=== PATIENT | female | born 1940 | race African-American/Black ===

== ENCOUNTER 2018-02-24 21:06 | Inpatient (IN) | payer MEDICARE, OTHER ==
[~2018-02-24] VITALS: Ht 170.2 cm; Wt 72.6 kg
[~2018-02-24 21:06] MED LIST: ASPIRIN EC81 MG PO; DIOVAN160 MG PO; GLUCOPHAGE500 MG PO; NORCO 5-325 TA1 EACH ORAL
[2018-02-24 21:20] VITALS: BP 211/91
[2018-02-24] MEDS ORDERED: Tylenol #3 tab (300mg/30mg) ORAL ONE (21:45)
--- NOTE | 2018-02-24 23:22 | Diagnostic Imaging Report ---
EXAM: CT Pelvis Without Intravenous Contrast CLINICAL HISTORY: FALL TECHNIQUE: Axial computed tomography images of the pelvis without intravenous contrast. CTDI is 0.25, 11.91 mGy and DLP is 34 mGy-cm. One or more of the following dose reduction techniques were used: automated exposure control, adjustment of the mA and/or kV according to patient size, use of iterative reconstruction technique. COMPARISON: No relevant prior studies available. FINDINGS: Bowel: Unremarkable. No obstruction. No mucosal thickening. Appendix: Appendix is unremarkable. Intraperitoneal space: Unremarkable. No free air. No significant fluid collection. Bladder: Unremarkable. No stones. Reproductive: Uterus is surgically absent. Bones/joints: Acute fracture of the left sacral ala. Acute fracture of the inferior and superior left pubic ramus with extension to the anterior column of acetabulum. No dislocation. Soft tissues: Unremarkable. Vasculature: Vascular calcifications. No lower abdominal aortic aneurysm. Lymph nodes: Unremarkable. IMPRESSION: 1. Acute fracture of the left sacral ala. 2. Acute fracture of the inferior and superior left pubic ramus with extension to the anterior column of acetabulum.
--- NOTE | 2018-02-24 23:25 | Diagnostic Imaging Report ---
EXAM: XR Left Femur, 2 Views CLINICAL HISTORY: PAIN TECHNIQUE: Frontal and lateral views of the left femur. COMPARISON: No relevant prior studies available. FINDINGS: Bones/joints: No acute fracture or traumatic malalignment of the femur. Acute fracture of the inferior and superior left pubic ramus. Soft tissues: Unremarkable. Vasculature: Vascular calcifications. IMPRESSION: 1. No acute fracture or traumatic malalignment of the femur. 2. Acute fracture of the inferior and superior left pubic ramus.
--- NOTE | 2018-02-24 23:26 | Diagnostic Imaging Report ---
EXAM: XR Left Knee, 3 views CLINICAL HISTORY: PAIN TECHNIQUE: Three views of the left knee. COMPARISON: No relevant prior studies available. FINDINGS: Bones/joints: No acute fracture or traumatic malalignment. Soft tissues: Unremarkable. Vasculature: Vascular calcifications. IMPRESSION: No acute findings.
--- NOTE | 2018-02-24 23:26 | Diagnostic Imaging Report ---
EXAM: XR Left Elbow Complete, 3 or More Views CLINICAL HISTORY: PAIN TECHNIQUE: Frontal, lateral and oblique views of the left elbow. COMPARISON: No relevant prior studies available. FINDINGS: Limitations: Limited secondary to positioning. Bones/joints: No definite evidence of acute fracture traumatic malalignment. Osteopenia. Soft tissues: Unremarkable. IMPRESSION: No acute findings.
--- NOTE | 2018-02-24 23:27 | Diagnostic Imaging Report ---
EXAM: XR Left Shoulder Complete, 2 or More Views CLINICAL HISTORY: PAIN TECHNIQUE: Two or more views of the left shoulder. COMPARISON: No relevant prior studies available. FINDINGS: Bones/joints: No acute fracture or traumatic malalignment. Osteopenia. Soft tissues: Unremarkable. IMPRESSION: No acute findings.
[2018-02-24 23:29] LABS: HEMATOCRIT 36.1 % (37.0-47.0); HEMOGLOBIN 11.8 G/DL (12.0-16.0); MEAN CORPUSCULAR VOLUME 89 FL (80-99); PLATELET COUNT 258 K/UL (150-450); RED BLOOD COUNT 4.05 M/UL (4.20-5.40); WHITE BLOOD COUNT 19.5 K/UL (4.8-10.8)
[2018-02-24] MEDS ORDERED: Morphine Sulfate 2mg/ml Inj IVP ONE (23:45)
[2018-02-25 00:11] LABS: ANION GAP 11 mmol/L (5-15); BLOOD UREA NITROGEN 12 mg/dL (7-18); CALCIUM 9.7 MG/DL (8.5-10.1); CARBON DIOXIDE 27 MMOL/L (21-32); CHLORIDE 103 MMOL/L (98-107); CREATININE 1.2 MG/DL (0.55-1.30); POTASSIUM 4.2 MMOL/L (3.5-5.1); SODIUM 141 MMOL/L (136-145)
[2018-02-25 00:18] LABS: ALANINE AMINOTRANSFERASE 23 U/L (12-78); ALBUMIN 3.4 G/DL (3.4-5.0); ALBUMIN/GLOBULIN RATIO 0.8 (1.0-2.7); ALKALINE PHOSPHATASE 82 U/L (46-116); ASPARTATE AMINO TRANSFERASE 17 U/L (15-37); BILIRUBIN,TOTAL 0.3 MG/DL (0.2-1.0)
[2018-02-25] MEDS ORDERED: Morphine Sulfate 4mg/ml Inj (IV/IM USE ONLY) IVP PRN (00:30)
[2018-02-25] MEDS ORDERED: Heparin 5000 units/ml inj SUBQ SCH (00:30)
[2018-02-25] MEDS ORDERED: Milk of Magnesia 30ml Ud ORAL PRN (00:30)
[2018-02-25] MEDS ORDERED: Zolpidem 5mg tab ORAL PRN (00:30)
--- NOTE | 2018-02-25 01:02 | Emergency Room Report ---
History of Present Illness General Chief Complaint: Pain Source: EMS Present Illness HPI 77-year-old female presents ED for evaluation. Patient states that she had a fall at home tonight. She normally uses a walker. States she's having pain on the left side. Denies hitting her head or LOC. States she was here a few days ago for also a fall. Noted to have rib fractures and subsequently discharged. Pain is dull, 7 out of 10, nonradiating. Unable to bear weight at this time. Denies chest pain or shortness of breath. No other aggravating relieving factors. Denies any other associated symptoms Allergies: Coded Allergies: No Known Allergies (Unverified , 05/08/12) Patient History Past Medical History: HTN, CVA/TIA Past Surgical History: none Pertinent Family History: none Social History: Denies: smoking, alcohol use, drug use Now: No Immunizations: UTD Reviewed Nursing Documentation: PMH: Agreed; PSxH: Agreed Nursing Documentation-PMH Hx Cardiac Problems: Yes - CVA Hx Hypertension: Yes Hx Diabetes: Yes Hx Cancer: No Hx Gastrointestinal Problems: Yes Hx Cerebrovascular Accident: Yes Review of Systems All Other Systems: negative except mentioned in HPI Physical Exam Vital Signs Date Time Temp Pulse Resp B/P (MAP) Pulse Ox O2 Delivery O2 Flow Rate FiO2 02/24/18 20:56 98.6 100 15 174/88 93 Room Air 98.6 Sp02 EP Interpretation: reviewed, normal General Appearance: no apparent distress, alert, GCS 15, non-toxic Head: normocephalic Eyes: bilateral eye normal inspection, bilateral eye PERRL ENT: normal ENT inspection Neck: full range of motion, no bony tend, supple/symm/no masses Respiratory: chest non-tender, lungs clear, normal breath sounds, speaking full sentences Cardiovascular #1: regular rate, rhythm, no edema Gastrointestinal: normal bowel sounds, non tender, soft, non-distended, no guarding, no rebound Rectal: deferred Genitourinary: no CVA tenderness Musculoskeletal: other - L hip tenderness, tender - L shoulder, L elbow Neurologic: alert, oriented x3, responsive, motor strength/tone normal, sensory intact, speech normal Psychiatric: normal inspection Skin: normal inspection Lymphatic: normal inspection Medical Decision Making Diagnostic Impression: Primary Impression: Pelvic fracture Qualified Codes: S32.9XXA - Fracture of unspecified parts of lumbosacral spine and pelvis, initial encounter for closed fracture Additional Impression: Fall Qualified Codes: W19.XXXA - Unspecified fall, initial encounter ER Course Hospital Course 77-year-old female presents to ED with L hip pain and L sided pain s/p fall Differential diagnoses include: fracture, dislocation, contusion Clinical course Patient placed on stretcher. After initial history and physical I ordered labs , pain medication and imaging studies Labs reviewed-mild leukocytosis noted, electrolytes okay, hemoglobin/hematocrit okay Imaging shows fracture of the pubic rami extending to acetabulum on the left. CT head shows encephalomalacia and chronic changes Patient unable to bear weight Case discussed with Dr. Carter who agreed to consult on this case. Case discussed with Dr. Rain who agreed to accept the patient to his service for further care and support i. I feel this is a highly complex case requiring extensive working including EKG/Rhythm strip, Xray/CT/US, Blood/urine lab work, repeat exams while in ED, and administration of strong opiates/narcotics for pain control, admission to hospital or close patient follow up. Diagnosis - pelvic Fx, fall Admitted to floor in serious condition Labs Test 02/24/18 23:15 02/24/18 23:45 White Blood Count 19.5 K/UL (4.8-10.8) Red Blood Count 4.05 M/UL (4.20-5.40) Hemoglobin 11.8 G/DL (12.0-16.0) Hematocrit 36.1 % (37.0-47.0) Mean Corpuscular Volume 89 FL (80-99) Mean Corpuscular Hemoglobin 29.2 PG (27.0-31.0) Mean Corpuscular Hemoglobin Concent 32.7 G/DL (32.0-36.0) Red Cell Distribution Width 12.0 % (11.6-14.8) Platelet Count 258 K/UL (150-450) Mean Platelet Volume 10.2 FL (6.5-10.1) Neutrophils (%) (Auto) % (45.0-75.0) Lymphocytes (%) (Auto) % (20.0-45.0) Monocytes (%) (Auto) % (1.0-10.0) Eosinophils (%) (Auto) % (0.0-3.0) Basophils (%) (Auto) % (0.0-2.0) Differential Total Cells Counted 100 Neutrophils % (Manual) 81 % (45-75) Lymphocytes % (Manual) 12 % (20-45) Monocytes % (Manual) 5 % (1-10) Eosinophils % (Manual) 0 % (0-3) Basophils % (Manual) 0 % (0-2) Band Neutrophils 2 % (0-8) Platelet Estimate Adequate Platelet Morphology Normal Red Blood Cell Morphology Normal Sodium Level 141 MMOL/L (136-145) Potassium Level 4.2 MMOL/L (3.5-5.1) Chloride Level 103 MMOL/L (98-107) Carbon Dioxide Level 27 MMOL/L (21-32) Anion Gap 11 mmol/L (5-15) Blood Urea Nitrogen 12 mg/dL (7-18) Creatinine 1.2 MG/DL (0.55-1.30) Estimat Glomerular Filtration Rate mL/min (>60) Glucose Level 282 MG/DL (74-106) Calcium Level 9.7 MG/DL (8.5-10.1) Total Bilirubin 0.3 MG/DL (0.2-1.0) Aspartate Amino Transf (AST/SGOT) 17 U/L (15-37) Alanine Aminotransferase (ALT/SGPT) 23 U/L (12-78) Alkaline Phosphatase 82 U/L (46-116) Total Protein 7.6 G/DL (6.4-8.2) Albumin 3.4 G/DL (3.4-5.0) Globulin 4.2 g/dL Albumin/Globulin Ratio 0.8 (1.0-2.7) Other X-Ray Diagnostic Results Other X-Ray Diagnostic Results #1: X-Ray ordered: L shoulder # of Views/Limited Vs Complete: 3 View Indication: Pain EP Interpretation: Yes Interpretation: no dislocation, no soft tissue swelling, no fractures Impression: No acute disease Electronically Signed by: Electronically signed by Polo Fraser MD Other X-Ray Diagnostic Results #2: X-Ray ordered: L elbow # of Views/Limited Vs Complete: 3 View Indication: Pain EP Interpretation: Yes Interpretation: no dislocation, no soft tissue swelling, no fractures Impression: No acute disease Electronically Signed by: Electronically signed by Polo Fraser MD Other X-Ray Diagnostic Results #3: X-Ray ordered: L femur # of Views/Limited Vs Complete: 3 View Indication: Pain EP Interpretation: Yes Interpretation: no dislocation, no soft tissue swelling, other - pubic ramus fx Impression: Other - fx Electronically Signed by: Electronically signed by Polo Fraser MD Other X-Ray Diagnostic Results #4: X-Ray ordered: L knee # of Views/Limited Vs Complete: 3 View Indication: Pain EP Interpretation: Yes Interpretation: no dislocation, no soft tissue swelling, no fractures Impression: No acute disease Electronically Signed by: Electronically signed by Polo Fraser MD CT/MRI/US Diagnostic Results CT/MRI/US Diagnostic Results #1: Imaging Test Ordered: CT Pelvis Impression 1. Acute fracture of the left sacral ala. 2. Acute fracture of the inferior and superior left pubic ramus with extension to the anterior column of acetabulum CT/MRI/US Diagnostic Results #2: Imaging Test Ordered: CT HEad Impression no acute process Last Vital Signs Date Time Temp Pulse Resp B/P (MAP) Pulse Ox O2 Delivery O2 Flow Rate FiO2 02/24/18 23:53 186/77 02/24/18 23:53 98.6 02/24/18 21:20 99 17 93 Room Air Status: improved Disposition: ADMITTED INPATIENT Condition: Serious Referrals: NOT CHOSEN IPA/,REFERRING (PCP) Polo Fraser MD Feb 25, 2018 01:02
[2018-02-25 01:16] VITALS: BP 191/95
--- NOTE | 2018-02-25 01:43 | Diagnostic Imaging Report ---
PROCEDURE: CT HEAD Without Contrast HISTORY: 77-year-old female with headache after trauma. COMPARISON: CT head 02/19/2018 TECHNIQUE: CT imaging was obtained through the head. Coronal reformations were performed. DOSE: Total Exam volume computed tomography dose index (CTDIvol) = 70.53 mGy and Dose Length Product (DLP) = 1209 mGY-cm. One or more of the following dose reduction techniques were used: automated exposure control, adjustment of the mA and/or kV according to patient size, use of iterative reconstruction technique. FINDINGS: There is no evidence of acute intracranial hemorrhage, mass effect, or midline shift. The ventricles, sulci, and cisternal spaces are within normal limits for age. The tran-white matter differentiation is preserved. Postoperative changes of aneurysm clipping are similar to prior. Encephalomalacia in the right frontal, temporal, and parietal lobes with associated calcifications is similar to prior. The bony structures are intact. Visualized paranasal sinuses and mastoid air cells are clear. Visualized portions of the orbits are within normal limits. IMPRESSION: 1. No CT evidence of acute intracranial abnormality. 2. Other findings as detailed above.
[2018-02-25 01:47] LABS: APPEARANCE,URINE SLIGHTLY CLOUDY; BILIRUBIN, URINE NEGATIVE (NEGATIVE); COLOR,URINE PALE YELLOW; GLUCOSE, URINE (UA) 4+ (NEGATIVE); KETONES,URINE 3+ (NEGATIVE); LEUKOCYTE ESTERASE ,URINE 3+ (NEGATIVE); NITRITE,URINE POSITIVE (NEGATIVE); PH,URINE 7 (4.5-8.0); PROTEIN,URINE 1+ (NEGATIVE); UROBILINOGEN,URINE NORMAL MG/DL (0.0-1.0)
[2018-02-25] MEDS ORDERED: Heparin 5000 units/ml inj SUBQ ONE (03:15)
[2018-02-25 04:00] VITALS: BP 144/79
[2018-02-25] MEDS: NovoLOG Insulin Flexpen SUBQ SCH ×4 (07:14→21:56)
[2018-02-25 08:00] VITALS: BP 152/68
[2018-02-25] MEDS: Aspirin EC 81mg tab ORAL SCH (08:24)
[2018-02-25] MEDS: Morphine Sulfate 2mg/ml Inj IVP PRN ×2 (09:56→22:28)
[2018-02-25 12:18] VITALS: BP 150/80
--- NOTE | 2018-02-25 12:18 | History & Physical ---
History and Physical History & Physicial HP dictated # [id number] Arnulfo Rain MD Feb 25, 2018 12:18
[2018-02-25] MEDS: Cefepime HCl 1 GM in D5W 55 ML IVPB SCH (13:36)
[2018-02-25 16:00] VITALS: BP 139/77
--- NOTE | 2018-02-25 19:00 | History and Physical Report ---
DATE OF ADMISSION: 02/24/2018 CHIEF COMPLAINT: The patient fell at home and had hip pain. HISTORY OF PRESENT ILLNESS: This is a 77-year-old -[place] female, who lives at home with a nephew. The patient was trying to get to a pot to have stool and she fell. She did not feel dizzy, however, after the fall, she was not able to stand up. Paramedics were called. The patient was brought into the emergency room. The patient had a pelvic CT showing an acute fracture of the left sacral ala, also acute fracture of the inferior and superior left pubic ramus with extension to the anterior column of acetabulum. The patient was admitted with diagnosis of pelvic fracture. PAST MEDICAL HISTORY: Includes history of hypertension, diabetes, reported history of CVA. She has some stomach upset occasionally. MEDICATIONS: Reviewed in the EMR. SOCIAL HISTORY: The patient has no history of smoking or alcohol abuse. The patient lives at home as mentioned. REVIEW OF SYSTEMS: Also notable for dysuria, otherwise unremarkable. PHYSICAL EXAMINATION: GENERAL: The patient is an elderly female, in no acute distress. VITAL SIGNS: Blood pressure 152/68, pulse 96, respiratory rate 19, and temperature 97.7. HEENT: [place] conjunctivae. Anicteric sclerae. NECK: Supple. LUNGS: Clear to auscultation. HEART: S1 and S2 without murmurs or rubs. ABDOMEN: Soft and nontender. EXTREMITIES: No cyanosis or edema. LABORATORY FINDINGS: CBC shows WBC of 19,500, hematocrit is 36.1, hemoglobin is 11.8, and platelet is 258,000. Chemistry panel shows serum sodium 141, potassium 4.2, chloride 103, CO2 27, and blood sugar is 282. The UA shows 5-10 rbc's and 30-40 wbc's per high-power field with moderate bacteria. ASSESSMENT: This is a 77-year-old female, who is status post fall with pelvic fracture as described. The patient has also urinary tract infection. She has history of diabetes and hypertension. PLAN: The patient will be on pain medication and IV antibiotics. Physical therapy will be ordered. The patient will be seen by orthopedic surgeon. Blood pressure medications will be adjusted. She will be on sliding scale insulin at this time for diabetes. Arnulfo Rain M.D. DR: ZAID JOB#: [id number] CC:
[2018-02-25 20:00] VITALS: BP 177/87
--- NOTE | 2018-02-25 20:00 | Consultation ---
DATE OF CONSULTATION: 02/25/2018 INFECTIOUS DISEASE CONSULTATION CONSULTING PHYSICIAN: Dallas Rain M.D. PRIMARY ATTENDING PHYSICIAN: Arnulfo Rain M.D. REASON FOR CONSULT: UTI. HISTORY OF PRESENT ILLNESS: This is a 77-year-old female admitted last night after having a fall. The patient was found to have pelvic fracture, had leukocytosis at the time of admission, has pyuria, has difficulty of passing urine that started after the fall. PAST MEDICAL HISTORY: Significant for CVA with weakness in the left side of the body. The patient walks with a walker at home. She has diabetes mellitus and hypertension. She has history of rib fractures on 02/19/2018. Discharged to home from the ER. ALLERGIES: No known drug allergies. MEDICATIONS: Getting amlodipine, heparin, cefepime, aspirin, insulin, Tylenol, morphine, Zofran, and Ambien. SOCIAL HISTORY: . No history of alcohol, drug abuse, or smoking. She has some help at home. REVIEW OF SYSTEMS: No fever. No chills. Pain is controlled. No coughing. She sometimes has difficulty of swallowing. No nausea. No vomiting. Dysuria. Pain in the left hip. Cannot move the left hand secondary to previous CVA. PHYSICAL EXAMINATION: VITAL SIGNS: Temperature 98.9, pulse 102, and blood pressure 150/80. GENERAL APPEARANCE: No acute distress. HEAD AND NECK: [place] conjunctivae. Uses glasses. HEART: S1 and S2. Regular. Tachycardic. LUNGS: Clear. ABDOMEN: Soft and nontender. EXTREMITIES: No edema. LABORATORY DATA: WBC is 19.5, hemoglobin 11.8, hematocrit 36.1, and platelets 268,000. Sodium 141, potassium 4.2, chloride 103, bicarbonate 27, BUN 12, creatinine 1.2, glucose 282. UA showed glucose 4+, ketones 2+, blood 2+, nitrite positive, wbc's 30-40, rbc's 5-10, bacteria moderate. IMAGING: CT scan of the pelvis showed left sacral ala fracture, left pubic ramus fracture. Followup CT showed no fracture in the femur, but showed pubic ramus fracture in the left side. IMPRESSION: Pyuria and dysuria, likely UTI. Urine culture is pending. The patient has frequent falls. At this time, fall has resulted in left pelvic fracture. She has recent history of rib fracture. She has diabetes mellitus, hypertension, has history of CVA and hemiparesis. RECOMMENDATION: We will continue with cefepime. We will follow up urine culture. At the end of my exam, I thank Dr. Rain for involving me in the care of this patient. Dallas Rain M.D. DR: ALVERTO JOB#: [id number] CC: TERELL
[2018-02-25] MEDS: Heparin 5000 units/ml inj SUBQ SCH (21:48)
[2018-02-26] MEDS: Cefepime HCl 1 GM in D5W 55 ML IVPB SCH ×2 (01:09→14:03)
[2018-02-26 06:44] LABS: BASOPHILS % (AUTO) 0.5 % (0.0-2.0); EOSINOPHILS % (AUTO) 1.3 % (0.0-3.0); HEMOGLOBIN 11.2 G/DL (12.0-16.0); MEAN CORPUSCULAR VOLUME 87 FL (80-99); MONOCYTES % (AUTO) 5.4 % (1.0-10.0); NEUTROPHILS % (AUTO) 82.8 % (45.0-75.0); PLATELET COUNT 220 K/UL (150-450); RED BLOOD COUNT 3.78 M/UL (4.20-5.40); RED CELL DISTRIBUTION WIDTH 11.8 % (11.6-14.8); WHITE BLOOD COUNT 16.1 K/UL (4.8-10.8)
[2018-02-26] MEDS: NovoLOG Insulin Flexpen SUBQ SCH ×4 (06:50→20:24)
[2018-02-26 06:52] LABS: ANION GAP 10 mmol/L (5-15); BLOOD UREA NITROGEN 13 mg/dL (7-18); CALCIUM 9.3 MG/DL (8.5-10.1); CARBON DIOXIDE 26 MMOL/L (21-32); CHLORIDE 102 MMOL/L (98-107); CREATININE 1.1 MG/DL (0.55-1.30); POTASSIUM 3.9 MMOL/L (3.5-5.1); SODIUM 138 MMOL/L (136-145)
[2018-02-26 08:00] VITALS: BP 183/91
--- NOTE | 2018-02-26 08:12 | Consultation ---
Consult Note Consult Note 77 yo female with fall monday night. left LE pain and difficulty ambulating Xray/CT note left sacral ala fracture- non displaced and left inferior and superior pubic rami fractures without displacement. Currently pt's pain much better controlled. Rec non-surgical care. Pt can toe touch weight bear only x6 weeks. to be seen by PT. Assessment/Plan stable for d/c from ortho standpoint once stable medically. f/u as outpt for ongoing monitoring and progression of activity after 6 weeks. Susannah Rodriguez Feb 26, 2018 08:12
[2018-02-26] MEDS: Morphine Sulfate 2mg/ml Inj IVP PRN ×2 (09:10→16:55)
[2018-02-26] MEDS: Aspirin EC 81mg tab ORAL SCH (09:13)
[2018-02-26] MEDS: Heparin 5000 units/ml inj SUBQ SCH ×2 (09:19→20:20)
--- NOTE | 2018-02-26 11:00 | Consultation ---
DATE OF CONSULTATION: 02/26/2018 ORTHOPEDIC CONSULTATION CONSULTING PHYSICIAN: Crescencio Christie M.D. REFERRING PHYSICIAN: Consult called by Arnulfo Rain M.D. HISTORY: The patient is a pleasant 77-year-old female, who lives at home with her nephew and had a mechanical fall in her home on Monday night. She states she got up and she was standing on the stool, trying to get a pot from the cabinet when she fell. Paramedics were called and she was brought to [facility] where she was noted to have a pelvic fracture. Orthopedic consult has been called for treatment recommendations. PAST MEDICAL HISTORY: High blood pressure, diabetes, and history of stroke. PAST SURGICAL HISTORY: None. CURRENT MEDICATIONS: Please see chart. ALLERGIES: None. SOCIAL HISTORY: She does not smoke. She lives with her nephew, is independent with activities at baseline. PHYSICAL EXAMINATION: GENERAL: The patient is a very pleasant woman. She is cooperative with examination. She seated on the edge of the bed receiving some therapy modalities. EXTREMITIES: She has some tenderness to the left pelvis and some tenderness around the left hip. She is able to flex her hip without significant pain. She is able to internally and externally rotate her hip minimally without significant pain. There is no evidence of major bruising. There is no erythema or signs of skin breakdown. She is neurovascularly intact. She endorsing plantar flex. DIAGNOSTIC DATA: X-ray and CT, pelvic and femur x-rays are reviewed. No evidence of femur fracture or knee fracture. However, there is nondisplaced inferior and superior pubic rami fracture on the left. CT scan is also reviewed noting a left sacral ala fracture, which is nondisplaced and an inferior and superior pubic rami fracture on the left, that is nondisplaced. The fracture of the pubic rami does extend to the acetabular column, however there is no displacement here. There is no dislocation of the hip. IMPRESSION: 1. Left sacral ala fracture, nondisplaced. 2. Left inferior and superior pubic rami fracture, nondisplaced. DISCUSSION: I discussed with the patient my findings. I do not recommend surgery and she is very happy to hear that. I would recommend toe-touch weightbearing for six full weeks to allow the fracture to stabilize and heal. After six weeks, she can be progressed in her weightbearing and continue rehabilitation at that time. She may require short-term stay in rehabilitation center following her discharge from the hospital and she understands that. We will be happy to see her back as an outpatient for continued monitoring and serial x-rays to follow up that the fractures are healing. After six weeks, we will be able to progress her in her weightbearing status. All questions were answered. This was also discussed with physical therapist at the bedside. We will make note of the weightbearing status and start working with the patient. Crescencio Christie M.D. Vitor Morales DR: RACHEL JOB#: [id number] CC: TERELL
[2018-02-26] MEDS: metFORMIN 500mg tab ORAL SCH ×2 (11:30→18:01)
--- NOTE | 2018-02-26 12:32 | General Progress Note ---
Assessment/Plan Problem List: (1) Pelvic fracture ICD Codes: S32.9XXA - Fracture of unspecified parts of lumbosacral spine and pelvis, initial encounter for closed fracture SNOMED: 61375190 Qualifiers: Qualified Codes: S32.9XXA - Fracture of unspecified parts of lumbosacral spine and pelvis, initial encounter for closed fracture (2) Fall ICD Codes: W19.XXXA - Unspecified fall, initial encounter SNOMED: 8352003, [id number] Qualifiers: Qualified Codes: W19.XXXA - Unspecified fall, initial encounter (3) UTI (urinary tract infection) ICD Codes: N39.0 - Urinary tract infection, site not specified SNOMED: 51110505 (4) DM (diabetes mellitus) ICD Codes: E11.9 - Type 2 diabetes mellitus without complications SNOMED: 49361583 (5) HTN (hypertension) ICD Codes: I10 - Essential (primary) hypertension SNOMED: 80410601 Assessment/Plan abxs endo consult pain meds PT Subjective Allergies: Coded Allergies: No Known Allergies (Unverified , 05/08/12) Subjective feels ok Objective Last 24 Hour Vital Signs Date Time Temp Pulse Resp B/P (MAP) Pulse Ox O2 Delivery O2 Flow Rate FiO2 02/26/18 09:13 116 183/91 02/26/18 09:00 Room Air 02/26/18 08:00 98.6 116 21 183/91 (121) 94 98.6 116 02/26/18 04:00 100.0 109 19 95 100.0 02/25/18 21:00 Room Air 02/25/18 20:00 97.0 122 19 177/87 (117) 100 97.0 02/25/18 16:00 98.4 60 21 139/77 (97) 98 98.4 02/25/18 13:10 102 150/80 Intake and Output 02/25/18 02/26/18 19:00 07:00 Intake Total 830 ml 240 ml Output Total 1450 ml Balance 830 ml -1210 ml Intake Oral 720 ml 240 ml IV Total 110 ml Output Urine Total 1450 ml Laboratory Tests 02/26/18 05:35: White Blood Count 16.1H, Red Blood Count 3.78L, Hemoglobin 11.2L, Hematocrit 33.0L, Mean Corpuscular Volume 87, Mean Corpuscular Hemoglobin 29.5, Mean Corpuscular Hemoglobin Concent 33.8, Red Cell Distribution Width 11.8, Platelet Count 220, Mean Platelet Volume 10.2H, Neutrophils (%) (Auto) 82.8H, Lymphocytes (%) (Auto) 10.0L, Monocytes (%) (Auto) 5.4, Eosinophils (%) (Auto) 1.3, Basophils (%) (Auto) 0.5, Sodium Level 138, Potassium Level 3.9, Chloride Level 102, Carbon Dioxide Level 26, Anion Gap 10, Blood Urea Nitrogen 13, Creatinine 1.1, Estimat Glomerular Filtration Rate , Glucose Level 267H, Hemoglobin A1c 9.4H, Calcium Level 9.3 Height (Feet): 5 Height (Inches): 7.00 Weight (Pounds): 160 Cardiovascular: normal rate Respiratory/Chest: lungs clear Edema: no edema noted Generalized Arnulfo Rain MD Feb 26, 2018 12:32
--- NOTE | 2018-02-26 13:12 | Infectious Diseases Prog Note ---
Assessment/Plan Assessment/Plan A; UTI Left pelvic fracture DM HPN Unsteady gait Recurrent falls P: Contine Cefepime will f/u urine culture Subjective ROS Limited/Unobtainable: No Constitutional: Reports: fever, other - T [id number] Respiratory: Reports: no symptoms Cardiovascular: Reports: no symptoms Gastrointestinal/Abdominal: Reports: no symptoms Genitourinary: Reports: dysuria Musculoskeletal: Reports: pain, other - in left leg Allergies: Coded Allergies: No Known Allergies (Unverified , 05/08/12) Objective Vital Signs Last 24 Hour Vital Signs Date Time Temp Pulse Resp B/P (MAP) Pulse Ox O2 Delivery O2 Flow Rate FiO2 02/26/18 09:13 116 183/91 02/26/18 09:00 Room Air 02/26/18 08:00 98.6 116 21 183/91 (121) 94 98.6 116 02/26/18 04:00 100.0 109 19 95 100.0 02/25/18 21:00 Room Air 02/25/18 20:00 97.0 122 19 177/87 (117) 100 97.0 02/25/18 16:00 98.4 60 21 139/77 (97) 98 98.4 02/25/18 13:10 102 150/80 Height (Feet): 5 Height (Inches): 7.00 Weight (Pounds): 160 General Appearance: no acute distress HEENT: mucous membranes moist Respiratory/Chest: lungs clear Cardiovascular: normal rate Abdomen: soft, non tender Extremities: no edema Neurologic/Psychiatric: alert, responsive, motor weakness, other - left side hemiparesis Microbiology Date/Time Source Procedure Growth Status 02/25/18 01:10 Rectum - Preliminary Resulted Laboratory Tests Test 02/26/18 05:35 White Blood Count 16.1 K/UL (4.8-10.8) H Red Blood Count 3.78 M/UL (4.20-5.40) L Hemoglobin 11.2 G/DL (12.0-16.0) L Hematocrit 33.0 % (37.0-47.0) L Mean Corpuscular Volume 87 FL (80-99) Mean Corpuscular Hemoglobin 29.5 PG (27.0-31.0) Mean Corpuscular Hemoglobin Concent 33.8 G/DL (32.0-36.0) Red Cell Distribution Width 11.8 % (11.6-14.8) Platelet Count 220 K/UL (150-450) Mean Platelet Volume 10.2 FL (6.5-10.1) H Neutrophils (%) (Auto) 82.8 % (45.0-75.0) H Lymphocytes (%) (Auto) 10.0 % (20.0-45.0) L Monocytes (%) (Auto) 5.4 % (1.0-10.0) Eosinophils (%) (Auto) 1.3 % (0.0-3.0) Basophils (%) (Auto) 0.5 % (0.0-2.0) Sodium Level 138 MMOL/L (136-145) Potassium Level 3.9 MMOL/L (3.5-5.1) Chloride Level 102 MMOL/L (98-107) Carbon Dioxide Level 26 MMOL/L (21-32) Anion Gap 10 mmol/L (5-15) Blood Urea Nitrogen 13 mg/dL (7-18) Creatinine 1.1 MG/DL (0.55-1.30) Estimat Glomerular Filtration Rate mL/min (>60) Glucose Level 267 MG/DL (74-106) H Hemoglobin A1c 9.4 % (4.3-6.0) H Calcium Level 9.3 MG/DL (8.5-10.1) Current Medications Medications (Trade) Dose Ordered Sig/Mar Route PRN Reason Start Time Stop Time Status Last Admin Dose Admin Acetaminophen (Tylenol) 650 mg Q4H PRN ORAL Mild Pain (Pain Scale 1-3) 02/25/18 00:30 03/27/18 00:29 Amlodipine Besylate (Norvasc) 5 mg DAILY ORAL 02/26/18 09:00 03/28/18 08:59 02/26/18 09:13 Aspirin (Ecotrin) 81 mg DAILY ORAL 02/25/18 09:00 03/27/18 08:59 02/26/18 09:13 Cefepime HCl 1 gm/ Dextrose 55 ml @ 110 mls/hr Q12H IVPB 02/25/18 13:00 03/04/18 12:59 02/26/18 01:09 Dextrose (Dextrose 50%) 25 ml Q30M PRN IV Hypoglycemia 02/25/18 00:30 03/27/18 00:29 Dextrose (Dextrose 50%) 50 ml Q30M PRN IV Hypoglycemia 02/25/18 00:30 03/27/18 00:29 Heparin Sodium (Porcine) (Heparin 5000 units/ml) 5,000 units EVERY 12 HOURS SUBQ 02/25/18 21:00 03/27/18 20:59 02/26/18 09:19 Insulin Aspart (NovoLOG) BEFORE MEALS AND HS SUBQ 02/25/18 06:30 03/27/18 06:29 02/26/18 11:35 Magnesium Hydroxide (Mom) 30 ml HSPRN PRN ORAL Constipation 02/25/18 00:30 03/27/18 00:29 Metformin HCl (Glucophage) 500 mg BID ORAL 02/26/18 11:30 03/28/18 11:29 02/26/18 11:30 Morphine Sulfate (Morphine Sulfate) 2 mg EVERY 3 HOURS PRN IVP Moderate Pain (Pain Scale 4-6) 02/25/18 00:30 03/04/18 00:29 02/26/18 09:10 Morphine Sulfate (Morphine Sulfate) 4 mg EVERY 3 HOURS PRN IVP Severe Pain (Pain Scale 7-10) 02/25/18 00:30 03/04/18 00:29 Ondansetron HCl (Zofran) 4 mg Q6H PRN IVP Nausea & Vomiting 02/25/18 00:30 03/27/18 00:29 Zolpidem Tartrate (Ambien) 5 mg HSPRN PRN ORAL Insomnia 02/25/18 00:30 03/04/18 00:29 Dallas Rain MD Feb 26, 2018 13:12
[2018-02-26] MEDS ORDERED: Tubing IV Secondary IV ONE (15:32)
[2018-02-26] MEDS ORDERED: NS 275ml ONE (15:32)
[2018-02-26 16:29] VITALS: BP 138/86
[2018-02-26 20:00] VITALS: BP 159/91
[2018-02-27] MEDS: Nateglinide 60mg tab ORAL SCH ×3 (06:36→16:30)
[2018-02-27] MEDS: NovoLOG Insulin Flexpen SUBQ SCH ×3 (06:38→17:47)
[2018-02-27] MEDS: Aspirin EC 81mg tab ORAL SCH (08:28)
[2018-02-27] MEDS: metFORMIN 500mg tab ORAL SCH ×2 (08:28→17:46)
[2018-02-27] MEDS: Heparin 5000 units/ml inj SUBQ SCH (08:29)
[2018-02-27 09:00] VITALS: BP 143/75
[2018-02-27] MEDS ORDERED: Cefepime HCl 1 GM in D5W 55 ML IVPB SCH (09:00)
--- NOTE | 2018-02-27 12:31 | Infectious Diseases Prog Note ---
Assessment/Plan Assessment/Plan A; UTI, culture GNR Left pelvic fracture DM HPN Unsteady gait Recurrent falls P: Continue Cefepime will f/u urine culture Discontinue Harris catheter Subjective ROS Limited/Unobtainable: No Respiratory: Reports: no symptoms Gastrointestinal/Abdominal: Reports: no symptoms Genitourinary: Reports: other - discomfort with Harris Musculoskeletal: Reports: pain, other - with standing Allergies: Coded Allergies: No Known Allergies (Unverified , 05/08/12) Objective Vital Signs Last 24 Hour Vital Signs Date Time Temp Pulse Resp B/P (MAP) Pulse Ox O2 Delivery O2 Flow Rate FiO2 02/27/18 09:00 Room Air 02/27/18 09:00 98.2 110 21 143/75 (97) 96 98.2 02/27/18 08:27 100 144/91 02/26/18 21:00 Room Air 02/26/18 20:00 99.6 104 21 159/91 (113) 96 99.6 02/26/18 16:29 98.2 106 20 138/86 (103) 97 98.2 Height (Feet): 5 Height (Inches): 7.00 Weight (Pounds): 160 HEENT: mucous membranes moist Respiratory/Chest: lungs clear Cardiovascular: normal rate Abdomen: soft, non tender Genitourinary: other - Harris catheter Extremities: no edema Neurologic/Psychiatric: alert, responsive Microbiology Date/Time Source Procedure Growth Status 02/25/18 01:10 Nasal Nares MRSA Culture - Final NO METHICILLIN RESISTANT STAPH AUREUS... Complete 02/25/18 00:45 Urine,Clean Catch Urine Culture - Preliminary Gram Negative Bacillus 1 Resulted 02/25/18 01:10 Rectum - Final NO CARBAPENEM-RESISTANT ENTEROBACTERI... Complete 02/25/18 01:10 Rectum VRE Culture - Final NO VANCOMYCIN RESISTANT ENTEROCOCCUS ... Complete Current Medications Medications (Trade) Dose Ordered Sig/Mar Route PRN Reason Start Time Stop Time Status Last Admin Dose Admin Acetaminophen (Tylenol) 650 mg Q4H PRN ORAL Mild Pain (Pain Scale 1-3) 02/25/18 00:30 03/27/18 00:29 Amlodipine Besylate (Norvasc) 5 mg DAILY ORAL 02/26/18 09:00 03/28/18 08:59 02/27/18 08:27 Aspirin (Ecotrin) 81 mg DAILY ORAL 02/25/18 09:00 03/27/18 08:59 02/27/18 08:28 Cefepime HCl 1 gm/ Dextrose 55 ml @ 110 mls/hr DAILY IVPB 02/27/18 09:00 03/04/18 08:59 02/27/18 08:27 Dextrose (Dextrose 50%) 25 ml Q30M PRN IV Hypoglycemia 02/25/18 00:30 03/27/18 00:29 Dextrose (Dextrose 50%) 50 ml Q30M PRN IV Hypoglycemia 02/25/18 00:30 03/27/18 00:29 Heparin Sodium (Porcine) (Heparin 5000 units/ml) 5,000 units EVERY 12 HOURS SUBQ 02/25/18 21:00 03/27/18 20:59 02/27/18 08:29 Insulin Aspart (NovoLOG) BEFORE MEALS AND HS SUBQ 02/25/18 06:30 03/27/18 06:29 02/27/18 12:15 Magnesium Hydroxide (Mom) 30 ml HSPRN PRN ORAL Constipation 02/25/18 00:30 03/27/18 00:29 Metformin HCl (Glucophage) 500 mg BID ORAL 02/26/18 11:30 03/28/18 11:29 02/27/18 08:28 Morphine Sulfate (Morphine Sulfate) 2 mg EVERY 3 HOURS PRN IVP Moderate Pain (Pain Scale 4-6) 02/25/18 00:30 03/04/18 00:29 02/26/18 16:55 Morphine Sulfate (Morphine Sulfate) 4 mg EVERY 3 HOURS PRN IVP Severe Pain (Pain Scale 7-10) 02/25/18 00:30 03/04/18 00:29 Nateglinide (Starlix) 60 mg TIAC ORAL 02/27/18 06:30 03/29/18 06:29 02/27/18 12:15 Ondansetron HCl (Zofran) 4 mg Q6H PRN IVP Nausea & Vomiting 02/25/18 00:30 03/27/18 00:29 Sitagliptin Phosphate (Januvia) 100 mg ACBREAKFAST ORAL 02/27/18 06:30 03/29/18 06:29 02/27/18 06:36 Zolpidem Tartrate (Ambien) 5 mg HSPRN PRN ORAL Insomnia 02/25/18 00:30 03/04/18 00:29 Dallas Rain MD Feb 27, 2018 12:31
--- NOTE | 2018-02-27 12:45 | Consultation ---
DATE OF CONSULTATION: 02/27/2018 ENDOCRINOLOGY CONSULTATION CONSULTING PHYSICIAN: Luisito Quintero M.D. REFERRING PHYSICIAN: Arnulfo Rain M.D. REASON FOR CONSULTATION: Diabetes management. HISTORY OF PRESENT ILLNESS: The patient is a 77-year-old female with a history of diabetes, who had a fall at home after feeling dizzy. She was not able to stand up. Paramedics were called. The patient was brought to the emergency department. The pelvic CT showed an acute fracture of the sacral ala, an acute fracture of the inferior and superior left pubic ramus with extension to the anterior column of acetabulum. The patient was admitted with evaluation and treatment of pelvic fracture. Diabetes was out of control. Endocrinology was consulted. She has been evaluated by orthopedic surgeon. PAST MEDICAL HISTORY: 1. Hypertension. 2. Diabetes. 3. CVA. 4. GI upset. MEDICATIONS: As an outpatient, reviewed and reconciled. For diabetes, she takes metformin and glimepiride. SOCIAL HISTORY: No history of smoking, alcohol, or drug use. REVIEW OF SYSTEMS: As per HPI. FAMILY HISTORY: Diabetes. PHYSICAL EXAMINATION: GENERAL: She is awake and alert. VITAL SIGNS: Blood pressure is 150/70, pulse of 80, temperature of 98.2, and respiratory rate of 18. HEENT: Pupils are equal and reactive to light. Sclerae anicteric. NECK: No JVD. No thyromegaly. No bruit. LUNGS: Clear. HEART: Regular rate and rhythm. ABDOMEN: Positive bowel sounds. EXTREMITIES: Lower extremity, no clubbing, cyanosis, or edema. LABORATORY DATA: Sodium 138, potassium 3.9, chloride 102, bicarbonate 26, BUN 13, creatinine 1.1, glucose 267, A1c of 9.4. WBC is 16, hemoglobin 11.2, hematocrit 33, and platelets of 220. Urine shows wbc of 30 to 40 with 3+ leukocytes. DIAGNOSES: 1. Hip fracture. 2. Urinary tract infection. 3. Diabetes, out of control. PLAN: 1. Continue metformin 500 mg b.i.d. 2. Add Januvia 100 mg daily. 3. Add Starlix 60 mg before meals t.i.d. 4. Continue sliding scale insulin before meals and at bedtime. 5. Further adjustment will be done according to blood glucose values. 6. Diet should be diabetic. 7. We will follow the patient closely during hospital stay. Thank you Dr. Rain, for the courtesy of this consultation. Luisito Quintero M.D. DR: KARINA JOB#: [id number] CC: TERELL
--- NOTE | 2018-02-27 14:33 | General Progress Note ---
Assessment/Plan Problem List: (1) Pelvic fracture ICD Codes: S32.9XXA - Fracture of unspecified parts of lumbosacral spine and pelvis, initial encounter for closed fracture SNOMED: 74845868 Qualifiers: Qualified Codes: S32.9XXA - Fracture of unspecified parts of lumbosacral spine and pelvis, initial encounter for closed fracture (2) Fall ICD Codes: W19.XXXA - Unspecified fall, initial encounter SNOMED: 6608921, 565253985 Qualifiers: Qualified Codes: W19.XXXA - Unspecified fall, initial encounter (3) UTI (urinary tract infection) ICD Codes: N39.0 - Urinary tract infection, site not specified SNOMED: 87852719 (4) DM (diabetes mellitus) ICD Codes: E11.9 - Type 2 diabetes mellitus without complications SNOMED: 38779264 (5) HTN (hypertension) ICD Codes: I10 - Essential (primary) hypertension SNOMED: 88973227 Assessment/Plan cont as is DC today Subjective Allergies: Coded Allergies: No Known Allergies (Unverified , 05/08/12) Subjective feels ok Objective Last 24 Hour Vital Signs Date Time Temp Pulse Resp B/P (MAP) Pulse Ox O2 Delivery O2 Flow Rate FiO2 02/27/18 09:00 Room Air 02/27/18 09:00 98.2 110 21 143/75 (97) 96 98.2 02/27/18 08:27 100 144/91 02/26/18 21:00 Room Air 02/26/18 20:00 99.6 104 21 159/91 (113) 96 99.6 02/26/18 16:29 98.2 106 20 138/86 (103) 97 98.2 Intake and Output 02/26/18 02/27/18 19:00 07:00 Intake Total 295 ml 240 ml Output Total 750 ml 225 ml Balance -455 ml 15 ml Intake Oral 240 ml 240 ml IV Total 55 ml Output Urine Total 750 ml 225 ml Height (Feet): 5 Height (Inches): 7.00 Weight (Pounds): 160 Cardiovascular: normal rate Respiratory/Chest: lungs clear Arnulfo Rain MD Feb 27, 2018 14:33
[2018-02-27] MEDS ORDERED: MORPHINE 2 MG IVP (14:37)
[2018-02-27] MEDS ORDERED: NORVASC5 MG ORAL (14:37)
[2018-02-27] MEDS ORDERED: MORPHINE SU4 MG/1 ML IVP (14:37)
[2018-02-27] MEDS ORDERED: STARLIX60 MG ORAL (14:37)
[2018-02-27] MEDS ORDERED: HEPARIN SO5000 UNIT2 SUBQ (14:37)
[2018-02-27] MEDS ORDERED: JANUVIA100 MG ORAL (14:37)
[2018-02-27 17:00] VITALS: BP 133/75
--- NOTE | 2018-02-28 13:56 | Discharge Summary ---
Discharge Summary Discharge Summary _ DATE OF ADMISSION: 02/24/2018 DATE OF DISCHARGE:2017 REASON FOR ADMISSION: 77 years old female with past medical history of hypertension, CVA, diabetes mellitus, presented after she sustained a fall at home. Patient at baseline uses a walker. Patient reported pain on the left side and inability to bear weight at this time. Pain reported as dull, 7 out of 10 ,nonradiating . She denied chest pain or shortness of breath She denied loss of consciousness or hitting her head. Patient was in emergency department few days ago , after fall . At that time no fractures noted , and patient was subsequently discharged. Upon evaluation blood pressure was elevated 174/88. Laboratory workup revealed leukocytosis WBC 19.5 BUN 12 ,creatinine 1.2. Hemoglobin 11.8, hematocrit 36.1. Glucose [address] of the head revealed no evidence of acute intracranial pathology. Left shoulder x-ray revealed no acute findings. Left elbow x-ray revealed no acute findings. Left knee x-ray revealed no acute findings. Pelvis CT revealed acute fracture of the left sacrum. Acute fracture of the inferior and superior left pubic ramus with extension to the anterior column of acetabulum. Left femur x-ray revealed no acute fracture or traumatic misalignment of the femur. It demonstrate however, acute fracture of the inferior and superior left pubic ramus. Urinalysis with evidence of UTI, +4 glucose ,+3 ketones. Patient admitted with diagnoses of fall ,pelvic fracture ,diabetes mellitus , urinary tract infection, hypertension. CONSULTANTS: ID specialist Dr. Jain ortho surgery nps Dr. Quintero [facility] COURSE: Patient admitted to medical surgical floor. Pain management was addressed. Orthopedic surgery consult was requested. Orthopedic surgeon discussed with the patient further plan of care. Surgeon did not recommend surgery. Patient was recommended toe-touch weight bearing status for six weeks to allow the fracture to stabilize and heal. After six weeks, the patient can be progressed to weightbearing status and continue rehabilitation at that time. Patient was working with physical occupational therapists with toe-touch weightbearing status. Patient to follow-up with orthopedic surgeon in 6 weeks. Placement was found at the [facility] facility for short-term rehabilitation. Infectious disease doctor closely followed. Urine culture revealed Escherichia coli. Patient was on antibiotic for urinary tract infection. Leukocytosis trending down; patient afebrile. Complete antibiotics at the facility. Cat Dog Or Other Pet Groomer seen and evaluated patient for management of diabetes . Hemoglobin A1c - 9.4 , clearly not at goal. Cat Dog Or Other Pet Groomer optimized anti-glycemic regimen. Januvia and Starlix were added to anti-glycemic regimen, and metformin was continued. Sliding scale of insulin was on board as needed before meals and at bedtime. Patient needs further optimization of anti-glycemic regimen as outpatient. Pain management was addressed, and pain was controlled. Blood pressure was managed with calcium channel joyce . Antiplatelet therapy with aspirin continued. DVT prophylaxis provided . Supportive care provided. Bowel regimen instituted. Patient was discharged to [facility] for [facility] rehabilitation FINAL DIAGNOSES: Recurrent falls Left sacral ala fracture, nondisplaced Left inferior and superior pubic ramus fracture, nondisplaced Diabetes mellitus out of control Escherichia coli UTI Hypertension DISCHARGE MEDICATIONS: See Medication Reconciliation list. DISCHARGE INSTRUCTIONS: Patient was discharged to the [facility] facility. Follow up with medical doctor at the facility. Follow-up with the orthopedic surgeon in 6 weeks as advised. I have been assigned to dictate discharge summary for this account. I was not involved in the patient's management. Cari Paz NP Feb 28, 2018 13:56
== END 2018-02-27 20:23 | DRG 552 ==
LOC: EDBD 21:06 → EMR 22:39 → 4E 23:34 → EDBEDREQ 02-25 00:16
DX: S32.19XA Other fracture of sacrum, initial encounter for closed fracture (principal); N39.0 Urinary tract infection, site not specified; S32.512A Fracture of superior rim of left pubis, initial encounter for closed fracture; S32.592A Other specified fracture of left pubis, initial encounter for closed fracture; I69.354 Hemiplegia and hemiparesis following cerebral infarction affecting left non-dominant side; W19.XXXA Unspecified fall, initial encounter; Y92.009 Unspecified place in unspecified non-institutional (private) residence as the place of occurrence of the external cause; R29.6 Repeated falls; B96.20 Unspecified Escherichia coli [E. coli] as the cause of diseases classified elsewhere; E11.65 Type 2 diabetes mellitus with hyperglycemia; I10 Essential (primary) hypertension; S22.49XD Multiple fractures of ribs, unspecified side, subsequent encounter for fracture with routine healing; R26.81 Unsteadiness on feet
CPT/HCPCS: 36415; 51701; 70450; 72192; 80048; 80053; 81003; 82962; 83036; 85007; 85025; 87081; 87086; 87181; 96361; 96374; 96375; 99285; J1815

== ENCOUNTER 2018-08-27 09:42 | Outpatient (RCR) | payer MEDICARE, OTHER ==
[~2018-08-27] VITALS: Ht 170.2 cm; Wt 68.0 kg
[~2018-08-27 09:42] MED LIST changes: +HEPARIN SO5000 UNIT2 SUBQ; +JANUVIA100 MG ORAL; +MORPHINE 2 MG IVP; +MORPHINE SU4 MG/1 ML IVP; +NORVASC5 MG ORAL; +STARLIX60 MG ORAL
[2018-08-31] MEDS ORDERED: Lidocaine 4% Top Soln 50ml TOPIC ONE (09:45)
== END 2018-09-11 | disposition home or self-care (01) ==
LOC: WCC 09:42
DX: L89.154 Pressure ulcer of sacral region, stage 4 (principal); L89.323 Pressure ulcer of left buttock, stage 3; I67.82 Cerebral ischemia; Z85.9 Personal history of malignant neoplasm, unspecified; E11.9 Type 2 diabetes mellitus without complications; I10 Essential (primary) hypertension; Z86.73 Personal history of transient ischemic attack (TIA), and cerebral infarction without residual deficits; Z88.0 Allergy status to penicillin
CPT/HCPCS: 11042; 11043; 87070; 87181; 87205

== ENCOUNTER 2018-08-27 11:02 | Outpatient (CLI) | payer MEDICARE, OTHER ==
--- NOTE | 2018-08-27 14:47 | Diagnostic Imaging Report ---
Indication: Status post fall with head trauma Technique: 4 views of the skull Comparison: Head CT scans dated 02/24/2018 Findings: Patient is status post right convexity craniotomy. 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 No acute fractures. Impression: Evidence of prior surgery with aneurysm clipping No definite acute process
== END 2018-08-27 13:02 | disposition home or self-care (01) ==
LOC: LAB 11:02
DX: E46 Unspecified protein-calorie malnutrition (principal); E11.9 Type 2 diabetes mellitus without complications; S09.90XA Unspecified injury of head, initial encounter; W19.XXXA Unspecified fall, initial encounter; Y92.9 Unspecified place or not applicable
CPT/HCPCS: 36415; 70260; 83036; 84134

== ENCOUNTER 2018-10-07 22:16 | Inpatient (IN) | payer MEDICARE, OTHER ==
[~2018-10-07] VITALS: Ht 167.6 cm; Wt 59.4 kg
[2018-10-07 22:54] VITALS: BP 144/78
--- NOTE | 2018-10-07 23:06 | NUR ---
ER Nurse Note: Pt came from home with family member c/o ALOC. Per family member, pt was in a [facility] but was taken home one month ago. Per family member, pt was able to talk at [facility] but unable to assess baseline as family member and pt are poor historians. Pt a&ox0, HR 124, RR 24, unable to get O2. Pt is contracted, cool to touch, unable to communciate. Pt has a wound on coccyx- red, yellow, pink color with drainage, foul smell. Pt came with dressing but looks old and saturated. Pt has hx of CVA, DM. Will continue to [facility].
[2018-10-07 23:09] LABS: HEMATOCRIT 33.8 % (37.0-47.0); HEMOGLOBIN 10.3 G/DL (12.0-16.0); MEAN CORPUSCULAR VOLUME 86 FL (80-99); PLATELET COUNT 592 K/UL (150-450); RED BLOOD COUNT 3.93 M/UL (4.20-5.40); RED CELL DISTRIBUTION WIDTH 14.2 % (11.6-14.8)
[2018-10-07 23:12] LABS: WHITE BLOOD COUNT 38.4 K/UL (4.8-10.8)
[2018-10-07 23:32] LABS: ALANINE AMINOTRANSFERASE 20 U/L (12-78); ALBUMIN 2.3 G/DL (3.4-5.0); ALBUMIN/GLOBULIN RATIO 0.4 (1.0-2.7); ALKALINE PHOSPHATASE 144 U/L (46-116); ANION GAP 32 mmol/L (5-15); ASPARTATE AMINO TRANSFERASE 17 U/L (15-37); BILIRUBIN,TOTAL 0.6 MG/DL (0.2-1.0); BLOOD UREA NITROGEN 47 mg/dL (7-18); CALCIUM 11.6 MG/DL (8.5-10.1); CARBON DIOXIDE 11 MMOL/L (21-32); CHLORIDE 108 MMOL/L (98-107); CKMB 2.5 NG/ML (0.0-3.6); CREATINE KINASE 73 U/L (26-308); POTASSIUM 5.5 MMOL/L (3.5-5.1); SODIUM 150 MMOL/L (136-145)
--- NOTE | 2018-10-07 23:41 | Diagnostic Imaging Report ---
EXAM: CT Head Without Intravenous Contrast CLINICAL HISTORY: AMS TECHNIQUE: Axial computed tomography images of the head/brain without intravenous contrast. CTDI is 0.15, 70.38 mGy and DLP is 1361 mGy-cm. One or more of the following dose reduction techniques were used: automated exposure control, adjustment of the mA and/or kV according to patient size, use of iterative reconstruction technique. COMPARISON: 02/24/18 FINDINGS: Brain: Encephalomalacia in the right MCA territory which has a similar appearance compared to the prior exam. Areas of decreased density in the white matter which are nonspecific but are likely related to small vessel ischemic changes. Cerebral atrophy. No hemorrhage. Ventricles: Ex vacuo dilation of the right lateral ventricle. Bones/joints: Status post right frontoparietal temporal craniotomy. No acute fracture. Soft tissues: Unremarkable. Vasculature: A vascular clip is seen in the right frontotemporal region. This causes artifact and limits evaluation. Sinuses: Unremarkable as visualized. No acute sinusitis. Mastoid air cells: Unremarkable as visualized. No mastoid effusion. IMPRESSION: 1. Encephalomalacia in the right MCA territory which has a similar appearance compared to the prior exam. 2. Areas of decreased density in the white matter which are nonspecific but are likely related to small vessel ischemic changes. 3. Cerebral atrophy. 4. No definite CT evidence for acute intracranial abnormality.
--- NOTE | 2018-10-07 23:45 | NUR ---
ER Nurse Note: Orders have been completed per ERMD orders. Blood and urine sent to lab; awaiting results. Harris cath placed; pt dehydrated. IV established; infusing 2L NS. CT and x-ray completed; awaiting results. KRYSTAL Bennett called - glucose 592, aware.
[2018-10-07 23:56] LABS: APPEARANCE,URINE CLOUDY; BILIRUBIN, URINE NEGATIVE (NEGATIVE); COLOR,URINE PALE YELLOW; GLUCOSE, URINE (UA) 4+ (NEGATIVE); KETONES,URINE 1+ (NEGATIVE); LEUKOCYTE ESTERASE ,URINE 3+ (NEGATIVE); NITRITE,URINE NEGATIVE (NEGATIVE); PH,URINE 5 (4.5-8.0); PROTEIN,URINE 2+ (NEGATIVE); UROBILINOGEN,URINE NORMAL MG/DL (0.0-1.0)
[2018-10-08] VITALS (8 sets, daily range): BP systolic 115–143; BP diastolic 59–84
[2018-10-08] MEDS ORDERED: Vancomycin 1 GM in NS 275 ML IVPB ONE (00:15)
[2018-10-08] MEDS ORDERED: Piperacillin/Tazobactam 3.375 GM in NS 110 ML IVPB ONE (00:15)
--- NOTE | 2018-10-08 01:05 | NUR ---
ER Nurse Note: Pt stable, no signs of distress. Wound photos done; wound is [id number]. Wound has tunneling; no dressing. Pt cleaned; all orders completed per ERMD orders. Urine output steady. Awaiting bed; will continue to [facility].
--- NOTE | 2018-10-08 01:29 | Emergency Room Report ---
History of Present Illness General Chief Complaint: Altered Level of Consciousness Source: Family Member, Medical Record Present Illness HPI Is a 78-year-old female with history of CVA, diabetes, hypertension who was brought in by nephew with chief complaint of bedsores. Unable to get any history from patient because she is nonverbal. Patient in triage was unresponsive and very lethargic. She was very cachectic and severely dehydrated. Patient was taken immediately to room. She was also very hypotensive. According to the nephew, he said that she was been getting worse and day. Her condition also worsened in the last couple days. At baseline she is able to talk. She is bedbound and wheelchair-bound. Allergies: Coded Allergies: No Known Allergies (Unverified , 05/08/12) Patient History Past Medical History: see triage record, old chart reviewed, DM, CVA/TIA Past Surgical History: other Pertinent Family History: none Social History: Denies: smoking Last Menstrual Period: NA Now: No Immunizations: other Reviewed Nursing Documentation: PMH: Agreed; PSxH: Agreed Nursing Documentation-PMH Hx Cardiac Problems: Yes Hx Hypertension: Yes Hx Diabetes: Yes Hx Cancer: No Hx Gastrointestinal Problems: No Hx Neurological Problems: Yes Hx Cerebrovascular Accident: Yes Review of Systems Constitutional: Reports: malaise, weakness Eye: Denies: eye pain, blurred vision ENT: Denies: ear pain, nose congestion, throat swelling Respiratory: Denies: cough, shortness of breath Cardiovascular: Denies: chest pain, palpitations Gastrointestinal: Denies: abdominal pain, diarrhea, nausea, vomiting Musculoskeletal: Denies: back pain, joint pain Skin: Denies: rash Neurological: Denies: headache, numbness Endocrine: Denies: increased thirst, increased urine Hematologic/Lymphatic: Denies: easy bruising All Other Systems: negative except mentioned in HPI Physical Exam Vital Signs Date Time Temp Pulse Resp B/P (MAP) Pulse Ox O2 Delivery O2 Flow Rate FiO2 10/07/18 22:19 96.3 60 12 99 Room Air 10/07/18 22:54 144/78 Vitals with hypothermia. Initial blood pressure was hypotensive Sp02 EP Interpretation: reviewed, normal General Appearance: severe distress, cachetic, Stupor Head: normocephalic, atraumatic Eyes: bilateral eye PERRL, bilateral eye EOMI ENT: dry mucus membranes Neck: no meningismus, other - Stiff and to the left Respiratory: chest non-tender, lungs clear, normal breath sounds Cardiovascular #1: no murmur, tachycardia Gastrointestinal: normal bowel sounds, non tender, no mass, no organomegaly, no bruit, non-distended Musculoskeletal: other - Contracted. Stage IV decubital ulcer with some drainage. Neurologic: other - Grimace to pain Skin: warm/dry Procedures Critical Care Time Critical Care Time Critical care is mandated in this patient who presented with severe sepsis from UTI. Patient require my urgent intervention to attenuate the risks of metabolic collapse which may lead to cardiovascular collapse and . Critical care time is 35 minutes excluding any reportable procedure. Critical care time included evaluation, multiple reevaluation, looking at old charts, interpreting laboratory and diagnostic data, discussing case with patient and family and consultants, and charting. 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 She was hypotensive and tachycardic. Her source was a urine. Urine was turbid. Initially no urine output until after couple liters of IV fluid. She may also have infection of her decubital ulcers. She was given Zosyn and vancomycin based on the back to the grew out in her urine and wound cultures on last admission. Glucose very elevated. Initially bicarbonate was very low but she is only has 1+ ketones in the urine. I suspect this is more from severe dehydration and hyperosmolar state rather than DKA. After IV fluid, labs are repeated and anion gap closed. Insulin and also given for hyperglycemia. I discussed the case with Dr. Pham who will admit. Sepsis reevaluation: Vital signs: Please see nursing note, heart rate improved, blood pressure normalized. Mental status: More alert and more responsive to painful stimuli Cardiovascular: Heart rate improved, capillary refill less than 2 seconds Lungs: Clear to auscultation Abdomen: Soft Extremity: No edema Skin: No mottling Lab Results Impression labs with leukocytosis EKG Diagnostic Results Rate: tachycardiac Rhythm: NSR ST Segments: no acute changes Rhythm Strip Diag. Results EP Interpretation: yes Rate: 100 Rhythm: NSR, no PVC's Chest X-Ray Diagnostic Results Chest X-Ray Diagnostic Results : Chest X-Ray Ordered: Yes # of Views/Limited/Complete: 1 View Indication: Shortness of Breath EP Interpretation: Yes Interpretation: no consolidation, no effusion, no pneumothorax, no acute cardiopulmonary disease Impression: No acute disease Electronically Signed by: Ronnie Arora MD CT/MRI/US Diagnostic Results CT/MRI/US Diagnostic Results : Imaging Test Ordered: CT head Impression Read by radiologist. Encephalomalacia. No acute process. Last Vital Signs Date Time Temp Pulse Resp B/P (MAP) Pulse Ox O2 Delivery O2 Flow Rate FiO2 10/08/18 01:07 97.4 100 18 143/84 100 Room Air Status: improved Disposition: ADMITTED INPATIENT Condition: Serious Referrals: NON PHYSICIAN (PCP) Ronnie Arora MD October 08, 2018 01:29
[2018-10-08] MEDS ORDERED: Insulin Human Regular 100units/ml 3ml IV ONE (02:00)
[2018-10-08 02:17] LABS: ANION GAP 12 mmol/L (5-15); BLOOD UREA NITROGEN 44 mg/dL (7-18); CALCIUM 8.8 MG/DL (8.5-10.1); CARBON DIOXIDE 21 MMOL/L (21-32); CHLORIDE 117 MMOL/L (98-107); CREATININE 1.3 MG/DL (0.55-1.30); POTASSIUM 4.9 MMOL/L (3.5-5.1); SODIUM 150 MMOL/L (136-145)
--- NOTE | 2018-10-08 02:41 | Diagnostic Imaging Report ---
EXAM: XR Chest, 1 View CLINICAL HISTORY: AMS TECHNIQUE: Frontal view of the chest. COMPARISON: 05/08/12 FINDINGS: This exam is dated 10/07/18 at 2324 hrs. Lungs: Large lung volumes. Areas of probable scarring in the lungs. Faint linear densities are projected over the lateral and superior aspects of the lungs which are likely related to skin folds. Pleural space: No definite plain film evidence for pneumothorax. Heart: Unremarkable. Mediastinum: There is some prominence of the mediastinum which is likely related to patient rotation. Bones/joints: Degenerative changes of the thoracic spine. Other findings: The patient is rotated to the right. IMPRESSION: Large lung volumes.
[2018-10-08] MEDS ORDERED: HYDROcodone/Acetamin 5/325 tab ORAL PRN ×2 (02:45)
--- NOTE | 2018-10-08 03:00 | NUR ---
NURSE NOTES: Received report over the phone from LAVERNE Buchanan.Patient stable,disoriented,tolerated r/air well,Sat O2 100%,no s/s of pain,no respiratory distress noted,f/cath inserted in ER 16 Fr 10/07/18,IV on R EJ 20 G asymptomatic,intact SL,waiting pt to bring on a floor.
--- NOTE | 2018-10-08 03:10 | NUR ---
NURSE NOTES: Received patient,no s/s of pain,no respiratory distress noted,pt contracted d/t Hx of stroke on 2011,pt lethargic,non-verbal,lungs diminished sounds on auscultation,SR on residential monitor,BS active in all quadrants,wound pictures taken and uploaded,wound care plan initiated,belongings list signed for no belongings.Bed secured,call light within a reach,will continue to monitor.
--- NOTE | 2018-10-08 03:10 | NUR ---
ER Nurse Note: Report given to LAVERNE Fernandez in SDU for continutiy of care. Pt stable, no signs of distress, calm and cooperative. Wound cleaned and dressed. Rechecked blood sugar-343 mmol/l after 10 U of insulin given. All orders completed per ERMD orders. No belongings; belongings taken by family member.
[2018-10-08] MEDS: Piperacillin/Tazobactam 3.375 GM in D5W 55 ML IVPB SCH ×3 (06:07→21:58)
[2018-10-08] MEDS: NovoLOG Insulin Flexpen SUBQ SCH ×4 (06:10→20:18)
[2018-10-08] MEDS: Nateglinide 60mg tab ORAL SCH ×3 (06:22→17:21)
[2018-10-08 06:24] LABS: HEMATOCRIT 27.5 % (37.0-47.0); HEMOGLOBIN 8.3 G/DL (12.0-16.0); MEAN CORPUSCULAR VOLUME 89 FL (80-99); PLATELET COUNT 409 K/UL (150-450); RED BLOOD COUNT 3.08 M/UL (4.20-5.40); RED CELL DISTRIBUTION WIDTH 14.7 % (11.6-14.8)
[2018-10-08 06:31] LABS: ANION GAP 16 mmol/L (5-15); BLOOD UREA NITROGEN 44 mg/dL (7-18); CALCIUM 8.8 MG/DL (8.5-10.1); CARBON DIOXIDE 19 MMOL/L (21-32); CHLORIDE 117 MMOL/L (98-107); CREATININE 1.2 MG/DL (0.55-1.30); POTASSIUM 5.3 MMOL/L (3.5-5.1); SODIUM 152 MMOL/L (136-145)
[2018-10-08 06:36] LABS: WHITE BLOOD COUNT 36.1 K/UL (4.8-10.8)
--- NOTE | 2018-10-08 07:18 | NUR ---
HAND-OFF: Report given to LAVERNE Robertson.Patient stable.
--- NOTE | 2018-10-08 07:18 | NUR ---
NURSE NOTES: Received pt from Rebecca in stable condition with no cardiopulmonary distress noted. Pt is asleep in bed on RA and SR on space buyer. F/C noted draining yellow urine. Skin alterations noted. Pt has a R IJ 20g IV. Bed is in lowest position with alarm on, side rails up x 3, call light within reach. Will continue to monitor pt.
--- NOTE | 2018-10-08 08:12 | NUR ---
NURSE NOTES: Left a message for Dr. Rain regarding pt's potassium and sodium levels. awaiting call back.
[2018-10-08] MEDS: Aspirin EC 81mg tab ORAL SCH (08:26)
[2018-10-08] MEDS: Heparin 5000 units/ml inj SUBQ SCH ×2 (08:29→20:17)
[2018-10-08] MEDS ORDERED: metFORMIN 500mg tab ORAL SCH (09:00)
--- NOTE | 2018-10-08 10:13 | NUR ---
NURSE NOTES: Dr. Arnulfo Rain came in to see pt and aware of lab results WBC, blood glucose, Na, K. No new orders at this time. Will continue to monitor pt.
--- NOTE | 2018-10-08 10:33 | History & Physical ---
History and Physical History & Physicial dictated [id number] Arnulfo Rain MD October 08, 2018 10:33
--- NOTE | 2018-10-08 13:30 | Consultation ---
History of Present Illness General Date patient seen: October 08, 2018 Time patient seen: 13:21 Chief Complaint: Altered Level of Consciousness Referring physician: Dr. Arnulfo Rain Reason for Consultation: Sacral pressure injury Present Illness HPI Asked to evaluate this 78 yof with a stage 4 sacral pressure injury who was admitted to [facility] today with urosepsis. She is known to me from the outpatient wound center but has not been to the center in a month. 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 She is bedridden. Today she appears more cachectic than at her last visit to the center. It is unclear what wound care she has been receiving as she has not returned to the center recently. Allergies: Coded Allergies: No Known Allergies (Unverified , 05/08/12) Medication History Scheduled Amlodipine Besylate (Norvasc), 5 MG ORAL DAILY Aspirin Ec* (Aspirin Ec*), 81 MG PO DAILY, (Reported) Heparin Sod (Porcine) (Heparin Sodium*), 5,000 UNITS SUBQ EVERY 12 HOURS Metformin Hcl* (Glucophage*), 500 MG PO BID, (Reported) Nateglinide* (Starlix*), 60 MG ORAL TIAC Sitagliptin (Januvia), 100 MG ORAL ACBREAKFAST Valsartan (Diovan), 160 MG PO DAILY, (Reported) Scheduled PRN Hydrocodone Bit/Acetaminophen 5-325* ([place] 5-325*), 1 TAB ORAL Q6H PRN for For Pain Morphine Sulfate (Morphine Sulfate), 4 MG IVP EVERY 3 HOURS PRN [Morphine 2MG(IV/IM USE)], 2 MG IVP EVERY 3 HOURS PRN Patient History Limited by: medical condition History Provided By: Medical Record Healthcare decision maker Resuscitation status Full Code Advanced Directive on File No Past Medical/Surgical History Past Medical/Surgical History: (1) HTN (hypertension) (2) DM (diabetes mellitus) (3) Anemia (4) UTI (urinary tract infection) (5) Decubitus ulcer of back, stage 4 Review of Systems Constitutional: Reports: weakness Respiratory: Reports: no symptoms Cardiovascular: Reports: no symptoms Genitourinary: Reports: see HPI, incontinence Skin: Reports: see HPI Physical Exam General Appearance: alert, cachetic Lines, tubes and drains: peripheral Respiratory/Chest: no respiratory distress Skin Exam: other - Stage 4 sacrococcyx ulcer with bone visble and palpable at the base. Eschar present in periphery and slough at the base. Odor present. No erythema warmth or crepitus and no flucutance or pus draining. Undermining present from 8-4 o'clock. Musculoskeletal: atrophy Last 24 Hour Vital Signs Date Time Temp Pulse Resp B/P (MAP) Pulse Ox O2 Delivery O2 Flow Rate FiO2 10/08/18 12:00 97.8 98 18 131/60 (83) 99 10/08/18 12:00 82 10/08/18 12:00 Room Air 10/08/18 08:00 97.4 91 18 121/59 (79) 100 10/08/18 08:00 86 10/08/18 08:00 Room Air 10/08/18 04:19 95 10/08/18 04:00 Room Air 10/08/18 04:00 97.5 110 22 137/70 (92) 98 10/08/18 03:51 Room Air 10/08/18 03:10 97.0 102 16 115/72 100 Room Air 10/08/18 03:00 97.0 102 16 115/72 100 Room Air 10/08/18 02:05 106 18 123/80 100 Room Air 10/08/18 01:07 97.4 100 18 143/84 100 Room Air 10/07/18 23:06 123 24 Room Air 10/07/18 22:54 97.6 123 24 144/78 10/07/18 22:19 96.3 60 12 99 Room Air Intake and Output 10/07/18 10/08/18 19:00 07:00 Intake Total 7158.5 ml Output Total 350 ml Balance 6808.5 ml Intake IV Total 7158.5 ml Output Urine Total 350 ml Laboratory Tests Test 10/07/18 22:35 10/07/18 23:30 10/07/18 23:59 10/08/18 01:45 White Blood Count 38.4 K/UL (4.8-10.8) *H Red Blood Count 3.93 M/UL (4.20-5.40) L Hemoglobin 10.3 G/DL (12.0-16.0) L Hematocrit 33.8 % (37.0-47.0) L Mean Corpuscular Volume 86 FL (80-99) Mean Corpuscular Hemoglobin 26.2 PG (27.0-31.0) L Mean Corpuscular Hemoglobin Concent 30.4 G/DL (32.0-36.0) L Red Cell Distribution Width 14.2 % (11.6-14.8) Platelet Count 592 K/UL (150-450) H Mean Platelet Volume 6.8 FL (6.5-10.1) Neutrophils (%) (Auto) % (45.0-75.0) Lymphocytes (%) (Auto) % (20.0-45.0) Monocytes (%) (Auto) % (1.0-10.0) Eosinophils (%) (Auto) % (0.0-3.0) Basophils (%) (Auto) % (0.0-2.0) Differential Total Cells Counted 100 Neutrophils % (Manual) 80 % (45-75) H Lymphocytes % (Manual) 16 % (20-45) L Monocytes % (Manual) 4 % (1-10) Eosinophils % (Manual) 0 % (0-3) Basophils % (Manual) 0 % (0-2) Band Neutrophils 0 % (0-8) Platelet Estimate Increased H Platelet Morphology Normal Hypochromasia 1+ Anisocytosis 1+ Sodium Level 150 MMOL/L (136-145) H 150 MMOL/L (136-145) H Potassium Level 5.5 MMOL/L (3.5-5.1) H 4.9 MMOL/L (3.5-5.1) Chloride Level 108 MMOL/L (98-107) H 117 MMOL/L (98-107) H Carbon Dioxide Level 11 MMOL/L (21-32) L 21 MMOL/L (21-32) Anion Gap 32 mmol/L (5-15) H 12 mmol/L (5-15) Blood Urea Nitrogen 47 mg/dL (7-18) H 44 mg/dL (7-18) H Creatinine 2.0 MG/DL (0.55-1.30) H 1.3 MG/DL (0.55-1.30) Estimat Glomerular Filtration Rate mL/min (>60) mL/min (>60) Glucose Level 592 MG/DL (74-106) *H 548 MG/DL (74-106) *H Lactic Acid Level 18.60 mmol/L (0.4-2.0) H 9.30 mmol/L (0.66-2.22) H Calcium Level 11.6 MG/DL (8.5-10.1) H 8.8 MG/DL (8.5-10.1) # Total Bilirubin 0.6 MG/DL (0.2-1.0) Aspartate Amino Transf (AST/SGOT) 17 U/L (15-37) Alanine Aminotransferase (ALT/SGPT) 20 U/L (12-78) Alkaline Phosphatase 144 U/L (46-116) H Total Creatine Kinase 73 U/L (26-308) Creatine Kinase MB 2.5 NG/ML (0.0-3.6) Creatine Kinase MB Relative Index 3.4 Troponin I 0.020 ng/mL (0.000-0.056) Total Protein 8.4 G/DL (6.4-8.2) H Albumin 2.3 G/DL (3.4-5.0) L Globulin 6.1 g/dL Albumin/Globulin Ratio 0.4 (1.0-2.7) L Urine Color Pale yellow Urine Appearance Cloudy Urine pH 5 (4.5-8.0) Urine Specific [place] 1.025 (1.005-1.035) Urine Protein 2+ (NEGATIVE) H Urine Glucose (UA) 4+ (NEGATIVE) H Urine Ketones 1+ (NEGATIVE) H Urine Blood 4+ (NEGATIVE) H Urine Nitrite Negative (NEGATIVE) Urine Bilirubin Negative (NEGATIVE) Urine Urobilinogen Normal MG/DL (0.0-1.0) Urine Leukocyte Esterase 3+ (NEGATIVE) H Urine RBC Tntc /HPF (0 - 2) H Urine WBC Tntc /HPF (0 - 2) H Urine Squamous Epithelial Cells Moderate /LPF (NONE/OCC) H Urine Amorphous Sediment Moderate /LPF (NONE) H Urine Bacteria Many /HPF (NONE) H Test 10/08/18 04:50 White Blood Count 36.1 K/UL (4.8-10.8) *H Red Blood Count 3.08 M/UL (4.20-5.40) L Hemoglobin 8.3 G/DL (12.0-16.0) L Hematocrit 27.5 % (37.0-47.0) L Mean Corpuscular Volume 89 FL (80-99) Mean Corpuscular Hemoglobin 26.8 PG (27.0-31.0) L Mean Corpuscular Hemoglobin Concent 30.0 G/DL (32.0-36.0) L Red Cell Distribution Width 14.7 % (11.6-14.8) Platelet Count 409 K/UL (150-450) Mean Platelet Volume 7.6 FL (6.5-10.1) Neutrophils (%) (Auto) % (45.0-75.0) Lymphocytes (%) (Auto) % (20.0-45.0) Monocytes (%) (Auto) % (1.0-10.0) Eosinophils (%) (Auto) % (0.0-3.0) Basophils (%) (Auto) % (0.0-2.0) Differential Total Cells Counted 100 Neutrophils % (Manual) 97 % (45-75) H Lymphocytes % (Manual) 2 % (20-45) L Monocytes % (Manual) 1 % (1-10) Eosinophils % (Manual) 0 % (0-3) Basophils % (Manual) 0 % (0-2) Band Neutrophils 0 % (0-8) Platelet Estimate Adequate Platelet Morphology Normal Hypochromasia 1+ Anisocytosis 1+ Sodium Level 152 MMOL/L (136-145) H Potassium Level 5.3 MMOL/L (3.5-5.1) H Chloride Level 117 MMOL/L (98-107) H Carbon Dioxide Level 19 MMOL/L (21-32) L Anion Gap 16 mmol/L (5-15) H Blood Urea Nitrogen 44 mg/dL (7-18) H Creatinine 1.2 MG/DL (0.55-1.30) Estimat Glomerular Filtration Rate mL/min (>60) Glucose Level 539 MG/DL (74-106) *H Calcium Level 8.8 MG/DL (8.5-10.1) Microbiology Date/Time Source Procedure Growth Status 10/07/18 23:40 Rectum Gram Stain - Final Resulted 10/07/18 23:40 Rectum Decubitis Culture Pending Resulted 10/07/18 23:40 Rectum Received Height (Feet): 5 Height (Inches): 6.00 Weight (Pounds): 92 Medications Current Medications Medications (Trade) Dose Ordered Sig/Mar Route PRN Reason Start Time Stop Time Status Last Admin Dose Admin Acetaminophen/ Hydrocodone Bitart ([place] 5/325) 1 tab Q6H PRN ORAL Moderate Pain (Pain Scale 4-6) 10/08/18 02:45 10/15/18 02:44 Aspirin (Ecotrin) 81 mg DAILY ORAL 10/08/18 09:00 11/07/18 08:59 10/08/18 08:26 Dextrose (Dextrose 50%) 25 ml Q30M PRN IV Hypoglycemia 10/08/18 02:45 11/07/18 02:44 Dextrose (Dextrose 50%) 50 ml Q30M PRN IV Hypoglycemia 10/08/18 02:45 11/07/18 02:44 Heparin Sodium (Porcine) (Heparin 5000 units/ml) 5,000 units EVERY 12 HOURS SUBQ 10/08/18 09:00 11/07/18 08:59 10/08/18 08:29 Insulin Aspart (NovoLOG) BEFORE MEALS AND HS SUBQ 10/08/18 06:30 11/07/18 06:29 10/08/18 12:22 Metformin HCl (Glucophage) 500 mg BID ORAL 10/08/18 09:00 11/07/18 08:59 10/08/18 08:26 Morphine Sulfate (Morphine Sulfate) 4 mg EVERY 3 HOURS PRN IVP Severe Pain (Pain Scale 7-10) 10/08/18 02:45 10/15/18 02:44 Nateglinide (Starlix) 60 mg TIAC ORAL 10/08/18 06:30 11/07/18 06:29 10/08/18 12:16 Piperacillin Sod/ Tazobactam Sod 3.375 gm/Dextrose 55 ml @ 13.75 mls/ hr Q8H IVPB 10/08/18 06:00 10/15/18 05:59 10/08/18 06:07 Sitagliptin Phosphate (Januvia) 100 mg ACBREAKFAST ORAL 10/08/18 06:30 11/07/18 06:29 10/08/18 06:22 Sodium Chloride 1,000 ml @ 100 mls/hr Q10H IV 10/08/18 03:35 11/07/18 03:34 10/08/18 04:16 Vancomycin HCl (Vanco rx to dose) 1 ea DAILY PRN MISC Per rx protocol 10/08/18 02:45 11/07/18 02:44 Assessment/Plan Assessment/Plan: Patient with 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 Ulcer needs to be surgically debrided and will recommend doing this as soon as patient is medically stable. Will discuss with Dr. Rain regarding timing of this. Wound cultures are pending. For now use wet to dry dakins solution to the wound until debridement can be performed. Will need to check prealbumin level and begin supplementing patient's nutrition as well. Thank you. Sarath White MD October 08, 2018 13:30
--- NOTE | 2018-10-08 13:57 | NUR ---
CASE MANAGEMENT: REVIEW 78Y/F PRESENTED TO ED FROM HOME CC: ALOC SI: SEPSIS T 96.3 HR 123 RR 24 BP 144/78 SAT 99% ROOM AIR WBC 38.4 NA 150 GLUCOSE 548 LACTIC ACID 18.60 IS: NS IVF BOLUS X1 VANCO IV X1 ZOSYN IV X1 NOVOLIN R 10 UNITS IV X1 PATIENT ADMITTED TO STEP DOWN UNIT 10/07/2018 DCP: PATIENT IS FROM HOME
--- NOTE | 2018-10-08 14:39 | Cardiology Report ---
APPROVED REPORT EKG Measurement Heart [id number] Sinus tachycardia Right atrial enlargement Nonspecific T wave abnormality Abnormal ECG
[2018-10-08] MEDS: Levemir Flexpen SUBQ SCH (14:56)
--- NOTE | 2018-10-08 16:15 | History and Physical Report ---
DATE OF ADMISSION: 10/08/2018 CHIEF COMPLAINT: The patient was brought in by nephew with chief complaint of bed sores. HISTORY OF PRESENT ILLNESS: This is a 78-year-old female with history of stage IV sacral decubitus, who is actually was getting wound care at [facility]. The patient lives at home with family. She was brought in for the above complaints. She was found to have severe leukocytosis and also was found to have volume depletion and was admitted for further care. She has also history of dementia and not able to provide much history. PAST MEDICAL HISTORY: Includes history of diabetes mellitus, history of sacral decubitus as mentioned. She has been basically bed ridden. She also has developed contractures. She has history of hypertension. MEDICATIONS: Reviewed in the EMR. SOCIAL HISTORY: No history of smoking or alcohol abuse. The patient used to live at [facility] and then eventually was discharged home under the care of family. ALLERGIES: No known drug allergies. REVIEW OF SYSTEMS: Unobtainable. PHYSICAL EXAMINATION: GENERAL: The patient is an elderly female, in no acute distress. VITAL SIGNS: Blood pressure is 121/59, pulse 91, temperature 97.4 degrees, and respiratory rate is 18. HEENT: Pale conjunctivae. Anicteric sclerae. NECK: Supple. LUNGS: Clear to auscultation. HEART: S1 and S2 without murmurs or rubs. ABDOMEN: Soft and nontender. EXTREMITIES: No cyanosis or edema. The patient has contractures of lower extremities. SKIN: The patient has a stage IV large decubitus in the sacral area. LABORATORY FINDINGS: The CBC as of today shows WBC of 36,100, hematocrit is 27.5, hemoglobin is 8.3, and platelets 409,000. Chemistry panel shows serum sodium 152, potassium 5.3, chloride 117, BUN is 44, creatinine 1.2, blood sugar is 539, and calcium is 8.8. UA shows too numerous to count WBCs and RBCs per high-power field with many bacteria. ASSESSMENT: This is a 78-year-old female, who was admitted with nonhealing sacral wound, possibility of infection exists with this kind of high WBCs, but also she has another source of infection, which is urinary tract infection. She has uncontrolled diabetes mellitus, hyponatremia as a result of volume depletion partly related to high blood sugars. PLAN: The patient will be on IV half normal saline. IV antibiotics were started. The patient's blood sugar will be checked and currently, she is on her regular medications in addition to sliding scale insulin. Infectious Diseases consultation as well as Plastic Surgery consultation and Endocrine consultations will be obtained. Labs will be followed and further adjustment will be made in the patient's regimen. The case was discussed with the patient's RN as well. Arnulfo Rain M.D. DR: Antoinette JOB#: [id number] CC:
--- NOTE | 2018-10-08 19:33 | NUR ---
HAND-OFF: Report given to LAVERNE Ahn. Pt in stable condition.
--- NOTE | 2018-10-08 19:35 | NUR ---
NURSE NOTES: Received patient from Ailyn GALLOWAY. Patient is in bed, talking, and shows no sign of distress. Patient is oriented X1 and on room air. Will continue to monitor.
--- NOTE | 2018-10-08 19:45 | Consultation ---
DATE OF CONSULTATION: 10/08/2018 ENDOCRINOLOGY CONSULTATION: CONSULTING PHYSICIAN: Luisito Quintero M.D. REFERRING PHYSICIAN: Arnulfo Rain M.D. REASON FOR CONSULTATION: Diabetes management. HISTORY OF PRESENT ILLNESS: The patient is a pleasant 78-year-old female, known to me from previous admission to [facility] in February 2018 when she came in with hip fracture. The patient has history of CVA, diabetes, hypertension brought to the hospital with chief complaint of bedsores. Glucose was quite elevated in the 300 to 500 range. The patient was noted to have a significantly elevated level of lactic acid and WBC. Endocrinology was consulted in order to assist in management of diabetes. Previous admission, diabetes was managed by combination of metformin, Starlix, and Januvia and apparently this was the same medication regimen that the patient was on as an outpatient. The patient was continued on the same regimen in addition to NovoLog sliding scale. PAST MEDICAL HISTORY: 1. CVA. 2. Diabetes. 3. Hypertension. 4. Decubitus ulcer. 5. Hip fracture. PAST SURGICAL HISTORY: None. FAMILY HISTORY: Diabetes. SOCIAL HISTORY: No smoking. No alcohol. No drug use. REVIEW OF SYSTEMS: As per HPI. LABORATORY DATA: Sodium 152, potassium 5.6, chloride 117, bicarb 19, BUN 44, creatinine 1.2, glucose of 539. Lactic acid 18. CBC shows WBC of 36, hemoglobin 8, hematocrit 27, platelets of 409. PHYSICAL EXAMINATION: GENERAL: The patient is awake, somnolent. VITAL SIGNS: Blood pressure is 131/60, pulse 82, temperature 97.8, respiratory rate 18. HEENT: Pupils are reactive to light. Sclerae anicteric. NECK: No JVD. HEART: Regular. LUNGS: Clear. ABDOMEN: Positive bowel sounds. EXTREMITIES: Trace edema. DIAGNOSES: 1. Sepsis. 2. Decubitus ulcer. 3. Diabetes, out of control. 4. Lactic acidosis. PLAN: 1. Discontinue metformin. 2. Continue Januvia. 3. Increase Starlix 60 to 120 mg before meals, starting with dinner. 4. NovoLog sliding scale before meals and at bedtime. 5. Add Levemir 15 units daily starting now and after that every morning. We will follow the patient closely during hospital stay. Thank you, Dr. Rain, for the courtesy of this consultation. Luisito Quintero M.D. DR: ANABELLA JOB#: [id number] CC: TERELL
[2018-10-08] MEDS: Vancomycin 750mg/NS 275ml IVPB SCH ×2 (20:54)
[2018-10-09] VITALS (13 sets, daily range): BP systolic 104–153; BP diastolic 56–89
--- NOTE | 2018-10-09 03:47 | NUR ---
NURSE NOTES: Patient's BS was 46 and immediately after 42 on second check. 50% Dextrose was given as prescribed. Patient is asymptomatic and talking. No signs of acute distress presented. Will recheck BS in 15min. Will continue to monitor.
--- NOTE | 2018-10-09 04:02 | NUR ---
NURSE NOTES: Patient is asymptomatic, shows no signs of acute distress and talking. Reassessment of blood sugar is 140. Will reassess in 15min. Will continue to monitor.
--- NOTE | 2018-10-09 05:33 | NUR ---
NURSE NOTES: I left a message with Dr Rain notifying of patient's blood sugar of 42.
[2018-10-09] MEDS: Nateglinide 60mg tab ORAL SCH ×3 (05:39→16:29)
[2018-10-09] MEDS: NovoLOG Insulin Flexpen SUBQ SCH ×4 (05:41→21:28)
[2018-10-09] MEDS: Piperacillin/Tazobactam 3.375 GM in D5W 55 ML IVPB SCH (06:00)
--- NOTE | 2018-10-09 06:09 | NUR ---
Called Jose Zhou, the patient's brother, three times and his phone was busy. Called the patient's home and there was no answer.
--- NOTE | 2018-10-09 06:51 | General Progress Note ---
Assessment/Plan Problem List: (1) DM (diabetes mellitus) ICD Codes: E11.9 - Type 2 diabetes mellitus without complications SNOMED: 36407658 (2) Decubitus ulcer of back, stage 4 ICD Codes: L89.104 - Pressure ulcer of unspecified part of back, stage 4 SNOMED: 852121975 (3) Hyperglycemia due to type 2 diabetes mellitus ICD Codes: E11.65 - Type 2 diabetes mellitus with hyperglycemia; R65.21 - Severe sepsis with septic shock SNOMED: 529690321161194, 70117846 Qualifiers: Qualified Codes: E11.65 - Type 2 diabetes mellitus with hyperglycemia; Z79.4 - nursing home (current) use of insulin (4) Anemia ICD Codes: D64.9 - Anemia, unspecified SNOMED: 227329115 Qualifiers: Qualified Codes: D64.9 - Anemia, unspecified (5) ARF (acute renal failure) ICD Codes: N17.9 - Acute kidney failure, unspecified SNOMED: 30454541 Qualifiers: Qualified Codes: N17.9 - Acute kidney failure, unspecified Assessment/Plan: reduce Levemir to 8 units daily continue Starlix 120 mg ac tid continue Januvia 100 mg daily continue NISS ac / hs Subjective ROS Limited/Unobtainable: Yes Allergies: Coded Allergies: No Known Allergies (Unverified , 05/08/12) Subjective events noted glucose values improved and reaching lower values Item Value Date Time Bedside Blood Glucose 101 mg/dl 10/09/18 0626 Bedside Blood Glucose 73 mg/dl 10/08/18 2100 Bedside Blood Glucose 160 mg/dl H 10/08/18 1723 Bedside Blood Glucose 211 mg/dl H 10/08/18 1456 Bedside Blood Glucose 329 mg/dl H 10/08/18 0630 Bedside Blood Glucose 343 mg/dl H 10/08/18 0258 Objective Last 24 Hour Vital Signs Date Time Temp Pulse Resp B/P (MAP) Pulse Ox O2 Delivery O2 Flow Rate FiO2 10/09/18 04:00 97.5 99 20 137/64 (88) 95 10/09/18 04:00 Room Air 10/09/18 03:40 92 10/09/18 00:00 Room Air 10/09/18 00:00 97.9 74 22 142/70 (94) 100 10/08/18 23:20 92 10/08/18 20:00 96.8 100 22 137/63 (87) 99 10/08/18 20:00 Room Air 10/08/18 19:29 101 10/08/18 18:53 Room Air 10/08/18 16:00 97.5 100 16 137/63 (87) 99 10/08/18 16:00 Room Air 10/08/18 16:00 88 10/08/18 12:00 97.8 98 18 131/60 (83) 99 10/08/18 12:00 82 10/08/18 12:00 Room Air 10/08/18 08:00 97.4 91 18 121/59 (79) 100 10/08/18 08:00 86 10/08/18 08:00 Room Air Intake and Output 10/08/18 10/09/18 19:00 07:00 Intake Total 1200.00 ml 1500.96975 ml Output Total 800 ml 300 ml Balance 400.00 ml 1200.41469 ml Intake Oral 90 ml IV Total 1110.00 ml 1500.22502 ml Output Urine Total 800 ml 300 ml # Voids 1 # Bowel Movements 2 Height (Feet): 5 Height (Inches): 6.00 Weight (Pounds): 92 General Appearance: no apparent distress Neck: normal alignment Cardiovascular: normal rate Respiratory/Chest: lungs clear Abdomen: normal bowel sounds Objective Current Medications Medications (Trade) Dose Ordered Sig/Mar Route PRN Reason Start Time Stop Time Status Last Admin Dose Admin Acetaminophen/ Hydrocodone Bitart (Scooba 5/325) 1 tab Q6H PRN ORAL Moderate Pain (Pain Scale 4-6) 10/08/18 02:45 10/15/18 02:44 Aspirin (Ecotrin) 81 mg DAILY ORAL 10/08/18 09:00 11/07/18 08:59 10/08/18 08:26 Dextrose (Dextrose 50%) 25 ml Q30M PRN IV Hypoglycemia 10/08/18 02:45 11/07/18 02:44 Dextrose (Dextrose 50%) 50 ml Q30M PRN IV Hypoglycemia 10/08/18 02:45 11/07/18 02:44 10/09/18 03:42 Heparin Sodium (Porcine) (Heparin 5000 units/ml) 5,000 units EVERY 12 HOURS SUBQ 10/08/18 09:00 11/07/18 08:59 10/08/18 20:17 Insulin Aspart (NovoLOG) BEFORE MEALS AND HS SUBQ 10/08/18 06:30 11/07/18 06:29 10/08/18 17:23 Insulin Detemir (Levemir) 15 units DAILY SUBQ 10/08/18 14:30 11/07/18 14:29 10/08/18 14:56 Morphine Sulfate (Morphine Sulfate) 4 mg EVERY 3 HOURS PRN IVP Severe Pain (Pain Scale 7-10) 10/08/18 02:45 10/15/18 02:44 Nateglinide (Starlix) 120 mg TIAC ORAL 10/08/18 16:30 11/07/18 06:29 10/08/18 17:21 Piperacillin Sod/ Tazobactam Sod 3.375 gm/Dextrose 55 ml @ 13.75 mls/ hr Q8H IVPB 10/08/18 06:00 10/15/18 05:59 10/09/18 06:00 Sitagliptin Phosphate (Januvia) 100 mg ACBREAKFAST ORAL 10/08/18 06:30 11/07/18 06:29 10/08/18 06:22 Sodium Chloride 1,000 ml @ 100 mls/hr Q10H IV 10/08/18 03:35 11/07/18 03:34 10/08/18 23:30 Vancomycin HCl (Vanco rx to dose) 1 ea DAILY PRN MISC Per rx protocol 10/08/18 02:45 11/07/18 02:44 Vancomycin HCl 750 mg/Sodium Chloride 275 ml @ 183.333 mls/hr Q24H IVPB 10/08/18 21:00 10/13/18 20:59 10/08/18 20:54 Luisito Quintero MD October 09, 2018 06:51
--- NOTE | 2018-10-09 07:15 | NUR ---
HAND-OFF: Report given to ROXANNE GALLOWAY. Addendum: 10/09/18 at 3335 by Jimy Goddard RN Cammy GALLOWAY
--- NOTE | 2018-10-09 07:16 | NUR ---
NURSE NOTES: Received patient from LAVERNE Ahn. Patient VS stable at this time. Patient denies pain at this time. Patient alert to name but cannot speak to where she is or why she is here. Patient is bedbound at this time. Patient showing sinus rhythm on the manager monitoring at this time. Patient on room air with oxygen saturation of 92% at this time. Patient is NPO at this time for wound debridement. Will follow up with family for consent and follow up with MD for procedure time. Patient has a right external jugular 20G PIV that is patent, asymptomatic, and running 1/2 NS at 100mL/hr at this time. Patient did not have labs drawn today. Will follow up with MD. Patient had low blood sugar of 46 at 4am. Patient was given D50 50mL. Blood sugar was 101 at 6am. Will check blood sugar at this time and follow up. Patient bed in low position with bed alarm on and call light in reach at this time.
--- NOTE | 2018-10-09 07:42 | NUR ---
NURSE NOTES: Attempted to call Mr Jose Zhou, the patient's family member, to gain consent for wound debridement. Line is busy. Will follow up.
--- NOTE | 2018-10-09 08:11 | NUR ---
NURSE NOTES: Attempted to call Patient's family member, Mr Jose Zhou, again x3 times and got a busy tone.
--- NOTE | 2018-10-09 08:13 | NUR ---
NURSE NOTES: Called and spoke with Dr White. Debridement scheduled for 5pm today. Patient to remain NPO.
[2018-10-09] MEDS: Aspirin EC 81mg tab ORAL SCH (08:51)
[2018-10-09] MEDS: Levemir Flexpen SUBQ SCH (09:00)
[2018-10-09] MEDS: Heparin 5000 units/ml inj SUBQ SCH ×2 (09:04→21:29)
[2018-10-09] MEDS: Morphine Sulfate 4mg/ml Inj (IV USE ONLY) IVP PRN (09:20)
[2018-10-09] MEDS ORDERED: D5NS 1,000 ML IV SCH (10:00)
--- NOTE | 2018-10-09 11:53 | NUR ---
ST NOTE: BEDSIDE SWALLOW EVAL RECEIVED BEDSIDE SWALLOW EVAL ORDER CHART REVIEWED PRIOR THE CHART. REFERRED BY PRIMARY PHYSICIAN, DR. CABRALES. PT IS A 78-YEAR-OLD FEMALE WHO WAS ADMITTED FROM HOME FOR SEVERE SEPSIS AND IS DIAGNOSED WITH UTI. PT ALSO HAS DECUBITUS ULCER OF BACK,STAGE 4. PT HAS HISTORY OF CVA/TIA(?WHEN), DM, HTN. 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 PER RECENT CXR: LARGE LUNG VOLUME CURRENT STATU: PT SEEN AT BEDSIDE IN AM. ALERT, COOPERATIVE, ABLE TO FOLLOW SIMPLE DIRECTIONS WITH CUES; HOWEVER, PT WAS UNABLE TO NAME THE YEAR AND MONTH. PT IS NPO FOR SURGICAL RESECTION(DEBRIDEMENT) THIS AFTERNOON. PER LIZZIE GALLOWAY, OKAY TO GIVE A FEW PO TRIAL WITH MEDICATION. ONLY ABLE TO ADJUST PT AT 60 DEGREE TOLERATED. GIVEN PO TRIALS: THIN(TSP), NECTAR THICK(TSP) AND PUREE(TSP) INITIAL IMPRESSION: PROBABLE MILD OR WORSENED OROPHARYNGEAL DYSPHAGIA MISSING UPPER AND MOLAR TEETH MILDLY INCREASED ORAL TRANSIT TIME(3 SECONDS) UNTIL PHARYNGEAL SWALLOW NOTED, FAIR LARYNGEAL ELEVATION, NO OVERT S/S OF ASPIRATION. DUE TO PT HAS H/O CVA AND OVERALL WEAKNESS, PT HAS RISK FOR ASPIRATION. RECOMMENDATIONS: 1. FOR QUALITY OF LIFE, CONTINUE ORAL DIET. CHANGED DIET TO MECH SOFT(GROUND) WITH THIN LIQUIDS 2. STRICT ASPIRATION PRECAUTIONS WITH 1TO1 FEEDING. 3. MODIFIED BARIUM SWALLOW STUDY IF NEEDED IP OR OP. D/W LIZZIE GALLOWAY AND THE STAFF POSTED ASPIRATION PRECAUTIONS SIGN.
--- NOTE | 2018-10-09 11:59 | NUR ---
NURSE NOTES: Patient's friend Madison called to check on the patient. Explained that I could not give any protected health information. Asked if she had another number for the patient's nephew. She reported that she would check and call back.
--- NOTE | 2018-10-09 12:00 | NUR ---
Social Service Note SW located patient's nephew Maxim Ortiz's phone number [phone]. Jose Zhou patient's brother listed on face sheet is . Face sheet will be updated. Maxim states his brother Peña Ortiz is patient's primary caregiver at home with patient. Maxim works during the day. Maxim states patient development the decub while residing at [facility] 02/2018-06/2018. Patient was being see [facility] [place] [facility] [phone] but recently missed two scheduled appointments. Nam also states home health visits 1 to 2 times a week. Nam will provide home health company's contact information once he visits this evening. Nam would prefer for patient to return home but would like to speak with Dr. Chirinos regarding his recommendations. Nam provides transportation for patient to wound care center's appointments. Will continue to monitor and follow up.
--- NOTE | 2018-10-09 12:21 | NUR ---
NURSE NOTES: Received patient's nephew's number from Madison Almanzar. She reported that the number we have on file for Jose Zhou is not accurate because this family member is . Called Maxim Abelarod (Patient's nephew) and obtained consent for wound debridement, and obtained consent for blood transfusion as part of the pre-surgical checklist.
[2018-10-09] MEDS: Piperacillin/Tazobactam 3.375 GM in D5W 110 ML IVPB SCH ×2 (13:38→23:00)
[2018-10-09] MEDS ORDERED: Bacitracin 50000 Units Vial ONE (15:50)
[2018-10-09] MEDS ORDERED: NeoSporin Gu Irrig 1ml Amp IRRIG ONE ×2 (15:50→18:30)
--- NOTE | 2018-10-09 15:57 | NUR ---
P.T NOTE: P.T EVALUATION COMPLETED . PATIENT IS DEPENDENT/TOTAL ASSIST WIT ADL/FUNCTIONAL MOBILITIES. PATIENT IS NOT A CANDIDATE FOR SKILLED P.T SERVICE PATIENT IS ALREADY AT BASELINE FUNCTION. RECOMMEND SNF PLACEMENT FOR CARE AND COMFORT IF PROPER OR ADEQUATE CARE IS NOT AVAILABLE AT HOME. D/C P.T SERVICE. THANK YOU FOR THIS REFERRAL.
--- NOTE | 2018-10-09 16:30 | NUR ---
NURSE NOTES: Patient taken to surgery at this time. Patient VS stable with no sign of acute distress.
[2018-10-09] MEDS ORDERED: fentaNYL 100 mcg/2 mL IV ONE (17:17)
--- NOTE | 2018-10-09 17:22 | Pre-Procedure Note/Attestation ---
Pre-Procedure Note/Attestation Complete Prior to Procedure Planned Procedure: not applicable Procedure Narrative: Surgical resection sacrococcyx ulcer with ostectomy, bone biopsy sacrum Indications for Procedure Pre-Operative Diagnosis: Stage 4 sacrococcyx pressure injury Attestation I attest that I discussed the nature of the procedure; its benefits; risks and complications; and alternatives (and the risks and benefits of such alternatives ), prior to the procedure, with the patient (or the patient's legal nutrition representative). I attest that, if there was a reasonable possibility of needing a blood transfusion, the patient (or the patient's legal nutrition representative) was given the [facility] standardized written summary, pursuant to the [place] Mary[place]ane Blood Safety Act ([place] Health and Safety Code # 1645, as amended). I attest that I re-evaluated the patient just prior to the surgery and that there has been no change in the patient's H&P, except as documented below: Sarath White MD October 09, 2018 17:22
[2018-10-09] MEDS ORDERED: NS 275ml ONE (17:25)
[2018-10-09] MEDS ORDERED: 1/2 NS 1000ml IV ONE (17:25)
[2018-10-09] MEDS ORDERED: Tubing IV Secondary IV ONE (17:25)
--- NOTE | 2018-10-09 17:30 | Consultation ---
DATE OF CONSULTATION: 10/09/2018 INFECTIOUS DISEASES CONSULTATION CONSULTING PHYSICIAN: Dallas Rain M.D. PRIMARY ATTENDING PHYSICIAN: Arnulfo Rain M.D. 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 HISTORY OF PRESENT ILLNESS: The patient is a 78-year-old female admitted yesterday from home primarily because of worsening pressure ulcer in sacral area. The patient had leukocytosis of 38.4, tachycardia 123, was found to have hyperglycemia with blood sugar of 548, has acute renal failure with creatinine of 2. The patient's pressure ulcer was seen by surgeon and it seems to reach the bone and needs debridement. The patient is not a source of history. PAST MEDICAL HISTORY: Significant for CVA and aphasia, diabetes mellitus and hyperglycemia, hypertension, anemia. ALLERGIES: No known drug allergies. MEDICATIONS: Getting Zosyn, vancomycin, Starlix, Levemir insulin, aspirin, heparin, Januvia, morphine sulfate, [place]. SOCIAL HISTORY: The patient has a history of admission to nursing facility. No history of alcohol abuse or smoking. REVIEW OF SYSTEMS: Unobtainable. PHYSICAL EXAMINATION: VITAL SIGNS: Temperature 96.9, pulse 95, blood pressure 150/80. GENERAL APPEARANCE: Seems to be thin and cachectic. HEAD AND NECK: Pale conjunctivae. HEART: normal rate . LUNGS: Clear. ABDOMEN: Soft and nontender. EXTREMITIES: No edema. She has muscle atrophy. SKIN: Stage IV pressure ulcer with area of necrosis. She has also had another deep back surgery that is unstageable. NEUROLOGIC: Just open eyes. LABORATORY AND DIAGNOSTIC DATA: WBC 36.1, hemoglobin 8.3, hematocrit 27.5, and platelets is 409. Sodium 152, potassium 5.3, chloride 117, bicarb 19, BUN 44, and creatinine 1.2, glucose 539. Hemoglobin A1c 10.6. Blood cultures are growing gram-negative rods. Wound culture is growing mixed gram-negative rods and gram-positive cocci. UA showed WBC of too numerous to count, rbc's of too numerous to count, leukocyte esterase 2+, nitrite is negative, protein 2+. IMPRESSION: 1. Gram-negative sepsis. 2. Pyuria and urinary tract infection. 3. 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 4. Acute renal failure. 5. Hyperkalemia. 6. Hypernatremia. 7. Protein calorie-malnutrition and cachexia. 8. Diabetes mellitus with hyperglycemia. RECOMMENDATION: We will continue with vancomycin and Zosyn. The patient will need wound debridement and bone biopsy culture or deep tissue culture. At the end of my exam, I thank Dr. Arnulfo Rain for involving me in me in the care of this patient. Dallas Rain M.D. DR: Florencia JOB#: [id number] CC: TERELL
[2018-10-09] MEDS ORDERED: ProvayBlue 5mg/ml 10ml amp INJ ONE (18:00)
[2018-10-09] MEDS ORDERED: NS Irrig 1000ml ONE (18:00)
[2018-10-09] MEDS ORDERED: Propofol 200mg/20ml IV ONE (18:00)
[2018-10-09] MEDS ORDERED: Sterile Water Irrig 1000ml IRRIG ONE (18:00)
[2018-10-09] MEDS ORDERED: Bupivacaine w/Epi 0.5% 30ml Vial INJ ONE (18:15)
[2018-10-09] MEDS ORDERED: Lidocaine 1% 10mg/ml/Epi 0.005mg/ml 30ml vial INJ ONE (18:15)
[2018-10-09] MEDS ORDERED: NS Irrig 4000ml IRRIG ONE ×2 (18:30)
[2018-10-09] MEDS ORDERED: Bacitracin 50000 Units Vial IRRIG ONE (18:30)
--- NOTE | 2018-10-09 18:30 | General Progress Note ---
Assessment/Plan Problem List: (1) DM (diabetes mellitus) ICD Codes: E11.9 - Type 2 diabetes mellitus without complications SNOMED: 40780279 (2) Decubitus ulcer of back, stage 4 ICD Codes: L89.104 - Pressure ulcer of unspecified part of back, stage 4 SNOMED: 164897650 (3) Anemia ICD Codes: D64.9 - Anemia, unspecified SNOMED: 625542330 Qualifiers: Qualified Codes: D64.9 - Anemia, unspecified (4) UTI (urinary tract infection) ICD Codes: N39.0 - Urinary tract infection, site not specified SNOMED: 33191181 Qualifiers: Qualified Codes: N30.00 - Acute cystitis without hematuria (5) Sepsis ICD Codes: A41.9 - Sepsis, unspecified organism SNOMED: 01596090 Assessment/Plan: abxs IVF debridement today follow labs Discussed with RN Subjective Allergies: Coded Allergies: No Known Allergies (Unverified , 05/08/12) Subjective pt is in surgery Objective Last 24 Hour Vital Signs Date Time Temp Pulse Resp B/P (MAP) Pulse Ox O2 Delivery O2 Flow Rate FiO2 10/09/18 16:00 97.0 104 20 145/72 (96) 100 10/09/18 16:00 92 10/09/18 16:00 Room Air 10/09/18 12:00 Room Air 10/09/18 12:00 73 10/09/18 12:00 97.0 74 18 137/58 (84) 100 10/09/18 08:00 93 10/09/18 08:00 96.9 95 18 150/80 (103) 100 10/09/18 08:00 Room Air 10/09/18 04:00 97.5 99 20 137/64 (88) 95 10/09/18 04:00 Room Air 10/09/18 03:40 92 10/09/18 00:00 Room Air 10/09/18 00:00 97.9 74 22 142/70 (94) 100 10/08/18 23:20 92 10/08/18 20:00 96.8 100 22 137/63 (87) 99 10/08/18 20:00 Room Air 10/08/18 19:29 101 10/08/18 18:53 Room Air Intake and Output 10/08/18 10/09/18 18:59 06:59 Intake Total 1300.00 ml 1500.14132 ml Output Total 800 ml 300 ml Balance 500.00 ml 1200.42631 ml Intake Oral 90 ml IV Total 1210.00 ml 1500.84436 ml Output Urine Total 800 ml 300 ml # Voids 1 # Bowel Movements 2 Height (Feet): 5 Height (Inches): 6.00 Weight (Pounds): 92 Arnulfo Rain MD October 09, 2018 18:30
--- NOTE | 2018-10-09 18:58 | Anethesia Preoperative Eval ---
Anesthesia Pre-op PMH/ROS General Date of Evaluation: October 09, 2018 Time of Evaluation: 18:08 Anesthesiologist: Tyra ASA Score: ASA 4 Mallampati Score Class I : Soft palate, uvula, fauces, pillars visible Class II: Soft palate, uvula, fauces visible Class III: Soft palate, base of uvula visible Class IV: Only hard plate visible Mallampati Classification: Class III Surgeon: Madyson Diagnosis: Gr. 4 decubitus ulcer Surgical Procedure: Debridement of decubitus ulcer Anesthesia History: none Family History: no anesthesia problems Allergies: Coded Allergies: No Known Allergies (Unverified , 05/08/12) Medications: see eMAR Patient NPO?: Yes NPO Date: October 09, 2018 NPO Time: 0000 Past Medical History Cardiovascular: Reports: HTN; Denies: CAD, SC, valve dz, arrhythmia, other Pulmonary: Denies: asthma, COPD, LEXIE, other Gastrointestinal/Genitourinary: Reports: GERD, CRI; Denies: ESRD, other Neurologic/Psychiatric: Reports: dementia, CVA; Denies: depression/anxiety, TIA, other Endocrine: Reports: DM, hypothyroidism HEENT: Denies: cataract (L), cataract (R), glaucoma, [place] (L), [place] (R), other Hematology/Immune: Reports: anemia Musculoskeletal/Integumentary: Reports: DJD, other - severe contrations; Denies: OA, RA, DDD, edema Other: other - malnourished PMH Narrative: as above PSxH Narrative: see H&P Anesthesia Pre-op Phys. Exam Physician Exam Last Vital Signs Date Time Temp Pulse Resp B/P (MAP) Pulse Ox O2 Delivery O2 Flow Rate FiO2 10/09/18 16:00 97.0 104 20 145/72 (96) 100 10/09/18 16:00 Room Air Constitutional: NAD Neurologic: other - unable to obtaine Cardiovascular: RRR, no M/R/G Respiratory: CTA Gastrointestinal: S/NT/ND Airway Exam Mallampati Score: Class III MO: limited Neck: stiff ROM: limited Teeth: missing, broken Dentures: no upper, no lower Anesthesia Pre-op A/P Labs see chart Studies Pre-op Studies: EKG - SR Risk Assessment & Plan Assessment: ASA 4 Plan: GA with LMA Status Change Before Surgery: No Pre-Antibiotics Drug: Ancef 1gr Given Within 1 Hr of Incision: Yes Time Given: 18:25 Kelvin Mary MD October 09, 2018 18:58
[2018-10-09] MEDS ORDERED: DiphenhydrAMINE 50mg/ml Inj IVP PRN (19:00)
[2018-10-09] MEDS ORDERED: fentaNYL 100 mcg/2 mL IV PRN (19:00)
--- NOTE | 2018-10-09 19:20 | NUR ---
HAND-OFF: Report given to LAVERNE Reilly. Patient still in surgery at this time. Endorsed to follow up.
--- NOTE | 2018-10-09 19:20 | NUR ---
NURSE NOTES: Received report from John Govea RN. Patient is currently in procedure. Awaiting arrival.
--- NOTE | 2018-10-09 19:46 | Brief Operative Note ---
Immediate Post Operative Note Operative Note Pre-op Diagnosis: Stage 4 sacrococcyx pressure injury Procedure: Resection of sacrococcyx ulcer with ostectomy of distal sacrum, deep open bone biopsy of sacrum Post-op Diagnosis: same as pre-op Surgeon: Cindy Anesthesiologist: Tyra Anesthesia: general, local - 30 cc .5% lidocaine with [id number] epi Specimen: yes - bone for pathology, bone for culture, tissue for gross Complications: none Condition: stable Fluids: IVF Estimated Blood Loss: minimal Drains: none Implant(s) used?: No Sarath White MD October 09, 2018 19:46
--- NOTE | 2018-10-09 19:49 | Immediate Post-Op Evaluation ---
Immediate Post-Op Evalulation Immediate Post-Op Evalulation Procedure: Debridement of Gr. 4 decubitus ulcer Date of Evaluation: October 09, 2018 Time of Evaluation: 19:48 IV Fluids: 500 Blood Products: none Estimated Blood Loss: <50 Urinary Output: 100 Blood Pressure Systolic: 104 Blood Pressure Diastolic: 56 Pulse Rate: 72 Respiratory Rate: 20 O2 Sat by Pulse Oximetry: 98 Temperature (Fahrenheit): 97.6 Pain Score (1-10): 1 Nausea: No Vomiting: No Complications NONE Patient Status: reacts, patent, none Hydration Status: adequate Kelvin Mary MD October 09, 2018 19:49
--- NOTE | 2018-10-09 21:00 | NUR ---
NURSE NOTES: Received patient from OR nurse Kirk Carreno RN. Patient is awake in bed, A/O x1. Sinus rhythm on train station agent. No s/s of acute distress noted. On 3L O2 via nasal cannula and saturating well. Harris catheter intact and draining well to gravity. Right EJ noted, intact and patent. Bed alarmed, locked in lowest position with side rails up x3. Call light left within reach. Will continue to monitor.
[2018-10-09] MEDS: Vancomycin 750mg/NS 275ml IVPB SCH ×2 (21:27)
[2018-10-09 22:06] LABS: HEMOGLOBIN 8.5 G/DL (12.0-16.0); MEAN CORPUSCULAR VOLUME 82 FL (80-99); PLATELET COUNT 348 K/UL (150-450); RED BLOOD COUNT 3.16 M/UL (4.20-5.40); RED CELL DISTRIBUTION WIDTH 13.6 % (11.6-14.8); WHITE BLOOD COUNT 19.9 K/UL (4.8-10.8)
[2018-10-10] VITALS: BP 134/63
--- NOTE | 2018-10-10 02:15 | Operative Note - Dictated ---
DATE OF OPERATION: 10/09/2018 SURGEON: Sarath White M.D. ANESTHESIOLOGIST: Kelvin Mary M.D. PREOPERATIVE DIAGNOSIS: Stage IV sacral pressure ulcer. POSTOPERATIVE DIAGNOSIS: Stage IV sacral pressure ulcer. OPERATION: Resection of sacral coccyx pressure ulcer with ostectomy, bone biopsy of the sacrum. ANESTHESIA: General anesthesia. 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 She was admitted to the hospital for urosepsis, but was noted to have this ulcer, which had necrotic tissue at the base and now decision was to resect this and perform cultures and biopsies for osteomyelitis as well as preparing it for future myocutaneous flap. Once the patient was medically cleared, she was scheduled for the surgery. OPERATIVE PROCEDURE: Once informed consent was obtained, the patient was brought down to the operating room and placed on the operating table in supine position. SCDs have been placed on bilateral lower extremities and then general anesthesia was induced and then she was placed on a beanbag in the left lateral decubitus position. Beanbag was inflated and once all pressure points were padded and protected, 30 mL of 0.5% lidocaine with 1:200,000 epinephrine was injected into the ulcer and the surrounding skin. The area was then prepped and draped in the usual sterile fashion. Once the time-out was performed, the area of the ulcer was painted with methylene blue and then using a #10 blade, the incision was made on the preoperative markings. Dissection proceeded down with electrocautery making sure to remain outside the methylene blue-stained tissues to perform a complete excision. Once this was done, the ulcer bursa was taken off the field to be sent for gross pathology. An osteotome was then used to remove the overlying methylene blue-stained bone off the distal sacrum and then once this was completed, a rongeur was used to perform a deep open bone biopsy of the sacrum as well as aerobic and anaerobic cultures of the bone. At this point, 4 liters of Triple Antibiotic solution of Ancef, gentamicin, and bacitracin were pulse irrigated and then hemostasis was carefully obtained. Final ulcer dimensions were 10 x 12 cm x 2 cm in depth. Hemostasis was carefully obtained and then the wound was then packed with wet-to-dry Kerlix and saline and covered by 4 x 4's, ABD, and a foam tape. She was then placed in the supine position, extubated, and then transferred to the regular bed and taken to recovery room in stable condition. There were no complications. EBL was less than 20 mL. The patient tolerated the procedure well. Sarath White M.D. DR: SABIHA JOB#: [id number] CC:
[2018-10-10] MEDS: Morphine Sulfate 4mg/ml Inj (IV USE ONLY) IVP PRN (03:25)
--- NOTE | 2018-10-10 03:30 | NUR ---
NURSE NOTES: Patient bathed, dressed, and repositioned. Wound dressing remains intact. No bowel movement. Patient remains free from s/s of acute distress. Will continue to monitor.
[2018-10-10 04:00] VITALS: BP 138/61
[2018-10-10] MEDS: Piperacillin/Tazobactam 3.375 GM in D5W 110 ML IVPB SCH ×3 (06:03→21:07)
[2018-10-10] MEDS: Nateglinide 60mg tab ORAL SCH ×3 (06:03→16:44)
[2018-10-10] MEDS: NovoLOG Insulin Flexpen SUBQ SCH ×4 (06:04→20:49)
--- NOTE | 2018-10-10 06:48 | General Progress Note ---
Assessment/Plan Problem List: (1) DM (diabetes mellitus) ICD Codes: E11.9 - Type 2 diabetes mellitus without complications SNOMED: 90866577 (2) Decubitus ulcer of back, stage 4 ICD Codes: L89.104 - Pressure ulcer of unspecified part of back, stage 4 SNOMED: 175301961 (3) Hyperglycemia due to type 2 diabetes mellitus ICD Codes: E11.65 - Type 2 diabetes mellitus with hyperglycemia; R65.21 - Severe sepsis with septic shock SNOMED: 511657604983657, 92874958 Qualifiers: Qualified Codes: E11.65 - Type 2 diabetes mellitus with hyperglycemia; Z79.4 - MCC (current) use of insulin (4) Anemia ICD Codes: D64.9 - Anemia, unspecified SNOMED: 841730741 Qualifiers: Qualified Codes: D64.9 - Anemia, unspecified (5) ARF (acute renal failure) ICD Codes: N17.9 - Acute kidney failure, unspecified SNOMED: 78741895 Qualifiers: Qualified Codes: N17.9 - Acute kidney failure, unspecified Assessment/Plan: DC Levemir continue Starlix 120 mg ac tid continue Januvia 100 mg daily continue NISS ac / hs Subjective Allergies: Coded Allergies: No Known Allergies (Unverified , 05/08/12) All Systems: reviewed and negative except above Subjective events noted Item Value Date Time Bedside Blood Glucose 194 mg/dl H 10/10/18 0630 Bedside Blood Glucose 148 mg/dl H 10/09/18 2128 Bedside Blood Glucose 140 mg/dl H 10/09/18 1629 Bedside Blood Glucose 121 mg/dl H 10/09/18 1148 Bedside Blood Glucose 97 mg/dl 10/09/18 0938 Objective Last 24 Hour Vital Signs Date Time Temp Pulse Resp B/P (MAP) Pulse Ox O2 Delivery O2 Flow Rate FiO2 10/10/18 04:00 Nasal Cannula 1.0 10/10/18 04:00 97.8 88 14 138/61 (86) 96 10/10/18 03:55 97.5 10/10/18 03:18 105 10/10/18 00:00 97.5 81 14 134/63 (86) 100 10/10/18 00:00 Nasal Cannula 3.0 10/09/18 23:33 75 10/09/18 21:13 82 10/09/18 21:00 Room Air 10/09/18 21:00 97.0 91 14 135/74 (94) 100 10/09/18 20:46 97.5 77 20 139/71 98 Nasal Cannula 3 81 10/09/18 20:30 82 21 150/69 97 Nasal Cannula 3 82 10/09/18 20:25 79 15 137/70 99 Nasal Cannula 3 79 10/09/18 20:15 80 18 152/74 96 Nasal Cannula 3 80 10/09/18 20:00 87 20 147/78 98 Simple Mask 6 87 10/09/18 19:50 84 19 153/89 98 Simple Mask 6 84 10/09/18 19:49 72 20 98 10/09/18 19:44 97.8 86 22 104/56 98 Simple Mask 6 86 10/09/18 16:00 97.0 104 20 145/72 (96) 100 10/09/18 16:00 92 10/09/18 16:00 Room Air 10/09/18 12:00 Room Air 10/09/18 12:00 73 10/09/18 12:00 97.0 74 18 137/58 (84) 100 10/09/18 08:00 93 10/09/18 08:00 96.9 95 18 150/80 (103) 100 10/09/18 08:00 Room Air Intake and Output 10/09/18 10/10/18 19:00 07:00 Intake Total 1126.25 ml 1247.84053 ml Output Total 800 ml 610 ml Balance 326.25 ml 637.34074 ml Intake Oral 50 ml IV Total 1126.25 ml 1197.40204 ml Output Urine Total 800 ml 600 ml Estimated Blood Loss 10 ml Laboratory Tests 10/09/18 22:00: White Blood Count 19.9H, Red Blood Count 3.16L, Hemoglobin 8.5L, Hematocrit 26.0L, Mean Corpuscular Volume 82, Mean Corpuscular Hemoglobin 26.8L, Mean Corpuscular Hemoglobin Concent 32.6, Red Cell Distribution Width 13.6, Platelet Count 348, Mean Platelet Volume 6.7, Neutrophils (%) (Auto) , Lymphocytes (%) ( Auto) , Monocytes (%) (Auto) , Eosinophils (%) (Auto) , Basophils (%) (Auto) , Differential Total Cells Counted 100, Neutrophils % (Manual) 82H, Lymphocytes % (Manual) 12L, Monocytes % (Manual) 3, Eosinophils % (Manual) 1, Basophils % ( Manual) 0, Band Neutrophils 2, Platelet Estimate Adequate, Platelet Morphology Normal, Hypochromasia 1+, Anisocytosis 1+ Height (Feet): 5 Height (Inches): 6.00 Weight (Pounds): 131 General Appearance: no apparent distress Neck: normal alignment Cardiovascular: normal rate Respiratory/Chest: decreased breath sounds Abdomen: normal bowel sounds Objective Current Medications Medications (Trade) Dose Ordered Sig/Mar Route PRN Reason Start Time Stop Time Status Last Admin Dose Admin Acetaminophen/ Hydrocodone Bitart ([place] 5/325) 1 tab Q6H PRN ORAL Moderate Pain (Pain Scale 4-6) 10/08/18 02:45 10/15/18 02:44 Aspirin (Ecotrin) 81 mg DAILY ORAL 10/08/18 09:00 11/07/18 08:59 10/09/18 08:51 Dextrose 1,000 ml @ 75 mls/hr [id number] IV 10/09/18 23:00 11/08/18 22:59 10/09/18 23:00 Dextrose (Dextrose 50%) 25 ml Q30M PRN IV Hypoglycemia 10/08/18 02:45 11/07/18 02:44 10/09/18 09:02 Dextrose (Dextrose 50%) 50 ml Q30M PRN IV Hypoglycemia 10/08/18 02:45 11/07/18 02:44 10/09/18 03:42 Heparin Sodium (Porcine) (Heparin 5000 units/ml) 5,000 units EVERY 12 HOURS SUBQ 10/08/18 09:00 11/07/18 08:59 10/09/18 21:29 Insulin Aspart (NovoLOG) BEFORE MEALS AND HS SUBQ 10/08/18 06:30 11/07/18 06:29 10/10/18 06:04 Insulin Detemir (Levemir) 15 units DAILY SUBQ 10/08/18 14:30 11/07/18 14:29 10/08/18 14:56 Morphine Sulfate (Morphine Sulfate) 4 mg EVERY 3 HOURS PRN IVP Severe Pain (Pain Scale 7-10) 10/08/18 02:45 10/15/18 02:44 10/10/18 03:25 Nateglinide (Starlix) 120 mg TIAC ORAL 10/08/18 16:30 11/07/18 06:29 10/10/18 06:03 Piperacillin Sod/ Tazobactam Sod 3.375 gm/Dextrose 110 ml @ 27.5 mls/hr Q8H IVPB 10/09/18 14:00 10/16/18 13:59 10/10/18 06:03 Sitagliptin Phosphate (Januvia) 100 mg ACBREAKFAST ORAL 10/08/18 06:30 11/07/18 06:29 10/10/18 06:03 Vancomycin HCl (Vanco rx to dose) 1 ea DAILY PRN MISC Per rx protocol 10/08/18 02:45 11/07/18 02:44 Vancomycin HCl 750 mg/Sodium Chloride 275 ml @ 183.333 mls/hr Q24H IVPB 10/08/18 21:00 10/13/18 20:59 10/09/18 21:27 Luisito Quintero MD October 10, 2018 06:48
--- NOTE | 2018-10-10 07:00 | NUR ---
HAND-OFF: LAYLA copied for Chris Gold RN.
--- NOTE | 2018-10-10 07:40 | NUR ---
NURSE NOTES: receive dpatient report from regina short. patient is on bed awake.not in acute distress. sr-st bed is low and locked for safety. will follow plan of care.
[2018-10-10 08:00] VITALS: BP 117/72
[2018-10-10] MEDS: Aspirin EC 81mg tab ORAL SCH (08:11)
[2018-10-10] MEDS: Heparin 5000 units/ml inj SUBQ SCH ×2 (08:13→20:47)
[2018-10-10 08:55] LABS: HEMATOCRIT 24.3 % (37.0-47.0); HEMOGLOBIN 7.6 G/DL (12.0-16.0); MEAN CORPUSCULAR VOLUME 85 FL (80-99); PLATELET COUNT 333 K/UL (150-450); RED BLOOD COUNT 2.85 M/UL (4.20-5.40); RED CELL DISTRIBUTION WIDTH 14.3 % (11.6-14.8); WHITE BLOOD COUNT 15.8 K/UL (4.8-10.8)
[2018-10-10 09:24] LABS: ANION GAP 9 mmol/L (5-15); BLOOD UREA NITROGEN 26 mg/dL (7-18); CARBON DIOXIDE 24 MMOL/L (21-32); CHLORIDE 118 MMOL/L (98-107); CREATININE 1.1 MG/DL (0.55-1.30); POTASSIUM 2.9 MMOL/L (3.5-5.1); SODIUM 151 MMOL/L (136-145)
--- NOTE | 2018-10-10 09:45 | NUR ---
NURSE NOTES: left a message to dr lauren whyte regarding k level of 2.9 hgb of 7.6 hct of 24.3 na level of 151. awaits callback and new order as of this time.
--- NOTE | 2018-10-10 10:02 | NUR ---
NURSE NOTES: dr jeyson whyte called back and ordered to give kcl 40meqs kcl now and again in 4hrs PO. will take note and carry out.
--- NOTE | 2018-10-10 10:16 | 48 Hour Post Anesthesia Eval ---
Post Anesthesia Evaluation Procedure: Debridement of Gr. 4 decubitus ulcer Date of Evaluation: October 10, 2018 Time of Evaluation: 10:15 Blood Pressure Systolic: 117 0: 72 Pulse Rate: 63 Respiratory Rate: 18 Temperature (Fahrenheit): 97 O2 Sat by Pulse Oximetry: 100 Airway: patent Nausea: No Vomiting: No Pain Intensity: 2 Hydration Status: adequate Cardiopulmonary Status: Stable Mental Status/LOC: patient returned to baseline Follow-up Care/Observations: 0 Post-Anesthesia Complications: 0 Follow-up care needed: N/A Bijan Chavarria MD October 10, 2018 10:16
[2018-10-10 12:00] VITALS: BP 139/68
--- NOTE | 2018-10-10 12:21 | NUR ---
RD ASSESSMENT & RECOMMENDATIONS SEE CARE ACTIVITY FOR COMPLETE ASSESSMENT DAILY ESTIMATED NEEDS: Needs based on Wound 56kg 30-35 kcals/kg 9632-2525 total kcals 1.25-2 g protein/kg 70-112 g total protein 25-30 mL/kg 7807-4379 total fluid mLs NUTRITION DIAGNOSIS: 1) Increased kcal and pro needs r/t wound healing as evidenced by stage 4 sacral pressure ulcer, s/p debridement. 2) Altered nutrition related lab values r/t DM as evidenced by A1C 10.6, BG 548-> 273). CURRENT DIET: CCHO MED liquify puree NTL PO DIET RECOMMENDATIONS: CCHO LOW / texture per MOLD MAKER HELPER + Glucerna TID w/ meals ADDITIONAL RECOMMENDATIONS: 1) Obtain an accurate WT w/ added mattress 2) Wound care: MVI x1 + Vit C 500mg BID + ZN SO4 220mg daily x10 days + ANDERS BID 3) Add Glucerna 1 tetra didi daily w/ meals 4) Monitor po intake, need for snacks
--- NOTE | 2018-10-10 12:31 | Infectious Diseases Prog Note ---
Assessment/Plan Assessment/Plan IMPRESSION: 1. Gram-negative sepsis. 2. Pyuria and urinary tract infection. 3. 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 4. Acute renal failure. 5. Hyperkalemia. 6. Hypernatremia. 7. Protein calorie-malnutrition and cachexia. 8. Diabetes mellitus with hyperglycemia. RECOMMENDATION: We will continue with vancomycin and Zosyn. Will f/u cultures Subjective ROS Limited/Unobtainable: Yes Constitutional: Reports: no symptoms Neurologic: Reports: other - more alert Musculoskeletal: Reports: other - had resection of sacral wound & ostectomy Allergies: Coded Allergies: No Known Allergies (Unverified , 05/08/12) Objective Vital Signs Last 24 Hour Vital Signs Date Time Temp Pulse Resp B/P (MAP) Pulse Ox O2 Delivery O2 Flow Rate FiO2 10/10/18 10:16 63 18 100 10/10/18 08:46 97 Nasal Cannula 2.0 28 10/10/18 08:00 97.0 89 18 117/72 (87) 100 10/10/18 08:00 63 10/10/18 08:00 Nasal Cannula 1.0 10/10/18 04:00 Nasal Cannula 1.0 10/10/18 04:00 97.8 88 14 138/61 (86) 96 10/10/18 03:55 97.5 10/10/18 03:18 105 10/10/18 00:00 97.5 81 14 134/63 (86) 100 10/10/18 00:00 Nasal Cannula 3.0 10/09/18 23:33 75 10/09/18 21:13 82 10/09/18 21:00 Room Air 10/09/18 21:00 97.0 91 14 135/74 (94) 100 10/09/18 20:46 97.5 77 20 139/71 98 Nasal Cannula 3 81 10/09/18 20:30 82 21 150/69 97 Nasal Cannula 3 82 10/09/18 20:25 79 15 137/70 99 Nasal Cannula 3 79 10/09/18 20:15 80 18 152/74 96 Nasal Cannula 3 80 10/09/18 20:00 87 20 147/78 98 Simple Mask 6 87 10/09/18 19:50 84 19 153/89 98 Simple Mask 6 84 5/28/19 19:49 72 20 98 10/09/18 19:44 97.8 86 22 104/56 98 Simple Mask 6 86 10/09/18 16:00 97.0 104 20 145/72 (96) 100 10/09/18 16:00 92 10/09/18 16:00 Room Air Height (Feet): 5 Height (Inches): 6.00 Weight (Pounds): 131 General Appearance: cachetic HEENT: mucous membranes moist Respiratory/Chest: lungs clear Cardiovascular: normal rate Abdomen: soft, non tender Extremities: no edema Skin: ulcers, other - sacral stage 4 Neurologic/Psychiatric: alert, responsive, aphasia Microbiology Date/Time Source Procedure Growth Status 10/07/18 22:50 Blood Blood Culture - Preliminary Gram Negative Bacillus 1 Gram Negative Bacillus 1#2 Resulted 10/07/18 22:35 Blood Blood Culture - Preliminary Gram Negative Bacillus 1 Gram Negative Bacillus 2 Resulted 10/07/18 23:40 Nasal Nares MRSA Culture - Final NO METHICILLIN RESISTANT STAPH AUREUS... Complete 10/07/18 23:30 Urine,Clean Catch Urine Culture - Preliminary Resulted 10/09/18 19:00 Sacral Wound Gram Stain - Final Resulted 10/09/18 19:00 Sacral Wound Aerobic Culture Pending Resulted 10/09/18 19:00 Sacral Wound Anaerobic Culture Pending Resulted 10/07/18 23:40 Rectum Gram Stain - Final Complete 10/07/18 23:40 Decubitis Culture - Final Escherichia Coli Proteus Mirabilis Streptococcus Group B Streptococcus Viridans Diphtheroids Complete 10/07/18 23:40 Rectum VRE Culture - Final Enterococcus Faecalis - Vre Complete Laboratory Tests Test 10/09/18 22:00 10/10/18 08:45 White Blood Count 19.9 K/UL (4.8-10.8) H 15.8 K/UL (4.8-10.8) H Red Blood Count 3.16 M/UL (4.20-5.40) L 2.85 M/UL (4.20-5.40) L Hemoglobin 8.5 G/DL (12.0-16.0) L 7.6 G/DL (12.0-16.0) L Hematocrit 26.0 % (37.0-47.0) L 24.3 % (37.0-47.0) L Mean Corpuscular Volume 82 FL (80-99) 85 FL (80-99) Mean Corpuscular Hemoglobin 26.8 PG (27.0-31.0) L 26.8 PG (27.0-31.0) L Mean Corpuscular Hemoglobin Concent 32.6 G/DL (32.0-36.0) 31.4 G/DL (32.0-36.0) L Red Cell Distribution Width 13.6 % (11.6-14.8) 14.3 % (11.6-14.8) Platelet Count 348 K/UL (150-450) 333 K/UL (150-450) Mean Platelet Volume 6.7 FL (6.5-10.1) 7.5 FL (6.5-10.1) Neutrophils (%) (Auto) % (45.0-75.0) % (45.0-75.0) Lymphocytes (%) (Auto) % (20.0-45.0) % (20.0-45.0) Monocytes (%) (Auto) % (1.0-10.0) % (1.0-10.0) Eosinophils (%) (Auto) % (0.0-3.0) % (0.0-3.0) Basophils (%) (Auto) % (0.0-2.0) % (0.0-2.0) Differential Total Cells Counted 100 100 Neutrophils % (Manual) 82 % (45-75) H 89 % (45-75) H Lymphocytes % (Manual) 12 % (20-45) L 8 % (20-45) L Monocytes % (Manual) 3 % (1-10) 3 % (1-10) Eosinophils % (Manual) 1 % (0-3) 0 % (0-3) Basophils % (Manual) 0 % (0-2) 0 % (0-2) Band Neutrophils 2 % (0-8) 0 % (0-8) Platelet Estimate Adequate Adequate Platelet Morphology Normal Normal Hypochromasia 1+ 3+ Anisocytosis 1+ 1+ Sodium Level 151 MMOL/L (136-145) H Potassium Level 2.9 MMOL/L (3.5-5.1) L Chloride Level 118 MMOL/L (98-107) H Carbon Dioxide Level 24 MMOL/L (21-32) Anion Gap 9 mmol/L (5-15) Blood Urea Nitrogen 26 mg/dL (7-18) H Creatinine 1.1 MG/DL (0.55-1.30) Estimat Glomerular Filtration Rate mL/min (>60) Glucose Level 273 MG/DL (74-106) H Calcium Level 8.0 MG/DL (8.5-10.1) L Current Medications Medications (Trade) Dose Ordered Sig/Mar Route PRN Reason Start Time Stop Time Status Last Admin Dose Admin Acetaminophen/ Hydrocodone Bitart ([place] 5/325) 1 tab Q6H PRN ORAL Moderate Pain (Pain Scale 4-6) 10/08/18 02:45 10/15/18 02:44 Aspirin (Ecotrin) 81 mg DAILY ORAL 10/08/18 09:00 11/07/18 08:59 10/10/18 08:11 Dextrose 1,000 ml @ 75 mls/hr [id number] IV 10/09/18 23:00 11/08/18 22:59 10/09/18 23:00 Dextrose (Dextrose 50%) 25 ml Q30M PRN IV Hypoglycemia 10/08/18 02:45 11/07/18 02:44 10/09/18 09:02 Dextrose (Dextrose 50%) 50 ml Q30M PRN IV Hypoglycemia 10/08/18 02:45 11/07/18 02:44 10/09/18 03:42 Heparin Sodium (Porcine) (Heparin 5000 units/ml) 5,000 units EVERY 12 HOURS SUBQ 10/08/18 09:00 11/07/18 08:59 10/10/18 08:13 Insulin Aspart (NovoLOG) BEFORE MEALS AND HS SUBQ 10/08/18 06:30 11/07/18 06:29 10/10/18 11:34 Morphine Sulfate (Morphine Sulfate) 4 mg EVERY 3 HOURS PRN IVP Severe Pain (Pain Scale 7-10) 10/08/18 02:45 10/15/18 02:44 10/10/18 03:25 Nateglinide (Starlix) 120 mg TIAC ORAL 10/08/18 16:30 11/07/18 06:29 10/10/18 11:34 Piperacillin Sod/ Tazobactam Sod 3.375 gm/Dextrose 110 ml @ 27.5 mls/hr Q8H IVPB 10/09/18 14:00 6/4/19 13:59 10/10/18 06:03 Potassium Chloride (K-Dur) 40 meq ONCE ORAL 10/10/18 14:15 10/10/18 16:00 Sitagliptin Phosphate (Januvia) 100 mg ACBREAKFAST ORAL 10/08/18 06:30 11/07/18 06:29 10/10/18 06:03 Sodium Hypochlorite (Dakin's Quarter Strength) 1 applic DAILY TOPIC 10/10/18 12:00 11/09/18 11:59 Vancomycin HCl (Vanco rx to dose) 1 ea DAILY PRN MISC Per rx protocol 10/08/18 02:45 11/07/18 02:44 Vancomycin HCl 750 mg/Sodium Chloride 275 ml @ 183.333 mls/hr Q24H IVPB 10/08/18 21:00 10/13/18 20:59 10/09/18 21:27 Dallas Rain MD October 10, 2018 12:31
[2018-10-10] MEDS: Dakin's 0.125% Soln (Quarter Strength) 16oz TOPIC SCH (13:13)
--- NOTE | 2018-10-10 14:19 | General Progress Note ---
Assessment/Plan Problem List: (1) DM (diabetes mellitus) ICD Codes: E11.9 - Type 2 diabetes mellitus without complications SNOMED: 73295684 (2) Decubitus ulcer of back, stage 4 ICD Codes: L89.104 - Pressure ulcer of unspecified part of back, stage 4 SNOMED: 427814332 (3) Anemia ICD Codes: D64.9 - Anemia, unspecified SNOMED: 424515812 Qualifiers: Qualified Codes: D64.9 - Anemia, unspecified (4) UTI (urinary tract infection) ICD Codes: N39.0 - Urinary tract infection, site not specified SNOMED: 49899116 Qualifiers: Qualified Codes: N30.00 - Acute cystitis without hematuria (5) Sepsis ICD Codes: A41.9 - Sepsis, unspecified organism SNOMED: 05469463 (6) Hypernatremia ICD Codes: E87.0 - Hyperosmolality and hypernatremia SNOMED: 562940665 (7) Hypokalemia ICD Codes: E87.6 - Hypokalemia SNOMED: 51477082 Assessment/Plan: abxs Change IV fluid to D5W Wound care follow labs Discussed with RN Calorie counts by dietitian Replete potassium Transfer to telemetry Subjective Allergies: Coded Allergies: No Known Allergies (Unverified , 05/08/12) Subjective Patient is in no acute distress Objective Last 24 Hour Vital Signs Date Time Temp Pulse Resp B/P (MAP) Pulse Ox O2 Delivery O2 Flow Rate FiO2 10/10/18 12:00 Nasal Cannula 1.0 10/10/18 10:16 63 18 100 10/10/18 08:46 97 Nasal Cannula 2.0 28 10/10/18 08:00 97.0 89 18 117/72 (87) 100 10/10/18 08:00 63 10/10/18 08:00 Nasal Cannula 1.0 10/10/18 04:00 Nasal Cannula 1.0 10/10/18 04:00 97.8 88 14 138/61 (86) 96 10/10/18 03:55 97.5 10/10/18 03:18 105 10/10/18 00:00 97.5 81 14 134/63 (86) 100 10/10/18 00:00 Nasal Cannula 3.0 10/09/18 23:33 75 10/09/18 21:13 82 10/09/18 21:00 Room Air 10/09/18 21:00 97.0 91 14 135/74 (94) 100 10/09/18 20:46 97.5 77 20 139/71 98 Nasal Cannula 3 81 10/09/18 20:30 82 21 150/69 97 Nasal Cannula 3 82 10/09/18 20:25 79 15 137/70 99 Nasal Cannula 3 79 10/09/18 20:15 80 18 152/74 96 Nasal Cannula 3 80 10/09/18 20:00 87 20 147/78 98 Simple Mask 6 87 10/09/18 19:50 84 19 153/89 98 Simple Mask 6 84 10/09/18 19:49 72 20 98 10/09/18 19:44 97.8 86 22 104/56 98 Simple Mask 6 86 10/09/18 16:00 97.0 104 20 145/72 (96) 100 10/09/18 16:00 92 10/09/18 16:00 Room Air Intake and Output 10/09/18 10/10/18 19:00 07:00 Intake Total 1126.25 ml 1247.58983 ml Output Total 800 ml 610 ml Balance 326.25 ml 637.74092 ml Intake Oral 50 ml IV Total 1126.25 ml 1197.08578 ml Output Urine Total 800 ml 600 ml Estimated Blood Loss 10 ml Laboratory Tests 10/09/18 22:00: White Blood Count 19.9H, Red Blood Count 3.16L, Hemoglobin 8.5L, Hematocrit 26.0L, Mean Corpuscular Volume 82, Mean Corpuscular Hemoglobin 26.8L, Mean Corpuscular Hemoglobin Concent 32.6, Red Cell Distribution Width 13.6, Platelet Count 348, Mean Platelet Volume 6.7, Neutrophils (%) (Auto) , Lymphocytes (%) ( Auto) , Monocytes (%) (Auto) , Eosinophils (%) (Auto) , Basophils (%) (Auto) , Differential Total Cells Counted 100, Neutrophils % (Manual) 82H, Lymphocytes % (Manual) 12L, Monocytes % (Manual) 3, Eosinophils % (Manual) 1, Basophils % ( Manual) 0, Band Neutrophils 2, Platelet Estimate Adequate, Platelet Morphology Normal, Hypochromasia 1+, Anisocytosis 1+ 10/10/18 08:45: White Blood Count 15.8H, Red Blood Count 2.85L, Hemoglobin 7.6L, Hematocrit 24.3L, Mean Corpuscular Volume 85, Mean Corpuscular Hemoglobin 26.8L, Mean Corpuscular Hemoglobin Concent 31.4L, Red Cell Distribution Width 14.3, Platelet Count 333, Mean Platelet Volume 7.5, Neutrophils (%) (Auto) , Lymphocytes (%) (Auto) , Monocytes (%) (Auto) , Eosinophils (%) (Auto) , Basophils (%) (Auto) , Differential Total Cells Counted 100, Neutrophils % ( Manual) 89H, Lymphocytes % (Manual) 8L, Monocytes % (Manual) 3, Eosinophils % ( Manual) 0, Basophils % (Manual) 0, Band Neutrophils 0, Platelet Estimate Adequate, Platelet Morphology Normal, Hypochromasia 3+, Anisocytosis 1+, Sodium Level 151H, Potassium Level 2.9L, Chloride Level 118H, Carbon Dioxide Level 24, Anion Gap 9, Blood Urea Nitrogen 26H, Creatinine 1.1, Estimat Glomerular Filtration Rate , Glucose Level 273H, Calcium Level 8.0L Height (Feet): 5 Height (Inches): 6.00 Weight (Pounds): 131 Cardiovascular: normal rate Respiratory/Chest: lungs clear Edema: no edema noted Generalized Arnulfo Rain MD October 10, 2018 14:19
[2018-10-10 16:00] VITALS: BP 144/69
--- NOTE | 2018-10-10 16:11 | NUR ---
ST NOTE: SWALLOW/SPEECH/LANGUAGE/COGNITIONS STATUS: PT SEEN AT BEDSIDE IN AM. ALERT, BUT SEEMS CONFUSED. SOFT VOICE. PER RNLEANNE, PT WAS HAVING DIFFICULTY WITH SOLID FOOD ALSO WITH PUREED FOOD. BUT OKAY WITH THIN LIQUIDS.PT WITH NC(2L). GIVEN THIN AND NECTAR THICK LIQUIDS VIA TSP MILD TO MODERATE OROPHARYNGEAL TRANSIT TIME(4 SECONDS), UNTIL PT INITIATED PHARYNGEAL SWALLOW, FAIR LARYNGEAL ELEVATION, NO OVERT S/S OF ASPIRATION. FOR QUALITY OF LIFE, CONTINUE ORAL DIET. CHANGED DIET TO LIQUIFIED PUREED, LIKE NECTAR THICK SOUP DIET WITH THIN LIQUIDS STRICT ASPIRATION PRECAUTIONS WITH 1TO[address], RECOMMENDED GLUCERNA TID. DISCUSSED WITH RN AND INFORMED MD, DR. CABRALES. UPDATED ASPIRATION PRECAUTIONS SIGN
--- NOTE | 2018-10-10 19:20 | NUR ---
NURSE NOTES: Pt report received from Lelo GALLOWAY. Pt is alert and oriented times 2, able to follow commands, pupils are round and reactive to light and accommodating to light, bilaterally. Pt is on 1L NC and saturating well at 100%, no signs or symptoms of acute respiratory distress noted. pt has a biophysics teacher on active, working, and displaying SR on the monitor. pt has no signs or symptoms of acute cardiac distress noted. Pt has a sewell cath inserted, patented and draining to gravity, no abnormalities noted to site or tubing. Pt has a L wrist 24 G able to flush, no abnormalities noted. All safety precautions are active, bed is in lowest position, bed alarm active, call light is within easy reach, safety brakes are active. will continue plan of care.
--- NOTE | 2018-10-10 19:27 | NUR ---
HAND-OFF: Report given to emre short.
[2018-10-10 20:00] VITALS: BP 133/61
--- NOTE | 2018-10-10 20:03 | NUR ---
NURSE NOTES: spoke with Deborah from Pharmacy, She stated/ confirmed Vanco should not be given without Lab work. will hold off on med (Vanco) as per Pharm orders. Addendum: 10/10/18 at 2009 by OCHOA CHU RN NURSE NOTES: spoke with Deborah from Pharmacy, She stated/ confirmed Vanco should not be given without Lab work. will hold off on med (Vanco) until Vanco/ trough Lab results, as per Pharm orders.
[2018-10-10] MEDS: Vancomycin 1gm/D5W 275ml IVPB SCH ×2 (22:48)
--- NOTE | 2018-10-10 22:50 | NUR ---
NURSE NOTES: New 22G IV line started on Pt Right hand/ wrist. patent and able to flush, no abnormalities noted.
[2018-10-11] VITALS: BP 137/83
[2018-10-11 04:00] VITALS: BP 135/67
[2018-10-11] MEDS: Morphine Sulfate 4mg/ml Inj (IV USE ONLY) IVP PRN (04:41)
[2018-10-11 05:37] LABS: HEMATOCRIT 23.1 % (37.0-47.0); HEMOGLOBIN 7.2 G/DL (12.0-16.0); MEAN CORPUSCULAR VOLUME 85 FL (80-99); PLATELET COUNT 313 K/UL (150-450); RED BLOOD COUNT 2.71 M/UL (4.20-5.40); RED CELL DISTRIBUTION WIDTH 14.3 % (11.6-14.8); WHITE BLOOD COUNT 15.6 K/UL (4.8-10.8)
[2018-10-11] MEDS: Nateglinide 60mg tab ORAL SCH ×3 (05:55→16:30)
[2018-10-11] MEDS: Piperacillin/Tazobactam 3.375 GM in D5W 110 ML IVPB SCH (05:55)
[2018-10-11] MEDS: NovoLOG Insulin Flexpen SUBQ SCH ×4 (05:59→20:23)
[2018-10-11 06:01] LABS: ANION GAP 11 mmol/L (5-15); BLOOD UREA NITROGEN 18 mg/dL (7-18); CALCIUM 7.8 MG/DL (8.5-10.1); CARBON DIOXIDE 21 MMOL/L (21-32); CHLORIDE 108 MMOL/L (98-107); POTASSIUM 3.1 MMOL/L (3.5-5.1); SODIUM 140 MMOL/L (136-145)
--- NOTE | 2018-10-11 06:50 | General Progress Note ---
Assessment/Plan Problem List: (1) DM (diabetes mellitus) ICD Codes: E11.9 - Type 2 diabetes mellitus without complications SNOMED: 28684377 (2) Decubitus ulcer of back, stage 4 ICD Codes: L89.104 - Pressure ulcer of unspecified part of back, stage 4 SNOMED: 505569331 (3) Hyperglycemia due to type 2 diabetes mellitus ICD Codes: E11.65 - Type 2 diabetes mellitus with hyperglycemia; R65.21 - Severe sepsis with septic shock SNOMED: 072338824376722, 25012434 Qualifiers: Qualified Codes: E11.65 - Type 2 diabetes mellitus with hyperglycemia; Z79.4 - senior living (current) use of insulin (4) Anemia ICD Codes: D64.9 - Anemia, unspecified SNOMED: 710807781 Qualifiers: Qualified Codes: D64.9 - Anemia, unspecified (5) ARF (acute renal failure) ICD Codes: N17.9 - Acute kidney failure, unspecified SNOMED: 62110981 Qualifiers: Qualified Codes: N17.9 - Acute kidney failure, unspecified Assessment/Plan: add Levemir 9 units daily continue Starlix 120 mg ac tid continue Januvia 100 mg daily continue NISS ac / hs Subjective Allergies: Coded Allergies: No Known Allergies (Unverified , 05/08/12) All Systems: reviewed and negative except above Subjective events noted fasting glucose elevated Item Value Date Time Bedside Blood Glucose 273 mg/dl H 10/11/18 0630 Bedside Blood Glucose 139 mg/dl H 10/10/18 2100 Bedside Blood Glucose 141 mg/dl H 10/10/18 1646 Bedside Blood Glucose 205 mg/dl H 10/10/18 1134 Bedside Blood Glucose 194 mg/dl H 10/10/18 0630 Objective Last 24 Hour Vital Signs Date Time Temp Pulse Resp B/P (MAP) Pulse Ox O2 Delivery O2 Flow Rate FiO2 10/11/18 05:11 98.0 10/11/18 04:00 69 10/11/18 04:00 Nasal Cannula 1.0 10/11/18 04:00 98.0 93 19 135/67 (89) 99 10/11/18 00:00 Nasal Cannula 1.0 10/11/18 00:00 90 10/11/18 00:00 98.9 94 19 137/83 (101) 99 10/10/18 20:16 98 Nasal Cannula 2.0 28 10/10/18 20:00 99.0 92 20 133/61 (85) 99 10/10/18 20:00 Nasal Cannula 1.0 10/10/18 20:00 91 10/10/18 16:00 Nasal Cannula 1.0 10/10/18 16:00 99.8 94 21 144/69 (94) 100 10/10/18 16:00 85 10/10/18 12:00 98.1 73 19 139/68 (91) 100 10/10/18 12:00 Nasal Cannula 1.0 10/10/18 11:39 71 10/10/18 10:16 63 18 100 10/10/18 08:46 97 Nasal Cannula 2.0 28 10/10/18 08:00 97.0 89 18 117/72 (87) 100 10/10/18 08:00 63 10/10/18 08:00 Nasal Cannula 1.0 Intake and Output 10/10/18 10/11/18 19:00 07:00 Intake Total 850.0 ml 760.000 ml Output Total 350 ml 1000 ml Balance 500.0 ml -240.000 ml Intake Oral 30 ml IV Total 820.0 ml 760.000 ml Output Urine Total 350 ml 1000 ml # Voids 1 Laboratory Tests 10/10/18 08:45: White Blood Count 15.8H, Red Blood Count 2.85L, Hemoglobin 7.6L, Hematocrit 24.3L, Mean Corpuscular Volume 85, Mean Corpuscular Hemoglobin 26.8L, Mean Corpuscular Hemoglobin Concent 31.4L, Red Cell Distribution Width 14.3, Platelet Count 333, Mean Platelet Volume 7.5, Neutrophils (%) (Auto) , Lymphocytes (%) (Auto) , Monocytes (%) (Auto) , Eosinophils (%) (Auto) , Basophils (%) (Auto) , Differential Total Cells Counted 100, Neutrophils % ( Manual) 89H, Lymphocytes % (Manual) 8L, Monocytes % (Manual) 3, Eosinophils % ( Manual) 0, Basophils % (Manual) 0, Band Neutrophils 0, Platelet Estimate Adequate, Platelet Morphology Normal, Hypochromasia 3+, Anisocytosis 1+, Sodium Level 151H, Potassium Level 2.9L, Chloride Level 118H, Carbon Dioxide Level 24, Anion Gap 9, Blood Urea Nitrogen 26H, Creatinine 1.1, Estimat Glomerular Filtration Rate , Glucose Level 273H, Calcium Level 8.0L 10/10/18 20:10: Vancomycin Level Trough 14.3H 10/11/18 03:30: White Blood Count 15.6H, Red Blood Count 2.71L, Hemoglobin 7.2L, Hematocrit 23.1L, Mean Corpuscular Volume 85, Mean Corpuscular Hemoglobin 26.6L, Mean Corpuscular Hemoglobin Concent 31.2L, Red Cell Distribution Width 14.3, Platelet Count 313, Mean Platelet Volume 8.5, Neutrophils (%) (Auto) , Lymphocytes (%) (Auto) , Monocytes (%) (Auto) , Eosinophils (%) (Auto) , Basophils (%) (Auto) , Neutrophils % (Manual) [Pending], Lymphocytes % (Manual) [Pending], Platelet Estimate [Pending], Platelet Morphology [Pending], Sodium Level 140#, Potassium Level 3.1L, Chloride Level 108H, Carbon Dioxide Level 21, Anion Gap 11, Blood Urea Nitrogen 18, Creatinine 1.0, Estimat Glomerular Filtration Rate , Glucose Level 413#H, Calcium Level 7.8L Height (Feet): 5 Height (Inches): 6.00 Weight (Pounds): 131 General Appearance: no apparent distress Neck: normal alignment Cardiovascular: normal rate Respiratory/Chest: lungs clear Abdomen: normal bowel sounds Pelvis: normal external exam Objective Current Medications Medications (Trade) Dose Ordered Sig/Mar Route PRN Reason Start Time Stop Time Status Last Admin Dose Admin Acetaminophen/ Hydrocodone Bitart ([place] 5/325) 1 tab Q6H PRN ORAL Moderate Pain (Pain Scale 4-6) 10/08/18 02:45 10/15/18 02:44 Aspirin (Ecotrin) 81 mg DAILY ORAL 10/08/18 09:00 11/07/18 08:59 10/10/18 08:11 Dextrose 1,000 ml @ 75 mls/hr [id number] IV 10/09/18 23:00 11/08/18 22:59 10/11/18 01:46 Dextrose (Dextrose 50%) 25 ml Q30M PRN IV Hypoglycemia 10/08/18 02:45 11/07/18 02:44 10/09/18 09:02 Dextrose (Dextrose 50%) 50 ml Q30M PRN IV Hypoglycemia 10/08/18 02:45 11/07/18 02:44 10/09/18 03:42 Heparin Sodium (Porcine) (Heparin 5000 units/ml) 5,000 units EVERY 12 HOURS SUBQ 10/08/18 09:00 11/07/18 08:59 10/10/18 08:13 Insulin Aspart (NovoLOG) BEFORE MEALS AND HS SUBQ 10/08/18 06:30 11/07/18 06:29 10/11/18 05:59 Morphine Sulfate (Morphine Sulfate) 4 mg EVERY 3 HOURS PRN IVP Severe Pain (Pain Scale 7-10) 10/08/18 02:45 10/15/18 02:44 10/11/18 04:41 Nateglinide (Starlix) 120 mg TIAC ORAL 10/08/18 16:30 11/07/18 06:29 10/11/18 05:55 Piperacillin Sod/ Tazobactam Sod 3.375 gm/Dextrose 110 ml @ 27.5 mls/hr Q8H IVPB 10/09/18 14:00 10/16/18 13:59 10/11/18 05:55 Sitagliptin Phosphate (Januvia) 100 mg ACBREAKFAST ORAL 10/08/18 06:30 11/07/18 06:29 10/11/18 05:55 Sodium Hypochlorite (Dakin's Quarter Strength) 1 applic DAILY TOPIC 10/10/18 12:00 11/09/18 11:59 10/10/18 13:13 Vancomycin HCl (Vanco rx to dose) 1 ea DAILY PRN MISC Per rx protocol 10/08/18 02:45 11/07/18 02:44 Vancomycin HCl 1 gm/Dextrose 275 ml @ 183.708 mls/hr Q24H IVPB 10/10/18 22:00 10/15/18 21:59 10/10/18 22:48 Luisito Quintero MD October 11, 2018 06:50
--- NOTE | 2018-10-11 07:15 | NUR ---
HAND-OFF: Report given to Gagan GALLOWAY.
--- NOTE | 2018-10-11 07:49 | NUR ---
NURSE NOTES: Received patient from LAVERNE Dominguez. patient is awake and verbally responsive to commands. denies pain at this time. patient is on 1 liter oxygen via nasal cannula. no s/sx of distress noted. Harris catheter is patent, intact and draining. IV sites are patent and intact. bed in lowest position and locked, siderails up X2, call light within reach. will continue to monitor.
[2018-10-11 08:00] VITALS: BP 140/64
--- NOTE | 2018-10-11 08:00 | NUR ---
NURSE NOTES: called and left message for Dr. Rain regarding patient's hemoglobin level. awaiting call back.
[2018-10-11] MEDS: Dakin's 0.125% Soln (Quarter Strength) 16oz TOPIC SCH (08:23)
[2018-10-11] MEDS: Aspirin EC 81mg tab ORAL SCH (08:24)
[2018-10-11] MEDS: Heparin 5000 units/ml inj SUBQ SCH ×2 (08:27→20:23)
[2018-10-11] MEDS ORDERED: Levemir Flexpen SUBQ SCH (09:00)
--- NOTE | 2018-10-11 11:29 | Infectious Diseases Prog Note ---
Assessment/Plan Assessment/Plan IMPRESSION: 1. Poly microbial sepsis ( E. coli, Proteus & Strep species 2. Pyuria and urinary tract infection. 3. 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 4. Acute renal failure improving 5. Hyperkalemia. 6. Hypernatremia. 7. Protein calorie-malnutrition and cachexia. 8. Diabetes mellitus with hyperglycemia. RECOMMENDATION: We will continue with vancomycin Change Zosyn to Rocephin Will f/u cultures Subjective ROS Limited/Unobtainable: Yes Allergies: Coded Allergies: No Known Allergies (Unverified , 05/08/12) Objective Vital Signs Last 24 Hour Vital Signs Date Time Temp Pulse Resp B/P (MAP) Pulse Ox O2 Delivery O2 Flow Rate FiO2 10/11/18 08:00 Nasal Cannula 1.0 10/11/18 08:00 98.7 86 20 140/64 (89) 100 10/11/18 08:00 83 10/11/18 07:01 97 Nasal Cannula 2.0 28 10/11/18 05:11 98.0 10/11/18 04:00 69 10/11/18 04:00 Nasal Cannula 1.0 10/11/18 04:00 98.0 93 19 135/67 (89) 99 10/11/18 00:00 Nasal Cannula 1.0 10/11/18 00:00 90 10/11/18 00:00 98.9 94 19 137/83 (101) 99 10/10/18 20:16 98 Nasal Cannula 2.0 28 10/10/18 20:00 99.0 92 20 133/61 (85) 99 10/10/18 20:00 Nasal Cannula 1.0 10/10/18 20:00 91 10/10/18 16:00 Nasal Cannula 1.0 10/10/18 16:00 99.8 94 21 144/69 (94) 100 10/10/18 16:00 85 10/10/18 12:00 98.1 73 19 139/68 (91) 100 10/10/18 12:00 Nasal Cannula 1.0 10/10/18 11:39 71 Height (Feet): 5 Height (Inches): 6.00 Weight (Pounds): 131 General Appearance: no acute distress, cachetic HEENT: mucous membranes moist Respiratory/Chest: lungs clear Cardiovascular: normal rate Abdomen: soft, non tender Extremities: no edema Neurologic/Psychiatric: aphasia Musculoskeletal: atrophy Microbiology Date/Time Source Procedure Growth Status 10/09/18 19:00 Sacral Wound Gram Stain - Final Resulted 10/09/18 19:00 Sacral Wound Aerobic Culture Pending Resulted 10/09/18 19:00 Sacral Wound Anaerobic Culture - Preliminary NO GROWTH Resulted 10/08/18 23:40 Rectum - Final NO CARBAPENEM-RESISTANT ENTEROBACTERI... Complete Laboratory Tests Test 10/10/18 20:10 10/11/18 03:30 Vancomycin Level Trough 14.3 ug/mL (5.0-12.0) H White Blood Count 15.6 K/UL (4.8-10.8) H Red Blood Count 2.71 M/UL (4.20-5.40) L Hemoglobin 7.2 G/DL (12.0-16.0) L Hematocrit 23.1 % (37.0-47.0) L Mean Corpuscular Volume 85 FL (80-99) Mean Corpuscular Hemoglobin 26.6 PG (27.0-31.0) L Mean Corpuscular Hemoglobin Concent 31.2 G/DL (32.0-36.0) L Red Cell Distribution Width 14.3 % (11.6-14.8) Platelet Count 313 K/UL (150-450) Mean Platelet Volume 8.5 FL (6.5-10.1) Neutrophils (%) (Auto) % (45.0-75.0) Lymphocytes (%) (Auto) % (20.0-45.0) Monocytes (%) (Auto) % (1.0-10.0) Eosinophils (%) (Auto) % (0.0-3.0) Basophils (%) (Auto) % (0.0-2.0) Differential Total Cells Counted 100 Neutrophils % (Manual) 85 % (45-75) H Lymphocytes % (Manual) 11 % (20-45) L Monocytes % (Manual) 2 % (1-10) Eosinophils % (Manual) 1 % (0-3) Basophils % (Manual) 0 % (0-2) Band Neutrophils 1 % (0-8) Platelet Estimate Adequate Platelet Morphology Normal Hypochromasia 2+ Sodium Level 140 MMOL/L (136-145) # Potassium Level 3.1 MMOL/L (3.5-5.1) L Chloride Level 108 MMOL/L (98-107) H Carbon Dioxide Level 21 MMOL/L (21-32) Anion Gap 11 mmol/L (5-15) Blood Urea Nitrogen 18 mg/dL (7-18) Creatinine 1.0 MG/DL (0.55-1.30) Estimat Glomerular Filtration Rate mL/min (>60) Glucose Level 413 MG/DL (74-106) #H Calcium Level 7.8 MG/DL (8.5-10.1) L Current Medications Medications (Trade) Dose Ordered Sig/Mar Route PRN Reason Start Time Stop Time Status Last Admin Dose Admin Acetaminophen/ Hydrocodone Bitart ([place] 5/325) 1 tab Q6H PRN ORAL Moderate Pain (Pain Scale 4-6) 10/08/18 02:45 10/15/18 02:44 Aspirin (Ecotrin) 81 mg DAILY ORAL 10/08/18 09:00 11/07/18 08:59 10/11/18 08:24 Dextrose 1,000 ml @ 75 mls/hr [id number] IV 10/09/18 23:00 11/08/18 22:59 10/11/18 01:46 Dextrose (Dextrose 50%) 25 ml Q30M PRN IV Hypoglycemia 10/11/18 07:00 11/10/18 06:59 Dextrose (Dextrose 50%) 50 ml Q30M PRN IV Hypoglycemia 10/11/18 07:00 11/10/18 06:59 Heparin Sodium (Porcine) (Heparin 5000 units/ml) 5,000 units EVERY 12 HOURS SUBQ 10/08/18 09:00 11/07/18 08:59 10/10/18 08:13 Insulin Aspart (NovoLOG) BEFORE MEALS AND HS SUBQ 10/08/18 06:30 11/07/18 06:29 10/11/18 05:59 Insulin Detemir (Levemir) 9 units DAILY SUBQ 10/11/18 09:00 11/10/18 08:59 10/11/18 08:27 Morphine Sulfate (Morphine Sulfate) 4 mg EVERY 3 HOURS PRN IVP Severe Pain (Pain Scale 7-10) 10/08/18 02:45 10/15/18 02:44 10/11/18 04:41 Nateglinide (Starlix) 120 mg TIAC ORAL 10/08/18 16:30 11/07/18 06:29 10/11/18 05:55 Piperacillin Sod/ Tazobactam Sod 3.375 gm/Dextrose 110 ml @ 27.5 mls/hr Q8H IVPB 10/09/18 14:00 10/16/18 13:59 10/11/18 05:55 Sitagliptin Phosphate (Januvia) 100 mg ACBREAKFAST ORAL 10/08/18 06:30 11/07/18 06:29 10/11/18 05:55 Sodium Hypochlorite (Dakin's Quarter Strength) 1 applic DAILY TOPIC 10/10/18 12:00 11/09/18 11:59 10/11/18 08:23 Vancomycin HCl (Vanco rx to dose) 1 ea DAILY PRN MISC Per rx protocol 10/08/18 02:45 11/07/18 02:44 Vancomycin HCl 1 gm/Dextrose 275 ml @ 183.708 mls/hr Q24H IVPB 10/10/18 22:00 10/15/18 21:59 10/10/18 22:48 Dallas Rain MD October 11, 2018 11:29
[2018-10-11 11:44] VITALS: BP 156/68
--- NOTE | 2018-10-11 11:48 | NUR ---
NURSE NOTES: Dr. Rain came to see patient. Informed regarding low potassium and Hgb level with new order of 1 unit of PRBC and 50 meq of KCl IV. Order carried out.
--- NOTE | 2018-10-11 11:50 | General Progress Note ---
Assessment/Plan Problem List: (1) DM (diabetes mellitus) ICD Codes: E11.9 - Type 2 diabetes mellitus without complications SNOMED: 15644980 (2) Decubitus ulcer of back, stage 4 ICD Codes: L89.104 - Pressure ulcer of unspecified part of back, stage 4 SNOMED: 459898006 (3) Anemia ICD Codes: D64.9 - Anemia, unspecified SNOMED: 509956157 Qualifiers: Qualified Codes: D64.9 - Anemia, unspecified (4) UTI (urinary tract infection) ICD Codes: N39.0 - Urinary tract infection, site not specified SNOMED: 99312545 Qualifiers: Qualified Codes: N30.00 - Acute cystitis without hematuria (5) Sepsis ICD Codes: A41.9 - Sepsis, unspecified organism SNOMED: 56879512 (6) Hypernatremia ICD Codes: E87.0 - Hyperosmolality and hypernatremia SNOMED: 133058096 (7) Hypokalemia ICD Codes: E87.6 - Hypokalemia SNOMED: 70377682 Assessment/Plan: abxs DC IV fluid Wound care follow labs Discussed with RN Calorie counts by dietitian Replete potassium Subjective Allergies: Coded Allergies: No Known Allergies (Unverified , 05/08/12) Subjective Patient does not eat much Objective Last 24 Hour Vital Signs Date Time Temp Pulse Resp B/P (MAP) Pulse Ox O2 Delivery O2 Flow Rate FiO2 10/11/18 11:44 97.5 82 19 156/68 (97) 100 10/11/18 08:00 Nasal Cannula 1.0 10/11/18 08:00 98.7 86 20 140/64 (89) 100 10/11/18 08:00 83 10/11/18 07:01 97 Nasal Cannula 2.0 28 10/11/18 05:11 98.0 10/11/18 04:00 69 10/11/18 04:00 Nasal Cannula 1.0 10/11/18 04:00 98.0 93 19 135/67 (89) 99 10/11/18 00:00 Nasal Cannula 1.0 10/11/18 00:00 90 10/11/18 00:00 98.9 94 19 137/83 (101) 99 10/10/18 20:16 98 Nasal Cannula 2.0 28 10/10/18 20:00 99.0 92 20 133/61 (85) 99 10/10/18 20:00 Nasal Cannula 1.0 10/10/18 20:00 91 10/10/18 16:00 Nasal Cannula 1.0 10/10/18 16:00 99.8 94 21 144/69 (94) 100 10/10/18 16:00 85 10/10/18 12:00 98.1 73 19 139/68 (91) 100 10/10/18 12:00 Nasal Cannula 1.0 Intake and Output 10/10/18 10/11/18 19:00 07:00 Intake Total 850.0 ml 760.000 ml Output Total 350 ml 1000 ml Balance 500.0 ml -240.000 ml Intake Oral 30 ml IV Total 820.0 ml 760.000 ml Output Urine Total 350 ml 1000 ml # Voids 1 Laboratory Tests 10/10/18 20:10: Vancomycin Level Trough 14.3H 10/11/18 03:30: White Blood Count 15.6H, Red Blood Count 2.71L, Hemoglobin 7.2L, Hematocrit 23.1L, Mean Corpuscular Volume 85, Mean Corpuscular Hemoglobin 26.6L, Mean Corpuscular Hemoglobin Concent 31.2L, Red Cell Distribution Width 14.3, Platelet Count 313, Mean Platelet Volume 8.5, Neutrophils (%) (Auto) , Lymphocytes (%) (Auto) , Monocytes (%) (Auto) , Eosinophils (%) (Auto) , Basophils (%) (Auto) , Differential Total Cells Counted 100, Neutrophils % ( Manual) 85H, Lymphocytes % (Manual) 11L, Monocytes % (Manual) 2, Eosinophils % ( Manual) 1, Basophils % (Manual) 0, Band Neutrophils 1, Platelet Estimate Adequate, Platelet Morphology Normal, Hypochromasia 2+, Sodium Level 140#, Potassium Level 3.1L, Chloride Level 108H, Carbon Dioxide Level 21, Anion Gap 11 , Blood Urea Nitrogen 18, Creatinine 1.0, Estimat Glomerular Filtration Rate , Glucose Level 413#H, Calcium Level 7.8L Height (Feet): 5 Height (Inches): 6.00 Weight (Pounds): 131 Cardiovascular: normal rate Respiratory/Chest: lungs clear Edema: no edema noted Generalized Arnulfo Rain MD October 11, 2018 11:50
[2018-10-11] MEDS ORDERED: [UNRECOGNIZED DRUG - OTHER] IV SCH ×2 (12:00→17:00)
[2018-10-11] MEDS: cefTRIAXone 2 GM in D5W 55 ML IVPB SCH (12:16)
[2018-10-11 16:00] VITALS: BP_SYST 143; BP_SYST 162; BP_DIAS 75; BP_DIAS 83
--- NOTE | 2018-10-11 17:41 | NUR ---
NURSE NOTES:WOUND CARE NOTES:Pt presented on admission with multiple pressure injuries. S/P Surgical debridement sacral pressure injury. Wound is clean ,Bone visble at base ,Undermining noted (L)10cm x (W08.8cm x (D)3.5cm ,[id number] by 5cm @4o'clock,undermining 8-9 by 2 cm @9o'clock. No odor noted .Small amt serosanguineous exudate. Erythema without induration or elevation in skin temp periwound. Unstageable pressure injury L ischium. Base of wound that is 75% necrotic,25% slough. Non-blanchable erythema without induration or elevation in skin temp periwound. (L)4.3cm x (W)7cm. DTPI noted to R trochanter. Base of wound maroon with red tinged borders (L)4.5cm x (W)5.5cm. Both heels are boggy with non-blanchable erythema. Tx.Plan: Continue post surgical wound care orders. .Apply Cavilon Skin Barrier to R trochanter. Cover with Optifoam drsg . Change every 3 days and prn. Apply Cavilon Skin Barrier to both heels. Cover each heel with Optifoam drsg. Change every 7 days and prn. Reposition at least every 2hours or as tolerated. Off-Load heels with pillow. APM/KASEY mattress.
--- NOTE | 2018-10-11 18:59 | NUR ---
HAND-OFF: Report given to LAVERNE Watts. Stable condition.
--- NOTE | 2018-10-11 19:00 | NUR ---
NURSE NOTES: Received report from LAVERNE Means. Patient see in bed in semi sidhu position. patient is alert, verbally responsive, able to make needs known, forgetful at times. IV site noted to left wrist 24g and right wrist 22g is intact. Patient denies any pain at this time. bed is in lowest position. Shlomo; light is within easy reach while in bed. will continue to monitor.
[2018-10-11 20:00] VITALS: BP 149/76
[2018-10-11] MEDS: Vancomycin 1gm/D5W 275ml IVPB SCH ×2 (21:45)
[2018-10-12] VITALS: BP 125/71
[2018-10-12 04:00] VITALS: BP 115/83
[2018-10-12] MEDS: Nateglinide 60mg tab ORAL SCH ×3 (05:37→16:32)
[2018-10-12] MEDS: NovoLOG Insulin Flexpen SUBQ SCH ×4 (05:38→20:23)
[2018-10-12 05:49] LABS: HEMATOCRIT 28.8 % (37.0-47.0); HEMOGLOBIN 9.2 G/DL (12.0-16.0); MEAN CORPUSCULAR VOLUME 87 FL (80-99); PLATELET COUNT 274 K/UL (150-450); RED BLOOD COUNT 3.33 M/UL (4.20-5.40); RED CELL DISTRIBUTION WIDTH 13.9 % (11.6-14.8); WHITE BLOOD COUNT 15.5 K/UL (4.8-10.8)
[2018-10-12 06:12] LABS: ANION GAP 9 mmol/L (5-15); BLOOD UREA NITROGEN 14 mg/dL (7-18); CALCIUM 8.1 MG/DL (8.5-10.1); CARBON DIOXIDE 21 MMOL/L (21-32); CHLORIDE 114 MMOL/L (98-107); CREATININE 0.9 MG/DL (0.55-1.30); PHOSPHORUS 2.2 MG/DL (2.5-4.9); POTASSIUM 3.8 MMOL/L (3.5-5.1); SODIUM 144 MMOL/L (136-145)
--- NOTE | 2018-10-12 07:01 | General Progress Note ---
Assessment/Plan Problem List: (1) DM (diabetes mellitus) ICD Codes: E11.9 - Type 2 diabetes mellitus without complications SNOMED: 64942693 (2) Decubitus ulcer of back, stage 4 ICD Codes: L89.104 - Pressure ulcer of unspecified part of back, stage 4 SNOMED: 472570645 (3) Hyperglycemia due to type 2 diabetes mellitus ICD Codes: E11.65 - Type 2 diabetes mellitus with hyperglycemia; R65.21 - Severe sepsis with septic shock SNOMED: 799789330874839, 35786639 Qualifiers: Qualified Codes: E11.65 - Type 2 diabetes mellitus with hyperglycemia; Z79.4 - [facility] (current) use of insulin (4) Anemia ICD Codes: D64.9 - Anemia, unspecified SNOMED: 562552822 Qualifiers: Qualified Codes: D64.9 - Anemia, unspecified (5) ARF (acute renal failure) ICD Codes: N17.9 - Acute kidney failure, unspecified SNOMED: 09940361 Qualifiers: Qualified Codes: N17.9 - Acute kidney failure, unspecified Assessment/Plan: reduce Levemir to 6 units daily reduce Starlix to 60 mg ac tid continue Januvia 100 mg daily continue NISS ac / hs Subjective ROS Limited/Unobtainable: Yes Allergies: Coded Allergies: No Known Allergies (Unverified , 05/08/12) Subjective events noted fasting glucose improved no longer on IVF Item Value Date Time Bedside Blood Glucose 108 mg/dl 10/12/18 0623 Bedside Blood Glucose 80 mg/dl 10/11/18 2100 Bedside Blood Glucose 85 mg/dl 10/11/18 1630 Bedside Blood Glucose 152 mg/dl H 10/11/18 1141 Bedside Blood Glucose 273 mg/dl H 10/11/18 0827 Bedside Blood Glucose 273 mg/dl H 10/11/18 0630 Objective Last 24 Hour Vital Signs Date Time Temp Pulse Resp B/P (MAP) Pulse Ox O2 Delivery O2 Flow Rate FiO2 10/12/18 04:00 97.7 90 20 115/83 (94) 98 10/12/18 04:00 Nasal Cannula 1.0 10/12/18 03:49 93 10/12/18 00:00 97.7 85 20 125/71 (89) 99 10/12/18 00:00 Nasal Cannula 1.0 5/30/19 23:30 88 10/11/18 21:18 98 Nasal Cannula 1.0 24 10/11/18 20:00 Nasal Cannula 1.0 10/11/18 20:00 98.0 95 20 149/76 (100) 100 10/11/18 19:23 110 10/11/18 16:00 101 10/11/18 16:00 Nasal Cannula 1.0 10/11/18 16:00 98.4 98 19 143/75 (97) 100 10/11/18 12:00 Nasal Cannula 1.0 10/11/18 12:00 80 10/11/18 11:44 97.5 82 19 156/68 (97) 100 10/11/18 08:00 Nasal Cannula 1.0 10/11/18 08:00 98.7 86 20 140/64 (89) 100 10/11/18 08:00 83 10/11/18 07:01 97 Nasal Cannula 2.0 28 Intake and Output 10/11/18 10/12/18 18:59 06:59 Intake Total 860.0 ml 1025.000 ml Output Total 1000 ml 1100 ml Balance -140.0 ml -75.000 ml Intake Oral 120 ml 50 ml IV Total 740.0 ml 975.000 ml Output Urine Total 1000 ml 1100 ml # Bowel Movements 5 2 Laboratory Tests 10/12/18 03:30: White Blood Count 15.5H, Red Blood Count 3.33L, Hemoglobin 9.2L, Hematocrit 28.8L, Mean Corpuscular Volume 87, Mean Corpuscular Hemoglobin 27.7, Mean Corpuscular Hemoglobin Concent 32.1, Red Cell Distribution Width 13.9, Platelet Count 274, Mean Platelet Volume 8.5, Neutrophils (%) (Auto) , Lymphocytes (%) ( Auto) , Monocytes (%) (Auto) , Eosinophils (%) (Auto) , Basophils (%) (Auto) , Neutrophils % (Manual) [Pending], Lymphocytes % (Manual) [Pending], Platelet Estimate [Pending], Platelet Morphology [Pending], Sodium Level 144, Potassium Level 3.8, Chloride Level 114H, Carbon Dioxide Level 21, Anion Gap 9, Blood Urea Nitrogen 14, Creatinine 0.9, Estimat Glomerular Filtration Rate , Glucose Level 91#, Calcium Level 8.1L, Phosphorus Level 2.2L Height (Feet): 5 Height (Inches): 6.00 Weight (Pounds): 131 General Appearance: no apparent distress Neck: normal alignment Cardiovascular: normal rate Respiratory/Chest: decreased breath sounds Abdomen: normal bowel sounds Pelvis: normal external exam Objective Current Medications Medications (Trade) Dose Ordered Sig/Mar Route PRN Reason Start Time Stop Time Status Last Admin Dose Admin Acetaminophen/ Hydrocodone Bitart ([place] 5/325) 1 tab Q6H PRN ORAL Moderate Pain (Pain Scale 4-6) 10/08/18 02:45 10/15/18 02:44 Aspirin (Ecotrin) 81 mg DAILY ORAL 10/08/18 09:00 11/07/18 08:59 10/11/18 08:24 Ceftriaxone Sodium 2 gm/ Dextrose 55 ml @ 110 mls/hr Q24H IVPB 10/11/18 13:00 10/18/18 12:59 10/11/18 12:16 Dextrose (Dextrose 50%) 25 ml Q30M PRN IV Hypoglycemia 10/11/18 07:00 11/10/18 06:59 Dextrose (Dextrose 50%) 50 ml Q30M PRN IV Hypoglycemia 10/11/18 07:00 11/10/18 06:59 Heparin Sodium (Porcine) (Heparin 5000 units/ml) 5,000 units EVERY 12 HOURS SUBQ 10/08/18 09:00 11/07/18 08:59 10/11/18 20:23 Insulin Aspart (NovoLOG) BEFORE MEALS AND HS SUBQ 10/08/18 06:30 11/07/18 06:29 10/11/18 11:41 Insulin Detemir (Levemir) 9 units DAILY SUBQ 10/11/18 09:00 11/10/18 08:59 10/11/18 08:27 Morphine Sulfate (Morphine Sulfate) 4 mg EVERY 3 HOURS PRN IVP Severe Pain (Pain Scale 7-10) 10/08/18 02:45 10/15/18 02:44 10/11/18 04:41 Nateglinide (Starlix) 120 mg TIAC ORAL 10/08/18 16:30 11/07/18 06:29 10/12/18 05:37 Sitagliptin Phosphate (Januvia) 100 mg ACBREAKFAST ORAL 10/08/18 06:30 11/07/18 06:29 10/12/18 05:37 Sodium Hypochlorite (Dakin's Quarter Strength) 1 applic DAILY TOPIC 10/10/18 12:00 11/09/18 11:59 10/11/18 08:23 Vancomycin HCl (Vanco rx to dose) 1 ea DAILY PRN MISC Per rx protocol 10/08/18 02:45 11/07/18 02:44 Vancomycin HCl 1 gm/Dextrose 275 ml @ 183.708 mls/hr Q24H IVPB 10/10/18 22:00 10/15/18 21:59 10/11/18 21:45 Luisito Quintero MD October 12, 2018 07:01
--- NOTE | 2018-10-12 07:21 | NUR ---
NURSE NOTES: Report given to LAVERNE Guzman
--- NOTE | 2018-10-12 07:35 | NUR ---
NURSE NOTES: Received bedside report from Chary GALLOWAY. Pt. in bed, asleep but arousable. No sign of distress. No grimacing noted. IV at left wrist and right wrist in placed SL. Pt. on calorie count, 1:1 feeder. HOB elevated. Bed in low position, locked. Call light within reach. Will cont. to monitor.
[2018-10-12 08:00] VITALS: BP 136/85
--- NOTE | 2018-10-12 08:58 | NUR ---
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 SEPSIS VS: BP 136/85, P 93, T 97.7, RR 20, SpO2 99 on NC 1.0 WBC 15.5, RBC 3.33, H&H 9.2/28.8K 3.1 IS:STARLIX 120mg POTASSIUM CHLORIDE 100ml VANCOMYCIN 275ml IVPB NS 500ml IV CEFTRIAXONE 55ml IVPB ZOSYN 110ml IVPB D5W x1L IV SDU STATUS
[2018-10-12] MEDS: Aspirin EC 81mg tab ORAL SCH (09:50)
[2018-10-12] MEDS: Levemir Flexpen SUBQ SCH (09:53)
[2018-10-12] MEDS: Heparin 5000 units/ml inj SUBQ SCH ×2 (09:54→20:16)
[2018-10-12] MEDS: Dakin's 0.125% Soln (Quarter Strength) 16oz TOPIC SCH (09:54)
[2018-10-12 11:59] VITALS: BP 151/86
--- NOTE | 2018-10-12 12:04 | General Progress Note ---
Assessment/Plan Problem List: (1) DM (diabetes mellitus) ICD Codes: E11.9 - Type 2 diabetes mellitus without complications SNOMED: 50925225 (2) Decubitus ulcer of back, stage 4 ICD Codes: L89.104 - Pressure ulcer of unspecified part of back, stage 4 SNOMED: 863416040 (3) Anemia ICD Codes: D64.9 - Anemia, unspecified SNOMED: 294108158 Qualifiers: Qualified Codes: D64.9 - Anemia, unspecified (4) UTI (urinary tract infection) ICD Codes: N39.0 - Urinary tract infection, site not specified SNOMED: 63350724 Qualifiers: Qualified Codes: N30.00 - Acute cystitis without hematuria (5) Sepsis ICD Codes: A41.9 - Sepsis, unspecified organism SNOMED: 12655900 (6) Hypernatremia ICD Codes: E87.0 - Hyperosmolality and hypernatremia SNOMED: 520230011 (7) Hypokalemia ICD Codes: E87.6 - Hypokalemia SNOMED: 60406724 Assessment/Plan: abxs Wound care follow labs Discussed with RN Calorie counts by dietitian Subjective Allergies: Coded Allergies: No Known Allergies (Unverified , 05/08/12) Subjective No complaints Objective Last 24 Hour Vital Signs Date Time Temp Pulse Resp B/P (MAP) Pulse Ox O2 Delivery O2 Flow Rate FiO2 10/12/18 11:59 98.1 107 18 151/86 (107) 100 10/12/18 08:00 97.7 91 20 136/85 (102) 99 10/12/18 08:00 Nasal Cannula 1.0 10/12/18 07:57 87 10/12/18 07:42 Room Air 21 10/12/18 04:00 97.7 90 20 115/83 (94) 98 10/12/18 04:00 Nasal Cannula 1.0 10/12/18 03:49 93 10/12/18 00:00 97.7 85 20 125/71 (89) 99 10/12/18 00:00 Nasal Cannula 1.0 10/11/18 23:30 88 10/11/18 21:18 98 Nasal Cannula 1.0 24 10/11/18 20:00 Nasal Cannula 1.0 10/11/18 20:00 98.0 95 20 149/76 (100) 100 10/11/18 19:23 110 10/11/18 16:00 101 10/11/18 16:00 Nasal Cannula 1.0 10/11/18 16:00 98.4 98 19 143/75 (97) 100 Intake and Output 10/11/18 10/12/18 19:00 07:00 Intake Total 860.0 ml 1025.000 ml Output Total 1000 ml 1100 ml Balance -140.0 ml -75.000 ml Intake Oral 120 ml 50 ml IV Total 740.0 ml 975.000 ml Output Urine Total 1000 ml 1100 ml # Bowel Movements 5 2 Laboratory Tests 10/12/18 03:30: White Blood Count 15.5H, Red Blood Count 3.33L, Hemoglobin 9.2L, Hematocrit 28.8L, Mean Corpuscular Volume 87, Mean Corpuscular Hemoglobin 27.7, Mean Corpuscular Hemoglobin Concent 32.1, Red Cell Distribution Width 13.9, Platelet Count 274, Mean Platelet Volume 8.5, Neutrophils (%) (Auto) , Lymphocytes (%) ( Auto) , Monocytes (%) (Auto) , Eosinophils (%) (Auto) , Basophils (%) (Auto) , Differential Total Cells Counted 100, Neutrophils % (Manual) 79H, Lymphocytes % (Manual) 17L, Monocytes % (Manual) 2, Eosinophils % (Manual) 1, Basophils % ( Manual) 0, Band Neutrophils 1, Platelet Estimate Adequate, Platelet Morphology Normal, Hypochromasia 2+, Anisocytosis 1+, Spherocytes 1+, Sodium Level 144, Potassium Level 3.8, Chloride Level 114H, Carbon Dioxide Level 21, Anion Gap 9, Blood Urea Nitrogen 14, Creatinine 0.9, Estimat Glomerular Filtration Rate , Glucose Level 91#, Calcium Level 8.1L, Phosphorus Level 2.2L Height (Feet): 5 Height (Inches): 6.00 Weight (Pounds): 131 Cardiovascular: normal rate Respiratory/Chest: lungs clear Edema: no edema noted Generalized Arnulfo Rain MD October 12, 2018 12:03
--- NOTE | 2018-10-12 12:23 | Infectious Diseases Prog Note ---
Assessment/Plan Assessment/Plan IMPRESSION: 1. Poly microbial sepsis ( E. coli, Proteus & Strep Group B) 2. Pyuria and urinary tract infection. 3. 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 4. Acute renal failure improving 5. Hyperkalemia. 6. Hypernatremia. 7. Protein calorie-malnutrition and cachexia. 8. Diabetes mellitus with hyperglycemia. RECOMMENDATION: Discontinue vancomycin Continue Rocephin Wound care Subjective ROS Limited/Unobtainable: Yes Constitutional: Reports: no symptoms Neurologic: Reports: other - more commuicative Allergies: Coded Allergies: No Known Allergies (Unverified , 05/08/12) Objective Vital Signs Last 24 Hour Vital Signs Date Time Temp Pulse Resp B/P (MAP) Pulse Ox O2 Delivery O2 Flow Rate FiO2 10/12/18 12:00 Nasal Cannula 1.0 10/12/18 11:59 98.1 107 18 151/86 (107) 100 10/12/18 08:00 97.7 91 20 136/85 (102) 99 10/12/18 08:00 Nasal Cannula 1.0 10/12/18 07:57 87 10/12/18 07:42 Room Air 21 10/12/18 04:00 97.7 90 20 115/83 (94) 98 10/12/18 04:00 Nasal Cannula 1.0 10/12/18 03:49 93 10/12/18 00:00 97.7 85 20 125/71 (89) 99 10/12/18 00:00 Nasal Cannula 1.0 10/11/18 23:30 88 10/11/18 21:18 98 Nasal Cannula 1.0 24 10/11/18 20:00 Nasal Cannula 1.0 10/11/18 20:00 98.0 95 20 149/76 (100) 100 10/11/18 19:23 110 10/11/18 16:00 101 10/11/18 16:00 Nasal Cannula 1.0 10/11/18 16:00 98.4 98 19 143/75 (97) 100 Height (Feet): 5 Height (Inches): 6.00 Weight (Pounds): 131 General Appearance: no acute distress HEENT: mucous membranes moist Respiratory/Chest: lungs clear Cardiovascular: normal rate Abdomen: soft, non tender Skin: ulcers Neurologic/Psychiatric: alert, responsive Microbiology Date/Time Source Procedure Growth Status 10/09/18 19:00 Sacral Wound Gram Stain - Final Resulted 10/09/18 19:00 Aerobic Culture - Preliminary Gram Negative Trevor Gram Positive Cocci Resulted 10/09/18 19:00 Sacral Wound Anaerobic Culture - Preliminary NO GROWTH AFTER 48 HOURS Resulted Laboratory Tests Test 10/12/18 03:30 White Blood Count 15.5 K/UL (4.8-10.8) H Red Blood Count 3.33 M/UL (4.20-5.40) L Hemoglobin 9.2 G/DL (12.0-16.0) L Hematocrit 28.8 % (37.0-47.0) L Mean Corpuscular Volume 87 FL (80-99) Mean Corpuscular Hemoglobin 27.7 PG (27.0-31.0) Mean Corpuscular Hemoglobin Concent 32.1 G/DL (32.0-36.0) Red Cell Distribution Width 13.9 % (11.6-14.8) Platelet Count 274 K/UL (150-450) Mean Platelet Volume 8.5 FL (6.5-10.1) Neutrophils (%) (Auto) % (45.0-75.0) Lymphocytes (%) (Auto) % (20.0-45.0) Monocytes (%) (Auto) % (1.0-10.0) Eosinophils (%) (Auto) % (0.0-3.0) Basophils (%) (Auto) % (0.0-2.0) Differential Total Cells Counted 100 Neutrophils % (Manual) 79 % (45-75) H Lymphocytes % (Manual) 17 % (20-45) L Monocytes % (Manual) 2 % (1-10) Eosinophils % (Manual) 1 % (0-3) Basophils % (Manual) 0 % (0-2) Band Neutrophils 1 % (0-8) Platelet Estimate Adequate Platelet Morphology Normal Hypochromasia 2+ Anisocytosis 1+ Spherocytes 1+ Sodium Level 144 MMOL/L (136-145) Potassium Level 3.8 MMOL/L (3.5-5.1) Chloride Level 114 MMOL/L (98-107) H Carbon Dioxide Level 21 MMOL/L (21-32) Anion Gap 9 mmol/L (5-15) Blood Urea Nitrogen 14 mg/dL (7-18) Creatinine 0.9 MG/DL (0.55-1.30) Estimat Glomerular Filtration Rate mL/min (>60) Glucose Level 91 MG/DL (74-106) # Calcium Level 8.1 MG/DL (8.5-10.1) L Phosphorus Level 2.2 MG/DL (2.5-4.9) L Current Medications Medications (Trade) Dose Ordered Sig/Mar Route PRN Reason Start Time Stop Time Status Last Admin Dose Admin Acetaminophen/ Hydrocodone Bitart ([place] 5/325) 1 tab Q6H PRN ORAL Moderate Pain (Pain Scale 4-6) 10/08/18 02:45 10/15/18 02:44 Aspirin (Ecotrin) 81 mg DAILY ORAL 10/08/18 09:00 11/07/18 08:59 10/12/18 09:50 Ceftriaxone Sodium 2 gm/ Dextrose 55 ml @ 110 mls/hr Q24H IVPB 10/11/18 13:00 10/18/18 12:59 10/11/18 12:16 Dextrose (Dextrose 50%) 25 ml Q30M PRN IV Hypoglycemia 10/11/18 07:00 11/10/18 06:59 Dextrose (Dextrose 50%) 50 ml Q30M PRN IV Hypoglycemia 10/11/18 07:00 11/10/18 06:59 Heparin Sodium (Porcine) (Heparin 5000 units/ml) 5,000 units EVERY 12 HOURS SUBQ 10/08/18 09:00 11/07/18 08:59 10/12/18 09:54 Insulin Aspart (NovoLOG) BEFORE MEALS AND HS SUBQ 10/08/18 06:30 11/07/18 06:29 10/12/18 11:37 Insulin Detemir (Levemir) 6 units DAILY SUBQ 10/12/18 09:00 11/10/18 08:59 10/12/18 09:53 Morphine Sulfate (Morphine Sulfate) 4 mg EVERY 3 HOURS PRN IVP Severe Pain (Pain Scale 7-10) 10/08/18 02:45 10/15/18 02:44 10/11/18 04:41 Nateglinide (Starlix) 60 mg TIAC ORAL 10/12/18 11:30 11/07/18 06:29 10/12/18 11:34 Sitagliptin Phosphate (Januvia) 100 mg ACBREAKFAST ORAL 10/08/18 06:30 11/07/18 06:29 10/12/18 05:37 Sodium Hypochlorite (Dakin's Quarter Strength) 1 applic DAILY TOPIC 10/10/18 12:00 11/09/18 11:59 10/12/18 09:54 Vancomycin HCl (Vanco rx to dose) 1 ea DAILY PRN MISC Per rx protocol 10/08/18 02:45 11/07/18 02:44 Vancomycin HCl 1 gm/Dextrose 275 ml @ 183.708 mls/hr Q24H IVPB 10/10/18 22:00 10/15/18 21:59 10/11/18 21:45 Dallas Rain MD October 12, 2018 12:23
[2018-10-12] MEDS: cefTRIAXone 2 GM in D5W 55 ML IVPB SCH (13:12)
[2018-10-12 16:00] VITALS: BP 138/71
--- NOTE | 2018-10-12 19:01 | NUR ---
HAND-OFF: Report given to Blake GALLOWAY. Pt. remain stable.
--- NOTE | 2018-10-12 19:20 | NUR ---
NURSE NOTES: Received report from Megan GALLOWAY, Pt. in bed awake, A/O x's1-2- no signs or symptoms of acute cardiac or respiratory distress noted, bed in lowest position and call light within easy reach, bed alarm on, side rails up x's3- safety brakes engaged, pt. appears to be sting well on room air at 97%- no distress noted, pt. has Harris intact and draining to gravity, comfort measures provided, all need attended to- pt. is clean and dry, Left wrist 24G and Rt. wrist 22G both IVs intact and patent, cardiac monitoring on, safety measures continued, will continue with plan of care.
[2018-10-12 20:00] VITALS: BP 137/68
[2018-10-13] VITALS: BP 134/72
[2018-10-13 04:00] VITALS: BP 128/69
--- NOTE | 2018-10-13 04:51 | NUR ---
HAND-OFF: Report given to Bruce GALLOWAY, pt. remains stable and no signs of distress noted.
[2018-10-13] MEDS: Nateglinide 60mg tab ORAL SCH ×3 (05:56→17:22)
[2018-10-13] MEDS: NovoLOG Insulin Flexpen SUBQ SCH ×4 (06:01→20:01)
--- NOTE | 2018-10-13 07:30 | NUR ---
HAND-OFF: Report given to Ty Ventura RN.
--- NOTE | 2018-10-13 07:31 | NUR ---
NURSE NOTES: Received patient in bed. Awake, verbal, confused. Unable to make needs known. No respiratory distress. Contact isolation observed. Will continue plan of care.
[2018-10-13 08:00] VITALS: BP 145/72
[2018-10-13] MEDS: Aspirin EC 81mg tab ORAL SCH (08:38)
[2018-10-13] MEDS: Dakin's 0.125% Soln (Quarter Strength) 16oz TOPIC SCH (08:38)
[2018-10-13] MEDS: Levemir Flexpen SUBQ SCH (08:42)
[2018-10-13] MEDS: Heparin 5000 units/ml inj SUBQ SCH ×2 (08:43→20:02)
[2018-10-13] MEDS ORDERED: D5W 275ml ONE (10:00)
[2018-10-13] MEDS ORDERED: NS 275ml ONE ×2 (10:00→17:00)
[2018-10-13] MEDS ORDERED: NS 500ML ONE (10:00)
[2018-10-13] MEDS ORDERED: Tubing Blood Filter IV ONE (10:00)
[2018-10-13] MEDS ORDERED: Tubing IV Secondary IV ONE (10:00)
[2018-10-13] MEDS ORDERED: D5NS 1000ml IV ONE (10:00)
[2018-10-13 12:00] VITALS: BP 136/67
[2018-10-13] MEDS: cefTRIAXone 2 GM in D5W 55 ML IVPB SCH (13:58)
[2018-10-13 16:00] VITALS: BP 127/57
--- NOTE | 2018-10-13 19:23 | NUR ---
HAND-OFF: Report given to Blake Crawford RN.
--- NOTE | 2018-10-13 19:24 | NUR ---
NURSE NOTES: Received report from Audrey RN, Pt. in bed awake, A/O x's1-2-able to make needs known, no signs or symptoms of acute cardiac or respiratory distress noted, bed in lowest position and call light within easy reach, bed alarm on, side rails up x's3- safety brakes engaged, pt. appears to be sting well on room air at 98%- no distress noted, pt. has Harris intact and draining to gravity, comfort measures provided, all need attended to- pt. is clean and dry, Left wrist 24G and Rt. wrist 22G both IVs intact and patent, cardiac monitoring on, safety measures continued, will continue with plan of care.
[2018-10-13 20:00] VITALS: BP 143/71
--- NOTE | 2018-10-13 20:42 | General Progress Note ---
Assessment/Plan Problem List: (1) DM (diabetes mellitus) ICD Codes: E11.9 - Type 2 diabetes mellitus without complications SNOMED: 98029817 (2) Decubitus ulcer of back, stage 4 ICD Codes: L89.104 - Pressure ulcer of unspecified part of back, stage 4 SNOMED: 245100852 (3) Anemia ICD Codes: D64.9 - Anemia, unspecified SNOMED: 847273180 Qualifiers: Qualified Codes: D64.9 - Anemia, unspecified (4) UTI (urinary tract infection) ICD Codes: N39.0 - Urinary tract infection, site not specified SNOMED: 74432219 Qualifiers: Qualified Codes: N30.00 - Acute cystitis without hematuria (5) Sepsis ICD Codes: A41.9 - Sepsis, unspecified organism SNOMED: 17843640 (6) Hypernatremia ICD Codes: E87.0 - Hyperosmolality and hypernatremia SNOMED: 552502811 (7) Hypokalemia ICD Codes: E87.6 - Hypokalemia SNOMED: 08724062 Assessment/Plan: abxs Wound care follow labs Discussed with RN Calorie counts by dietitian Subjective Allergies: Coded Allergies: No Known Allergies (Unverified , 05/08/12) Subjective No complaints Objective Last 24 Hour Vital Signs Date Time Temp Pulse Resp B/P (MAP) Pulse Ox O2 Delivery O2 Flow Rate FiO2 10/13/18 20:00 Room Air 10/13/18 20:00 98.4 107 20 143/71 (95) 98 10/13/18 16:00 97.5 114 20 127/57 (80) 98 10/13/18 15:33 107 10/13/18 12:00 98.1 116 18 136/67 (90) 99 10/13/18 11:25 118 10/13/18 08:00 Room Air 10/13/18 08:00 97.3 98 18 145/72 (96) 99 10/13/18 07:59 95 10/13/18 04:00 104 10/13/18 04:00 97.9 96 18 128/69 (88) 98 10/13/18 04:00 Nasal Cannula 1.0 10/13/18 00:00 99 10/13/18 00:00 Nasal Cannula 1.0 6/1/19 00:00 98.4 93 18 134/72 (92) 99 Intake and Output 10/12/18 10/13/18 19:00 07:00 Intake Total 650 ml 60 ml Output Total 1000 ml 1100 ml Balance -350 ml -1040 ml Intake Oral 650 ml 60 ml Output Urine Total 1000 ml 1100 ml # Bowel Movements 5 6 Height (Feet): 5 Height (Inches): 6.00 Weight (Pounds): 131 Cardiovascular: normal rate Respiratory/Chest: lungs clear Edema: no edema noted Generalized Arnulfo Rain MD Oct 13, 2018 20:42
[2018-10-14] VITALS: BP 129/55
[2018-10-14 04:00] VITALS: BP 140/77
[2018-10-14 06:10] LABS: BASOPHILS % (AUTO) 0.3 % (0.0-2.0); HEMATOCRIT 28.1 % (37.0-47.0); HEMOGLOBIN 9.2 G/DL (12.0-16.0); LYMPHOCYTES % (AUTO) 15.6 % (20.0-45.0); MEAN CORPUSCULAR VOLUME 85 FL (80-99); MONOCYTES % (AUTO) 5.6 % (1.0-10.0); NEUTROPHILS % (AUTO) 77.5 % (45.0-75.0); PLATELET COUNT 271 K/UL (150-450); RED BLOOD COUNT 3.29 M/UL (4.20-5.40); RED CELL DISTRIBUTION WIDTH 14.1 % (11.6-14.8)
[2018-10-14] MEDS: Nateglinide 60mg tab ORAL SCH ×3 (06:11→16:59)
[2018-10-14] MEDS: NovoLOG Insulin Flexpen SUBQ SCH ×4 (06:13→20:57)
[2018-10-14 06:35] LABS: ANION GAP 8 mmol/L (5-15); BLOOD UREA NITROGEN 12 mg/dL (7-18); CALCIUM 8.5 MG/DL (8.5-10.1); CARBON DIOXIDE 26 MMOL/L (21-32); CHLORIDE 116 MMOL/L (98-107); CREATININE 1.1 MG/DL (0.55-1.30); SODIUM 150 MMOL/L (136-145)
--- NOTE | 2018-10-14 07:16 | NUR ---
HAND-OFF: Report given to Ethel RN, pt. remains stable and no signs of distress noted- nurse aware to f/u on abnormal labs potassium trending down.
--- NOTE | 2018-10-14 07:18 | NUR ---
NURSE NOTES: Received report from LAVERNE Lozano. Observed patient in bed awake and is being fed by NA. On room air, no acute respiratory distress noted at this time. Left wrist 24g intact and patent; right wrist 22g intact and patent. No c/o pain at this time. Bed locked, alarmed, and in lowest position; side rails up x3, and call light left within reach. Will continue to monitor.
[2018-10-14 08:00] VITALS: BP 142/64
--- NOTE | 2018-10-14 08:09 | NUR ---
NURSE NOTES: Called and left a message for Dr. Rain regarding potassium of 3.0 this morning; awaiting for call back.
--- NOTE | 2018-10-14 08:47 | Infectious Diseases Prog Note ---
Assessment/Plan Assessment/Plan IMPRESSION: 1. Poly microbial sepsis ( E. coli, Proteus & Strep Group B) 2. Pyuria and urinary tract infection. 3. 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 4. Acute renal failure improving 5. Hyperkalemia. 6. Hypernatremia. 7. Protein calorie-malnutrition and cachexia. 8. Diabetes mellitus with hyperglycemia. RECOMMENDATION: Continue Rocephin Wound care Subjective Neurologic: Reports: other - more alert Musculoskeletal: Reports: no symptoms Allergies: Coded Allergies: No Known Allergies (Unverified , 05/08/12) Objective Vital Signs Last 24 Hour Vital Signs Date Time Temp Pulse Resp B/P (MAP) Pulse Ox O2 Delivery O2 Flow Rate FiO2 10/14/18 04:00 Room Air 10/14/18 04:00 100 10/14/18 04:00 97.0 88 20 140/77 (98) 100 10/14/18 00:00 81 10/14/18 00:00 98.7 80 20 129/55 (79) 100 10/14/18 00:00 Room Air 10/13/18 20:00 Room Air 10/13/18 20:00 112 10/13/18 20:00 98.4 107 20 143/71 (95) 98 10/13/18 16:00 97.5 114 20 127/57 (80) 98 10/13/18 15:33 107 10/13/18 12:00 98.1 116 18 136/67 (90) 99 10/13/18 11:25 118 Height (Feet): 5 Height (Inches): 6.00 Weight (Pounds): 131 General Appearance: no acute distress, cachetic Respiratory/Chest: lungs clear Cardiovascular: normal rate Abdomen: soft, non tender Extremities: no edema Skin: ulcers Neurologic/Psychiatric: alert, responsive Laboratory Tests Test 10/14/18 03:45 White Blood Count 14.0 K/UL (4.8-10.8) H Red Blood Count 3.29 M/UL (4.20-5.40) L Hemoglobin 9.2 G/DL (12.0-16.0) L Hematocrit 28.1 % (37.0-47.0) L Mean Corpuscular Volume 85 FL (80-99) Mean Corpuscular Hemoglobin 28.0 PG (27.0-31.0) Mean Corpuscular Hemoglobin Concent 32.7 G/DL (32.0-36.0) Red Cell Distribution Width 14.1 % (11.6-14.8) Platelet Count 271 K/UL (150-450) Mean Platelet Volume 7.7 FL (6.5-10.1) Neutrophils (%) (Auto) 77.5 % (45.0-75.0) H Lymphocytes (%) (Auto) 15.6 % (20.0-45.0) L Monocytes (%) (Auto) 5.6 % (1.0-10.0) Eosinophils (%) (Auto) 1.0 % (0.0-3.0) Basophils (%) (Auto) 0.3 % (0.0-2.0) Sodium Level 150 MMOL/L (136-145) H Potassium Level 3.0 MMOL/L (3.5-5.1) L Chloride Level 116 MMOL/L (98-107) H Carbon Dioxide Level 26 MMOL/L (21-32) Anion Gap 8 mmol/L (5-15) Blood Urea Nitrogen 12 mg/dL (7-18) Creatinine 1.1 MG/DL (0.55-1.30) Estimat Glomerular Filtration Rate mL/min (>60) Glucose Level 168 MG/DL (74-106) H Calcium Level 8.5 MG/DL (8.5-10.1) Current Medications Medications (Trade) Dose Ordered Sig/Mar Route PRN Reason Start Time Stop Time Status Last Admin Dose Admin Acetaminophen/ Hydrocodone Bitart ([place] 5/325) 1 tab Q6H PRN ORAL Moderate Pain (Pain Scale 4-6) 10/08/18 02:45 10/15/18 02:44 Aspirin (Ecotrin) 81 mg DAILY ORAL 10/08/18 09:00 11/07/18 08:59 10/13/18 08:38 Ceftriaxone Sodium 2 gm/ Dextrose 55 ml @ 110 mls/hr Q24H IVPB 10/11/18 13:00 10/18/18 12:59 10/13/18 13:58 Dextrose (Dextrose 50%) 25 ml Q30M PRN IV Hypoglycemia 10/11/18 07:00 11/10/18 06:59 Dextrose (Dextrose 50%) 50 ml Q30M PRN IV Hypoglycemia 10/11/18 07:00 11/10/18 06:59 Heparin Sodium (Porcine) (Heparin 5000 units/ml) 5,000 units EVERY 12 HOURS SUBQ 10/08/18 09:00 11/07/18 08:59 10/13/18 20:02 Insulin Aspart (NovoLOG) BEFORE MEALS AND HS SUBQ 10/08/18 06:30 11/07/18 06:29 10/14/18 06:13 Insulin Detemir (Levemir) 6 units DAILY SUBQ 10/12/18 09:00 11/10/18 08:59 10/13/18 08:42 Morphine Sulfate (Morphine Sulfate) 4 mg EVERY 3 HOURS PRN IVP Severe Pain (Pain Scale 7-10) 10/08/18 02:45 10/15/18 02:44 10/11/18 04:41 Nateglinide (Starlix) 60 mg TIAC ORAL 10/12/18 11:30 11/07/18 06:29 10/14/18 06:11 Sitagliptin Phosphate (Januvia) 100 mg ACBREAKFAST ORAL 10/08/18 06:30 11/07/18 06:29 10/14/18 06:11 Sodium Hypochlorite (Dakin's Quarter Strength) 1 applic DAILY TOPIC 10/10/18 12:00 11/09/18 11:59 10/13/18 08:38 Dallas Rain MD Oct 14, 2018 08:47
[2018-10-14] MEDS: Aspirin EC 81mg tab ORAL SCH (09:04)
[2018-10-14] MEDS: Levemir Flexpen SUBQ SCH (09:05)
[2018-10-14] MEDS: Heparin 5000 units/ml inj SUBQ SCH ×2 (09:07→20:56)
[2018-10-14] MEDS: Dakin's 0.125% Soln (Quarter Strength) 16oz TOPIC SCH (09:18)
[2018-10-14] MEDS: D5W w/KCl 20mEq 1,000 ML IV SCH ×2 (10:30→23:26)
[2018-10-14 12:00] VITALS: BP 146/59
[2018-10-14] MEDS: cefTRIAXone 2 GM in D5W 55 ML IVPB SCH (13:00)
--- NOTE | 2018-10-14 14:30 | NUR ---
RD ASSESSMENT & RECOMMENDATIONS SEE CARE ACTIVITY FOR COMPLETE ASSESSMENT DAILY ESTIMATED NEEDS: Needs based on Wound 56kg 30-35 kcals/kg 3846-4939 total kcals 1.25-2 g protein/kg 70-112 g total protein 25-30 mL/kg 6110-0290 total fluid mLs NUTRITION DIAGNOSIS: 1) Increased kcal and pro needs r/t wound healing as evidenced by stage 4 sacral pressure ulcer, s/p debridement. 2) Altered nutrition related lab values r/t DM as evidenced by A1C 10.6, BG 548-> 273). CURRENT DIET: CCHO MED liquify puree NTL PO DIET RECOMMENDATIONS: CCHO LOW / texture per [employer] + Glucerna TID w/ meals ADDITIONAL RECOMMENDATIONS: 1) Obtain an accurate WT w/ added mattress 2) Wound care: MVI x1 + Vit C 500mg BID + ZN SO4 220mg daily x10 days + ANDERS BID 3) Add Glucerna 1 tetra didi daily w/ meals 4) Monitor po intake, need for snacks 5) See kcal count results --- 72 hr Kcal count, 01/21 menus available + 1 extra menu: 1st 3 meals (dinner, breakfast, lunch) noted to be 25% or 0% intake. Noted much improved po intake, since texture change to Liquify puree w/ NTL. --- Dinner #2: Glucerna 188 kcal, 15 kcal Breakfast #2: cream of wheat ~10 kcal, egg 80 kcal, toast ~10 kcal, Glucerna 200 kcal. Lunch #2: soup 100kcal, chicken 130 kcal, pudding 50 kcal, Glucerna 225 kcal Dinner #3:100% of meal, est 350 kcal + 100% intake of Glucerna 250 kcal. Breakfast #3: Apple juice 60 kcal, apple sauce 50 kcal, cream of wheat 110 kcal, eggs 160 kcal. EXTRA meal, dinner: 100% intake of meal, est 350 kcal. --- PO intake has significantly improved. Averaging 1st 3-4 meals w/ poor intake will lower average. Will use last 7 meals for intake eval: 2338 kcal for 7 meals, 334 kcal/meal, 1002 kcal per day for 3 meals. Pt w/ high kcal needs, meeting 60% est needs. However rec to continue to monitor as last 3-4 meals have intakes >75% of meal per RN good intake of lunch today as well. Noted that pt is on liquify puree w/ potential dilution of kcal/ nutrition. Continue to add Glucerna per meal (250 kcal each-> added 750 kcal/day). D/w RN. Rec additional snacks consistent w/ texture in b/w meals to maintain kcal intake.
--- NOTE | 2018-10-14 15:17 | General Progress Note ---
Assessment/Plan Problem List: (1) DM (diabetes mellitus) ICD Codes: E11.9 - Type 2 diabetes mellitus without complications SNOMED: 75137105 (2) Decubitus ulcer of back, stage 4 ICD Codes: L89.104 - Pressure ulcer of unspecified part of back, stage 4 SNOMED: 681379091 (3) Anemia ICD Codes: D64.9 - Anemia, unspecified SNOMED: 944549928 Qualifiers: Qualified Codes: D64.9 - Anemia, unspecified (4) UTI (urinary tract infection) ICD Codes: N39.0 - Urinary tract infection, site not specified SNOMED: 96816212 Qualifiers: Qualified Codes: N30.00 - Acute cystitis without hematuria (5) Sepsis ICD Codes: A41.9 - Sepsis, unspecified organism SNOMED: 96191386 (6) Hypernatremia ICD Codes: E87.0 - Hyperosmolality and hypernatremia SNOMED: 284843888 (7) Hypokalemia ICD Codes: E87.6 - Hypokalemia SNOMED: 89090937 Assessment/Plan: abxs Wound care follow labs Discussed with patient and family Calorie counts by dietitian Subjective Allergies: Coded Allergies: No Known Allergies (Unverified , 05/08/12) Subjective No complaints Objective Last 24 Hour Vital Signs Date Time Temp Pulse Resp B/P (MAP) Pulse Ox O2 Delivery O2 Flow Rate FiO2 10/14/18 12:00 106 10/14/18 12:00 97.7 106 20 146/59 (88) 99 10/14/18 09:00 Room Air 10/14/18 08:00 89 10/14/18 08:00 98.1 87 18 142/64 (90) 100 10/14/18 04:00 Room Air 10/14/18 04:00 100 10/14/18 04:00 97.0 88 20 140/77 (98) 100 10/14/18 00:00 81 10/14/18 00:00 98.7 80 20 129/55 (79) 100 10/14/18 00:00 Room Air 10/13/18 20:00 Room Air 10/13/18 20:00 112 10/13/18 20:00 98.4 107 20 143/71 (95) 98 10/13/18 16:00 97.5 114 20 127/57 (80) 98 10/13/18 15:33 107 Intake and Output 10/13/18 10/14/18 19:00 07:00 Intake Total 295 ml Output Total 450 ml 1000 ml Balance -155 ml -1000 ml Intake Oral 240 ml IV Total 55 ml Output Urine Total 450 ml 1000 ml # Bowel Movements 1 Laboratory Tests 10/14/18 03:45: White Blood Count 14.0H, Red Blood Count 3.29L, Hemoglobin 9.2L, Hematocrit 28.1L, Mean Corpuscular Volume 85, Mean Corpuscular Hemoglobin 28.0, Mean Corpuscular Hemoglobin Concent 32.7, Red Cell Distribution Width 14.1, Platelet Count 271, Mean Platelet Volume 7.7, Neutrophils (%) (Auto) 77.5H, Lymphocytes ( %) (Auto) 15.6L, Monocytes (%) (Auto) 5.6, Eosinophils (%) (Auto) 1.0, Basophils (%) (Auto) 0.3, Sodium Level 150H, Potassium Level 3.0L, Chloride Level 116H, Carbon Dioxide Level 26, Anion Gap 8, Blood Urea Nitrogen 12, Creatinine 1.1, Estimat Glomerular Filtration Rate , Glucose Level 168H, Calcium Level 8.5 Height (Feet): 5 Height (Inches): 6.00 Weight (Pounds): 131 Cardiovascular: normal rate Respiratory/Chest: lungs clear Edema: no edema noted Generalized Arnulfo Rain MD Oct 14, 2018 15:17
[2018-10-14 16:00] VITALS: BP 148/71
--- NOTE | 2018-10-14 19:10 | NUR ---
HAND-OFF: Report given to Alberto Gonzalez RN and Gisele Barroso RN. Patient in stable condition.
--- NOTE | 2018-10-14 19:15 | NUR ---
NURSE NOTES: Received patient from LAVERNE Boudreaux. patient is awake and verbally responsive to commands. denies pain at this time. patient is on room air. no s/sx of respiratory distress at this time. IV sites are patent and intact. sewell catheter is patent, draining and intact. bed in lowest position and locked, siderails up X2, call light within reach. will continue to monitor.
[2018-10-14 20:00] VITALS: BP 155/87
[2018-10-15] VITALS: BP_SYST 150; BP_SYST 186; BP_DIAS 80; BP_DIAS 87
[2018-10-15 04:00] VITALS: BP 163/81
[2018-10-15 04:47] LABS: BASOPHILS % (AUTO) 0.3 % (0.0-2.0); EOSINOPHILS % (AUTO) 0.6 % (0.0-3.0); HEMATOCRIT 32.2 % (37.0-47.0); HEMOGLOBIN 10.5 G/DL (12.0-16.0); LYMPHOCYTES % (AUTO) 10.5 % (20.0-45.0); MEAN CORPUSCULAR VOLUME 85 FL (80-99); MONOCYTES % (AUTO) 5.2 % (1.0-10.0); NEUTROPHILS % (AUTO) 83.5 % (45.0-75.0); PLATELET COUNT 311 K/UL (150-450); RED BLOOD COUNT 3.78 M/UL (4.20-5.40); RED CELL DISTRIBUTION WIDTH 14.2 % (11.6-14.8); WHITE BLOOD COUNT 15.4 K/UL (4.8-10.8)
[2018-10-15 05:23] LABS: ANION GAP 11 mmol/L (5-15); BLOOD UREA NITROGEN 8 mg/dL (7-18); CALCIUM 8.7 MG/DL (8.5-10.1); CARBON DIOXIDE 24 MMOL/L (21-32); CHLORIDE 110 MMOL/L (98-107); CREATININE 1.1 MG/DL (0.55-1.30); POTASSIUM 3.8 MMOL/L (3.5-5.1); SODIUM 144 MMOL/L (136-145)
--- NOTE | 2018-10-15 06:11 | General Progress Note ---
Assessment/Plan Problem List: (1) DM (diabetes mellitus) ICD Codes: E11.9 - Type 2 diabetes mellitus without complications SNOMED: 53768852 (2) Decubitus ulcer of back, stage 4 ICD Codes: L89.104 - Pressure ulcer of unspecified part of back, stage 4 SNOMED: 215121838 (3) Hyperglycemia due to type 2 diabetes mellitus ICD Codes: E11.65 - Type 2 diabetes mellitus with hyperglycemia; R65.21 - Severe sepsis with septic shock SNOMED: 992936516037362, 83361999 Qualifiers: Qualified Codes: E11.65 - Type 2 diabetes mellitus with hyperglycemia; Z79.4 - watermelon inspector (current) use of insulin (4) Anemia ICD Codes: D64.9 - Anemia, unspecified SNOMED: 350671801 Qualifiers: Qualified Codes: D64.9 - Anemia, unspecified (5) ARF (acute renal failure) ICD Codes: N17.9 - Acute kidney failure, unspecified SNOMED: 22957580 Qualifiers: Qualified Codes: N17.9 - Acute kidney failure, unspecified Assessment/Plan: increase Levemir to 8 units daily increase Starlix to 120 mg ac tid continue Januvia 100 mg daily continue NISS ac / hs Subjective Allergies: Coded Allergies: No Known Allergies (Unverified , 05/08/12) All Systems: reviewed and negative except above Subjective events noted both fasting and mealtime glucose values are elevated Item Value Date Time Bedside Blood Glucose 170 mg/dl H 10/14/18 2100 Bedside Blood Glucose 264 mg/dl H 10/14/18 1700 Bedside Blood Glucose 256 mg/dl H 10/14/18 1145 Bedside Blood Glucose 130 mg/dl H 10/14/18 0905 Bedside Blood Glucose 192 mg/dl H 10/14/18 0613 Objective Last 24 Hour Vital Signs Date Time Temp Pulse Resp B/P (MAP) Pulse Ox O2 Delivery O2 Flow Rate FiO2 10/15/18 04:00 98.4 104 20 163/81 (108) 100 10/15/18 04:00 Room Air 10/15/18 04:00 108 10/15/18 00:00 Room Air 10/15/18 00:00 97.3 109 20 150/80 (103) 100 10/15/18 00:00 126 10/14/18 21:00 Room Air 10/14/18 20:00 108 10/14/18 20:00 99.5 107 20 155/87 (109) 100 10/14/18 16:00 98.2 107 20 148/71 (96) 100 10/14/18 16:00 105 10/14/18 12:00 106 10/14/18 12:00 97.7 106 20 146/59 (88) 99 10/14/18 09:00 Room Air 10/14/18 08:00 89 10/14/18 08:00 98.1 87 18 142/64 (90) 100 Intake and Output 10/14/18 10/15/18 19:00 07:00 Intake Total 1092.2 ml 717 ml Output Total 750 ml 400 ml Balance 342.2 ml 317 ml Intake Oral 400 ml IV Total 692.2 ml 717 ml Output Urine Total 750 ml 400 ml # Bowel Movements 1 1 Laboratory Tests 10/15/18 02:50: White Blood Count 15.4H, Red Blood Count 3.78L, Hemoglobin 10.5L, Hematocrit 32.2L, Mean Corpuscular Volume 85, Mean Corpuscular Hemoglobin 27.7, Mean Corpuscular Hemoglobin Concent 32.4, Red Cell Distribution Width 14.2, Platelet Count 311, Mean Platelet Volume 7.5, Neutrophils (%) (Auto) 83.5H, Lymphocytes ( %) (Auto) 10.5L, Monocytes (%) (Auto) 5.2, Eosinophils (%) (Auto) 0.6, Basophils (%) (Auto) 0.3, Sodium Level 144, Potassium Level 3.8, Chloride Level 110H, Carbon Dioxide Level 24, Anion Gap 11, Blood Urea Nitrogen 8, Creatinine 1.1, Estimat Glomerular Filtration Rate , Glucose Level 340#H, Calcium Level 8.7 Height (Feet): 5 Height (Inches): 6.00 Weight (Pounds): 131 General Appearance: lethargic Neck: normal alignment Cardiovascular: normal rate Respiratory/Chest: decreased breath sounds Abdomen: normal bowel sounds Pelvis: normal external exam Edema: 1+ Arm (L), 1+ Arm (R), 1+ Leg (L), 1+ Leg (R), 1+ Pedal (L), 1+ Pedal ( R), 1+ Generalized Objective Current Medications Medications (Trade) Dose Ordered Sig/Mar Route PRN Reason Start Time Stop Time Status Last Admin Dose Admin Aspirin (Ecotrin) 81 mg DAILY ORAL 10/08/18 09:00 11/07/18 08:59 10/14/18 09:04 Ceftriaxone Sodium 2 gm/ Dextrose 55 ml @ 110 mls/hr Q24H IVPB 10/11/18 13:00 10/18/18 12:59 10/14/18 13:00 Dextrose (Dextrose 50%) 25 ml Q30M PRN IV Hypoglycemia 10/11/18 07:00 11/10/18 06:59 Dextrose (Dextrose 50%) 50 ml Q30M PRN IV Hypoglycemia 10/11/18 07:00 11/10/18 06:59 Dextrose/ Electrolytes 1,000 ml @ 75 mls/hr [id number] IV 10/14/18 10:00 11/13/18 09:59 10/14/18 23:26 Heparin Sodium (Porcine) (Heparin 5000 units/ml) 5,000 units EVERY 12 HOURS SUBQ 10/08/18 09:00 11/07/18 08:59 10/14/18 20:56 Insulin Aspart (NovoLOG) BEFORE MEALS AND HS SUBQ 10/08/18 06:30 11/07/18 06:29 10/14/18 20:57 Insulin Detemir (Levemir) 6 units DAILY SUBQ 10/12/18 09:00 11/10/18 08:59 10/14/18 09:05 Nateglinide (Starlix) 60 mg TIAC ORAL 10/12/18 11:30 11/07/18 06:29 10/14/18 16:59 Sitagliptin Phosphate (Januvia) 100 mg ACBREAKFAST ORAL 10/08/18 06:30 11/07/18 06:29 10/14/18 06:11 Sodium Hypochlorite (Dakin's Quarter Strength) 1 applic DAILY TOPIC 10/10/18 12:00 11/09/18 11:59 10/14/18 09:18 Luisito Quintero MD Oct 15, 2018 06:11
[2018-10-15] MEDS: NovoLOG Insulin Flexpen SUBQ SCH ×4 (06:22→21:01)
[2018-10-15] MEDS: Nateglinide 60mg tab ORAL SCH ×3 (06:23→16:52)
--- NOTE | 2018-10-15 07:33 | NUR ---
HAND-OFF: Report given to LAVERNE Rosario. patient is in stable condition.
--- NOTE | 2018-10-15 07:40 | NUR ---
NURSE NOTES: Received report from Robert Caal RN and Jessi Haas RN. Patient awake in bed, alert and oriented x 2, able to make needs known. On room air, respirations even and unlabored. Harris catheter patent and draining well. Right hand 22g saline lock intact and asymptomatic. Right forearm 20g IV site infusing D5W with 20 meq KCl @ 75 cc/hr, no s/s of infiltration noted. Bed locked in lowest position with side rails up x 3. All needs attended to. Call light within reach. Will continue to monitor.
[2018-10-15 08:00] VITALS: BP 159/80
[2018-10-15] MEDS: Levemir Flexpen SUBQ SCH (08:37)
[2018-10-15] MEDS: Dakin's 0.125% Soln (Quarter Strength) 16oz TOPIC SCH (08:38)
[2018-10-15] MEDS: Heparin 5000 units/ml inj SUBQ SCH ×2 (08:38→21:02)
[2018-10-15] MEDS: Aspirin EC 81mg tab ORAL SCH (08:39)
--- NOTE | 2018-10-15 09:07 | NUR ---
HEMODIALYSIS CHARGE NURSEELEMENT BURNER SI:ARF . CVA VS: BP 150/80, P 120, T 99.1, RR 20, SpO2 100 WBC 15.4, RBC 3.78, H&H 10.5/32.2 IS:LEVEMIR SUBQ STARLIX 120mg D5/NS x1L IV CEFTRIAXONE 55ml IVPB ASPIRIN 81mg HEPARIN SUBQ JANUVIA 100mg NOVOLOG SUBQ SDU STATUS
--- NOTE | 2018-10-15 11:47 | Infectious Diseases Prog Note ---
Assessment/Plan Assessment/Plan IMPRESSION: 1. Poly microbial sepsis ( E. coli, Proteus & Strep Group B) 2. Pyuria and urinary tract infection. 3. 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 4. Acute renal failure improving 5. Hyperkalemia. 6. Hypernatremia. 7. Protein calorie-malnutrition and cachexia. 8. Diabetes mellitus with hyperglycemia. RECOMMENDATION: Continue Rocephin Wound care Subjective ROS Limited/Unobtainable: Yes Neurologic: Reports: confusion Allergies: Coded Allergies: No Known Allergies (Unverified , 05/08/12) Objective Vital Signs Last 24 Hour Vital Signs Date Time Temp Pulse Resp B/P (MAP) Pulse Ox O2 Delivery O2 Flow Rate FiO2 10/15/18 09:00 Room Air 10/15/18 08:00 110 10/15/18 08:00 99.1 120 19 159/80 (106) 100 10/15/18 04:00 98.4 104 20 163/81 (108) 100 10/15/18 04:00 Room Air 10/15/18 04:00 108 10/15/18 00:00 Room Air 10/15/18 00:00 97.3 109 20 150/80 (103) 100 10/15/18 00:00 126 10/14/18 21:00 Room Air 10/14/18 20:00 108 10/14/18 20:00 99.5 107 20 155/87 (109) 100 10/14/18 16:00 98.2 107 20 148/71 (96) 100 10/14/18 16:00 105 10/14/18 12:00 106 10/14/18 12:00 97.7 106 20 146/59 (88) 99 Height (Feet): 5 Height (Inches): 6.00 Weight (Pounds): 131 General Appearance: no acute distress HEENT: mucous membranes moist Respiratory/Chest: lungs clear Cardiovascular: normal rate Abdomen: soft, non tender Extremities: no edema Neurologic/Psychiatric: alert, disoriented Musculoskeletal: atrophy Laboratory Tests Test 10/15/18 02:50 White Blood Count 15.4 K/UL (4.8-10.8) H Red Blood Count 3.78 M/UL (4.20-5.40) L Hemoglobin 10.5 G/DL (12.0-16.0) L Hematocrit 32.2 % (37.0-47.0) L Mean Corpuscular Volume 85 FL (80-99) Mean Corpuscular Hemoglobin 27.7 PG (27.0-31.0) Mean Corpuscular Hemoglobin Concent 32.4 G/DL (32.0-36.0) Red Cell Distribution Width 14.2 % (11.6-14.8) Platelet Count 311 K/UL (150-450) Mean Platelet Volume 7.5 FL (6.5-10.1) Neutrophils (%) (Auto) 83.5 % (45.0-75.0) H Lymphocytes (%) (Auto) 10.5 % (20.0-45.0) L Monocytes (%) (Auto) 5.2 % (1.0-10.0) Eosinophils (%) (Auto) 0.6 % (0.0-3.0) Basophils (%) (Auto) 0.3 % (0.0-2.0) Sodium Level 144 MMOL/L (136-145) Potassium Level 3.8 MMOL/L (3.5-5.1) Chloride Level 110 MMOL/L (98-107) H Carbon Dioxide Level 24 MMOL/L (21-32) Anion Gap 11 mmol/L (5-15) Blood Urea Nitrogen 8 mg/dL (7-18) Creatinine 1.1 MG/DL (0.55-1.30) Estimat Glomerular Filtration Rate mL/min (>60) Glucose Level 340 MG/DL (74-106) #H Calcium Level 8.7 MG/DL (8.5-10.1) Current Medications Medications (Trade) Dose Ordered Sig/Mar Route PRN Reason Start Time Stop Time Status Last Admin Dose Admin Aspirin (Ecotrin) 81 mg DAILY ORAL 10/08/18 09:00 11/07/18 08:59 10/15/18 08:39 Ceftriaxone Sodium 2 gm/ Dextrose 55 ml @ 110 mls/hr Q24H IVPB 10/11/18 13:00 10/18/18 12:59 10/14/18 13:00 Dextrose (Dextrose 50%) 25 ml Q30M PRN IV Hypoglycemia 10/11/18 07:00 11/10/18 06:59 Dextrose (Dextrose 50%) 50 ml Q30M PRN IV Hypoglycemia 10/11/18 07:00 11/10/18 06:59 Dextrose/ Electrolytes 1,000 ml @ 75 mls/hr [id number] IV 10/14/18 10:00 11/13/18 09:59 10/14/18 23:26 Heparin Sodium (Porcine) (Heparin 5000 units/ml) 5,000 units EVERY 12 HOURS SUBQ 10/08/18 09:00 11/07/18 08:59 10/15/18 08:38 Insulin Aspart (NovoLOG) BEFORE MEALS AND HS SUBQ 10/08/18 06:30 11/07/18 06:29 10/15/18 06:22 Insulin Detemir (Levemir) 8 units DAILY SUBQ 10/15/18 09:00 11/10/18 08:59 10/15/18 08:37 Nateglinide (Starlix) 120 mg TIAC ORAL 10/15/18 06:30 11/07/18 06:29 10/15/18 06:23 Sitagliptin Phosphate (Januvia) 100 mg ACBREAKFAST ORAL 10/08/18 06:30 11/07/18 06:29 10/15/18 06:23 Sodium Hypochlorite (Dakin's Quarter Strength) 1 applic DAILY TOPIC 10/10/18 12:00 11/09/18 11:59 10/15/18 08:38 Dallas Rain MD Oct 15, 2018 11:47
[2018-10-15 12:00] VITALS: BP 159/83
--- NOTE | 2018-10-15 12:14 | General Progress Note ---
Assessment/Plan Problem List: (1) DM (diabetes mellitus) ICD Codes: E11.9 - Type 2 diabetes mellitus without complications SNOMED: 13324518 (2) Decubitus ulcer of back, stage 4 ICD Codes: L89.104 - Pressure ulcer of unspecified part of back, stage 4 SNOMED: 141777649 (3) Anemia ICD Codes: D64.9 - Anemia, unspecified SNOMED: 799075790 Qualifiers: Qualified Codes: D64.9 - Anemia, unspecified (4) UTI (urinary tract infection) ICD Codes: N39.0 - Urinary tract infection, site not specified SNOMED: 08613195 Qualifiers: Qualified Codes: N30.00 - Acute cystitis without hematuria (5) Sepsis ICD Codes: A41.9 - Sepsis, unspecified organism SNOMED: 63038256 (6) Hypernatremia ICD Codes: E87.0 - Hyperosmolality and hypernatremia SNOMED: 735415011 (7) Hypokalemia ICD Codes: E87.6 - Hypokalemia SNOMED: 38087195 Assessment/Plan: abxs Wound care follow labs Discussed with ID GI consult for possible G-tube Subjective Allergies: Coded Allergies: No Known Allergies (Unverified , 05/08/12) Subjective No complaints Objective Last 24 Hour Vital Signs Date Time Temp Pulse Resp B/P (MAP) Pulse Ox O2 Delivery O2 Flow Rate FiO2 10/15/18 09:00 Room Air 10/15/18 08:00 110 10/15/18 08:00 99.1 120 19 159/80 (106) 100 10/15/18 04:00 98.4 104 20 163/81 (108) 100 10/15/18 04:00 Room Air 10/15/18 04:00 108 10/15/18 00:00 Room Air 10/15/18 00:00 97.3 109 20 150/80 (103) 100 10/15/18 00:00 126 10/14/18 21:00 Room Air 10/14/18 20:00 108 10/14/18 20:00 99.5 107 20 155/87 (109) 100 10/14/18 16:00 98.2 107 20 148/71 (96) 100 10/14/18 16:00 105 Intake and Output 10/14/18 10/15/18 18:59 06:59 Intake Total 1017.2 ml 1027 ml Output Total 750 ml 600 ml Balance 267.2 ml 427 ml Intake Oral 400 ml 160 ml IV Total 617.2 ml 867 ml Output Urine Total 750 ml 600 ml # Bowel Movements 1 2 Laboratory Tests 10/15/18 02:50: White Blood Count 15.4H, Red Blood Count 3.78L, Hemoglobin 10.5L, Hematocrit 32.2L, Mean Corpuscular Volume 85, Mean Corpuscular Hemoglobin 27.7, Mean Corpuscular Hemoglobin Concent 32.4, Red Cell Distribution Width 14.2, Platelet Count 311, Mean Platelet Volume 7.5, Neutrophils (%) (Auto) 83.5H, Lymphocytes ( %) (Auto) 10.5L, Monocytes (%) (Auto) 5.2, Eosinophils (%) (Auto) 0.6, Basophils (%) (Auto) 0.3, Sodium Level 144, Potassium Level 3.8, Chloride Level 110H, Carbon Dioxide Level 24, Anion Gap 11, Blood Urea Nitrogen 8, Creatinine 1.1, Estimat Glomerular Filtration Rate , Glucose Level 340#H, Calcium Level 8.7 Height (Feet): 5 Height (Inches): 6.00 Weight (Pounds): 131 Cardiovascular: normal rate Respiratory/Chest: lungs clear Arnulfo Rain MD Oct 15, 2018 12:14
[2018-10-15] MEDS: cefTRIAXone 2 GM in D5W 55 ML IVPB SCH (13:10)
[2018-10-15] MEDS: D5W w/KCl 20mEq 1,000 ML IV SCH (13:10)
[2018-10-15 16:00] VITALS: BP 151/78
--- NOTE | 2018-10-15 19:35 | NUR ---
Received report from LAVERNE Rosario. Patient awake in bed, alert and oriented x 2, able to communicate simple needs. On room air, respirations even and unlabored. Harris catheter patent and draining well. Right hand 22g saline lock intact and asymptomatic, D5W with 20 meq KCl @ 75 cc/hr, no s/s of infiltration noted. Bed locked in lowest position with side rails up x 3. All needs attended to. Call light within reach. Will continue to monitor.
--- NOTE | 2018-10-15 19:55 | NUR ---
HAND-OFF: Report given to LAVERNE Pop.
[2018-10-15 20:00] VITALS: BP 139/75
--- NOTE | 2018-10-15 22:35 | General Progress Note ---
Assessment/Plan Assessment/Plan: Assessment - Malnutrition - low albumin - decubitus ulcers - CVA/functional decline - NIDDM Recommendations - push po - supplements - calorie count - ? remeron trial - PEG if all else fails Thank you Kaila Gutierres MD Subjective Allergies: Coded Allergies: No Known Allergies (Unverified , 05/08/12) Objective Last 24 Hour Vital Signs Date Time Temp Pulse Resp B/P (MAP) Pulse Ox O2 Delivery O2 Flow Rate FiO2 10/15/18 20:00 98.9 107 16 139/75 (96) 100 10/15/18 16:00 98.9 106 19 151/78 (102) 97 10/15/18 16:00 89 10/15/18 12:00 98.4 106 20 159/83 (108) 97 10/15/18 12:00 98 10/15/18 09:00 Room Air 10/15/18 08:19 Room Air 21 10/15/18 08:00 110 10/15/18 08:00 99.1 120 19 159/80 (106) 100 10/15/18 04:00 98.4 104 20 163/81 (108) 100 10/15/18 04:00 Room Air 10/15/18 04:00 108 10/15/18 00:00 Room Air 10/15/18 00:00 97.3 109 20 150/80 (103) 100 10/15/18 00:00 126 Intake and Output 10/14/18 10/15/18 19:00 07:00 Intake Total 1092.2 ml 1027 ml Output Total 750 ml 600 ml Balance 342.2 ml 427 ml Intake Oral 400 ml 160 ml IV Total 692.2 ml 867 ml Output Urine Total 750 ml 600 ml # Bowel Movements 1 2 Laboratory Tests 10/15/18 02:50: White Blood Count 15.4H, Red Blood Count 3.78L, Hemoglobin 10.5L, Hematocrit 32.2L, Mean Corpuscular Volume 85, Mean Corpuscular Hemoglobin 27.7, Mean Corpuscular Hemoglobin Concent 32.4, Red Cell Distribution Width 14.2, Platelet Count 311, Mean Platelet Volume 7.5, Neutrophils (%) (Auto) 83.5H, Lymphocytes ( %) (Auto) 10.5L, Monocytes (%) (Auto) 5.2, Eosinophils (%) (Auto) 0.6, Basophils (%) (Auto) 0.3, Sodium Level 144, Potassium Level 3.8, Chloride Level 110H, Carbon Dioxide Level 24, Anion Gap 11, Blood Urea Nitrogen 8, Creatinine 1.1, Estimat Glomerular Filtration Rate , Glucose Level 340#H, Calcium Level 8.7 Height (Feet): 5 Height (Inches): 6.00 Weight (Pounds): 131 Kaila Gutierres MD Oct 15, 2018 22:35
[2018-10-16] VITALS: BP 156/79
--- NOTE | 2018-10-16 00:20 | NUR ---
NURSE NOTES: Received patient from Kiesha GALLOWAY. Patient is asleep and receiving oxygen via nasal cannula at 2L/min, saturating at 98%. Harris catheter is patent and draining. IV site is Right Forearm 22g receiving D5 with 20mEq KCL at 75cc/hr. Bed is locked, placed in lowest position, side rails up x3, call light within reach. Will continue to monitor.
--- NOTE | 2018-10-16 00:30 | Consultation ---
DATE OF CONSULTATION: 10/15/2018 NOTE: "POOR AUDIO QUALITY" GASTROENTEROLOGY CONSULTATION CONSULTING PHYSICIAN: Kaila Gutierres M.D. REFERRING PHYSICIAN: Arnulfo Rain M.D. CHIEF COMPLAINT: I was asked to see this patient by Dr. Arnulfo Rain for evaluation of nutrition and possible gastrostomy tube placement. HISTORY OF PRESENT ILLNESS: The patient is a 78-year-old woman with multiple medical problems, who was brought in to the hospital due to functional decline and decubitus ulcer formation. The patient was brought in by family and has been cared for here in the hospital. She was found to have some volume depletion, anemia, renal failure, and wounds. The patient herself was unable to provide any history, but most of the information is available from the chart. The patient's oral intake was discussed with the nursing staff and it appears that recently her oral intake has improved. The nurse yesterday thinks she may have had some of her meals yesterday. PAST MEDICAL HISTORY: History of diabetes mellitus, sacral decubitus ulceration, bedbound state with contractures, hypertension, diabetes, aphasia. ALLERGIES: None. FAMILY HISTORY: Noncontributory. SOCIAL HISTORY: The patient has had no history of smoking or drinking and currently is a long-term long-term resident. REVIEW OF SYSTEMS: Otherwise negative. PHYSICAL EXAMINATION: GENERAL: Debilitated thin woman, seen in her room. HEENT: Normocephalic and atraumatic. Dentition is poor. NECK: Supple. CHEST: Clear to auscultation. CARDIOVASCULAR: Revealed regular rate. ABDOMEN: Soft. Good bowel sounds. There is no organomegaly. EXTREMITIES: Revealed no edema. LABORATORY DATA: Noted. ASSESSMENT: This patient presents with functional decline with decubitus ulcer formation. She has poor nutritional status and skin breakdown, but for the time being, appears to have improved oral intake. The patient's recent albumin level was low at 2.3. This is a marker for poor nutritional status. I will monitor the patient's oral intake currently and we will start her on appetite stimulants if necessary. Should the patient not improve steadily, then a gastrostomy tube can be considered for long-term nutritional support. RECOMMENDATIONS: Per above discussion and per orders written in the chart. Thank you for asking me to participate in the care of this patient. Kaila Gutierres M.D. DR: Lynsey JOB#: [id number] CC: TERELL
--- NOTE | 2018-10-16 01:20 | NUR ---
HAND-OFF: Report given to LAVERNE Briscoe. pt stable at hand-off.
[2018-10-16] MEDS: D5W w/KCl 20mEq 1,000 ML IV SCH ×2 (02:04→14:43)
[2018-10-16 04:00] VITALS: BP 154/90
[2018-10-16] MEDS: NovoLOG Insulin Flexpen SUBQ SCH ×4 (06:08→20:10)
[2018-10-16] MEDS: Nateglinide 60mg tab ORAL SCH ×3 (06:10→16:28)
--- NOTE | 2018-10-16 06:32 | General Progress Note ---
Assessment/Plan Problem List: (1) DM (diabetes mellitus) ICD Codes: E11.9 - Type 2 diabetes mellitus without complications SNOMED: 41694489 (2) Decubitus ulcer of back, stage 4 ICD Codes: L89.104 - Pressure ulcer of unspecified part of back, stage 4 SNOMED: 416687878 (3) Hyperglycemia due to type 2 diabetes mellitus ICD Codes: E11.65 - Type 2 diabetes mellitus with hyperglycemia; R65.21 - Severe sepsis with septic shock SNOMED: 481364137494523, 92721091 Qualifiers: Qualified Codes: E11.65 - Type 2 diabetes mellitus with hyperglycemia; Z79.4 - superintendent container terminal (current) use of insulin (4) Anemia ICD Codes: D64.9 - Anemia, unspecified SNOMED: 726623538 Qualifiers: Qualified Codes: D64.9 - Anemia, unspecified (5) ARF (acute renal failure) ICD Codes: N17.9 - Acute kidney failure, unspecified SNOMED: 15980072 Qualifiers: Qualified Codes: N17.9 - Acute kidney failure, unspecified Assessment/Plan: continue Levemir 8 units daily continue Starlix to 120 mg ac tid - hold if not eating continue Januvia 100 mg daily continue NISS ac / hs Subjective Allergies: Coded Allergies: No Known Allergies (Unverified , 05/08/12) All Systems: reviewed and negative except above Subjective events noted glucose values improved Item Value Date Time Bedside Blood Glucose 199 mg/dl H 10/16/18 0630 Bedside Blood Glucose 120 mg/dl 10/15/18 2101 Bedside Blood Glucose 137 mg/dl H 10/15/18 1653 Bedside Blood Glucose 326 mg/dl H 10/15/18 1309 Bedside Blood Glucose 318 mg/dl H 10/15/18 0837 Bedside Blood Glucose 386 mg/dl H 10/15/18 0627 Objective Last 24 Hour Vital Signs Date Time Temp Pulse Resp B/P (MAP) Pulse Ox O2 Delivery O2 Flow Rate FiO2 10/16/18 04:00 98.3 100 16 154/90 (111) 100 10/16/18 03:56 102 10/16/18 00:00 Room Air 10/16/18 00:00 98.6 97 16 156/79 (104) 100 10/15/18 23:23 92 10/15/18 21:00 Room Air 10/15/18 20:00 96 10/15/18 20:00 98.9 107 16 139/75 (96) 100 10/15/18 16:00 98.9 106 19 151/78 (102) 97 10/15/18 16:00 89 10/15/18 12:00 98.4 106 20 159/83 (108) 97 10/15/18 12:00 98 10/15/18 09:00 Room Air 10/15/18 08:19 Room Air 21 10/15/18 08:00 110 10/15/18 08:00 99.1 120 19 159/80 (106) 100 Intake and Output 10/15/18 10/16/18 19:00 07:00 Intake Total 1285.5 ml 865 ml Output Total 725 ml 1000 ml Balance 560.5 ml -135 ml Intake Oral 360 ml 120 ml IV Total 925.5 ml 745 ml Output Urine Total 725 ml 1000 ml # Bowel Movements 2 1 Height (Feet): 5 Height (Inches): 6.00 Weight (Pounds): 131 General Appearance: lethargic Neck: normal alignment Cardiovascular: normal rate Respiratory/Chest: decreased breath sounds Abdomen: normal bowel sounds Pelvis: normal external exam Objective Current Medications Medications (Trade) Dose Ordered Sig/Mar Route PRN Reason Start Time Stop Time Status Last Admin Dose Admin Aspirin (Ecotrin) 81 mg DAILY ORAL 10/08/18 09:00 11/07/18 08:59 10/15/18 08:39 Ceftriaxone Sodium 2 gm/ Dextrose 55 ml @ 110 mls/hr Q24H IVPB 10/11/18 13:00 10/18/18 12:59 10/15/18 13:10 Dextrose (Dextrose 50%) 25 ml Q30M PRN IV Hypoglycemia 10/11/18 07:00 11/10/18 06:59 Dextrose (Dextrose 50%) 50 ml Q30M PRN IV Hypoglycemia 10/11/18 07:00 11/10/18 06:59 Dextrose/ Electrolytes 1,000 ml @ 75 mls/hr [id number] IV 10/14/18 10:00 11/13/18 09:59 10/16/18 02:04 Heparin Sodium (Porcine) (Heparin 5000 units/ml) 5,000 units EVERY 12 HOURS SUBQ 10/08/18 09:00 11/07/18 08:59 10/15/18 21:02 Insulin Aspart (NovoLOG) BEFORE MEALS AND HS SUBQ 10/08/18 06:30 11/07/18 06:29 10/16/18 06:08 Insulin Detemir (Levemir) 8 units DAILY SUBQ 10/15/18 09:00 11/10/18 08:59 10/15/18 08:37 Nateglinide (Starlix) 120 mg TIAC ORAL 10/15/18 06:30 11/07/18 06:29 10/16/18 06:10 Sitagliptin Phosphate (Januvia) 100 mg ACBREAKFAST ORAL 10/08/18 06:30 11/07/18 06:29 10/16/18 06:09 Sodium Hypochlorite (Dakin's Quarter Strength) 1 applic DAILY TOPIC 10/10/18 12:00 11/09/18 11:59 10/15/18 08:38 Luisito Quintero MD Oct 16, 2018 06:32
--- NOTE | 2018-10-16 07:23 | NUR ---
NURSE NOTES: Report received from LAVERNE Gardiner. Observed patient in bed sleeping. Arousable by touching. No s/s of pain at this time. No distress noted in room air. IVF running at prescribed rate. F/C intact and draining well. Bed in lowest position. Call light within reach. Will continue to monitor.
--- NOTE | 2018-10-16 07:31 | NUR ---
HAND-OFF: Report given to Halley GALLOWAY. Patient showing no signs of distress.
[2018-10-16 08:00] VITALS: BP 136/63
[2018-10-16] MEDS: Dakin's 0.125% Soln (Quarter Strength) 16oz TOPIC SCH (08:06)
[2018-10-16] MEDS: Aspirin EC 81mg tab ORAL SCH (08:07)
--- NOTE | 2018-10-16 08:07 | NUR ---
NURSE NOTES:WOUND CARE FOLLOW-UP NOTES:Pt S/P Surgical debridement of Sacral pressure injury. Base of wound Beefy red with bone exposure at base,undermining noted. No odor noted. Small area os yellow slough noted along edges. Small amt serous exudate noted. (L)10cm x (W)8cm x (D)3.5cm .Undermining 12-4by 4cm @4o'clock, Undermining 8-9 by 2cm @9o'clock. Unstageable pressure injury L ischium .Base of wound has 80% cohen slough with surrounding red granulation .Edges are flat and pink. Periwound darker in colour without erythema or induration.(L)6.5cm x (W)4cm. DTPI resolving R trochanter/R hip . Darker skin colour without induration or fluctuance.(L)5.5cm x (W)4cm. R and L heels are both blanchable without evidence of skin breakdwon. Tx: Plan:Continue surgical wound care orders. Reposition every 2hours or as tolerated. Off-load heels with pillow. APM/KASEY mattress.
[2018-10-16] MEDS: Heparin 5000 units/ml inj SUBQ SCH ×2 (08:09→20:11)
[2018-10-16] MEDS: Levemir Flexpen SUBQ SCH (08:11)
[2018-10-16 12:00] VITALS: BP 144/73
--- NOTE | 2018-10-16 12:06 | Infectious Diseases Prog Note ---
Assessment/Plan Assessment/Plan IMPRESSION: 1. Poly microbial sepsis ( E. coli, Proteus & Strep Group B) 2. Pyuria and urinary tract infection. 3. 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 4. Acute renal failure improving 5. Hyperkalemia. 6. Hypernatremia. 7. Protein calorie-malnutrition and cachexia. 8. Diabetes mellitus with hyperglycemia. RECOMMENDATION: Continue Rocephin Wound care Subjective ROS Limited/Unobtainable: Yes Gastrointestinal/Abdominal: Reports: no symptoms Musculoskeletal: Reports: pain, other - back pain Allergies: Coded Allergies: No Known Allergies (Unverified , 05/08/12) Objective Vital Signs Last 24 Hour Vital Signs Date Time Temp Pulse Resp B/P (MAP) Pulse Ox O2 Delivery O2 Flow Rate FiO2 10/16/18 09:00 Room Air 10/16/18 08:00 97.2 98 17 136/63 (87) 100 10/16/18 08:00 93 10/16/18 04:00 98.3 100 16 154/90 (111) 100 10/16/18 03:56 102 10/16/18 00:00 Room Air 10/16/18 00:00 98.6 97 16 156/79 (104) 100 10/15/18 23:23 92 10/15/18 21:00 Room Air 10/15/18 20:00 96 10/15/18 20:00 98.9 107 16 139/75 (96) 100 10/15/18 16:00 98.9 106 19 151/78 (102) 97 10/15/18 16:00 89 Height (Feet): 5 Height (Inches): 6.00 Weight (Pounds): 131 General Appearance: no acute distress HEENT: mucous membranes moist Respiratory/Chest: lungs clear Cardiovascular: normal rate Abdomen: soft, non tender Extremities: no edema Neurologic/Psychiatric: alert, responsive Musculoskeletal: atrophy Current Medications Medications (Trade) Dose Ordered Sig/Mar Route PRN Reason Start Time Stop Time Status Last Admin Dose Admin Aspirin (Ecotrin) 81 mg DAILY ORAL 10/08/18 09:00 11/07/18 08:59 10/16/18 08:07 Ceftriaxone Sodium 2 gm/ Dextrose 55 ml @ 110 mls/hr Q24H IVPB 10/11/18 13:00 10/18/18 12:59 10/15/18 13:10 Dextrose (Dextrose 50%) 25 ml Q30M PRN IV Hypoglycemia 10/11/18 07:00 11/10/18 06:59 Dextrose (Dextrose 50%) 50 ml Q30M PRN IV Hypoglycemia 10/11/18 07:00 11/10/18 06:59 Dextrose/ Electrolytes 1,000 ml @ 75 mls/hr [id number] IV 10/14/18 10:00 11/13/18 09:59 10/16/18 02:04 Heparin Sodium (Porcine) (Heparin 5000 units/ml) 5,000 units EVERY 12 HOURS SUBQ 10/08/18 09:00 11/07/18 08:59 10/16/18 08:09 Insulin Aspart (NovoLOG) BEFORE MEALS AND HS SUBQ 10/08/18 06:30 11/07/18 06:29 10/16/18 11:26 Insulin Detemir (Levemir) 8 units DAILY SUBQ 10/15/18 09:00 11/10/18 08:59 10/16/18 08:11 Nateglinide (Starlix) 120 mg TIAC ORAL 10/15/18 06:30 11/07/18 06:29 10/16/18 11:25 Sitagliptin Phosphate (Januvia) 100 mg ACBREAKFAST ORAL 10/08/18 06:30 11/07/18 06:29 10/16/18 06:09 Sodium Hypochlorite (Dakin's Quarter Strength) 1 applic DAILY TOPIC 10/10/18 12:00 11/09/18 11:59 10/16/18 08:06 Dallas Rain MD Oct 16, 2018 12:06
[2018-10-16] MEDS: cefTRIAXone 2 GM in D5W 55 ML IVPB SCH (12:44)
[2018-10-16 16:00] VITALS: BP 145/74
--- NOTE | 2018-10-16 16:03 | NUR ---
ST NOTE: ST WEEKLY AND CURRENT STATUS: ST WEEKLY: PT MET PO INTAKE GOALS. NURSING STAFF MET ASPIRATION PRECAUTIONS GOALS. PT IS ON CALORIE COUNT. CONTINUE SKILLED ST SERVICE. CURRENT STATUS: PT SEEN AT BEDSIDE IN PM. ALERT, COOPERATIVE, VERBAL, MAINTAIN GOOD LOUDNESS. PER TANI GALLOWAY, PT TOLERATED CURRENT DIET WELL, GOOD INTAKE. GIVEN PO TRIALS: THIN(TSP), NECTAR THICK(TSP) AND PUREE(TSP) GRINDING TEETH WAS NOTED WHEN EATING PUREED FOOD. MILDLY INCREASED ORAL TRANSIT TIME(3 TO 4 SECONDS) TILL PT INITIATED PHARYNGEAL SWALLOW, FAIR LARYNGEAL ELEVATION, NO OVERT S/S OF ASPIRATION. PO TRIALS, CONSIDER ADVANCE DIET TO MOIST PUREE WITH NECTAR THICK LIQUIDS. D/W TANI GALLOWAY AND THE STAFF.
--- NOTE | 2018-10-16 17:25 | General Progress Note ---
Assessment/Plan Problem List: (1) DM (diabetes mellitus) ICD Codes: E11.9 - Type 2 diabetes mellitus without complications SNOMED: 32479635 (2) Decubitus ulcer of back, stage 4 ICD Codes: L89.104 - Pressure ulcer of unspecified part of back, stage 4 SNOMED: 667594194 (3) Anemia ICD Codes: D64.9 - Anemia, unspecified SNOMED: 001623582 Qualifiers: Qualified Codes: D64.9 - Anemia, unspecified (4) UTI (urinary tract infection) ICD Codes: N39.0 - Urinary tract infection, site not specified SNOMED: 66961455 Qualifiers: Qualified Codes: N30.00 - Acute cystitis without hematuria (5) Sepsis ICD Codes: A41.9 - Sepsis, unspecified organism SNOMED: 00300158 (6) Hypernatremia ICD Codes: E87.0 - Hyperosmolality and hypernatremia SNOMED: 072981218 (7) Hypokalemia ICD Codes: E87.6 - Hypokalemia SNOMED: 78931798 Assessment/Plan: abxs Wound care follow labs Discussed with ID Subjective Allergies: Coded Allergies: No Known Allergies (Unverified , 05/08/12) Subjective eats better Objective Last 24 Hour Vital Signs Date Time Temp Pulse Resp B/P (MAP) Pulse Ox O2 Delivery O2 Flow Rate FiO2 10/16/18 12:00 94 10/16/18 12:00 97.7 102 20 144/73 (96) 100 10/16/18 09:00 Room Air 10/16/18 08:00 97.2 98 17 136/63 (87) 100 10/16/18 08:00 93 10/16/18 04:00 98.3 100 16 154/90 (111) 100 10/16/18 03:56 102 10/16/18 00:00 Room Air 10/16/18 00:00 98.6 97 16 156/79 (104) 100 10/15/18 23:23 92 10/15/18 21:00 Room Air 10/15/18 20:00 96 10/15/18 20:00 98.9 107 16 139/75 (96) 100 Intake and Output 10/15/18 10/16/18 18:59 06:59 Intake Total 1285.5 ml 1015 ml Output Total 725 ml 1000 ml Balance 560.5 ml 15 ml Intake Oral 360 ml 120 ml IV Total 925.5 ml 895 ml Output Urine Total 725 ml 1000 ml # Bowel Movements 2 1 Height (Feet): 5 Height (Inches): 6.00 Weight (Pounds): 131 Cardiovascular: normal rate Respiratory/Chest: lungs clear Edema: no edema noted Generalized Arnulfo Rain MD Oct 16, 2018 17:25
--- NOTE | 2018-10-16 19:13 | NUR ---
HAND-OFF: Report given to LAVERNE Lincoln. Stable condition.
--- NOTE | 2018-10-16 19:15 | NUR ---
NURSE NOTES: Received patient from LAVERNE Rowley. Patient is stable, will continue plan of care.
[2018-10-16 20:00] VITALS: BP 141/72
--- NOTE | 2018-10-16 22:12 | General Progress Note ---
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 eating better Objective Last 24 Hour Vital Signs Date Time Temp Pulse Resp B/P (MAP) Pulse Ox O2 Delivery O2 Flow Rate FiO2 10/16/18 21:00 Room Air 10/16/18 20:00 99.2 106 20 141/72 (95) 100 10/16/18 19:03 108 10/16/18 16:00 101 10/16/18 16:00 99.8 96 22 145/74 (97) 100 10/16/18 12:00 94 10/16/18 12:00 97.7 102 20 144/73 (96) 100 10/16/18 09:00 Room Air 10/16/18 08:00 97.2 98 17 136/63 (87) 100 10/16/18 08:00 93 10/16/18 04:00 98.3 100 16 154/90 (111) 100 10/16/18 03:56 102 10/16/18 00:00 Room Air 10/16/18 00:00 98.6 97 16 156/79 (104) 100 10/15/18 23:23 92 Intake and Output 10/15/18 10/16/18 19:00 07:00 Intake Total 1285.5 ml 1015 ml Output Total 725 ml 1000 ml Balance 560.5 ml 15 ml Intake Oral 360 ml 120 ml IV Total 925.5 ml 895 ml Output Urine Total 725 ml 1000 ml # Bowel Movements 2 1 Height (Feet): 5 Height (Inches): 6.00 Weight (Pounds): 131 Objective WDWN NCAT, poor dentition supple CTA RR abd soft ND NT no edema (+) contractures Kaila Gutierres MD Oct 16, 2018 22:12
[2018-10-17] VITALS: BP 138/71
[2018-10-17 04:00] VITALS: BP 137/29
[2018-10-17] MEDS: D5W w/KCl 20mEq 1,000 ML IV SCH ×3 (04:30→17:25)
--- NOTE | 2018-10-17 05:15 | NUR ---
NURSE NOTES: Transferred patient to 202-2, report given to LAVERNE Dumas. No belongings, wound pictures are taken, wound care and dressing changes completed with receiving nurse. Orders are transferred. Patient is stable.
--- NOTE | 2018-10-17 05:32 | NUR ---
NURSE NOTES: Received report from LAVERNE Lincoln. Patient in bed awake showing no signs of acute distress. Respiration even and non labored on room air. No sob noted. IV line patent and intact. Harris patent, intact and draining. Wound dressing changed and photos taken. Oriented to room and unit. Call light within reach. Bed in lowest position, wheels locked, and alarm on. All needs attended and met. Will continue plan of care.
--- NOTE | 2018-10-17 06:14 | General Progress Note ---
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 (4) Anemia ICD Codes: D64.9 - Anemia, unspecified SNOMED: 817326090 Qualifiers: Qualified Codes: D64.9 - Anemia, unspecified (5) ARF (acute renal failure) ICD Codes: N17.9 - Acute kidney failure, unspecified SNOMED: 88250312 Qualifiers: Qualified Codes: N17.9 - Acute kidney failure, unspecified Assessment/Plan: continue Levemir 8 units daily continue Starlix to 120 mg ac tid - hold if not eating continue Januvia 100 mg daily continue NISS ac / hs Subjective Allergies: Coded Allergies: No Known Allergies (Unverified , 05/08/12) All Systems: reviewed and negative except above Subjective events noted Item Value Date Time Bedside Blood Glucose 122 mg/dl H 10/16/18 2100 Bedside Blood Glucose 173 mg/dl H 10/16/18 1629 Bedside Blood Glucose 253 mg/dl H 10/16/18 1126 Bedside Blood Glucose 199 mg/dl H 10/16/18 0811 Bedside Blood Glucose 199 mg/dl H 10/16/18 0630 Objective Last 24 Hour Vital Signs Date Time Temp Pulse Resp B/P (MAP) Pulse Ox O2 Delivery O2 Flow Rate FiO2 10/17/18 04:00 98.1 101 20 137/29 (65) 100 10/17/18 03:49 78 10/17/18 00:00 98.8 96 20 138/71 (93) 100 10/16/18 23:41 111 10/16/18 21:00 Room Air 10/16/18 20:00 99.2 106 20 141/72 (95) 100 10/16/18 19:03 108 10/16/18 16:00 101 10/16/18 16:00 99.8 96 22 145/74 (97) 100 10/16/18 12:00 94 10/16/18 12:00 97.7 102 20 144/73 (96) 100 10/16/18 09:00 Room Air 10/16/18 08:00 97.2 98 17 136/63 (87) 100 10/16/18 08:00 93 Intake and Output 10/16/18 10/17/18 19:00 07:00 Intake Total 1260 ml 600 ml Output Total 900 ml 1500 ml Balance 360 ml -900 ml Intake Oral 380 ml IV Total 880 ml 600 ml Output Urine Total 900 ml 1500 ml # Bowel Movements 2 3 Height (Feet): 5 Height (Inches): 6.00 Weight (Pounds): 131 General Appearance: no apparent distress Neck: normal alignment Cardiovascular: normal rate Respiratory/Chest: lungs clear Abdomen: normal bowel sounds Pelvis: normal external exam Objective Current Medications Medications (Trade) Dose Ordered Sig/Mar Route PRN Reason Start Time Stop Time Status Last Admin Dose Admin Aspirin (Ecotrin) 81 mg DAILY ORAL 10/17/18 09:00 11/07/18 08:59 Ceftriaxone Sodium 2 gm/ Dextrose 55 ml @ 110 mls/hr Q24H IVPB 10/17/18 13:00 10/18/18 12:59 Dextrose (Dextrose 50%) 25 ml Q30M PRN IV Hypoglycemia 10/17/18 05:30 11/10/18 06:59 Dextrose (Dextrose 50%) 50 ml Q30M PRN IV Hypoglycemia 10/17/18 05:30 11/10/18 06:59 Dextrose/ Electrolytes 1,000 ml @ 75 mls/hr [id number] IV 10/17/18 05:30 11/13/18 09:59 Heparin Sodium (Porcine) (Heparin 5000 units/ml) 5,000 units EVERY 12 HOURS SUBQ 10/17/18 09:00 11/07/18 08:59 Insulin Aspart (NovoLOG) BEFORE MEALS AND HS SUBQ 10/17/18 06:30 11/07/18 06:29 Insulin Detemir (Levemir) 8 units DAILY SUBQ 10/17/18 09:00 11/10/18 08:59 Nateglinide (Starlix) 120 mg TIAC ORAL 10/17/18 06:30 11/07/18 06:29 Sitagliptin Phosphate (Januvia) 100 mg ACBREAKFAST ORAL 10/17/18 06:30 11/07/18 06:29 Sodium Hypochlorite (Dakin's Quarter Strength) 1 applic DAILY TOPIC 10/17/18 09:00 11/09/18 11:59 Luisito Quintero MD Oct 17, 2018 06:14
[2018-10-17] MEDS: NovoLOG Insulin Flexpen SUBQ SCH ×4 (06:30→20:48)
[2018-10-17] MEDS: Nateglinide 60mg tab ORAL SCH ×3 (06:56→17:24)
--- NOTE | 2018-10-17 07:44 | NUR ---
HAND-OFF: Report given to LAVERNE Melton.
--- NOTE | 2018-10-17 07:58 | NUR ---
NURSE NOTES: Pt received from LAVERNE Dumas alert and oriented x2 with no acute s/s of distress noted. Pt sitting up in bed eating breakfast. IV site asymptomatic and patent on R fa 20g running to D5 with 20 KCL @ 75. Bed in lowest position, bed alarm on. Call light and belongings within reach.
[2018-10-17 08:00] VITALS: BP 138/74
[2018-10-17] MEDS: Aspirin EC 81mg tab ORAL SCH (08:36)
[2018-10-17] MEDS: Levemir Flexpen SUBQ SCH (08:37)
[2018-10-17] MEDS: Heparin 5000 units/ml inj SUBQ SCH ×2 (08:38→20:46)
[2018-10-17] MEDS: Dakin's 0.125% Soln (Quarter Strength) 16oz TOPIC SCH (08:38)
--- NOTE | 2018-10-17 11:36 | Infectious Diseases Prog Note ---
Assessment/Plan Assessment/Plan IMPRESSION: 1. Poly microbial sepsis ( E. coli, Proteus & Strep Group B) 2. Pyuria and urinary tract infection. 3. 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 4. Acute renal failure improving 5. Hyperkalemia. 6. Hypernatremia. 7. Protein calorie-malnutrition and cachexia. 8. Diabetes mellitus with hyperglycemia. RECOMMENDATION: Continue Rocephin F/U CBC Wound care Subjective ROS Limited/Unobtainable: Yes Gastrointestinal/Abdominal: Reports: no symptoms Neurologic: Reports: other - more alert Musculoskeletal: Reports: pain, other - in legs Allergies: Coded Allergies: No Known Allergies (Unverified , 05/08/12) Objective Vital Signs Last 24 Hour Vital Signs Date Time Temp Pulse Resp B/P (MAP) Pulse Ox O2 Delivery O2 Flow Rate FiO2 10/17/18 09:00 Room Air 10/17/18 08:00 98.0 103 19 138/74 (95) 100 10/17/18 08:00 108 10/17/18 04:00 98.1 101 20 137/29 (65) 100 10/17/18 03:49 78 10/17/18 00:00 98.8 96 20 138/71 (93) 100 10/16/18 23:41 111 10/16/18 21:00 Room Air 10/16/18 20:00 99.2 106 20 141/72 (95) 100 10/16/18 19:03 108 10/16/18 16:00 101 10/16/18 16:00 99.8 96 22 145/74 (97) 100 10/16/18 12:00 94 10/16/18 12:00 97.7 102 20 144/73 (96) 100 Height (Feet): 5 Height (Inches): 6.00 Weight (Pounds): 131 General Appearance: cachetic HEENT: mucous membranes moist Respiratory/Chest: lungs clear Cardiovascular: normal rate Abdomen: soft, non tender Extremities: no edema Skin: ulcers Neurologic/Psychiatric: alert, responsive Current Medications Medications (Trade) Dose Ordered Sig/Mar Route PRN Reason Start Time Stop Time Status Last Admin Dose Admin Aspirin (Ecotrin) 81 mg DAILY ORAL 10/17/18 09:00 11/07/18 08:59 10/17/18 08:36 Ceftriaxone Sodium 2 gm/ Dextrose 55 ml @ 110 mls/hr Q24H IVPB 10/17/18 13:00 10/18/18 12:59 Dextrose (Dextrose 50%) 25 ml Q30M PRN IV Hypoglycemia 10/17/18 05:30 11/10/18 06:59 Dextrose (Dextrose 50%) 50 ml Q30M PRN IV Hypoglycemia 10/17/18 05:30 11/10/18 06:59 Dextrose/ Electrolytes 1,000 ml @ 75 mls/hr [id number] IV 10/17/18 05:30 11/13/18 09:59 Heparin Sodium (Porcine) (Heparin 5000 units/ml) 5,000 units EVERY 12 HOURS SUBQ 10/17/18 09:00 11/07/18 08:59 10/17/18 08:38 Insulin Aspart (NovoLOG) BEFORE MEALS AND HS SUBQ 10/17/18 06:30 11/07/18 06:29 Insulin Detemir (Levemir) 8 units DAILY SUBQ 10/17/18 09:00 11/10/18 08:59 10/17/18 08:37 Nateglinide (Starlix) 120 mg TIAC ORAL 10/17/18 06:30 11/07/18 06:29 10/17/18 06:56 Sitagliptin Phosphate (Januvia) 50 mg ACBREAKFAST ORAL 10/18/18 06:30 11/17/18 06:29 Sodium Hypochlorite (Dakin's Quarter Strength) 1 applic DAILY TOPIC 10/17/18 09:00 11/09/18 11:59 10/17/18 08:38 Dallas Rain MD Oct 17, 2018 11:36
--- NOTE | 2018-10-17 11:46 | NUR ---
RD ASSESSMENT & RECOMMENDATIONS SEE CARE ACTIVITY FOR COMPLETE ASSESSMENT DAILY ESTIMATED NEEDS: Needs based on Wound 56kg 30-35 kcals/kg 2798-5818 total kcals 1.25-2 g protein/kg 70-112 g total protein 25-30 mL/kg 1313-1868 total fluid mLs NUTRITION DIAGNOSIS: 1) Increased kcal and pro needs r/t wound healing as evidenced by stage 4 sacral pressure ulcer, s/p debridement. 2) Altered nutrition related lab values r/t DM as evidenced by A1C 10.6, BG 548-> 273). PO DIET RECOMMENDATIONS: -->> CCHO med / texture per SURGICAL ASSIST + Glucerna TID w/ meals --- ADDITIONAL RECOMMENDATIONS: 1) Obtain an accurate WT w/ added mattress 2) Wound care: MVI x1 + Vit C 500mg BID + ZN SO4 220mg daily x10 days + ANDERS BID 3) Add Glucerna 1 tetra didi daily w/ meals 4) Snacks in b/w meals 5) See kcal count results
[2018-10-17 12:00] VITALS: BP 144/61
[2018-10-17] MEDS ORDERED: cefTRIAXone 2 GM in D5W 55 ML IVPB SCH (13:00)
--- NOTE | 2018-10-17 14:59 | General Progress Note ---
Assessment/Plan Problem List: (1) DM (diabetes mellitus) ICD Codes: E11.9 - Type 2 diabetes mellitus without complications SNOMED: 53773049 (2) Decubitus ulcer of back, stage 4 ICD Codes: L89.104 - Pressure ulcer of unspecified part of back, stage 4 SNOMED: 014907243 (3) Anemia ICD Codes: D64.9 - Anemia, unspecified SNOMED: 745575515 Qualifiers: Qualified Codes: D64.9 - Anemia, unspecified (4) UTI (urinary tract infection) ICD Codes: N39.0 - Urinary tract infection, site not specified SNOMED: 06021241 Qualifiers: Qualified Codes: N30.00 - Acute cystitis without hematuria (5) Sepsis ICD Codes: A41.9 - Sepsis, unspecified organism SNOMED: 15248496 (6) Hypernatremia ICD Codes: E87.0 - Hyperosmolality and hypernatremia SNOMED: 648465854 (7) Hypokalemia ICD Codes: E87.6 - Hypokalemia SNOMED: 78017910 Assessment/Plan: abxs Wound care follow labs Discussed with RN Subjective Allergies: Coded Allergies: No Known Allergies (Unverified , 05/08/12) Subjective eats better Objective Last 24 Hour Vital Signs Date Time Temp Pulse Resp B/P (MAP) Pulse Ox O2 Delivery O2 Flow Rate FiO2 10/17/18 12:00 98.7 87 18 144/61 (88) 99 10/17/18 12:00 85 10/17/18 09:00 Room Air 10/17/18 08:00 98.0 103 19 138/74 (95) 100 10/17/18 08:00 108 10/17/18 04:00 98.1 101 20 137/29 (65) 100 10/17/18 03:49 78 10/17/18 00:00 98.8 96 20 138/71 (93) 100 10/16/18 23:41 111 10/16/18 21:00 Room Air 10/16/18 20:00 99.2 106 20 141/72 (95) 100 10/16/18 19:03 108 10/16/18 16:00 101 10/16/18 16:00 99.8 96 22 145/74 (97) 100 Intake and Output 10/16/18 10/17/18 19:00 07:00 Intake Total 1260 ml 600 ml Output Total 900 ml 1500 ml Balance 360 ml -900 ml Intake Oral 380 ml IV Total 880 ml 600 ml Output Urine Total 900 ml 1500 ml # Bowel Movements 2 3 Height (Feet): 5 Height (Inches): 6.00 Weight (Pounds): 131 Cardiovascular: normal rate Respiratory/Chest: lungs clear Edema: no edema noted Generalized Arnulfo Rain MD Oct 17, 2018 14:59
--- NOTE | 2018-10-17 15:32 | NUR ---
ST NOTE: SWALLOW STATUS PT SEEN AT BEDSIDE DURING LUNCH, ALERT, COOPERATIVE, AT UPRIGHT POSITION. JODI GALLOWAY, PRESENTED. SEEN FOR POSSIBLE DIET UPGRADE. GIVEN PUREE(TSP) AND NECTAR THICK(TSP) PT IS EASILY DISTRACTED. PT TENDED TO HOLD THE BOLUS, AND REQUIRED VERBAL CUES TO SWALLOW. MILDLY INCREASED ORAL TRANSIT TIME(4 SECONDS) UNTIL PT INITIATED PHARYNGEAL SWALLOW, FAIR LARYNGEAL ELEVATION, SOME COUGHING WAS NOTED WITH PUREED/PUDDING THICK FOOD. HOWEVER, PT TOLERATED WELL WITH APPLE SAUCE. PER JODI GALLOWAY, PT ATE 75% OF HER LUNCH. ADDED APPLE SAUCE AND YOGURT ON THE TRAY. D/W JODI GALLOWAY
[2018-10-17 16:00] VITALS: BP 145/65
[2018-10-17] MEDS ORDERED: HYDROcodone/Acetamin 5/325 tab ORAL PRN (19:45)
--- NOTE | 2018-10-17 19:58 | NUR ---
HAND-OFF: Report given to LAVERNE Dumas. No acute s/s of distress noted.
[2018-10-17 20:00] VITALS: BP 150/74
--- NOTE | 2018-10-17 20:03 | NUR ---
NURSE NOTES: Received report from LAVERNE Melton. Patient in bed awake showing no signs of acute distress. Respiration even and non labored on room air. No SOB noted. IV line patent and intact. Harris patent, intact and draining. Bed in lowest position, wheels locked and alarm on. Call light within reach. All needs attended and met. Will continue plan of care.
--- NOTE | 2018-10-17 21:24 | General Progress Note ---
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 eating OK Objective Last 24 Hour Vital Signs Date Time Temp Pulse Resp B/P (MAP) Pulse Ox O2 Delivery O2 Flow Rate FiO2 10/17/18 16:00 98.3 98 18 145/65 (91) 99 10/17/18 16:00 86 10/17/18 12:00 98.7 87 18 144/61 (88) 99 10/17/18 12:00 85 10/17/18 09:00 Room Air 10/17/18 08:00 98.0 103 19 138/74 (95) 100 10/17/18 08:00 108 10/17/18 04:00 98.1 101 20 137/29 (65) 100 10/17/18 03:49 78 10/17/18 00:00 98.8 96 20 138/71 (93) 100 10/16/18 23:41 111 Intake and Output 10/16/18 10/17/18 18:59 06:59 Intake Total 1335 ml 600 ml Output Total 900 ml 1500 ml Balance 435 ml -900 ml Intake Oral 380 ml IV Total 955 ml 600 ml Output Urine Total 900 ml 1500 ml # Bowel Movements 2 3 Height (Feet): 5 Height (Inches): 6.00 Weight (Pounds): 131 Objective WDWN NCAT, poor dentition supple CTA RR abd soft ND NT no edema (+) contractures Kaila Gutierres MD Oct 17, 2018 21:24
[2018-10-18] VITALS: BP 101/51
[2018-10-18] MEDS: D5W w/KCl 20mEq 1,000 ML IV SCH ×2 (01:17→22:52)
[2018-10-18] MEDS: HYDROcodone/Acetamin 10/325 tab ORAL PRN ×2 (02:00→16:27)
[2018-10-18 04:00] VITALS: BP 113/53
[2018-10-18] MEDS: Nateglinide 60mg tab ORAL SCH ×3 (06:06→16:27)
[2018-10-18] MEDS: sitaGLIPtin 50mg tab ORAL SCH (06:06)
[2018-10-18] MEDS: NovoLOG Insulin Flexpen SUBQ SCH ×4 (06:10→20:59)
[2018-10-18 06:33] LABS: BASOPHILS % (AUTO) 0.5 % (0.0-2.0); EOSINOPHILS % (AUTO) 0.6 % (0.0-3.0); HEMATOCRIT 27.6 % (37.0-47.0); HEMOGLOBIN 8.9 G/DL (12.0-16.0); LYMPHOCYTES % (AUTO) 12.9 % (20.0-45.0); MEAN CORPUSCULAR VOLUME 86 FL (80-99); MONOCYTES % (AUTO) 3.4 % (1.0-10.0); NEUTROPHILS % (AUTO) 82.7 % (45.0-75.0); PLATELET COUNT 306 K/UL (150-450); RED CELL DISTRIBUTION WIDTH 14.3 % (11.6-14.8); WHITE BLOOD COUNT 17.2 K/UL (4.8-10.8)
--- NOTE | 2018-10-18 07:26 | NUR ---
HAND-OFF: Report given to LAVERNE Torre.
--- NOTE | 2018-10-18 07:29 | NUR ---
NURSE NOTES: Received report from LAVERNE Dumas. No signs of distress noted. A+Ox1, denies pain/SOB. IV site is patent and intact. Respirations are even and unlabored on room air. Harris in place, patent, and draining to gravity at foot of bed. Bed is at lowest position, brakes engaged, siderails x2, bed alarm on, and call light within reach. Pt is in stable condition at this time; will continue to monitor.
[2018-10-18 08:06] VITALS: BP 142/76
[2018-10-18] MEDS: Aspirin EC 81mg tab ORAL SCH (08:28)
[2018-10-18] MEDS: Dakin's 0.125% Soln (Quarter Strength) 16oz TOPIC SCH (08:29)
[2018-10-18] MEDS: Heparin 5000 units/ml inj SUBQ SCH ×2 (08:30→20:59)
[2018-10-18] MEDS: Levemir Flexpen SUBQ SCH (08:35)
--- NOTE | 2018-10-18 11:41 | General Progress Note ---
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 eating OK Objective Last 24 Hour Vital Signs Date Time Temp Pulse Resp B/P (MAP) Pulse Ox O2 Delivery O2 Flow Rate FiO2 10/18/18 08:06 98.2 88 20 142/76 (98) 100 10/18/18 08:00 87 10/18/18 04:00 98.0 85 18 113/53 (73) 99 10/18/18 04:00 83 10/18/18 00:00 93 10/18/18 00:00 98.8 100 18 101/51 (68) 97 10/17/18 21:17 98.8 10/17/18 21:00 Room Air 10/17/18 20:00 106 10/17/18 20:00 99.8 108 18 150/74 (99) 99 10/17/18 16:00 98.3 98 18 145/65 (91) 99 10/17/18 16:00 86 10/17/18 12:00 98.7 87 18 144/61 (88) 99 10/17/18 12:00 85 Intake and Output 10/17/18 10/18/18 19:00 07:00 Intake Total 650 ml 353.75 ml Output Total 650 ml 200 ml Balance 0 ml 153.75 ml Intake Oral 540 ml IV Total 110 ml 353.75 ml Output Urine Total 650 ml 200 ml # Bowel Movements 3 Laboratory Tests 10/18/18 04:45: White Blood Count 17.2H, Red Blood Count 3.20L, Hemoglobin 8.9L, Hematocrit 27.6L, Mean Corpuscular Volume 86, Mean Corpuscular Hemoglobin 27.7, Mean Corpuscular Hemoglobin Concent 32.2, Red Cell Distribution Width 14.3, Platelet Count 306, Mean Platelet Volume 7.6, Neutrophils (%) (Auto) 82.7H, Lymphocytes ( %) (Auto) 12.9L, Monocytes (%) (Auto) 3.4, Eosinophils (%) (Auto) 0.6, Basophils (%) (Auto) 0.5 Height (Feet): 5 Height (Inches): 6.00 Weight (Pounds): 131 Objective WDWN NCAT, poor dentition supple CTA RR abd soft ND NT no edema (+) contractures Kaila Gutierres MD Oct 18, 2018 11:41
--- NOTE | 2018-10-18 11:48 | NUR ---
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 98.2 HR 88 RR 20 B/P 142/76 WBC 17.2 GLU 340 IS: ROCEPHIN IV IVF D5KCL @ 75ML/HR HEPARIN SUBC JANUVIA PO TELE STATUS
[2018-10-18 12:00] VITALS: BP 159/85
[2018-10-18] MEDS ORDERED: Tubing IV Secondary IV ONE (13:33)
[2018-10-18] MEDS ORDERED: NS 275ml ONE (13:33)
--- NOTE | 2018-10-18 13:45 | General Progress Note ---
Assessment/Plan Problem List: (1) DM (diabetes mellitus) ICD Codes: E11.9 - Type 2 diabetes mellitus without complications SNOMED: 30994316 (2) Decubitus ulcer of back, stage 4 ICD Codes: L89.104 - Pressure ulcer of unspecified part of back, stage 4 SNOMED: 133734945 (3) Anemia ICD Codes: D64.9 - Anemia, unspecified SNOMED: 427184083 Qualifiers: Qualified Codes: D64.9 - Anemia, unspecified (4) UTI (urinary tract infection) ICD Codes: N39.0 - Urinary tract infection, site not specified SNOMED: 19206838 Qualifiers: Qualified Codes: N30.00 - Acute cystitis without hematuria (5) Sepsis ICD Codes: A41.9 - Sepsis, unspecified organism SNOMED: 96489208 (6) Hypernatremia ICD Codes: E87.0 - Hyperosmolality and hypernatremia SNOMED: 601271363 (7) Hypokalemia ICD Codes: E87.6 - Hypokalemia SNOMED: 24529470 Assessment/Plan: abxs Wound care follow labs watch BS Subjective Allergies: Coded Allergies: No Known Allergies (Unverified , 05/08/12) Subjective eats better Objective Last 24 Hour Vital Signs Date Time Temp Pulse Resp B/P (MAP) Pulse Ox O2 Delivery O2 Flow Rate FiO2 10/18/18 09:00 Room Air 10/18/18 08:06 98.2 88 20 142/76 (98) 100 10/18/18 08:00 87 10/18/18 04:00 98.0 85 18 113/53 (73) 99 10/18/18 04:00 83 10/18/18 00:00 93 10/18/18 00:00 98.8 100 18 101/51 (68) 97 10/17/18 21:17 98.8 10/17/18 21:00 Room Air 10/17/18 20:00 106 10/17/18 20:00 99.8 108 18 150/74 (99) 99 10/17/18 16:00 98.3 98 18 145/65 (91) 99 10/17/18 16:00 86 Intake and Output 10/17/18 10/18/18 19:00 07:00 Intake Total 650 ml 353.75 ml Output Total 650 ml 200 ml Balance 0 ml 153.75 ml Intake Oral 540 ml IV Total 110 ml 353.75 ml Output Urine Total 650 ml 200 ml # Bowel Movements 3 Laboratory Tests 10/18/18 04:45: White Blood Count 17.2H, Red Blood Count 3.20L, Hemoglobin 8.9L, Hematocrit 27.6L, Mean Corpuscular Volume 86, Mean Corpuscular Hemoglobin 27.7, Mean Corpuscular Hemoglobin Concent 32.2, Red Cell Distribution Width 14.3, Platelet Count 306, Mean Platelet Volume 7.6, Neutrophils (%) (Auto) 82.7H, Lymphocytes ( %) (Auto) 12.9L, Monocytes (%) (Auto) 3.4, Eosinophils (%) (Auto) 0.6, Basophils (%) (Auto) 0.5 Height (Feet): 5 Height (Inches): 6.00 Weight (Pounds): 131 Cardiovascular: normal rate Respiratory/Chest: lungs clear Edema: no edema noted Generalized Arnulfo Rain MD Oct 18, 2018 13:45
--- NOTE | 2018-10-18 14:36 | Infectious Diseases Prog Note ---
Assessment/Plan Assessment/Plan IMPRESSION: 1. Poly microbial sepsis ( E. coli, Proteus & Strep Group B) 2. Pyuria and urinary tract infection. 3. 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 4. Acute renal failure improving 5. Hyperkalemia. 6. Hypernatremia. 7. Protein calorie-malnutrition and cachexia. 8. Diabetes mellitus with hyperglycemia. RECOMMENDATION: Continue Rocephin in hospital F/U CBC Wound care Subjective ROS Limited/Unobtainable: Yes Constitutional: Reports: no symptoms Respiratory: Reports: no symptoms Gastrointestinal/Abdominal: Reports: no symptoms Allergies: Coded Allergies: No Known Allergies (Unverified , 05/08/12) Objective Vital Signs Last 24 Hour Vital Signs Date Time Temp Pulse Resp B/P (MAP) Pulse Ox O2 Delivery O2 Flow Rate FiO2 10/18/18 09:00 Room Air 10/18/18 08:06 98.2 88 20 142/76 (98) 100 10/18/18 08:00 87 10/18/18 04:00 98.0 85 18 113/53 (73) 99 10/18/18 04:00 83 10/18/18 00:00 93 10/18/18 00:00 98.8 100 18 101/51 (68) 97 10/17/18 21:17 98.8 10/17/18 21:00 Room Air 10/17/18 20:00 106 10/17/18 20:00 99.8 108 18 150/74 (99) 99 10/17/18 16:00 98.3 98 18 145/65 (91) 99 10/17/18 16:00 86 Height (Feet): 5 Height (Inches): 6.00 Weight (Pounds): 131 HEENT: mucous membranes moist Respiratory/Chest: lungs clear Cardiovascular: normal rate Abdomen: soft, non tender Extremities: no edema Skin: ulcers Neurologic/Psychiatric: alert, responsive Laboratory Tests Test 10/18/18 04:45 White Blood Count 17.2 K/UL (4.8-10.8) H Red Blood Count 3.20 M/UL (4.20-5.40) L Hemoglobin 8.9 G/DL (12.0-16.0) L Hematocrit 27.6 % (37.0-47.0) L Mean Corpuscular Volume 86 FL (80-99) Mean Corpuscular Hemoglobin 27.7 PG (27.0-31.0) Mean Corpuscular Hemoglobin Concent 32.2 G/DL (32.0-36.0) Red Cell Distribution Width 14.3 % (11.6-14.8) Platelet Count 306 K/UL (150-450) Mean Platelet Volume 7.6 FL (6.5-10.1) Neutrophils (%) (Auto) 82.7 % (45.0-75.0) H Lymphocytes (%) (Auto) 12.9 % (20.0-45.0) L Monocytes (%) (Auto) 3.4 % (1.0-10.0) Eosinophils (%) (Auto) 0.6 % (0.0-3.0) Basophils (%) (Auto) 0.5 % (0.0-2.0) Current Medications Medications (Trade) Dose Ordered Sig/Mar Route PRN Reason Start Time Stop Time Status Last Admin Dose Admin Acetaminophen (Tylenol) 650 mg Q4H PRN ORAL Mild Pain/Temp > 100.5 10/17/18 19:45 11/16/18 19:44 Acetaminophen/ Hydrocodone Bitart ([place] 10/325) 1 tab Q4H PRN ORAL Severe Pain (Pain Scale 7-10) 10/17/18 19:45 10/24/18 19:44 10/18/18 02:00 Acetaminophen/ Hydrocodone Bitart ([place] 5/325) 1 tab Q4H PRN ORAL Moderate Pain (Pain Scale 4-6) 10/17/18 19:45 10/24/18 19:44 10/17/18 20:47 Aspirin (Ecotrin) 81 mg DAILY ORAL 10/17/18 09:00 11/07/18 08:59 10/18/18 08:28 Dextrose (Dextrose 50%) 25 ml Q30M PRN IV Hypoglycemia 10/17/18 05:30 11/10/18 06:59 Dextrose (Dextrose 50%) 50 ml Q30M PRN IV Hypoglycemia 10/17/18 05:30 11/10/18 06:59 Dextrose/ Electrolytes 1,000 ml @ 75 mls/hr [id number] IV 10/17/18 05:30 11/13/18 09:59 10/18/18 01:17 Heparin Sodium (Porcine) (Heparin 5000 units/ml) 5,000 units EVERY 12 HOURS SUBQ 10/17/18 09:00 11/07/18 08:59 10/18/18 08:30 Insulin Aspart (NovoLOG) BEFORE MEALS AND HS SUBQ 10/17/18 06:30 11/07/18 06:29 10/18/18 11:58 Insulin Detemir (Levemir) 8 units DAILY SUBQ 10/17/18 09:00 11/10/18 08:59 10/18/18 08:35 Nateglinide (Starlix) 120 mg TIAC ORAL 10/17/18 06:30 11/07/18 06:29 10/18/18 11:59 Sitagliptin Phosphate (Januvia) 50 mg ACBREAKFAST ORAL 10/18/18 06:30 11/17/18 06:29 10/18/18 06:06 Sodium Hypochlorite (Dakin's Quarter Strength) 1 applic DAILY TOPIC 10/17/18 09:00 11/09/18 11:59 10/18/18 08:29 Dallas Rain MD Oct 18, 2018 14:36
[2018-10-18 16:00] VITALS: BP 123/59
[2018-10-18] MEDS ORDERED: cefTRIAXone 2 GM in D5W 55 ML IVPB SCH (16:00)
--- NOTE | 2018-10-18 18:40 | General Progress Note ---
Assessment/Plan Problem List: (1) DM (diabetes mellitus) ICD Codes: E11.9 - Type 2 diabetes mellitus without complications SNOMED: 38134519 (2) Decubitus ulcer of back, stage 4 ICD Codes: L89.104 - Pressure ulcer of unspecified part of back, stage 4 SNOMED: 047922541 (3) Hyperglycemia due to type 2 diabetes mellitus ICD Codes: E11.65 - Type 2 diabetes mellitus with hyperglycemia; R65.21 - Severe sepsis with septic shock SNOMED: 586660675016298, 27277956 Qualifiers: Qualified Codes: E11.65 - Type 2 diabetes mellitus with hyperglycemia; Z79.4 - snf (current) use of insulin (4) Anemia ICD Codes: D64.9 - Anemia, unspecified SNOMED: 539410274 Qualifiers: Qualified Codes: D64.9 - Anemia, unspecified (5) ARF (acute renal failure) ICD Codes: N17.9 - Acute kidney failure, unspecified SNOMED: 93160705 Qualifiers: Qualified Codes: N17.9 - Acute kidney failure, unspecified Assessment/Plan: continue Levemir 8 units daily reduce Starlix to 60 mg ac tid - hold if not eating continue Januvia 100 mg daily continue NISS ac / hs Subjective Allergies: Coded Allergies: No Known Allergies (Unverified , 05/08/12) All Systems: reviewed and negative except above Subjective events noted glucose values improved Item Value Date Time Bedside Blood Glucose 185 mg/dl H 10/18/18 1158 Bedside Blood Glucose 116 mg/dl 10/18/18 0835 Bedside Blood Glucose 121 mg/dl H 10/18/18 0632 Bedside Blood Glucose 195 mg/dl H 10/17/18 2100 Objective Last 24 Hour Vital Signs Date Time Temp Pulse Resp B/P (MAP) Pulse Ox O2 Delivery O2 Flow Rate FiO2 10/18/18 16:00 99.6 88 20 123/59 (80) 100 10/18/18 16:00 110 10/18/18 12:00 106 10/18/18 12:00 98.5 102 20 159/85 (109) 100 10/18/18 09:00 Room Air 10/18/18 08:06 98.2 88 20 142/76 (98) 100 10/18/18 08:00 87 10/18/18 04:00 98.0 85 18 113/53 (73) 99 6/6/19 04:00 83 10/18/18 00:00 93 10/18/18 00:00 98.8 100 18 101/51 (68) 97 10/17/18 21:17 98.8 10/17/18 21:00 Room Air 10/17/18 20:00 106 10/17/18 20:00 99.8 108 18 150/74 (99) 99 Intake and Output 10/17/18 10/18/18 19:00 07:00 Intake Total 650 ml 353.75 ml Output Total 650 ml 200 ml Balance 0 ml 153.75 ml Intake Oral 540 ml IV Total 110 ml 353.75 ml Output Urine Total 650 ml 200 ml # Bowel Movements 3 Laboratory Tests 10/18/18 04:45: White Blood Count 17.2H, Red Blood Count 3.20L, Hemoglobin 8.9L, Hematocrit 27.6L, Mean Corpuscular Volume 86, Mean Corpuscular Hemoglobin 27.7, Mean Corpuscular Hemoglobin Concent 32.2, Red Cell Distribution Width 14.3, Platelet Count 306, Mean Platelet Volume 7.6, Neutrophils (%) (Auto) 82.7H, Lymphocytes ( %) (Auto) 12.9L, Monocytes (%) (Auto) 3.4, Eosinophils (%) (Auto) 0.6, Basophils (%) (Auto) 0.5 Height (Feet): 5 Height (Inches): 6.00 Weight (Pounds): 131 General Appearance: cachetic Neck: normal alignment Cardiovascular: normal rate Respiratory/Chest: decreased breath sounds Abdomen: normal bowel sounds Objective Current Medications Medications (Trade) Dose Ordered Sig/Mar Route PRN Reason Start Time Stop Time Status Last Admin Dose Admin Acetaminophen (Tylenol) 650 mg Q4H PRN ORAL Mild Pain/Temp > 100.5 10/17/18 19:45 11/16/18 19:44 Acetaminophen/ Hydrocodone Bitart ([place] 10/325) 1 tab Q4H PRN ORAL Severe Pain (Pain Scale 7-10) 10/17/18 19:45 10/24/18 19:44 10/18/18 16:27 Acetaminophen/ Hydrocodone Bitart ([place] 5/325) 1 tab Q4H PRN ORAL Moderate Pain (Pain Scale 4-6) 10/17/18 19:45 10/24/18 19:44 10/17/18 20:47 Aspirin (Ecotrin) 81 mg DAILY ORAL 10/17/18 09:00 11/07/18 08:59 10/18/18 08:28 Ceftriaxone Sodium 2 gm/ Dextrose 55 ml @ 110 mls/hr Q24H IVPB 10/18/18 16:00 10/25/18 15:59 10/18/18 16:29 Dextrose (Dextrose 50%) 25 ml Q30M PRN IV Hypoglycemia 10/17/18 05:30 11/10/18 06:59 Dextrose (Dextrose 50%) 50 ml Q30M PRN IV Hypoglycemia 10/17/18 05:30 11/10/18 06:59 Dextrose/ Electrolytes 1,000 ml @ 75 mls/hr [id number] IV 10/17/18 05:30 11/13/18 09:59 10/18/18 01:17 Heparin Sodium (Porcine) (Heparin 5000 units/ml) 5,000 units EVERY 12 HOURS SUBQ 10/17/18 09:00 11/07/18 08:59 10/18/18 08:30 Insulin Aspart (NovoLOG) BEFORE MEALS AND HS SUBQ 10/17/18 06:30 11/07/18 06:29 10/18/18 11:58 Insulin Detemir (Levemir) 8 units DAILY SUBQ 10/17/18 09:00 11/10/18 08:59 10/18/18 08:35 Nateglinide (Starlix) 120 mg TIAC ORAL 10/17/18 06:30 11/07/18 06:29 10/18/18 16:27 Sitagliptin Phosphate (Januvia) 50 mg ACBREAKFAST ORAL 10/18/18 06:30 11/17/18 06:29 10/18/18 06:06 Sodium Hypochlorite (Dakin's Quarter Strength) 1 applic DAILY TOPIC 10/17/18 09:00 11/09/18 11:59 10/18/18 08:29 Luisito Quintero MD Oct 18, 2018 18:40
--- NOTE | 2018-10-18 19:24 | NUR ---
HAND-OFF: Report given to LAVERNE Jones. Pt is in stable condition; plan of care endorsed.
--- NOTE | 2018-10-18 19:43 | NUR ---
NURSE NOTES: Report received from LAVERNE Torre. Pt is in stable condition. Bed in the lowest position, bed brakes engaged, side rails up x3 and call light within reach. Will continue to monitor.
[2018-10-18 20:00] VITALS: BP 152/70
[2018-10-19] VITALS (7 sets, daily range): BP systolic 128–178; BP diastolic 59–99
[2018-10-19] MEDS: HYDROcodone/Acetamin 10/325 tab ORAL PRN ×3 (00:10→20:02)
--- NOTE | 2018-10-19 03:27 | NUR ---
HAND-OFF: Report given to LAVERNE Ahn.
--- NOTE | 2018-10-19 03:36 | NUR ---
NURSE NOTES: Received patient from Karen GALLOWAY. Patient is resting and in bed with no signs of distress. Will continue to monitor.
--- NOTE | 2018-10-19 06:28 | General Progress Note ---
Assessment/Plan Problem List: (1) DM (diabetes mellitus) ICD Codes: E11.9 - Type 2 diabetes mellitus without complications SNOMED: 09175312 (2) Decubitus ulcer of back, stage 4 ICD Codes: L89.104 - Pressure ulcer of unspecified part of back, stage 4 SNOMED: 905879165 (3) Hyperglycemia due to type 2 diabetes mellitus ICD Codes: E11.65 - Type 2 diabetes mellitus with hyperglycemia; R65.21 - Severe sepsis with septic shock SNOMED: 429996445797709, 12441076 Qualifiers: Qualified Codes: E11.65 - Type 2 diabetes mellitus with hyperglycemia; Z79.4 - skilled nursing (current) use of insulin (4) Anemia ICD Codes: D64.9 - Anemia, unspecified SNOMED: 499536572 Qualifiers: Qualified Codes: D64.9 - Anemia, unspecified (5) ARF (acute renal failure) ICD Codes: N17.9 - Acute kidney failure, unspecified SNOMED: 16386133 Qualifiers: Qualified Codes: N17.9 - Acute kidney failure, unspecified Assessment/Plan: increase Levemir to 12 units daily continue Starlix 60 mg ac tid - hold if not eating continue Januvia 100 mg daily continue NISS ac / hs Subjective ROS Limited/Unobtainable: Yes Allergies: Coded Allergies: No Known Allergies (Unverified , 05/08/12) Subjective events noted glucose elevated last night Item Value Date Time Bedside Blood Glucose 110 mg/dl 10/18/18 1630 Bedside Blood Glucose 185 mg/dl H 10/18/18 1158 Bedside Blood Glucose 116 mg/dl 10/18/18 0835 Bedside Blood Glucose 121 mg/dl H 10/18/18 0632 Objective Last 24 Hour Vital Signs Date Time Temp Pulse Resp B/P (MAP) Pulse Ox O2 Delivery O2 Flow Rate FiO2 10/19/18 04:05 84 10/19/18 00:40 98.0 10/19/18 00:00 95 10/19/18 00:00 97.6 97 16 128/63 (84) 99 10/18/18 21:00 Room Air 10/18/18 20:00 108 10/18/18 20:00 98.0 97 18 152/70 (97) 99 10/18/18 16:00 99.6 88 20 123/59 (80) 100 10/18/18 16:00 110 10/18/18 12:00 106 10/18/18 12:00 98.5 102 20 159/85 (109) 100 10/18/18 09:00 Room Air 10/18/18 08:06 98.2 88 20 142/76 (98) 100 10/18/18 08:00 87 Intake and Output 10/18/18 10/19/18 19:00 07:00 Intake Total 360 ml Output Total 600 ml Balance -240 ml Intake Oral 360 ml Output Urine Total 600 ml # Voids 3 # Bowel Movements 1 Height (Feet): 5 Height (Inches): 6.00 Weight (Pounds): 131 General Appearance: cachetic Neck: normal alignment Cardiovascular: regular rhythm Respiratory/Chest: decreased breath sounds Abdomen: normal bowel sounds Objective Current Medications Medications (Trade) Dose Ordered Sig/Mar Route PRN Reason Start Time Stop Time Status Last Admin Dose Admin Acetaminophen (Tylenol) 650 mg Q4H PRN ORAL Mild Pain/Temp > 100.5 10/17/18 19:45 11/16/18 19:44 Acetaminophen/ Hydrocodone Bitart ([place] 10/325) 1 tab Q4H PRN ORAL Severe Pain (Pain Scale 7-10) 10/17/18 19:45 10/24/18 19:44 10/19/18 00:10 Acetaminophen/ Hydrocodone Bitart ([place] 5/325) 1 tab Q4H PRN ORAL Moderate Pain (Pain Scale 4-6) 10/17/18 19:45 10/24/18 19:44 10/17/18 20:47 Aspirin (Ecotrin) 81 mg DAILY ORAL 10/17/18 09:00 11/07/18 08:59 10/18/18 08:28 Ceftriaxone Sodium 2 gm/ Dextrose 55 ml @ 110 mls/hr Q24H IVPB 10/18/18 16:00 10/25/18 15:59 10/18/18 16:29 Dextrose (Dextrose 50%) 25 ml Q30M PRN IV Hypoglycemia 10/17/18 05:30 11/10/18 06:59 Dextrose (Dextrose 50%) 50 ml Q30M PRN IV Hypoglycemia 10/17/18 05:30 11/10/18 06:59 Dextrose/ Electrolytes 1,000 ml @ 75 mls/hr [id number] IV 10/17/18 05:30 11/13/18 09:59 10/18/18 22:52 Heparin Sodium (Porcine) (Heparin 5000 units/ml) 5,000 units EVERY 12 HOURS SUBQ 10/17/18 09:00 11/07/18 08:59 10/18/18 20:59 Insulin Aspart (NovoLOG) BEFORE MEALS AND HS SUBQ 10/17/18 06:30 11/07/18 06:29 10/18/18 20:59 Insulin Detemir (Levemir) 8 units DAILY SUBQ 10/17/18 09:00 11/10/18 08:59 10/18/18 08:35 Nateglinide (Starlix) 60 mg TIAC ORAL 10/19/18 06:30 11/07/18 06:29 Sitagliptin Phosphate (Januvia) 50 mg ACBREAKFAST ORAL 10/18/18 06:30 11/17/18 06:29 10/18/18 06:06 Sodium Hypochlorite (Dakin's Quarter Strength) 1 applic DAILY TOPIC 10/17/18 09:00 11/09/18 11:59 10/18/18 08:29 Luisito Quintero MD Oct 19, 2018 06:28
[2018-10-19] MEDS: Nateglinide 60mg tab ORAL SCH ×3 (06:53→16:38)
[2018-10-19] MEDS: sitaGLIPtin 50mg tab ORAL SCH (06:53)
[2018-10-19] MEDS: NovoLOG Insulin Flexpen SUBQ SCH ×4 (06:55→21:00)
--- NOTE | 2018-10-19 07:41 | NUR ---
HAND-OFF: Report given to Yelitza Avery.
[2018-10-19] MEDS: Aspirin EC 81mg tab ORAL SCH (08:29)
[2018-10-19] MEDS: Dakin's 0.125% Soln (Quarter Strength) 16oz TOPIC SCH (08:30)
[2018-10-19] MEDS: Heparin 5000 units/ml inj SUBQ SCH ×2 (08:31→21:00)
[2018-10-19] MEDS ORDERED: Levemir Flexpen SUBQ SCH (09:00)
[2018-10-19] MEDS: D5W w/KCl 20mEq 1,000 ML IV SCH ×2 (10:50→12:09)
[2018-10-19] MEDS ORDERED: cefTRIAXone 2 GM in NS 55 ML IVPB SCH (12:00)
--- NOTE | 2018-10-19 13:17 | Infectious Diseases Prog Note ---
Assessment/Plan Assessment/Plan IMPRESSION: 1. Poly microbial sepsis ( E. coli, Proteus & Strep Group B) 2. Pyuria and urinary tract infection. 3. 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 4. Acute renal failure improving 5. Hyperkalemia. 6. Hypernatremia. 7. Protein calorie-malnutrition and cachexia. 8. Diabetes mellitus with hyperglycemia. RECOMMENDATION: Continue Rocephin in hospital F/U CBC Wound care Subjective ROS Limited/Unobtainable: Yes Constitutional: Reports: no symptoms Musculoskeletal: Reports: pain, other - in legs Allergies: Coded Allergies: No Known Allergies (Unverified , 05/08/12) Objective Vital Signs Last 24 Hour Vital Signs Date Time Temp Pulse Resp B/P (MAP) Pulse Ox O2 Delivery O2 Flow Rate FiO2 10/19/18 09:00 Room Air 10/19/18 08:00 98.0 98 20 147/76 (99) 100 10/19/18 07:28 85 10/19/18 04:05 84 10/19/18 04:00 97.5 100 19 143/73 (96) 95 10/19/18 00:40 98.0 10/19/18 00:00 95 10/19/18 00:00 97.6 97 16 128/63 (84) 99 10/18/18 21:00 Room Air 10/18/18 20:00 108 10/18/18 20:00 98.0 97 18 152/70 (97) 99 10/18/18 16:00 99.6 88 20 123/59 (80) 100 10/18/18 16:00 110 Height (Feet): 5 Height (Inches): 6.00 Weight (Pounds): 131 General Appearance: no acute distress HEENT: mucous membranes moist Respiratory/Chest: lungs clear Cardiovascular: normal rate Abdomen: soft, non tender Extremities: no edema Neurologic/Psychiatric: alert, responsive Current Medications Medications (Trade) Dose Ordered Sig/Mar Route PRN Reason Start Time Stop Time Status Last Admin Dose Admin Acetaminophen (Tylenol) 650 mg Q4H PRN ORAL Mild Pain/Temp > 100.5 10/17/18 19:45 11/16/18 19:44 Acetaminophen/ Hydrocodone Bitart ([place] 10/325) 1 tab Q4H PRN ORAL Severe Pain (Pain Scale 7-10) 10/17/18 19:45 10/24/18 19:44 10/19/18 08:51 Acetaminophen/ Hydrocodone Bitart ([place] 5/325) 1 tab Q4H PRN ORAL Moderate Pain (Pain Scale 4-6) 10/17/18 19:45 10/24/18 19:44 10/17/18 20:47 Aspirin (Ecotrin) 81 mg DAILY ORAL 10/17/18 09:00 11/07/18 08:59 10/19/18 08:29 Ceftriaxone Sodium 2 gm/ Sodium Chloride 55 ml @ 110 mls/hr DAILY IVPB 10/19/18 12:00 10/25/18 08:59 10/19/18 12:05 Dextrose (Dextrose 50%) 25 ml Q30M PRN IV Hypoglycemia 10/17/18 05:30 11/10/18 06:59 Dextrose (Dextrose 50%) 50 ml Q30M PRN IV Hypoglycemia 10/17/18 05:30 11/10/18 06:59 Dextrose/ Electrolytes 1,000 ml @ 75 mls/hr [id number] IV 10/17/18 05:30 11/13/18 09:59 10/19/18 12:09 Heparin Sodium (Porcine) (Heparin 5000 units/ml) 5,000 units EVERY 12 HOURS SUBQ 10/17/18 09:00 11/07/18 08:59 10/19/18 08:31 Insulin Aspart (NovoLOG) BEFORE MEALS AND HS SUBQ 10/17/18 06:30 11/07/18 06:29 10/19/18 12:07 Insulin Detemir (Levemir) 12 units DAILY SUBQ 10/19/18 09:00 11/10/18 08:59 10/19/18 08:32 Nateglinide (Starlix) 60 mg TIAC ORAL 10/19/18 06:30 11/07/18 06:29 10/19/18 12:04 Sitagliptin Phosphate (Januvia) 50 mg ACBREAKFAST ORAL 10/18/18 06:30 11/17/18 06:29 10/19/18 06:53 Sodium Hypochlorite (Dakin's Quarter Strength) 1 applic DAILY TOPIC 10/17/18 09:00 11/09/18 11:59 10/19/18 08:30 Dallas Rain MD Oct 19, 2018 13:17
[2018-10-19] MEDS ORDERED: LEVEMIR FL100 UNIT/1 SUBQ (14:59)
[2018-10-19] MEDS ORDERED: JANUVIA50 MG ORAL (14:59)
--- NOTE | 2018-10-19 15:04 | General Progress Note ---
Assessment/Plan Problem List: (1) DM (diabetes mellitus) ICD Codes: E11.9 - Type 2 diabetes mellitus without complications SNOMED: 35432024 (2) Decubitus ulcer of back, stage 4 ICD Codes: L89.104 - Pressure ulcer of unspecified part of back, stage 4 SNOMED: 266674080 (3) Anemia ICD Codes: D64.9 - Anemia, unspecified SNOMED: 156425236 Qualifiers: Qualified Codes: D64.9 - Anemia, unspecified (4) UTI (urinary tract infection) ICD Codes: N39.0 - Urinary tract infection, site not specified SNOMED: 57425319 Qualifiers: Qualified Codes: N30.00 - Acute cystitis without hematuria (5) Sepsis ICD Codes: A41.9 - Sepsis, unspecified organism SNOMED: 59988155 (6) Hypernatremia ICD Codes: E87.0 - Hyperosmolality and hypernatremia SNOMED: 965671718 (7) Hypokalemia ICD Codes: E87.6 - Hypokalemia SNOMED: 01772116 Assessment/Plan: DC abxs Wound care DC aly to [facility] Subjective Allergies: Coded Allergies: No Known Allergies (Unverified , 05/08/12) Subjective all noted Objective Last 24 Hour Vital Signs Date Time Temp Pulse Resp B/P (MAP) Pulse Ox O2 Delivery O2 Flow Rate FiO2 10/19/18 12:00 98.2 81 20 147/76 (99) 99 10/19/18 11:29 108 10/19/18 09:00 Room Air 10/19/18 08:00 98.0 98 20 147/76 (99) 100 10/19/18 07:28 85 10/19/18 04:05 84 10/19/18 04:00 97.5 100 19 143/73 (96) 95 10/19/18 00:40 98.0 10/19/18 00:00 95 10/19/18 00:00 97.6 97 16 128/63 (84) 99 10/18/18 21:00 Room Air 10/18/18 20:00 108 10/18/18 20:00 98.0 97 18 152/70 (97) 99 10/18/18 16:00 99.6 88 20 123/59 (80) 100 10/18/18 16:00 110 Intake and Output 10/18/18 10/19/18 19:00 07:00 Intake Total 360 ml Output Total 600 ml 600 ml Balance -240 ml -600 ml Intake Oral 360 ml Output Urine Total 600 ml 600 ml # Voids 3 # Bowel Movements 1 Height (Feet): 5 Height (Inches): 6.00 Weight (Pounds): 131 Arnulfo Rain MD Oct 19, 2018 15:04
--- NOTE | 2018-10-19 16:11 | NUR ---
DISCHARGE PLANNED [facility]B SKILLED T [phone] FOR NURSE TO NURSE REPORT [facility] WILL PRODUCE DEPARTMENT SUPERVISOR AT [phone]
--- NOTE | 2018-10-19 18:00 | NUR ---
NURSE NOTES: Harris d/ben and pt voided post d/c.
--- NOTE | 2018-10-19 18:41 | NUR ---
NURSE NOTES: Report given to Semi at [facility].
--- NOTE | 2018-10-19 19:25 | General Progress Note ---
Assessment/Plan Assessment/Plan: Assessment - Malnutrition - low albumin - decubitus ulcers - CVA/functional decline - NIDDM Recommendations - push po - supplements - calorie count - d/c planning Subjective Allergies: Coded Allergies: No Known Allergies (Unverified , 05/08/12) Subjective above noted d/w medical staff director patient awake eating OK Objective Last 24 Hour Vital Signs Date Time Temp Pulse Resp B/P (MAP) Pulse Ox O2 Delivery O2 Flow Rate FiO2 10/19/18 16:00 99 10/19/18 16:00 99.0 116 20 162/72 (102) 100 10/19/18 12:00 98.2 81 20 147/76 (99) 99 10/19/18 11:29 108 10/19/18 09:00 Room Air 10/19/18 08:00 98.0 98 20 147/76 (99) 100 10/19/18 07:28 85 10/19/18 04:05 84 10/19/18 04:00 97.5 100 19 143/73 (96) 95 10/19/18 00:40 98.0 10/19/18 00:00 95 10/19/18 00:00 97.6 97 16 128/63 (84) 99 10/18/18 21:00 Room Air 10/18/18 20:00 108 10/18/18 20:00 98.0 97 18 152/70 (97) 99 Intake and Output 10/18/18 10/19/18 19:00 07:00 Intake Total 360 ml Output Total 600 ml 600 ml Balance -240 ml -600 ml Intake Oral 360 ml Output Urine Total 600 ml 600 ml # Voids 3 # Bowel Movements 1 Height (Feet): 5 Height (Inches): 6.00 Weight (Pounds): 131 Objective WDWN NCAT, poor dentition supple CTA RR abd soft ND NT no edema (+) contractures Kaila Gutierres MD Oct 19, 2018 19:25
--- NOTE | 2018-10-19 19:40 | NUR ---
HAND-OFF: Report given to LAVERNE Fernandez. Pt is in stable condition; plan of care endorsed.
--- NOTE | 2018-10-19 19:41 | NUR ---
NURSE NOTES: Received bedside report from LAVERNE Torre.Patient stable,confused,SR on youth nutritional monitor,tolerated r/air well,f/cath d/c,patient voided,BS active in all quadrants,IV asymptomatic,intact on R f/arm 22 G running w/D 5 W @ 75ml/hr,bed secured,call light within a reach,will continue to monitor and waiting for ambulance to transfer pt to [facility].
--- NOTE | 2018-10-19 20:00 | NUR ---
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
--- NOTE | 2018-10-19 20:00 | NUR ---
RD ASSESSMENT & RECOMMENDATIONS SEE CARE ACTIVITY FOR COMPLETE ASSESSMENT DAILY ESTIMATED NEEDS: Needs based on Wound 56kg 30-35 kcals/kg 2552-0355 total kcals 1.25-2 g protein/kg 70-112 g total protein 25-30 mL/kg 2639-6508 total fluid mLs NUTRITION DIAGNOSIS: 1) Increased kcal and pro needs r/t wound healing as evidenced by stage 4 sacral pressure ulcer, s/p debridement. 2) Altered nutrition related lab values r/t DM as evidenced by A1C 10.6, BG 548-> POC glu 110-194). Shlomo count x 72hrs completed. Only 6 meal tickets/9 meal tickets available for review. 10/16 BREAKFAST:~150kcal 10% juice 100% cream of wheat 5% egg 100% white bread Glucerna-> not recorded LUNCH: ~300kcal 100% chicken soup 100% baked sole 0% broccoli Glucerna- not recorded DINNER: 400kcal 100% vegetarian soup 100% short ribs 100% white bread 20% Glucerna 10/17 BREAKFAST: 150kcal 100% cream of wheat 50% eggs 100% toast 50% juice Glucerna-not recorded LUNCH: 300kcal 75% matzo soup 100% chicken 100% carrots 50% Glucerna DINNER: ~400kcal 50% Glucerna 100% apple juice 100% fish 100% noodles 10/18 data are missing but per EMR, pt consumed 25% of breakfast and 50% of lunch and dinner. RESULTS: Accurate kcal intake is difficult to be obtained as % intake of Glucerna is missing on some data and 3 data are missing. However, although meal intake seems to be variable, pt appears to have significantly improved PO intake since admission, most meal intake ranging from 75-100%. Pt also receives Glucerna 1 tetra didi TID w/ meals to supplement nutritional needs -> 220kcal/9g prot per pack, total of 440kcal/27g prot per day. Noted that pt is on liquify puree w/ potential dilution of kcal/ nutrition. Recommend to (1) continue to add Glucerna per meal, (2) add additional snacks consistent w/ texture in b/w meals to maintain kcal intake (3) encourage pt to drink Glucerna first before offering other liquids such as juice to optimize kcal/prot intake in each meal. CURRENT DIET:CCHO MED liquify puree NTL PO DIET RECOMMENDATIONS: CCHO med / texture per RACKMAN + Glucerna TID w/ meals ADDITIONAL RECOMMENDATIONS: 1) Obtain an accurate WT w/ added mattress 2) Wound care: MVI x1 + Vit C 500mg BID + ZN SO4 220mg daily x10 days + ANDERS BID 3) Continue Glucerna 1 tetra didi daily w/ meals 4) Snacks in b/w meals 5) Encourage intake of Glucerna before offering other liquids, such as juice 6) See kcal count results
--- NOTE | 2018-10-19 20:08 | NUR ---
NURSE NOTES: Called Dr.Alfred Rain regarding pt's V/S.B/P 178/98 HR 118,charge nurse aware,waiting for MD respond.
--- NOTE | 2018-10-19 21:05 | NUR ---
NURSE NOTES: Received a phone order from for Clonidine 0.1mg
--- NOTE | 2018-10-19 21:34 | NUR ---
NURSE NOTES: Adm Clonidine 0.1mg PO,pt B/P 141/65,HR 98.Life line pick pt up to transfer to [facility].Patient stable to go.Charge nurse aware
--- NOTE | 2018-10-22 09:54 | Discharge Summary ---
Discharge Summary Discharge Summary _ DATE OF ADMISSION: 10/08/2018 DATE OF DISCHARGE: 10/19/2018 DISCHARGED BY: Dr. Rain REASON FOR ADMISSION: 78 years old female, with past medical history of diabetes mellitus, CVA, hypertension, sacral decubitus ulcer stage IV, hypertension, bedridden with contractures, who resides home with the family, presented accompanied by her nephew with complaint of bedsores. Patient gets wound care at wound care clinic at [place]. Upon evaluation patient was dehydrated, very cachectic, unresponsive and lethargic . According to nephew , patient was getting worse every day. Her condition worsened in the last few days . At baseline she was able to talk. Upon evaluation patient was hypotensive and tachycardic . Initially no urine output, but after couple of liters of fluid , patient started to produce urine. Urine looked turbid. Laboratory work-up revealed significant leukocytosis WBC 38.4, hemoglobin 10.3, hematocrit 33.8, platelets 592. Sodium 150, potassium 5.5, anion gap 32, BUN 47, creatinine 2.0, glucose 592. Lactic acid 18.6. Troponin - negative. EKG revealed sinus tachycardia , no acute ischemic changes. Urinalysis revealed +2 protein, +1 ketones, +3 leukocyte esterase , pyuria and bacteria. Chest x-ray demonstrated no acute cardiopulmonary pathology. CT of the head revealed encephalomalacia in the right MCA territory with similar appearance as before, but with no acute intracranial pathology. Patient pancultured , fluid challenge provided as mentioned above, and patient started on broad-spectrum antibiotics. After IV fluids, labs were repeated and anion gap closed. Insulin provided for hyperglycemia. Patient subsequently reevaluated in the emergency department and was admitted to telemetry floor for further management. CONSULTANTS: ID specialist Dr. Jain GI specialist Dr. Gutierres plastic surgeon Dr. White hide buffer Dr. Quintero [facility] COURSE: Patient admitted to telemetry floor and started on generous IV hydration and broad spectrum antibiotics. Blood culture revealed E. coli, Proteus mirabilis, and strep group B. Urine culture revealed Amanda and mixed gram-positive organisms. Antibiotic regimen was optimized as per infectious disease specialist recommendation. Plastic surgeon seen and evaluated patient. Patient subsequently undergone resection of sacral coccyx pressure ulcer with ostectomy and bone biopsy of the sacrum. Wound care provided as per plastic surgeon recommendation. Biopsy of the sacral bone tissue excision revealed acute osteomyelitis. Ophthalmic Surgical Assistant closely followed. Blood sugar was managed with Starlix , long acting Levemir , Januvia and sliding scale of insulin as needed. Starlix was held , if patient was not eating. Hemoglobin A1c -10.6 , clearly not at goal. Patient will need further optimization of anti-glycemic regimen as outpatient. GI specialist followed. Hemoglobin and hematocrit were closely monitored with goal to keep hemoglobin above 7. Patient received 1 unit of packed red blood cells transfusion while in the hospital. Prior to discharge hemoglobin 8.9 ,hematocrit 27.6. Oral fluids were pushed. Protein supplements implemented in d plan of care as per registered dietitian recommendation. Bedside swallow evaluation revealed oropharyngeal dysphagia. Diet texture was changed as per speech therapist recommendation. Strict aspiration/ reflux precaution were maintained with one-to-one feeding. Video swallow evaluation was recommended , which can be done as outpatient. Renal parameters and electrolytes were closely monitored. Acute renal failure resolved , likely was secondary to dehydration. Prior to discharge BUN 8 , creatinine 1.1. Electrolytes corrected and stable prior to discharge. Sodium 144, potassium 3.8. Supportive care provided. Bowel regimen instituted. Wound care provided as per surgeon recommendation. Placement was found and secured at the [facility]. Patient was stable for [facility] to the [facility] facility for [facility] of care. FINAL DIAGNOSES: Polymicrobial sepsis)(E. coli, Proteus, Strep group B) Urinary tract infection Sacral decubitus ulcer stage IV, present on admission Acute osteomyelitis of the sacrum Status post resection of sacral coccyx pressure ulcer with ostectomy, bone biopsy of the sacrum Acute renal failure, likely due to dehydration - resolved Hyperkalemia-resolved Hypernatremia-resolved Protein calorie malnutrition Diabetes mellitus with hyperglycemia and [id number]-[id number]- 10.6 Anemia DISCHARGE MEDICATIONS: See Medication Reconciliation list. DISCHARGE INSTRUCTIONS: [facility] facility. Follow up with medical doctor at the facility. I have been assigned to dictate discharge summary for this account. I was not involved in the patient's management. Cari Paz NP Oct 22, 2018 09:54
== END 2018-10-19 21:45 | DRG 853 ==
LOC: EMR 23:09 → 2W 10-08 00:52 → EDBEDREQ 10-08 01:26 → 2W 10-09 10:55 → 2E 10-17 05:15
PROC: 0QB10ZZ Excision of Sacrum, Open Approach (ICD-10-PCS; principal; 2018-10-09 17:00)
DX: A41.51 Sepsis due to Escherichia coli [E. coli] (principal); L89.154 Pressure ulcer of sacral region, stage 4; R65.21 Severe sepsis with septic shock; N39.0 Urinary tract infection, site not specified; N17.9 Acute kidney failure, unspecified; E87.0 Hyperosmolality and hypernatremia; E46 Unspecified protein-calorie malnutrition; Z68.1 Body mass index [BMI] 19.9 or less, adult; M86.18 Other acute osteomyelitis, other site; R64 Cachexia; A40.1 Sepsis due to streptococcus, group B; R65.20 Severe sepsis without septic shock; I10 Essential (primary) hypertension; E11.65 Type 2 diabetes mellitus with hyperglycemia; E86.0 Dehydration; Z68.21 Body mass index [BMI] 21.0-21.9, adult; Z74.01 Bed confinement status; R13.12 Dysphagia, oropharyngeal phase; D64.9 Anemia, unspecified; E87.5 Hyperkalemia
CPT/HCPCS: 36415; 70450; 71045; 80048; 80053; 80202; 81003; 82550; 82553; 82962; 83036; 83605; 84100; 84134; 84484; 85007; 85025; 86850; 86900; 86901; 86920; 87040; 87070; 87075; 87081; 87086; 87181; 87205; 93005; 94003; 94150; 96360; 99291; J1815; J8499; S5561

== ENCOUNTER 2019-02-22 00:14 | Inpatient (IN) | payer MEDICARE, OTHER ==
[2019-02-22] VITALS (8 sets, daily range): BP systolic 116–153; BP diastolic 60–79
[~2019-02-22] VITALS: Ht 170.2 cm; Wt 56.2 kg
[~2019-02-22 00:14] MED LIST changes: +JANUVIA50 MG ORAL; +LEVEMIR FL100 UNIT/1 SUBQ
[2019-02-22] MEDS ORDERED: TRAMADOL HCL50 MG ORAL (00:50)
--- NOTE | 2019-02-22 01:01 | NUR ---
ED Nurse Note: Brought in by son. For wound check on exam large pressure sore to buttocks. IV access established. Changed to gown vitals monitored. [place] taken home by son. Patient has pain in the left leg and back pain score 8
--- NOTE | 2019-02-22 01:15 | Emergency Room Report ---
History of Present Illness General Chief Complaint: Wound Recheck/Suture Removal Source: Patient Present Illness HPI Patient presents with complaints by nephew of continued decubitus ulcer patient family reports that she was seen by her usual home health nurse today Was notified that she did not feel the area was improving appropriately patient' s primary physician was contacted and requested to present to the emergency room Patient herself is not verbal with us cannot provide appropriate history Family reports the patient had complained of some discomfort in that area Otherwise no reports of any recent trauma Denies any fevers Allergies: Coded Allergies: No Known Allergies (Unverified , 05/08/12) Patient History Limited by: medical condition Past Medical History: see triage record Now: No Reviewed Nursing Documentation: PMH: Agreed; PSxH: Agreed Nursing Documentation-PMH Past Medical History: No History, Except For Hx Cardiac Problems: Yes Hx Hypertension: Yes Hx Diabetes: Yes Hx Cancer: No Hx Gastrointestinal Problems: Yes Hx Neurological Problems: Yes Hx Cerebrovascular Accident: Yes Review of Systems All Other Systems: limited - Other than the ones mentioned in the history of present illness all others are reviewed however they do stay limited due to the patient's mental status Physical Exam Vital Signs Date Time Temp Pulse Resp B/P (MAP) Pulse Ox O2 Delivery O2 Flow Rate FiO2 02/22/19 00:17 97.2 116 16 170/78 (108) 96 Room Air Sp02 EP Interpretation: reviewed, normal General Appearance: no apparent distress Head: normocephalic Eyes: bilateral eye PERRL, bilateral eye EOMI ENT: normal pharynx Neck: supple Respiratory: lungs clear, no respiratory distress, no retraction Cardiovascular #1: regular rate, rhythm Gastrointestinal: non tender, soft Musculoskeletal: other - She has significant kyphosis, does not move her lower extremities Neurologic: responsive - To physical stimuli Skin: other - Large right-sided buttock decubitus ulcer, no obvious fluctuance Lymphatic: no adenopathy Medical Decision Making Diagnostic Impression: Primary Impression: Non-healing wound ER Course Given the history and presentation, patient is reevaluated multiple differentials are in consideration Given that the patient has been seen by Her wound care physician and reported to present to the emergency room patient will be admitted for further inpatient wound care and management Labs Test 02/22/19 01:45 02/22/19 03:26 White Blood Count 13.8 K/UL (4.8-10.8) Red Blood Count 3.75 M/UL (4.20-5.40) Hemoglobin 10.5 G/DL (12.0-16.0) Hematocrit 32.5 % (37.0-47.0) Mean Corpuscular Volume 87 FL (80-99) Mean Corpuscular Hemoglobin 28.0 PG (27.0-31.0) Mean Corpuscular Hemoglobin Concent 32.3 G/DL (32.0-36.0) Red Cell Distribution Width 12.0 % (11.6-14.8) Platelet Count 291 K/UL (150-450) Mean Platelet Volume 8.4 FL (6.5-10.1) Neutrophils (%) (Auto) 74.3 % (45.0-75.0) Lymphocytes (%) (Auto) 17.7 % (20.0-45.0) Monocytes (%) (Auto) 6.0 % (1.0-10.0) Eosinophils (%) (Auto) 1.6 % (0.0-3.0) Basophils (%) (Auto) 0.4 % (0.0-2.0) Sodium Level 136 MMOL/L (136-145) Potassium Level 4.1 MMOL/L (3.5-5.1) Chloride Level 104 MMOL/L (98-107) Carbon Dioxide Level 26 MMOL/L (21-32) Anion Gap 6 mmol/L (5-15) Blood Urea Nitrogen 19 mg/dL (7-18) Creatinine 0.7 MG/DL (0.55-1.30) Estimat Glomerular Filtration Rate mL/min (>60) Glucose Level 176 MG/DL (74-106) Hemoglobin A1c 8.5 % (4.3-6.0) Calcium Level 9.1 MG/DL (8.5-10.1) Triglycerides Level 82 MG/DL (30-150) Cholesterol Level 158 MG/DL (< 200) LDL Cholesterol 105 mg/dL (<100) HDL Cholesterol 38 MG/DL (40-60) Cholesterol/HDL Ratio 4.2 (3.3-4.4) Urine Color Yellow Urine Appearance Cloudy Urine pH 5 (4.5-8.0) Urine Specific [place] 1.020 (1.005-1.035) Urine Protein 2+ (NEGATIVE) Urine Glucose (UA) 2+ (NEGATIVE) Urine Ketones Negative (NEGATIVE) Urine Blood 3+ (NEGATIVE) Urine Nitrite Negative (NEGATIVE) Urine Bilirubin Negative (NEGATIVE) Urine Urobilinogen Normal MG/DL (0.0-1.0) Urine Leukocyte Esterase 3+ (NEGATIVE) Rhythm Strip Diag. Results EP Interpretation: yes Rate: 77 Rhythm: NSR, no PVC's, no ectopy Last Vital Signs Date Time Temp Pulse Resp B/P (MAP) Pulse Ox O2 Delivery O2 Flow Rate FiO2 02/22/19 00:17 97.2 116 16 170/78 (108) 96 Room Air Status: improved Disposition: ADMITTED INPATIENT Condition: Serious KlausVipul armenta Feb 22, 2019 01:15
[2019-02-22] MEDS ORDERED: Zolpidem 5mg tab ORAL PRN (01:30)
[2019-02-22 02:28] LABS: BASOPHILS % (AUTO) 0.4 % (0.0-2.0); EOSINOPHILS % (AUTO) 1.6 % (0.0-3.0); HEMATOCRIT 32.5 % (37.0-47.0); HEMOGLOBIN 10.5 G/DL (12.0-16.0); LYMPHOCYTES % (AUTO) 17.7 % (20.0-45.0); MEAN CORPUSCULAR VOLUME 87 FL (80-99); NEUTROPHILS % (AUTO) 74.3 % (45.0-75.0); PLATELET COUNT 291 K/UL (150-450); RED BLOOD COUNT 3.75 M/UL (4.20-5.40); WHITE BLOOD COUNT 13.8 K/UL (4.8-10.8)
[2019-02-22 02:42] LABS: ANION GAP 6 mmol/L (5-15); BLOOD UREA NITROGEN 19 mg/dL (7-18); CALCIUM 9.1 MG/DL (8.5-10.1); CARBON DIOXIDE 26 MMOL/L (21-32); CHLORIDE 104 MMOL/L (98-107); CHOLESTEROL 158 MG/DL (< 200); CREATININE 0.7 MG/DL (0.55-1.30); HDL CHOLESTEROL 38 MG/DL (40-60); POTASSIUM 4.1 MMOL/L (3.5-5.1); SODIUM 136 MMOL/L (136-145); TRIGLYCERIDES 82 MG/DL (30-150)
--- NOTE | 2019-02-22 03:30 | NUR ---
ED Nurse Note: Photographs of wounds uploaded. Patient catheter placed a per MD order. Catheter patent and draining. Urine sample sent to lab.
[2019-02-22 03:39] LABS: APPEARANCE,URINE CLOUDY; BILIRUBIN, URINE NEGATIVE (NEGATIVE); COLOR,URINE YELLOW; GLUCOSE, URINE (UA) 2+ (NEGATIVE); KETONES,URINE NEGATIVE (NEGATIVE); LEUKOCYTE ESTERASE ,URINE 3+ (NEGATIVE); NITRITE,URINE NEGATIVE (NEGATIVE); PH,URINE 5 (4.5-8.0); PROTEIN,URINE 2+ (NEGATIVE); UROBILINOGEN,URINE NORMAL MG/DL (0.0-1.0)
--- NOTE | 2019-02-22 04:05 | NUR ---
ER DISCHARGE NOTE: Patient is cleared to be transferred to [facility] per ERMD, pt is aox4, on room air, with stable vital signs, pt was able to verbalize understanding, belongings taken home by son, property form completed to state no property with patient. Patient transferred to [facility] via [facility]. Handoff to RN pre transfer.
--- NOTE | 2019-02-22 04:30 | NUR ---
NURSE NOTES: Patient admitted from ER via gurney. Pt is aox2. Harris catheter was dislodged with intact balloon, no bleeding noted. No IV access at this time. New Harris catheter inserted 16Fr. Tolerated well. Noted with big sacrum and deep left ischial wounds. Pictures taken. Will initiate wound care. Call light provided for patient. Bed locked in low position. Admission orders entered by MD, will continue with care.
[2019-02-22] MEDS: sitaGLIPtin 50mg tab ORAL SCH (06:14)
[2019-02-22] MEDS: NovoLOG Insulin Flexpen SUBQ SCH ×4 (06:22→22:12)
--- NOTE | 2019-02-22 07:53 | NUR ---
HAND-OFF: Report given to Concha SANTOS.
--- NOTE | 2019-02-22 08:00 | NUR ---
NURSE NOTES: Patient is a/a/ox2. asleep. calm, unlabored breathing. Harris catheter intact, and patent. No IV access at this time. wound care treatment initiated by noc nurse, sacrum and deep left ischial wounds. dressings dry and intact. Photo taken by previous nurse. Call light provided for patient. Bed locked in low position. will continue with care.
[2019-02-22] MEDS: Aspirin EC 81mg tab ORAL SCH (09:01)
[2019-02-22] MEDS: Heparin 5000 units/ml inj SUBQ SCH ×2 (09:04→22:11)
[2019-02-22] MEDS: Levemir Flexpen SUBQ SCH (09:05)
--- NOTE | 2019-02-22 09:35 | NUR ---
PT EVALUATION NOTE Patient seen for initial evaluation, see complete evaluation for details. Patient presents with generalized weakness which affects patient's ability to perform mobility tasks. Patient requires max assist for bed mobility and requires assist to maintain sitting balance at EOB. Patient unable to attempt transfers due to weakness and impaired balance. Patient will benefit from 3 day trial of skilled inpatient PT intervention to address strength, balance and safety for improved functional mobility. Recommend discharge home with family assistance vs SNF for further rehab once medically cleared by MD. DME needs to be determined. Addendum: 02/22/19 at 1258 by MAGGIE LAM PT Amended: Links added.
[2019-02-22] MEDS ORDERED: Piperacillin/Tazobactam 2.25 GM in D5W 55 ML IVPB SCH (10:30)
--- NOTE | 2019-02-22 12:07 | Consultation ---
History of Present Illness General Date patient seen: Feb 22, 2019 Time patient seen: 12:00 Chief Complaint: Wound Recheck/Suture Removal Present Illness HPI Patient known to me from outpatient wound center. She has not been a patient at the center for some time but was being treated for stage 4 sacral ulcer. Apparently she was admitted to [facility] for the non healing ulcer and found to have elevated wbc. She is bedridden and also has a left ischial ulcer. It is unclear what treatments are being done at home. She does have a HHN. Allergies: Coded Allergies: No Known Allergies (Unverified , 05/08/12) Medication History Scheduled Amlodipine Besylate (Norvasc), 5 MG ORAL DAILY Aspirin Ec* (Aspirin Ec*), 81 MG PO DAILY, (Reported) Heparin Sod (Porcine) (Heparin Sodium*), 5,000 UNITS SUBQ EVERY 12 HOURS Insulin Detemir (Levemir Flexpen), 12 UNITS SUBQ DAILY Sitagliptin (Januvia), 50 MG ORAL ACBREAKFAST Valsartan (Diovan), 160 MG PO DAILY, (Reported) Scheduled PRN Hydrocodone Bit/Acetaminophen 5-325* ([place] 5-325*), 1 TAB ORAL Q6H PRN for For Pain Tramadol Hcl* (Ultram*), 50 MG ORAL Q6H PRN for For Pain, (Reported) Patient History Limited by: medical condition History Provided By: Medical Record Healthcare decision maker Daija Ortiz Resuscitation status Full Code Advanced Directive on File Past Medical/Surgical History Past Medical/Surgical History: (1) DM (diabetes mellitus) (2) Non-healing wound Review of Systems Cardiovascular: Reports: no symptoms Gastrointestinal: Reports: no symptoms Musculoskeletal: Reports: muscle stiffness Skin: Reports: see HPI Physical Exam General Appearance: no apparent distress, cachetic Lines, tubes and drains: PICC Abdomen: non tender, soft Skin Exam: other - Stage 4 sacral pressure injury down to bone. Fibrotic debris at the base. Periskin with some ecchymosistypical of pressure changes. No erythema or warmth. Approximately 65% granular base. Musculoskeletal: atrophy, other - flexion contractures at hips and knees Last 24 Hour Vital Signs Date Time Temp Pulse Resp B/P (MAP) Pulse Ox O2 Delivery O2 Flow Rate FiO2 02/22/19 11:46 Room Air 02/22/19 09:01 90 148/79 02/22/19 08:00 98.9 90 18 148/79 (102) 98 02/22/19 05:00 97.7 88 16 120/63 (82) 98 02/22/19 05:00 Room Air 02/22/19 04:05 98.4 78 16 140/56 98 Room Air 02/22/19 03:05 97.4 88 16 143/60 98 Room Air 02/22/19 01:30 97.6 89 16 144/74 100 Room Air 02/22/19 00:30 97.2 90 16 153/73 100 Room Air 02/22/19 00:17 97.2 116 16 170/78 (108) 96 Room Air Laboratory Tests Test 02/22/19 01:45 02/22/19 03:26 White Blood Count 13.8 K/UL (4.8-10.8) H Red Blood Count 3.75 M/UL (4.20-5.40) L Hemoglobin 10.5 G/DL (12.0-16.0) L Hematocrit 32.5 % (37.0-47.0) L Mean Corpuscular Volume 87 FL (80-99) Mean Corpuscular Hemoglobin 28.0 PG (27.0-31.0) Mean Corpuscular Hemoglobin Concent 32.3 G/DL (32.0-36.0) Red Cell Distribution Width 12.0 % (11.6-14.8) Platelet Count 291 K/UL (150-450) Mean Platelet Volume 8.4 FL (6.5-10.1) Neutrophils (%) (Auto) 74.3 % (45.0-75.0) Lymphocytes (%) (Auto) 17.7 % (20.0-45.0) L Monocytes (%) (Auto) 6.0 % (1.0-10.0) Eosinophils (%) (Auto) 1.6 % (0.0-3.0) Basophils (%) (Auto) 0.4 % (0.0-2.0) Sodium Level 136 MMOL/L (136-145) Potassium Level 4.1 MMOL/L (3.5-5.1) Chloride Level 104 MMOL/L (98-107) Carbon Dioxide Level 26 MMOL/L (21-32) Anion Gap 6 mmol/L (5-15) Blood Urea Nitrogen 19 mg/dL (7-18) H Creatinine 0.7 MG/DL (0.55-1.30) Estimat Glomerular Filtration Rate mL/min (>60) Glucose Level 176 MG/DL (74-106) H Hemoglobin A1c 8.5 % (4.3-6.0) H Calcium Level 9.1 MG/DL (8.5-10.1) Triglycerides Level 82 MG/DL (30-150) Cholesterol Level 158 MG/DL (< 200) LDL Cholesterol 105 mg/dL (<100) H HDL Cholesterol 38 MG/DL (40-60) L Cholesterol/HDL Ratio 4.2 (3.3-4.4) Urine Color Yellow Urine Appearance Cloudy Urine pH 5 (4.5-8.0) Urine Specific [place] 1.020 (1.005-1.035) Urine Protein 2+ (NEGATIVE) H Urine Glucose (UA) 2+ (NEGATIVE) H Urine Ketones Negative (NEGATIVE) Urine Blood 3+ (NEGATIVE) H Urine Nitrite Negative (NEGATIVE) Urine Bilirubin Negative (NEGATIVE) Urine Urobilinogen Normal MG/DL (0.0-1.0) Urine Leukocyte Esterase 3+ (NEGATIVE) H Urine RBC 5-10 /HPF (0 - 2) H Urine WBC Tntc /HPF (0 - 2) H Urine Squamous Epithelial Cells Many /LPF (NONE/OCC) H Urine Bacteria Moderate /HPF (NONE) H Height (Feet): 5 Height (Inches): 7.00 Weight (Pounds): 95 Medications Current Medications Medications (Trade) Dose Ordered Sig/Mar Route PRN Reason Start Time Stop Time Status Last Admin Dose Admin Acetaminophen/ Hydrocodone Bitart ([place] 5/325) 1 tab Q6H PRN ORAL For Pain 02/22/19 01:30 03/01/19 01:29 Amlodipine Besylate (Norvasc) 5 mg DAILY ORAL 02/22/19 09:00 03/24/19 08:59 02/22/19 09:01 Aspirin (Ecotrin) 81 mg DAILY ORAL 02/22/19 09:00 03/24/19 08:59 02/22/19 09:01 Atorvastatin Calcium (Lipitor) 10 mg BEDTIME ORAL 02/22/19 21:00 03/24/19 20:59 Dextrose (Dextrose 50%) 25 ml Q30M PRN IV Hypoglycemia 02/22/19 01:30 03/24/19 01:29 Dextrose (Dextrose 50%) 50 ml Q30M PRN IV Hypoglycemia 02/22/19 01:30 03/24/19 01:29 Heparin Sodium (Porcine) (Heparin 5000 units/ml) 5,000 units EVERY 12 HOURS SUBQ 02/22/19 09:00 03/24/19 08:59 02/22/19 09:04 Insulin Aspart (NovoLOG) BEFORE MEALS AND HS SUBQ 02/22/19 06:30 03/24/19 06:29 02/22/19 06:22 Insulin Detemir (Levemir) 12 units DAILY SUBQ 02/22/19 09:00 03/24/19 08:59 02/22/19 09:05 Piperacillin Sod/ Tazobactam Sod 3.375 gm/Sodium Chloride 110 ml @ 27.5 mls/hr EVERY 8 HOURS IVPB 02/22/19 14:00 03/01/19 13:59 Sitagliptin Phosphate (Januvia) 50 mg ACBREAKFAST ORAL 02/22/19 06:30 03/24/19 06:29 02/22/19 06:14 Zolpidem Tartrate (Ambien) 5 mg HSPRN PRN ORAL Insomnia 02/22/19 01:30 03/01/19 01:29 Assessment/Plan Assessment/Plan: Chronic non healing stage 4 sacral pressure ulcer. Need to check prealbumnin level as she appears cachectic. Need to keep pressure off of it. Need low airloss mattress. Also recommend mri without contrast to evaluate for sacral osteo. If pressure, infection, and nutrition are controlled can consider surgery for closure of the wound. Sarath White MD Feb 22, 2019 12:07
--- NOTE | 2019-02-22 12:10 | NUR ---
RD ASSESSMENT & RECOMMENDATIONS SEE CARE ACTIVITY FOR COMPLETE ASSESSMENT DAILY ESTIMATED NEEDS: Needs based on Wound, Underweight/ 43kg 30-40 kcals/kg 4653-4854 total kcals 1.5-2 g protein/kg 65-86 g total protein 25-30 mL/kg 3071-0290 total fluid mLs NUTRITION DIAGNOSIS: 1) Increased kcal and pro needs R/T wound healing, underweight status as evidenced by admitted w/ advanced sacral and lt buttock wounds, pending eval, w/ generalized moderate wasting, low BMI per guidelines. CURRENT DIET:CCHO MED, SOFT EASY CHEW PO DIET RECOMMENDATIONS: CCHO med / texture per [employer] + Glucerna TID w/ meals ADDITIONAL RECOMMENDATIONS: 1) Re-calibrated bedscale wt, weekly wt monitoring 2) Wound care: MVI w/ min 1 tab QD Vit C 500mg BID ZnSO4 220mg QD x 10 days Eduardo 1pkt QD added for now, increase to BID w/ good acceptance 3) Glucerna 1 tetra didi TID w/ meals added (220kcal/10g prot per didi) 4) Consider [employer] eval for appropriate texture : pt on pureed moist texture last adm in October 2018
[2019-02-22] MEDS: Zoysn 3.37gm in NS 100ML IVPB SCH ×2 (13:25→22:14)
--- NOTE | 2019-02-22 14:52 | NUR ---
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
--- NOTE | 2019-02-22 15:54 | NUR ---
Social Work This Sw received a consult to assist with a home safety evaluation. This SW spoke with nephew Maxim Ortiz ([phone]) who explains patient was living with her three nephews and had a private pay caregiver, along with home care for wound care two times per week (with [facility]: [phone]). Nephew explains patient was mostly bedridden prior to this admission and has a hospital bed and additional mattress for her wounds. Patient has been appointed a new POA for healthcare decisions: Colt Fontaine: [phone] and should be contacted for all decision making. NephZane poncey explains he is the second POA listed for patient. Maxim is requesting patient to be transferred to a new SNF upon discharge. Patient has been at [facility] in the past and family does not want patient to return there (believes where her sacral wound had gotten worse).
[2019-02-22] MEDS ORDERED: Vancomycin 750mg/NS 275ml IVPB ONE ×2 (16:00)
--- NOTE | 2019-02-22 16:44 | NUR ---
NURSE NOTES:WOUND CARE NOTES:Pt presented on admission with multiple full thickness pressure injuries. Full thickness sacral pressure injury. Carmen granulation at base of wound. Edges flat and adherent. NO odor or exudate noted. Periwound without erythema or induration.(L)7.4cm x (W)8.5cm x (D)0.8cm. Tunneled wound noted to L ischium (L)1cm x (W)1cm, Tunneled @ 3.5cm.Small amt serosanguineous exudate noted. No odor noted. Tx.Plan: Wound care orders as per . Apply Cavilon Skin Barrier both heels. Cover each heel with Optifoam drsg. Change every 7 days and prn. APM/KASEY Mattress overlay. Reposition at least every 2hours or as tolerated. off-load heels with pillow.
--- NOTE | 2019-02-22 18:45 | History and Physical Report ---
DATE OF ADMISSION: 02/22/2019 CHIEF COMPLAINT: The patient has a large decubitus ulcer and it was not getting better. She was brought in to the emergency room by family. HISTORY OF PRESENT ILLNESS: This is a 78-year-old female with history of dementia, who is basically bedridden. She has had sacral decubitus for a while. She was until recently at [facility], but the family took her home. I saw her last time a couple of weeks ago in my office. Her decubitus ulcer was basically not getting much better. Home health was asked to follow the patient. The patient's blood sugar was also high at home, so the patient was finally brought to the emergency room. She was found to have also urinary tract infection and was admitted. PAST MEDICAL HISTORY: Includes history of diabetes mellitus, hypertension, and history of CVA. MEDICATIONS: Reviewed in the EMR. SOCIAL HISTORY: No history of smoking or alcohol abuse. The patient lives at home with caregiver. ALLERGIES: No known drug allergies. REVIEW OF SYSTEMS: Unobtainable. PHYSICAL EXAMINATION: GENERAL: The patient is an elderly female, in no acute distress. VITAL SIGNS: Blood pressure is 148/79, pulse 90, temperature 98.1, and respirations 18. HEENT: Somewhat pale conjunctivae. Anicteric sclerae. NECK: Supple. LUNGS: Clear to auscultation. HEART: S1, S2 without murmurs or rubs. ABDOMEN: Soft and nontender. EXTREMITIES: No cyanosis or edema. The patient has contractures. 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 LABORATORY FINDINGS: CBC shows WBC of 13,800, hematocrit is 32.5 hemoglobin is 10.5, and platelet is 291,000. Chemistry panel shows serum sodium 136, potassium 4.1, chloride 104, CO2 26, BUN is 19, creatinine 0.7, blood sugar is 176. Hemoglobin A1c is 8.5. LDL is 105. ASSESSMENT: This is a 78-year-old female who is admitted with UTI and decubitus ulcer which is not healing well. She has uncontrolled diabetes mellitus. PLAN: The patient will be on sliding scale of insulin. Endocrine consultation will be obtained. She was started on IV antibiotics. ID consultation will be obtained. The patient will be seen by Plastic Surgery for her wounds. We will follow and further recommendations will be made in the patient's regimen. Also, I will start the patient on Lipitor 10 mg daily. Arnulfo Rain M.D. DR: Lubna JOB#: [id number] CC:
--- NOTE | 2019-02-22 19:12 | NUR ---
HAND-OFF: Report given to irene.
--- NOTE | 2019-02-22 20:00 | NUR ---
NURSE NOTES: Patient received in bed, awake. FC draining via gravity. IV occluded. Vanco still full. New IV access obtained on left forearm. Vanco resumed. Will continue care.
--- NOTE | 2019-02-22 20:15 | Consultation ---
DATE OF CONSULTATION: 02/22/2019 INFECTIOUS DISEASE CONSULTATION CONSULTING PHYSICIAN: Dallas Rain M.D. PRIMARY ATTENDING PHYSICIAN: Arnulfo Rain M.D. REASON FOR CONSULT: Infected pressure ulcer. HISTORY OF PRESENT ILLNESS: This is a 78-year-old female admitted today from home because of the worsening of her pressure ulcer. The patient has pressure ulcer stage IV for a while. She was admitted before in [facility] in September of 2018. On 10/09/2018, she had wound debridement and osteotomy of the distal sacrum. Pathology report was consistent with acute osteomyelitis symptoms. The patient was at home under care of wound care nurse, but there is no improvement in the patient's ulcer. The patient had a leukocytosis of 13.6 at the time of admission and also had pyuria. PAST MEDICAL HISTORY: Diabetes, hypertension, anemia, history of CVA, and cachexia. MEDICATIONS: Getting atorvastatin, Zosyn, amlodipine, aspirin, heparin, Levemir insulin, Januvia, hydrocodone with Tylenol, and Ambien. ALLERGIES: No known drug allergy. SOCIAL HISTORY: Lives at home. No history of alcohol, drug abuse, or smoking. . REVIEW OF SYSTEMS: The patient denies fever or chills. No coughing. Has low back pain. PHYSICAL EXAMINATION: VITAL SIGNS: Temperature 98.7, pulse 72, and blood pressure 144/75. GENERAL APPEARANCE: Seems to be thin and cachectic. HEAD AND NECK: [place] conjunctiva. HEART: Normal rate. LUNGS: Clear. ABDOMEN: Soft and nontender. EXTREMITY: Has no edema. Has muscle atrophy. SKIN: Has a stage IV sacral ulcer. LABORATORY AND DIAGNOSTIC DATA: WBC 13.8, hemoglobin 10.5, hematocrit 32.5, and platelets is 291,000. Sodium 136, potassium 4.1, chloride 104, bicarb 26, BUN 19, and creatinine 0.7. Hemoglobin A1c 8.5. UA showed wbc too numerous to count, rbc 5 to 10, and leukocyte esterase 3+. IMPRESSION: Nonhealing pressure ulcer, may have wound infection and underlying osteomyelitis. Has pyuria, likely urinary tract infection. Has hypertension, diabetes mellitus with hyperglycemia, anemia, cachexia, and protein-calorie malnutrition. RECOMMENDATIONS: Continue Zosyn. We will add IV vancomycin. We will follow up the culture. We will follow up the MRI ordered by the surgeon. At the end of my exam, I thank Dr. Arnulfo Rain for involving me in the care of this patient. Dallas Rain M.D. DR: FIDEL JOB#: [id number] CC:
--- NOTE | 2019-02-22 23:26 | NUR ---
NURSE NOTES: Patient placed on KASEY APM mattress. Had BM, patient cleaned. Dressing changed on sacral and ischium. Cultures taken. pt tolerated procedure well.
[2019-02-23] VITALS: BP 92/38
[2019-02-23 04:00] VITALS: BP 138/66
[2019-02-23] MEDS: HYDROcodone/Acetamin 5/325 tab ORAL PRN ×2 (04:24→11:04)
--- NOTE | 2019-02-23 04:37 | NUR ---
NURSE NOTES: pt had another BM. cleaned. Wound dressings re-done.
[2019-02-23] MEDS: sitaGLIPtin 50mg tab ORAL SCH (05:36)
[2019-02-23] MEDS: Zoysn 3.37gm in NS 100ML IVPB SCH ×3 (05:37→21:42)
[2019-02-23] MEDS: NovoLOG Insulin Flexpen SUBQ SCH ×4 (05:38→21:41)
--- NOTE | 2019-02-23 07:23 | NUR ---
HAND-OFF: Report given to Lam GALLOWAY.
--- NOTE | 2019-02-23 07:40 | NUR ---
NURSE NOTES: Received patient on bed, awake. IV site intact and patent. Harris catheter in place and draining and patent. Bed in low and locked position, call light in reach. No signs of respiratory distress or pain. Room board updated, will continue to monitor.
[2019-02-23 07:46] LABS: BASOPHILS % (AUTO) 0.7 % (0.0-2.0); EOSINOPHILS % (AUTO) 1.8 % (0.0-3.0); HEMATOCRIT 30.5 % (37.0-47.0); HEMOGLOBIN 9.8 G/DL (12.0-16.0); LYMPHOCYTES % (AUTO) 17.7 % (20.0-45.0); MEAN CORPUSCULAR VOLUME 88 FL (80-99); MONOCYTES % (AUTO) 6.9 % (1.0-10.0); NEUTROPHILS % (AUTO) 72.9 % (45.0-75.0); PLATELET COUNT 307 K/UL (150-450); RED BLOOD COUNT 3.45 M/UL (4.20-5.40); RED CELL DISTRIBUTION WIDTH 12.3 % (11.6-14.8); WHITE BLOOD COUNT 11.8 K/UL (4.8-10.8)
[2019-02-23 08:00] VITALS: BP 133/63
[2019-02-23 08:50] LABS: CHLORIDE 104 MMOL/L (98-107); POTASSIUM 4.2 MMOL/L (3.5-5.1)
[2019-02-23 09:18] LABS: BLOOD UREA NITROGEN 19 mg/dL (7-18); CALCIUM 9.3 MG/DL (8.5-10.1)
[2019-02-23] MEDS: Aspirin EC 81mg tab ORAL SCH (09:39)
[2019-02-23] MEDS: Heparin 5000 units/ml inj SUBQ SCH ×2 (09:42→21:40)
[2019-02-23] MEDS: Levemir Flexpen SUBQ SCH (09:43)
[2019-02-23 09:59] LABS: ANION GAP 9 mmol/L (5-15); CARBON DIOXIDE 26 MMOL/L (21-32); SODIUM 139 MMOL/L (136-145)
[2019-02-23 12:00] VITALS: BP 139/70
--- NOTE | 2019-02-23 12:35 | NUR ---
NURSE NOTES: Spoke to MD White who placed wound care order for left buttock. He stated he will see patient on Monday and change order if necessary.
--- NOTE | 2019-02-23 13:45 | NUR ---
NURSE NOTES: Dressings on sacral area and left buttock changed, wound care photos taken.
[2019-02-23 16:00] VITALS: BP 130/69
[2019-02-23] MEDS ORDERED: Vancomycin 500mg/D5W 110ml IVPB SCH ×2 (16:00)
[2019-02-23] MEDS ORDERED: Tubing IV Secondary IV ONE (16:20)
[2019-02-23] MEDS ORDERED: NS 275ml ONE (16:20)
[2019-02-23] MEDS: Nateglinide 60mg tab ORAL SCH (17:00)
--- NOTE | 2019-02-23 17:10 | General Progress Note ---
Assessment/Plan Problem List: (1) UTI (urinary tract infection) ICD Codes: N39.0 - Urinary tract infection, site not specified SNOMED: 70649414 (2) HTN (hypertension) ICD Codes: I10 - Essential (primary) hypertension SNOMED: 74599712 (3) DM (diabetes mellitus) ICD Codes: E11.9 - Type 2 diabetes mellitus without complications SNOMED: 93881589 (4) Non-healing wound SNOMED: 750594982 Assessment/Plan: abxs adjust DM meds pain management follow labs Discussed with senior linux unix administrator carer Subjective Allergies: Coded Allergies: No Known Allergies (Unverified , 05/08/12) Subjective feels ok Objective Last 24 Hour Vital Signs Date Time Temp Pulse Resp B/P (MAP) Pulse Ox O2 Delivery O2 Flow Rate FiO2 02/23/19 16:00 98.8 90 18 130/69 (89) 96 02/23/19 12:00 97.7 91 16 139/70 (93) 97 02/23/19 09:40 100 133/63 02/23/19 09:00 Room Air 02/23/19 08:00 98.9 100 16 133/63 (86) 98 02/23/19 04:00 98.1 94 18 138/66 (90) 97 02/23/19 00:00 99.1 83 20 92/38 (56) 98 02/22/19 21:00 Room Air 02/22/19 20:00 99.4 105 18 116/60 (78) 96 Intake and Output 02/22/19 02/23/19 18:59 06:59 Intake Total 330.00 ml 137.5 ml Output Total 1450 ml Balance 330.00 ml -1312.5 ml Intake IV Total 330.00 ml 137.5 ml Output Urine Total 1450 ml # Voids 1 Laboratory Tests 02/23/19 05:50: White Blood Count 11.8H, Red Blood Count 3.45L, Hemoglobin 9.8L, Hematocrit 30.5L, Mean Corpuscular Volume 88, Mean Corpuscular Hemoglobin 28.4, Mean Corpuscular Hemoglobin Concent 32.1, Red Cell Distribution Width 12.3, Platelet Count 307, Mean Platelet Volume 8.8, Neutrophils (%) (Auto) 72.9, Lymphocytes (% ) (Auto) 17.7L, Monocytes (%) (Auto) 6.9, Eosinophils (%) (Auto) 1.8, Basophils (%) (Auto) 0.7, Sodium Level 139, Potassium Level 4.2, Chloride Level 104, Carbon Dioxide Level 26, Anion Gap 9, Blood Urea Nitrogen 19H, Creatinine 1.0, Estimat Glomerular Filtration Rate , Glucose Level 179H, Calcium Level 9.3 Height (Feet): 5 Height (Inches): 7.00 Weight (Pounds): 95 Cardiovascular: normal rate Respiratory/Chest: lungs clear Edema: no edema noted Generalized Arnulfo Rain MD Feb 23, 2019 17:10
[2019-02-23] MEDS: Vancomycin 500mg/D5W 110ml IVPB SCH ×2 (18:03)
--- NOTE | 2019-02-23 19:40 | NUR ---
HAND-OFF: Report given to LAVERNE Brewer.
--- NOTE | 2019-02-23 19:45 | NUR ---
NURSE NOTES: Received report from LAVERNE Fritz. Patient asleep. Breathing unlabored on a room air. No s/s of pain noted at this time. IV noted on LFA intact. Patient on a p200 mattress. Bed placed at the lowest with alarm, brake, and siderails up for safety. Call light placed within reach. Will continue to monitor and provide care as ordered. Addendum: 02/23/19 at 1951 by Valencia Brewer RN Harris intact draining urine
[2019-02-23 20:00] VITALS: BP 100/53
--- NOTE | 2019-02-23 20:15 | Consultation ---
DATE OF CONSULTATION: 02/23/2019 ENDOCRINOLOGY CONSULTATION CONSULTING PHYSICIAN: Luisito Quintero M.D. REFERRING PHYSICIAN: Arnulfo Rain M.D. REASON FOR CONSULTATION: Diabetes Management. HISTORY OF PRESENT ILLNESS: The patient is a 78-year-old female who is known to me from previous admissions to [facility]. The patient has history of CVA, diabetes, hypertension, brought to the hospital with nonhealing wounds. Glucose is elevated. Endocrinology was consulted in order to assist in the management of diabetes. On previous admission, diabetes was managed by medication regimen consisting of Starlix, Januvia, and NovoLog sliding scale. PAST MEDICAL HISTORY: 1. CVA. 2. Diabetes. 3. Hypertension. 4. Decubitus ulcer. 5. Hip fracture. PAST SURGICAL HISTORY: None. FAMILY HISTORY: Diabetes. SOCIAL HISTORY: No smoking. No alcohol. No drug use. REVIEW OF SYSTEMS: As per HPI. MEDICATIONS: Reviewed and reconciled. LABORATORY DATA: WBC 11.8, hemoglobin 9.8, hematocrit 30.5, platelets are 307. Sodium 139, potassium 4.2, chloride 104, bicarb 26, BUN 19, creatinine 1.0, glucose of 179. A1c of 8.5. Point of care glucoses 260, 179, 179, 266, 217. PHYSICAL EXAMINATION: GENERAL: The patient is cachectic. VITAL SIGNS: Blood pressure is 130/70, pulse of 91, temperature 97.7, respiratory rate 18. HEENT: Pupils are reactive to light. Sclerae anicteric. NECK: No JVD. No thyromegaly LUNGS: Clear. HEART: Regular rate and rhythm. ABDOMEN: Positive bowel sounds. EXTREMITIES: No clubbing. There is trace edema. DIAGNOSES: 1. Nonhealing wounds. 2. Diabetes, out of control. PLAN: 1. Continue Levemir 12 units daily . 2. Continue NovoLog sliding scale before meals and at bedtime. 3. Continue Januvia. 4. Add Starlix 60 mg before meals t.i.d. 5. Further adjustment according to blood glucose values. Thank you, Dr. Rain, for the courtesy of this consultation. Luisito Quintero M.D. DR: Joao JOB#: [id number] CC: TERELL
[2019-02-24] VITALS: BP 112/55
--- NOTE | 2019-02-24 01:00 | NUR ---
NURSE NOTES: Patient had a BM. Cleaned the patient. Dressing change done on the sacral and left buttock. Patient tolerated well.
--- NOTE | 2019-02-24 03:45 | NUR ---
HAND-OFF: Report given to LAVERNE Fritz. Addendum: 02/24/19 at 0742 by Valencia Brewer RN Wrong Time
[2019-02-24 04:00] VITALS: BP 104/57
--- NOTE | 2019-02-24 04:43 | NUR ---
NURSE NOTES: Received call from Paul from Microbiology. Patient positive for ESBL Urine. Reached Dr. Mckenna Rain and left a message. Will follow up. Charge nurse made aware.
[2019-02-24] MEDS: Zoysn 3.37gm in NS 100ML IVPB SCH (05:15)
[2019-02-24] MEDS: sitaGLIPtin 50mg tab ORAL SCH (06:13)
[2019-02-24] MEDS: Nateglinide 60mg tab ORAL SCH ×3 (06:13→16:52)
[2019-02-24] MEDS: NovoLOG Insulin Flexpen SUBQ SCH ×4 (06:15→21:35)
--- NOTE | 2019-02-24 07:42 | NUR ---
HAND-OFF: Report given to LAVERNE Fritz.
--- NOTE | 2019-02-24 07:45 | NUR ---
NURSE NOTES: Received patient on bed, awake. IV intact and patent and covered. Dressing intact. Bed in low and locked position, call light in reach. No signs of respiratory distress or pain. Room board updated, will continue to monitor.
[2019-02-24 08:00] VITALS: BP 118/60
--- NOTE | 2019-02-24 08:01 | General Progress Note ---
Assessment/Plan Problem List: (1) DM (diabetes mellitus) ICD Codes: E11.9 - Type 2 diabetes mellitus without complications SNOMED: 39823237 (2) HTN (hypertension) ICD Codes: I10 - Essential (primary) hypertension SNOMED: 90977432 (3) Non-healing wound SNOMED: 753464526 Assessment/Plan: continue Levemir 12 units daily continue Starlix 60 mg ac tid continue Januvia 50 mg daily continue NISS ac / hs Subjective Allergies: Coded Allergies: No Known Allergies (Unverified , 05/08/12) All Systems: reviewed and negative except above Subjective events noted Item Value Date Time Bedside Blood Glucose 124 mg/dl H 02/24/19 0615 Bedside Blood Glucose 240 mg/dl H 02/23/19 2141 Bedside Blood Glucose 159 mg/dl H 02/23/19 1701 Bedside Blood Glucose 260 mg/dl H 02/23/19 1219 Bedside Blood Glucose 179 mg/dl H 02/23/19 0943 Bedside Blood Glucose 179 mg/dl H 02/23/19 0630 Objective Last 24 Hour Vital Signs Date Time Temp Pulse Resp B/P (MAP) Pulse Ox O2 Delivery O2 Flow Rate FiO2 02/24/19 04:00 97.9 95 20 104/57 (73) 100 02/24/19 00:30 91 98 02/24/19 00:00 98.1 104 20 112/55 (74) 98 02/23/19 21:00 Room Air 02/23/19 20:00 99.1 93 18 100/53 (69) 96 02/23/19 16:00 98.8 90 18 130/69 (89) 96 02/23/19 12:00 97.7 91 16 139/70 (93) 97 02/23/19 09:40 100 133/63 02/23/19 09:00 Room Air Intake and Output 02/23/19 02/24/19 19:00 07:00 Intake Total 192.5 ml 967.5 ml Output Total 835 ml Balance 192.5 ml 132.5 ml Intake Oral 120 ml IV Total 192.5 ml 247.5 ml Other 600 ml Output Urine Total 835 ml # Bowel Movements 1 Height (Feet): 5 Height (Inches): 7.00 Weight (Pounds): 95 General Appearance: no apparent distress Neck: normal alignment Cardiovascular: normal rate Respiratory/Chest: lungs clear Abdomen: normal bowel sounds Objective Current Medications Medications (Trade) Dose Ordered Sig/Mar Route PRN Reason Start Time Stop Time Status Last Admin Dose Admin Acetaminophen/ Hydrocodone Bitart ([place] 5/325) 1 tab Q6H PRN ORAL For Pain 02/22/19 01:30 03/01/19 01:29 02/23/19 11:04 Amlodipine Besylate (Norvasc) 5 mg DAILY ORAL 02/22/19 09:00 03/24/19 08:59 02/23/19 09:40 Aspirin (Ecotrin) 81 mg DAILY ORAL 02/22/19 09:00 03/24/19 08:59 02/23/19 09:39 Atorvastatin Calcium (Lipitor) 10 mg BEDTIME ORAL 02/22/19 21:00 03/24/19 20:59 02/23/19 21:39 Dextrose (Dextrose 50%) 25 ml Q30M PRN IV Hypoglycemia 02/22/19 01:30 03/24/19 01:29 Dextrose (Dextrose 50%) 50 ml Q30M PRN IV Hypoglycemia 02/22/19 01:30 03/24/19 01:29 Heparin Sodium (Porcine) (Heparin 5000 units/ml) 5,000 units EVERY 12 HOURS SUBQ 02/22/19 09:00 03/24/19 08:59 02/23/19 21:40 Insulin Aspart (NovoLOG) BEFORE MEALS AND HS SUBQ 02/22/19 06:30 03/24/19 06:29 02/24/19 06:15 Insulin Detemir (Levemir) 12 units DAILY SUBQ 02/22/19 09:00 03/24/19 08:59 02/23/19 09:43 Nateglinide (Starlix) 60 mg TIAC ORAL 02/23/19 16:30 03/25/19 16:29 02/24/19 06:13 Piperacillin Sod/ Tazobactam Sod 3.375 gm/Sodium Chloride 110 ml @ 27.5 mls/hr EVERY 8 HOURS IVPB 02/22/19 14:00 03/01/19 13:59 02/24/19 05:15 Sitagliptin Phosphate (Januvia) 50 mg ACBREAKFAST ORAL 02/22/19 06:30 03/24/19 06:29 02/24/19 06:13 Vancomycin HCl (Vanco rx to dose) 1 ea DAILY PRN MISC Per rx protocol 02/22/19 14:45 03/24/19 14:44 Vancomycin HCl 500 mg/Dextrose 110 ml @ 110 mls/hr Q24H IVPB 02/23/19 17:00 02/28/19 16:59 02/23/19 18:03 Zolpidem Tartrate (Ambien) 5 mg HSPRN PRN ORAL Insomnia 02/22/19 01:30 03/01/19 01:29 Luisito Quintero MD Feb 24, 2019 08:01
[2019-02-24] MEDS: HYDROcodone/Acetamin 5/325 tab ORAL PRN ×2 (08:38→17:14)
[2019-02-24] MEDS: Aspirin EC 81mg tab ORAL SCH (08:38)
[2019-02-24] MEDS: Levemir Flexpen SUBQ SCH (08:39)
[2019-02-24] MEDS: Heparin 5000 units/ml inj SUBQ SCH ×2 (09:00→21:34)
--- NOTE | 2019-02-24 11:57 | Infectious Diseases Prog Note ---
Assessment/Plan Assessment/Plan IMPRESSION: Nonhealing pressure ulcer, wound infection and ?osteomyelitis. E. coli urinary tract infection. Hypertension, diabetes mellitus with hyperglycemia, anemia, cachexia, and protein-calorie malnutrition. RECOMMENDATIONS: Change Zosyn to Meropenem. Continue IV vancomycin. We will follow up the cultures & bone scan. Subjective ROS Limited/Unobtainable: Yes Constitutional: Denies: fever Allergies: Coded Allergies: No Known Allergies (Unverified , 05/08/12) Objective Vital Signs Last 24 Hour Vital Signs Date Time Temp Pulse Resp B/P (MAP) Pulse Ox O2 Delivery O2 Flow Rate FiO2 02/24/19 09:00 Room Air 02/24/19 08:38 96 118/60 02/24/19 08:00 98.4 96 18 118/60 (79) 96 02/24/19 04:00 97.9 95 20 104/57 (73) 100 02/24/19 00:30 91 98 02/24/19 00:00 98.1 104 20 112/55 (74) 98 02/23/19 21:00 Room Air 02/23/19 20:00 99.1 93 18 100/53 (69) 96 02/23/19 16:00 98.8 90 18 130/69 (89) 96 02/23/19 12:00 97.7 91 16 139/70 (93) 97 Height (Feet): 5 Height (Inches): 7.00 Weight (Pounds): 95 General Appearance: no acute distress, cachetic HEENT: mucous membranes moist Respiratory/Chest: lungs clear Cardiovascular: normal rate Abdomen: soft, non tender Genitourinary: other - Harris catheter Extremities: no edema Skin: ulcers, other - sacral stage 4 Neurologic/Psychiatric: other - sleeping Microbiology Date/Time Source Procedure Growth Status 02/22/19 05:30 Nasal Nares MRSA Culture - Final Staphylococcus Aureus - Mrsa Complete 02/22/19 03:26 Indwelling Cath Urine Culture - Final Escherichia Coli - Esbl Complete 02/22/19 23:15 Sacral Wound Gram Stain - Final Resulted 02/22/19 23:15 Sacral Wound Wound Culture Pending Resulted Current Medications Medications (Trade) Dose Ordered Sig/Mar Route PRN Reason Start Time Stop Time Status Last Admin Dose Admin Acetaminophen/ Hydrocodone Bitart ([place] 5/325) 1 tab Q6H PRN ORAL For Pain 02/22/19 01:30 03/01/19 01:29 02/24/19 08:38 Amlodipine Besylate (Norvasc) 5 mg DAILY ORAL 02/22/19 09:00 03/24/19 08:59 02/24/19 08:38 Aspirin (Ecotrin) 81 mg DAILY ORAL 02/22/19 09:00 03/24/19 08:59 02/24/19 08:38 Atorvastatin Calcium (Lipitor) 10 mg BEDTIME ORAL 02/22/19 21:00 03/24/19 20:59 02/23/19 21:39 Dextrose (Dextrose 50%) 25 ml Q30M PRN IV Hypoglycemia 02/22/19 01:30 03/24/19 01:29 Dextrose (Dextrose 50%) 50 ml Q30M PRN IV Hypoglycemia 02/22/19 01:30 03/24/19 01:29 Heparin Sodium (Porcine) (Heparin 5000 units/ml) 5,000 units EVERY 12 HOURS SUBQ 02/22/19 09:00 03/24/19 08:59 02/24/19 09:00 Insulin Aspart (NovoLOG) BEFORE MEALS AND HS SUBQ 02/22/19 06:30 03/24/19 06:29 02/24/19 06:15 Insulin Detemir (Levemir) 12 units DAILY SUBQ 02/22/19 09:00 03/24/19 08:59 02/24/19 08:39 Meropenem 500 mg/ Sodium Chloride 55 ml @ 110 mls/hr EVERY 8 HOURS IVPB 02/24/19 14:00 03/01/19 13:59 Nateglinide (Starlix) 60 mg TIAC ORAL 02/23/19 16:30 03/25/19 16:29 02/24/19 06:13 Sitagliptin Phosphate (Januvia) 50 mg ACBREAKFAST ORAL 02/22/19 06:30 03/24/19 06:29 02/24/19 06:13 Vancomycin HCl (Vanco rx to dose) 1 ea DAILY PRN MISC Per rx protocol 02/22/19 14:45 03/24/19 14:44 Vancomycin HCl 500 mg/Dextrose 110 ml @ 110 mls/hr Q24H IVPB 02/23/19 17:00 02/28/19 16:59 02/23/19 18:03 Zolpidem Tartrate (Ambien) 5 mg HSPRN PRN ORAL Insomnia 02/22/19 01:30 03/01/19 01:29 Dallas Rain MD Feb 24, 2019 11:57
[2019-02-24 12:00] VITALS: BP 121/56
--- NOTE | 2019-02-24 12:30 | NUR ---
NURSE NOTES: Patient had bowel movement and sacral and buttock dressings changed.
--- NOTE | 2019-02-24 12:42 | NUR ---
CASE MANAGEMENT: INITIAL REVIEW 78 YO F PRESENTED TO ED FROM HOME CC: WOUND CHECK PMHx: HTN. DM. CVA. SI:PRESSURE ULCER OF RIGHT BUTTOCK. T 97.2 HR 116 RR 16 B/P 170/78 SATS 96% ON RA WBC 13.8 BUN 19 GLU 176 HA1C 8.5 IS: NS BOLUS X1 PATIENT ADMITTED TO MED/SURG 02/22/2019 @ 0316 DCP: PATIENT TO BE DISCHARGED TO HOME ONCE MEDICALLY CLEARED. PLAN OF CARE: WOUND CARE CONSULT ID CONSULT Addendum: 02/25/19 at 1024 by Lily Gaona CM INTERQUAL
[2019-02-24] MEDS: Meropenem 500 MG in NS 55 ML IVPB SCH ×2 (14:18→21:33)
[2019-02-24 16:00] VITALS: BP 120/59
[2019-02-24] MEDS: Vancomycin 500mg/D5W 110ml IVPB SCH ×2 (16:55)
--- NOTE | 2019-02-24 18:13 | General Progress Note ---
Assessment/Plan Problem List: (1) UTI (urinary tract infection) ICD Codes: N39.0 - Urinary tract infection, site not specified SNOMED: 52410891 (2) HTN (hypertension) ICD Codes: I10 - Essential (primary) hypertension SNOMED: 39271834 (3) DM (diabetes mellitus) ICD Codes: E11.9 - Type 2 diabetes mellitus without complications SNOMED: 02448131 (4) Non-healing wound SNOMED: 532074359 Assessment/Plan: abxs adjust DM meds pain management follow labs Discussed with career information specialist change diet to puree Subjective Allergies: Coded Allergies: No Known Allergies (Unverified , 05/08/12) Subjective LUMBER CHECKER noticed drooling with eating regular FOOD Objective Last 24 Hour Vital Signs Date Time Temp Pulse Resp B/P (MAP) Pulse Ox O2 Delivery O2 Flow Rate FiO2 02/24/19 16:00 98.5 82 17 120/59 (79) 98 02/24/19 12:00 97.7 89 16 121/56 (77) 96 02/24/19 09:00 Room Air 02/24/19 08:38 96 118/60 02/24/19 08:00 98.4 96 18 118/60 (79) 96 02/24/19 04:00 97.9 95 20 104/57 (73) 100 02/24/19 00:30 91 98 02/24/19 00:00 98.1 104 20 112/55 (74) 98 02/23/19 21:00 Room Air 02/23/19 20:00 99.1 93 18 100/53 (69) 96 Intake and Output 02/23/19 02/24/19 18:59 06:59 Intake Total 192.5 ml 967.5 ml Output Total 835 ml Balance 192.5 ml 132.5 ml Intake Oral 120 ml IV Total 192.5 ml 247.5 ml Other 600 ml Output Urine Total 835 ml # Bowel Movements 1 Height (Feet): 5 Height (Inches): 7.00 Weight (Pounds): 95 Cardiovascular: normal rate Respiratory/Chest: lungs clear Arnulfo Rain MD Feb 24, 2019 18:13
--- NOTE | 2019-02-24 19:20 | NUR ---
HAND-OFF: Report given to LAVERNE Brewer.
--- NOTE | 2019-02-24 19:30 | NUR ---
NURSE NOTES: Received report from LAVERNE Fritz. Patient awake on the bed. Breathing unlabored without signs of distress on a room air. Denies discomfort or pain at this time. IV site noted on the right forearm intact and patent. Harris intact and secure draining urine. Patient on a p200 mattress. Bed placed at the lowest with alarm, brake, and siderails up for safety. Call light placed within reach. Will continue to monitor and provide care as ordered.
[2019-02-24 20:00] VITALS: BP 151/64
[2019-02-25] VITALS (7 sets, daily range): BP systolic 105–137; BP diastolic 54–82
--- NOTE | 2019-02-25 02:55 | NUR ---
NURSE NOTES: Patient having soft pasty stool x 4. Charge nurse made aware. Will continue to monitor. Will endorse to the AM nurse.
[2019-02-25] MEDS: Meropenem 500 MG in NS 55 ML IVPB SCH ×3 (05:18→21:14)
[2019-02-25] MEDS: Nateglinide 60mg tab ORAL SCH ×3 (06:08→17:04)
[2019-02-25] MEDS: sitaGLIPtin 50mg tab ORAL SCH (06:08)
[2019-02-25] MEDS: NovoLOG Insulin Flexpen SUBQ SCH ×4 (06:12→21:27)
--- NOTE | 2019-02-25 06:49 | General Progress Note ---
Assessment/Plan Problem List: (1) DM (diabetes mellitus) ICD Codes: E11.9 - Type 2 diabetes mellitus without complications SNOMED: 43471475 (2) HTN (hypertension) ICD Codes: I10 - Essential (primary) hypertension SNOMED: 33041120 (3) Non-healing wound SNOMED: 729491135 Assessment/Plan: continue Levemir 12 units daily continue Starlix 60 mg ac tid continue Januvia 50 mg daily continue NISS ac / hs Subjective Allergies: Coded Allergies: No Known Allergies (Unverified , 05/08/12) All Systems: reviewed and negative except above Subjective events noted glucose values are stable Item Value Date Time Bedside Blood Glucose 123 mg/dl H 02/25/19 0612 Bedside Blood Glucose 148 mg/dl H 02/24/19 2135 Bedside Blood Glucose 118 mg/dl 02/24/19 1654 Bedside Blood Glucose 171 mg/dl H 02/24/19 1229 Bedside Blood Glucose 124 mg/dl H 02/24/19 0839 Bedside Blood Glucose 124 mg/dl H 02/24/19 0615 Objective Last 24 Hour Vital Signs Date Time Temp Pulse Resp B/P (MAP) Pulse Ox O2 Delivery O2 Flow Rate FiO2 02/25/19 04:00 97.8 87 20 105/54 (71) 96 02/25/19 00:00 98.4 96 20 130/64 (86) 100 02/24/19 21:00 Room Air 02/24/19 20:00 97.2 94 20 151/64 (93) 100 02/24/19 16:00 98.5 82 17 120/59 (79) 98 02/24/19 12:00 97.7 89 16 121/56 (77) 96 02/24/19 09:00 Room Air 02/24/19 08:38 96 118/60 02/24/19 08:00 98.4 96 18 118/60 (79) 96 Intake and Output 02/24/19 02/25/19 19:00 07:00 Intake Total 1247.5 ml 55 ml Output Total 600 ml 400 ml Balance 647.5 ml -345 ml IV Total 247.5 ml 55 ml Other 1000 ml Output Urine Total 600 ml 400 ml # Bowel Movements 5 Height (Feet): 5 Height (Inches): 7.00 Weight (Pounds): 95 General Appearance: no apparent distress Neck: normal alignment Cardiovascular: normal rate Respiratory/Chest: lungs clear Abdomen: normal bowel sounds Objective Current Medications Medications (Trade) Dose Ordered Sig/Mar Route PRN Reason Start Time Stop Time Status Last Admin Dose Admin Acetaminophen/ Hydrocodone Bitart ([place] 5/325) 1 tab Q6H PRN ORAL For Pain 02/22/19 01:30 03/01/19 01:29 02/24/19 17:14 Amlodipine Besylate (Norvasc) 5 mg DAILY ORAL 02/22/19 09:00 03/24/19 08:59 02/24/19 08:38 Aspirin (Ecotrin) 81 mg DAILY ORAL 02/22/19 09:00 03/24/19 08:59 02/24/19 08:38 Atorvastatin Calcium (Lipitor) 10 mg BEDTIME ORAL 02/22/19 21:00 03/24/19 20:59 02/24/19 21:33 Dextrose (Dextrose 50%) 25 ml Q30M PRN IV Hypoglycemia 02/22/19 01:30 03/24/19 01:29 Dextrose (Dextrose 50%) 50 ml Q30M PRN IV Hypoglycemia 02/22/19 01:30 03/24/19 01:29 Heparin Sodium (Porcine) (Heparin 5000 units/ml) 5,000 units EVERY 12 HOURS SUBQ 02/22/19 09:00 03/24/19 08:59 02/24/19 21:34 Insulin Aspart (NovoLOG) BEFORE MEALS AND HS SUBQ 02/22/19 06:30 03/24/19 06:29 02/25/19 06:12 Insulin Detemir (Levemir) 12 units DAILY SUBQ 02/22/19 09:00 03/24/19 08:59 02/24/19 08:39 Meropenem 500 mg/ Sodium Chloride 55 ml @ 110 mls/hr EVERY 8 HOURS IVPB 02/24/19 14:00 03/01/19 13:59 02/25/19 05:18 Nateglinide (Starlix) 60 mg TIAC ORAL 02/23/19 16:30 03/25/19 16:29 02/25/19 06:08 Sitagliptin Phosphate (Januvia) 50 mg ACBREAKFAST ORAL 02/22/19 06:30 03/24/19 06:29 02/25/19 06:08 Vancomycin HCl (Vanco rx to dose) 1 ea DAILY PRN MISC Per rx protocol 02/22/19 14:45 03/24/19 14:44 Vancomycin HCl 500 mg/Dextrose 110 ml @ 110 mls/hr Q24H IVPB 02/23/19 17:00 02/28/19 16:59 02/24/19 16:55 Zolpidem Tartrate (Ambien) 5 mg HSPRN PRN ORAL Insomnia 02/22/19 01:30 03/01/19 01:29 Luisito Quintero MD Feb 25, 2019 06:48
--- NOTE | 2019-02-25 07:47 | NUR ---
HAND-OFF: Report given to LAVERNE Awan.
--- NOTE | 2019-02-25 07:47 | NUR ---
NURSE NOTES:intact Patient is awake and alert to name.Respirations are unlabored.IV to the right arm intact.Sacral dressings clean and intact.Breakfast at beside,will assist patient.Bed alarm is on,call light within reach.
--- NOTE | 2019-02-25 09:02 | CDS Physician Query ---
Clarification is required for compliance, coding accuracy, and to reflect severity of illness for this patient Dear Dr. Rain, Date: 02.25.19 CDS Name Glen Sy Documentation supports: cachexia,and protein-calorie malnutrition, BMI 14.9 Please select the most appropriate option: [] Protein/Calorie Malnutrition [] Mild [] Moderate [] Severe Present on Admission: [ ] Yes [ ] No [ ] Clinically Undetermined Physician signature Date Please also document in your Progress Notes and/or Discharge Summary and indicate if the condition was present on admission. JIMID
[2019-02-25] MEDS: Aspirin EC 81mg tab ORAL SCH (09:52)
[2019-02-25] MEDS: Heparin 5000 units/ml inj SUBQ SCH ×2 (09:53→21:15)
[2019-02-25] MEDS: Levemir Flexpen SUBQ SCH (09:58)
--- NOTE | 2019-02-25 10:25 | General Progress Note ---
Assessment/Plan Problem List: (1) UTI (urinary tract infection) ICD Codes: N39.0 - Urinary tract infection, site not specified SNOMED: 00028541 (2) HTN (hypertension) ICD Codes: I10 - Essential (primary) hypertension SNOMED: 49169527 (3) DM (diabetes mellitus) ICD Codes: E11.9 - Type 2 diabetes mellitus without complications SNOMED: 97461213 (4) Non-healing wound SNOMED: 239882283 Assessment/Plan: abxs adjust DM meds pain management follow labs Discussed with outdoor emergency care technician Subjective Allergies: Coded Allergies: No Known Allergies (Unverified , 05/08/12) Subjective feels ok Objective Last 24 Hour Vital Signs Date Time Temp Pulse Resp B/P (MAP) Pulse Ox O2 Delivery O2 Flow Rate FiO2 02/25/19 09:52 88 128/65 02/25/19 09:48 88 128/65 (86) 02/25/19 04:00 97.8 87 20 105/54 (71) 96 02/25/19 00:00 98.4 96 20 130/64 (86) 100 02/24/19 21:00 Room Air 02/24/19 20:00 97.2 94 20 151/64 (93) 100 02/24/19 16:00 98.5 82 17 120/59 (79) 98 02/24/19 12:00 97.7 89 16 121/56 (77) 96 Intake and Output 02/24/19 02/25/19 19:00 07:00 Intake Total 1247.5 ml 55 ml Output Total 600 ml 400 ml Balance 647.5 ml -345 ml IV Total 247.5 ml 55 ml Other 1000 ml Output Urine Total 600 ml 400 ml # Bowel Movements 5 Height (Feet): 5 Height (Inches): 7.00 Weight (Pounds): 95 Cardiovascular: normal rate Respiratory/Chest: lungs clear Edema: no edema noted Generalized Arnulfo Rain MD Feb 25, 2019 10:25
--- NOTE | 2019-02-25 10:59 | Infectious Diseases Prog Note ---
Assessment/Plan Assessment/Plan IMPRESSION: Nonhealing pressure ulcer, wound infection and ?osteomyelitis. E. coli urinary tract infection. Hypertension, diabetes mellitus with hyperglycemia, anemia, cachexia, and protein-calorie malnutrition. MRSA carrier RECOMMENDATIONS: Continue IV vancomycin & Meropenem. We will follow up the cultures & bone scan. Subjective ROS Limited/Unobtainable: Yes Allergies: Coded Allergies: No Known Allergies (Unverified , 05/08/12) Objective Vital Signs Last 24 Hour Vital Signs Date Time Temp Pulse Resp B/P (MAP) Pulse Ox O2 Delivery O2 Flow Rate FiO2 02/25/19 09:52 88 128/65 02/25/19 09:48 88 128/65 (86) 02/25/19 08:00 97.4 95 18 137/73 (94) 96 02/25/19 04:00 97.8 87 20 105/54 (71) 96 02/25/19 00:00 98.4 96 20 130/64 (86) 100 02/24/19 21:00 Room Air 02/24/19 20:00 97.2 94 20 151/64 (93) 100 02/24/19 16:00 98.5 82 17 120/59 (79) 98 02/24/19 12:00 97.7 89 16 121/56 (77) 96 Height (Feet): 5 Height (Inches): 7.00 Weight (Pounds): 95 General Appearance: no acute distress HEENT: mucous membranes moist Respiratory/Chest: lungs clear Cardiovascular: normal rate Abdomen: soft, non tender Extremities: no edema Skin: ulcers, other - sacral stage 4 Neurologic/Psychiatric: other - sleeping Microbiology Date/Time Source Procedure Growth Status 02/22/19 23:15 Sacral Wound Gram Stain - Final Resulted 02/22/19 23:15 Wound Culture - Preliminary Staphylococcus Aureus Gram Negative Trevor Resulted Current Medications Medications (Trade) Dose Ordered Sig/Mar Route PRN Reason Start Time Stop Time Status Last Admin Dose Admin Acetaminophen/ Hydrocodone Bitart ([place] 5/325) 1 tab Q6H PRN ORAL For Pain 02/22/19 01:30 03/01/19 01:29 02/24/19 17:14 Amlodipine Besylate (Norvasc) 5 mg DAILY ORAL 02/22/19 09:00 03/24/19 08:59 02/25/19 09:52 Aspirin (Ecotrin) 81 mg DAILY ORAL 02/22/19 09:00 03/24/19 08:59 02/25/19 09:52 Atorvastatin Calcium (Lipitor) 10 mg BEDTIME ORAL 02/22/19 21:00 03/24/19 20:59 02/24/19 21:33 Dextrose (Dextrose 50%) 25 ml Q30M PRN IV Hypoglycemia 02/22/19 01:30 03/24/19 01:29 Dextrose (Dextrose 50%) 50 ml Q30M PRN IV Hypoglycemia 02/22/19 01:30 03/24/19 01:29 Heparin Sodium (Porcine) (Heparin 5000 units/ml) 5,000 units EVERY 12 HOURS SUBQ 02/22/19 09:00 03/24/19 08:59 02/25/19 09:53 Insulin Aspart (NovoLOG) BEFORE MEALS AND HS SUBQ 02/22/19 06:30 03/24/19 06:29 02/25/19 06:12 Insulin Detemir (Levemir) 12 units DAILY SUBQ 02/22/19 09:00 03/24/19 08:59 02/25/19 09:58 Meropenem 500 mg/ Sodium Chloride 55 ml @ 110 mls/hr EVERY 8 HOURS IVPB 02/24/19 14:00 03/01/19 13:59 02/25/19 05:18 Nateglinide (Starlix) 60 mg TIAC ORAL 02/23/19 16:30 03/25/19 16:29 02/25/19 06:08 Sitagliptin Phosphate (Januvia) 50 mg ACBREAKFAST ORAL 02/22/19 06:30 03/24/19 06:29 02/25/19 06:08 Vancomycin HCl (Vanco rx to dose) 1 ea DAILY PRN MISC Per rx protocol 02/22/19 14:45 03/24/19 14:44 Vancomycin HCl 500 mg/Dextrose 110 ml @ 110 mls/hr Q24H IVPB 02/23/19 17:00 02/28/19 16:59 02/24/19 16:55 Zolpidem Tartrate (Ambien) 5 mg HSPRN PRN ORAL Insomnia 02/22/19 01:30 03/01/19 01:29 Dallas Rain MD Feb 25, 2019 10:59
--- NOTE | 2019-02-25 12:24 | NUR ---
NM 3 Phase Bone Scan complete.
--- NOTE | 2019-02-25 13:54 | General Progress Note ---
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 Start alginate to the left ischial ulcer. Await prealbumin level as well as bone scan results. Continue off loading by repositioning q 2 hours. Order low airloss mattress. Once prealbumin known can determine if need nutritional intervention. No need for surgical intervention at this time. Subjective Date patient seen: Feb 25, 2019 Time patient seen: 13:50 Allergies: Coded Allergies: No Known Allergies (Unverified , 05/08/12) Subjective Follow up eval on patient with stage 4 sacral pressure injury. Patient also has left ischial ulcer. Prealbumin level pending, bone scan pending. Cultures + for staph and GNR. Objective Last 24 Hour Vital Signs Date Time Temp Pulse Resp B/P (MAP) Pulse Ox O2 Delivery O2 Flow Rate FiO2 02/25/19 12:00 98.8 92 17 130/82 (98) 96 02/25/19 09:52 88 128/65 02/25/19 09:48 88 128/65 (86) 02/25/19 09:00 Room Air 02/25/19 08:00 97.4 95 18 137/73 (94) 96 02/25/19 04:00 97.8 87 20 105/54 (71) 96 02/25/19 00:00 98.4 96 20 130/64 (86) 100 02/24/19 21:00 Room Air 02/24/19 20:00 97.2 94 20 151/64 (93) 100 02/24/19 16:00 98.5 82 17 120/59 (79) 98 Intake and Output 02/24/19 02/25/19 19:00 07:00 Intake Total 1247.5 ml 55 ml Output Total 600 ml 400 ml Balance 647.5 ml -345 ml IV Total 247.5 ml 55 ml Other 1000 ml Output Urine Total 600 ml 400 ml # Bowel Movements 5 Height (Feet): 5 Height (Inches): 7.00 Weight (Pounds): 95 General Appearance: alert Abdomen: soft Skin: other - Left ischial ulcer stage 4 with some fibrotic debris at the base. Periskin is macerated. No purulent drainage. No erythema or warmth. Sarath White MD Feb 25, 2019 13:54
--- NOTE | 2019-02-25 15:19 | Diagnostic Imaging Report ---
Indication: Nonhealing pressure ulcer Technique: IV administration 26 mCi 99 M technetium MDP. Flow, blood pool, and static images were obtained. Comparison: None. No comparison radiographs or cross-sectional images obtained reasonably Findings: Flow images demonstrate hyperemia in what is presumably the region of the sacrococcygeal junction. This is not well-demonstrated, however. There is also very some abnormal flow activity is seen in the region of the left ischium, although this is somewhat transient. On the blood pool images, there is suggestion of slight hyperemia in the region of the sacrococcygeal junction. There is some increased tracer activity in the inferior pelvis, significance of which is uncertain. On the static images, abnormal increased activity is seen in the coccyx and to lesser extent in the inferior sacrum. There is also abnormal tracer accumulation in the region of the left ischium. Unusual tracer accumulation at the inferior aspect of the gluteal soft tissues on the left on the first set of static images. Patient was reimaged with a bandage removed, and this finding is no longer evident this was consistent with contamination, presumably by urine Impression: Abnormal flow, blood pool, and static activity in the region of the sacrococcygeal junction and coccyx. This is concerning for osteomyelitis Abnormal left ischial activity on the flow and static images. Given reported history of an ulcer in this area, this is also concerning for osteomyelitis
[2019-02-25] MEDS: Vancomycin 500mg/D5W 110ml IVPB SCH ×4 (17:00→19:27)
--- NOTE | 2019-02-25 18:30 | NUR ---
NURSE NOTES: Skin care given,dressing change to sacral area,sewell catheter remains in place and draining yellow urine.bed alarm on,call light within reach.
--- NOTE | 2019-02-25 19:20 | NUR ---
HAND-OFF: Report given to Brianna GALLOWAY.
--- NOTE | 2019-02-25 19:35 | NUR ---
Received patient in bed, awake, responsive to verbal and tactile stimuli, no acute distress noted, IV site is clean dry and intact, bed bound, call light is within reach, bed is lowered, locked and alarm is on. Will continue to monitor for comfort and safety.
[2019-02-26 00:40] VITALS: BP 128/59
[2019-02-26 04:00] VITALS: BP 105/63
[2019-02-26] MEDS: Meropenem 500 MG in NS 55 ML IVPB SCH ×3 (05:06→20:46)
[2019-02-26] MEDS: Vancomycin 500mg/D5W 110ml IVPB SCH ×4 (05:56→18:57)
[2019-02-26] MEDS: NovoLOG Insulin Flexpen SUBQ SCH ×4 (06:02→20:46)
[2019-02-26] MEDS: Nateglinide 60mg tab ORAL SCH ×3 (06:22→17:15)
--- NOTE | 2019-02-26 06:33 | NUR ---
NURSE NOTES: Blood glucose is 91 in am, reached out to Dr. Quintero, per MD give Farhatuvbrian as scheduled, hold Starlix.
[2019-02-26] MEDS: sitaGLIPtin 50mg tab ORAL SCH (06:37)
--- NOTE | 2019-02-26 06:52 | General Progress Note ---
Assessment/Plan Problem List: (1) DM (diabetes mellitus) ICD Codes: E11.9 - Type 2 diabetes mellitus without complications SNOMED: 12668812 (2) HTN (hypertension) ICD Codes: I10 - Essential (primary) hypertension SNOMED: 03458974 (3) Non-healing wound SNOMED: 296093912 Status: stable Assessment/Plan: continue Levemir 12 units daily continue Starlix 60 mg ac tid - hold this am dose continue Januvia 50 mg daily continue NISS ac / hs discussed with RN and Dr Rain Subjective Allergies: Coded Allergies: No Known Allergies (Unverified , 05/08/12) Subjective events noted glucose 90 this morning after Novolog was given last night for glucose of 300 Item Value Date Time Bedside Blood Glucose 91 mg/dl 02/26/19 0638 Bedside Blood Glucose 303 mg/dl H 02/25/19 2127 Bedside Blood Glucose 140 mg/dl H 02/25/19 1654 Bedside Blood Glucose 167 mg/dl H 02/25/19 1224 Bedside Blood Glucose 156 mg/dl H 02/25/19 0958 Bedside Blood Glucose 123 mg/dl H 02/25/19 0612 Objective Last 24 Hour Vital Signs Date Time Temp Pulse Resp B/P (MAP) Pulse Ox O2 Delivery O2 Flow Rate FiO2 02/26/19 04:00 97.6 81 20 105/63 (77) 99 02/26/19 00:40 97.8 81 18 128/59 (82) 97 02/25/19 21:00 Room Air 02/25/19 20:00 97.1 86 20 132/61 (84) 99 02/25/19 16:00 98.6 90 18 121/81 (94) 96 02/25/19 12:00 98.8 92 17 130/82 (98) 96 02/25/19 09:52 88 128/65 02/25/19 09:48 88 128/65 (86) 02/25/19 09:00 Room Air 02/25/19 08:00 97.4 95 18 137/73 (94) 96 Intake and Output 02/25/19 02/26/19 19:00 07:00 Intake Total 800 ml Output Total 900 ml Balance -100 ml Other 800 ml Output Urine Total 900 ml Laboratory Tests 02/25/19 16:20: Vancomycin Level Trough 7.2 Height (Feet): 5 Height (Inches): 7.00 Weight (Pounds): 95 Neck: normal alignment Cardiovascular: normal rate Respiratory/Chest: decreased breath sounds Abdomen: normal bowel sounds Objective Current Medications Medications (Trade) Dose Ordered Sig/Mar Route PRN Reason Start Time Stop Time Status Last Admin Dose Admin Acetaminophen/ Hydrocodone Bitart ([place] 5/325) 1 tab Q6H PRN ORAL For Pain 02/22/19 01:30 03/01/19 01:29 02/24/19 17:14 Amlodipine Besylate (Norvasc) 5 mg DAILY ORAL 02/22/19 09:00 03/24/19 08:59 02/25/19 09:52 Aspirin (Ecotrin) 81 mg DAILY ORAL 02/22/19 09:00 03/24/19 08:59 02/25/19 09:52 Atorvastatin Calcium (Lipitor) 10 mg BEDTIME ORAL 02/22/19 21:00 03/24/19 20:59 02/25/19 21:14 Dextrose (Dextrose 50%) 25 ml Q30M PRN IV Hypoglycemia 02/22/19 01:30 03/24/19 01:29 Dextrose (Dextrose 50%) 50 ml Q30M PRN IV Hypoglycemia 02/22/19 01:30 03/24/19 01:29 Heparin Sodium (Porcine) (Heparin 5000 units/ml) 5,000 units EVERY 12 HOURS SUBQ 02/22/19 09:00 03/24/19 08:59 02/25/19 21:15 Insulin Aspart (NovoLOG) BEFORE MEALS AND HS SUBQ 02/22/19 06:30 03/24/19 06:29 02/25/19 21:27 Insulin Detemir (Levemir) 12 units DAILY SUBQ 02/22/19 09:00 03/24/19 08:59 02/25/19 09:58 Meropenem 500 mg/ Sodium Chloride 55 ml @ 110 mls/hr EVERY 8 HOURS IVPB 02/24/19 14:00 03/01/19 13:59 02/26/19 05:06 Nateglinide (Starlix) 60 mg TIAC ORAL 02/23/19 16:30 03/25/19 16:29 02/25/19 17:04 Sitagliptin Phosphate (Januvia) 50 mg ACBREAKFAST ORAL 02/22/19 06:30 03/24/19 06:29 02/26/19 06:37 Vancomycin HCl (Vanco rx to dose) 1 ea DAILY PRN MISC Per rx protocol 02/22/19 14:45 03/24/19 14:44 Vancomycin HCl 500 mg/Dextrose 110 ml @ 110 mls/hr Q12HR@0600,1800 IVPB 02/25/19 18:00 03/02/19 17:59 02/26/19 05:56 Zolpidem Tartrate (Ambien) 5 mg HSPRN PRN ORAL Insomnia 02/22/19 01:30 03/01/19 01:29 Luisito Quintero MD Feb 26, 2019 06:52
--- NOTE | 2019-02-26 07:12 | NUR ---
HAND-OFF: Report given to Emperatriz GALLOWAY.
--- NOTE | 2019-02-26 07:24 | NUR ---
NURSE NOTES: patient awake and alert to name,respirations are unlabored.Harris catheter in place and draining yellow urine.Saline lock right forearm intact.Sacral dressing intactBreakfast at bedside will assist patient.Bed alarm is on,call light within reach.
[2019-02-26 08:00] VITALS: BP 143/70
[2019-02-26] MEDS: Aspirin EC 81mg tab ORAL SCH (08:53)
[2019-02-26] MEDS: Heparin 5000 units/ml inj SUBQ SCH ×2 (08:54→20:45)
[2019-02-26] MEDS: Levemir Flexpen SUBQ SCH (09:05)
--- NOTE | 2019-02-26 11:21 | Infectious Diseases Prog Note ---
Assessment/Plan Assessment/Plan IMPRESSION: Nonhealing pressure ulcer, wound infection Coccyx osteomyelitis. E. coli urinary tract infection. Hypertension, diabetes mellitus with hyperglycemia, anemia, cachexia, and protein-calorie malnutrition. MRSA carrier RECOMMENDATIONS: Continue IV vancomycin & Meropenem. 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 Subjective ROS Limited/Unobtainable: Yes Gastrointestinal/Abdominal: Reports: other - pain Musculoskeletal: Reports: pain, other - in calf Allergies: Coded Allergies: No Known Allergies (Unverified , 05/08/12) Objective Vital Signs Last 24 Hour Vital Signs Date Time Temp Pulse Resp B/P (MAP) Pulse Ox O2 Delivery O2 Flow Rate FiO2 02/26/19 10:39 Room Air 02/26/19 08:53 86 136/83 02/26/19 08:00 97.7 76 14 143/70 (94) 98 02/26/19 04:00 97.6 81 20 105/63 (77) 99 02/26/19 00:40 97.8 81 18 128/59 (82) 97 02/25/19 21:00 Room Air 02/25/19 20:00 97.1 86 20 132/61 (84) 99 02/25/19 16:00 98.6 90 18 121/81 (94) 96 02/25/19 12:00 98.8 92 17 130/82 (98) 96 Height (Feet): 5 Height (Inches): 7.00 Weight (Pounds): 95 General Appearance: cachetic HEENT: mucous membranes moist Respiratory/Chest: lungs clear Cardiovascular: normal rate Abdomen: soft, non tender Extremities: no edema Skin: ulcers Neurologic/Psychiatric: alert, responsive Musculoskeletal: atrophy Laboratory Tests Test 02/25/19 16:20 Vancomycin Level Trough 7.2 ug/mL (5.0-12.0) Current Medications Medications (Trade) Dose Ordered Sig/Mar Route PRN Reason Start Time Stop Time Status Last Admin Dose Admin Acetaminophen/ Hydrocodone Bitart ([place] 5/325) 1 tab Q6H PRN ORAL For Pain 02/22/19 01:30 03/01/19 01:29 02/24/19 17:14 Amlodipine Besylate (Norvasc) 5 mg DAILY ORAL 02/22/19 09:00 03/24/19 08:59 02/26/19 08:53 Aspirin (Ecotrin) 81 mg DAILY ORAL 02/22/19 09:00 03/24/19 08:59 02/26/19 08:53 Atorvastatin Calcium (Lipitor) 10 mg BEDTIME ORAL 02/22/19 21:00 03/24/19 20:59 02/25/19 21:14 Dextrose (Dextrose 50%) 25 ml Q30M PRN IV Hypoglycemia 02/22/19 01:30 03/24/19 01:29 Dextrose (Dextrose 50%) 50 ml Q30M PRN IV Hypoglycemia 02/22/19 01:30 03/24/19 01:29 Heparin Sodium (Porcine) (Heparin 5000 units/ml) 5,000 units EVERY 12 HOURS SUBQ 02/22/19 09:00 03/24/19 08:59 02/26/19 08:54 Insulin Aspart (NovoLOG) BEFORE MEALS AND HS SUBQ 02/22/19 06:30 03/24/19 06:29 02/25/19 21:27 Insulin Detemir (Levemir) 12 units DAILY SUBQ 02/22/19 09:00 03/24/19 08:59 02/26/19 09:05 Meropenem 500 mg/ Sodium Chloride 55 ml @ 110 mls/hr EVERY 8 HOURS IVPB 02/24/19 14:00 03/01/19 13:59 02/26/19 05:06 Nateglinide (Starlix) 60 mg TIAC ORAL 02/23/19 16:30 03/25/19 16:29 02/25/19 17:04 Sitagliptin Phosphate (Januvia) 50 mg ACBREAKFAST ORAL 02/22/19 06:30 03/24/19 06:29 02/26/19 06:37 Vancomycin HCl (Vanco rx to dose) 1 ea DAILY PRN MISC Per rx protocol 02/22/19 14:45 03/24/19 14:44 Vancomycin HCl 500 mg/Dextrose 110 ml @ 110 mls/hr Q12HR@0600,1800 IVPB 02/25/19 18:00 03/02/19 17:59 02/26/19 05:56 Zolpidem Tartrate (Ambien) 5 mg HSPRN PRN ORAL Insomnia 02/22/19 01:30 03/01/19 01:29 Dallas Rain MD Feb 26, 2019 11:21
[2019-02-26] MEDS ORDERED: Lidocaine 1% Plain 30 ml INJ SCH (11:30)
[2019-02-26] MEDS ORDERED: Heparin1,000 units/500ml Premix(Conc:2 units/ml) IV SCH (11:30)
[2019-02-26 12:00] VITALS: BP 137/68
--- NOTE | 2019-02-26 12:23 | General Progress Note ---
Assessment/Plan Problem List: (1) UTI (urinary tract infection) ICD Codes: N39.0 - Urinary tract infection, site not specified SNOMED: 79152329 (2) HTN (hypertension) ICD Codes: I10 - Essential (primary) hypertension SNOMED: 92120531 (3) DM (diabetes mellitus) ICD Codes: E11.9 - Type 2 diabetes mellitus without complications SNOMED: 37242966 (4) Non-healing wound SNOMED: 725099008 Status: stable Assessment/Plan: abxs adjust DM meds pain management follow labs Discussed with healthcare project manager Subjective Allergies: Coded Allergies: No Known Allergies (Unverified , 05/08/12) Subjective in NAD Objective Last 24 Hour Vital Signs Date Time Temp Pulse Resp B/P (MAP) Pulse Ox O2 Delivery O2 Flow Rate FiO2 02/26/19 10:39 Room Air 02/26/19 08:53 86 136/83 02/26/19 08:00 97.7 76 14 143/70 (94) 98 02/26/19 04:00 97.6 81 20 105/63 (77) 99 02/26/19 00:40 97.8 81 18 128/59 (82) 97 02/25/19 21:00 Room Air 02/25/19 20:00 97.1 86 20 132/61 (84) 99 02/25/19 16:00 98.6 90 18 121/81 (94) 96 Intake and Output 02/25/19 02/26/19 19:00 07:00 Intake Total 800 ml Output Total 900 ml Balance -100 ml Other 800 ml Output Urine Total 900 ml Laboratory Tests 02/25/19 16:20: Vancomycin Level Trough 7.2 Height (Feet): 5 Height (Inches): 7.00 Weight (Pounds): 95 Cardiovascular: normal rate Respiratory/Chest: lungs clear Arnulfo Rain MD Feb 26, 2019 12:23
--- NOTE | 2019-02-26 14:10 | NUR ---
RD ASSESSMENT & RECOMMENDATIONS SEE CARE ACTIVITY FOR COMPLETE ASSESSMENT DAILY ESTIMATED NEEDS: Needs based on Wound, Underweight/ 43kg 30-40 kcals/kg 2758-8851 total kcals 1.5-2 g protein/kg 65-86 g total protein 25-30 mL/kg 6364-5815 total fluid mLs NUTRITION DIAGNOSIS: 1) Increased kcal and pro needs R/T wound healing, underweight status as evidenced by admitted w/ stage 4 sacral and lt ischial wounds, w/ generalized moderate wasting, low BMI per guidelines. 2) Altered nutrition related lab values R/T diabetes as evidenced by CURRENT DIET:CCHO MED, SOFT EASY CHEW PO DIET RECOMMENDATIONS: CCHO low / texture per SH[facility]WR[facility] + Glucerna TID w/ meals + 1 carb /high prot snacks in b/w meals ADDITIONAL RECOMMENDATIONS: 1) Re-calibrated bedscale wt, weekly wt monitoring 2) Wound care: MVI w/ min 1 tab QD Vit C 500mg BID, ZnSO4 220mg QD x 10 days Eduardo 1pkt QD added for now, increase to BID w/ good acceptance 3) Glucerna 1 tetra didi TID w/ meals added (220kcal/10g prot per didi) 4) Consider SH[facility]WR[facility] eval for appropriate texture : pt on pureed moist texture last adm in October 2018
[2019-02-26 16:00] VITALS: BP 154/66
--- NOTE | 2019-02-26 18:00 | NUR ---
NURSE NOTES: Patient resting,turned and position.IV saline lock restart in the left hand patient on IV antibiotics .patient schedule for picc line placement tomorrow 02/27/19.
--- NOTE | 2019-02-26 19:20 | NUR ---
NURSE NOTES:HAND-OFF: Report given to EZEQUIEL GALLOWAY.
--- NOTE | 2019-02-26 19:47 | NUR ---
NURSE NOTES: Received patient awake,verbal,follows simple command,resting in bed,comfortable.
[2019-02-26 20:00] VITALS: BP 115/69
[2019-02-26] MEDS: Dyna-Hex 2% Top Sol 2oz TOPIC SCH (20:00)
[2019-02-27 00:12] VITALS: BP 108/63
[2019-02-27 04:00] VITALS: BP 113/53
[2019-02-27] MEDS: Meropenem 500 MG in NS 55 ML IVPB SCH ×3 (05:40→21:57)
[2019-02-27] MEDS: sitaGLIPtin 50mg tab ORAL SCH (05:41)
[2019-02-27] MEDS: NovoLOG Insulin Flexpen SUBQ SCH ×4 (05:41→21:59)
[2019-02-27] MEDS: Nateglinide 60mg tab ORAL SCH ×3 (05:41→16:22)
[2019-02-27] MEDS: Vancomycin 500mg/D5W 110ml IVPB SCH ×4 (06:12→16:56)
--- NOTE | 2019-02-27 07:15 | NUR ---
HAND-OFF: Report given to LAVERNE Reddy.
--- NOTE | 2019-02-27 07:16 | General Progress Note ---
Assessment/Plan Problem List: (1) DM (diabetes mellitus) ICD Codes: E11.9 - Type 2 diabetes mellitus without complications SNOMED: 99328797 (2) HTN (hypertension) ICD Codes: I10 - Essential (primary) hypertension SNOMED: 95906875 (3) Non-healing wound SNOMED: 625267828 Status: stable Assessment/Plan: continue Levemir 12 units daily continue Starlix 60 mg ac tid - hold this am dose continue Januvia 50 mg daily continue NISS ac / hs Subjective Allergies: Coded Allergies: No Known Allergies (Unverified , 05/08/12) All Systems: reviewed and negative except above Subjective events noted Item Value Date Time Bedside Blood Glucose 174 mg/dl H 02/26/19 1721 Bedside Blood Glucose 183 mg/dl H 02/26/19 1229 Bedside Blood Glucose 99 mg/dl 02/26/19 0905 Bedside Blood Glucose 91 mg/dl 02/26/19 0638 Objective Last 24 Hour Vital Signs Date Time Temp Pulse Resp B/P (MAP) Pulse Ox O2 Delivery O2 Flow Rate FiO2 02/27/19 04:00 98.4 84 16 113/53 (73) 100 02/27/19 00:12 98.2 94 17 108/63 (78) 96 02/26/19 20:07 Room Air 02/26/19 20:00 98.4 91 18 115/69 (84) 96 02/26/19 16:00 97.4 87 18 154/66 (95) 100 02/26/19 12:00 96.1 73 14 137/68 (91) 100 02/26/19 10:39 Room Air 02/26/19 08:53 86 136/83 02/26/19 08:00 97.7 76 14 143/70 (94) 98 Intake and Output 02/26/19 02/27/19 18:59 06:59 Intake Total 820 ml Output Total 1750 ml Balance -930 ml IV Total 220 ml Other 600 ml Output Urine Total 1750 ml # Voids 1 # Bowel Movements 5 Laboratory Tests 02/27/19 05:00: Vancomycin Level Trough 14.4H Height (Feet): 5 Height (Inches): 7.00 Weight (Pounds): 124 General Appearance: no apparent distress Neck: normal alignment Cardiovascular: normal rate Respiratory/Chest: lungs clear Abdomen: normal bowel sounds Objective Current Medications Medications (Trade) Dose Ordered Sig/Mar Route PRN Reason Start Time Stop Time Status Last Admin Dose Admin Acetaminophen/ Hydrocodone Bitart ([place] 5/325) 1 tab Q6H PRN ORAL For Pain 02/22/19 01:30 03/01/19 01:29 02/24/19 17:14 Amlodipine Besylate (Norvasc) 5 mg DAILY ORAL 02/22/19 09:00 03/24/19 08:59 02/26/19 08:53 Aspirin (Ecotrin) 81 mg DAILY ORAL 02/22/19 09:00 03/24/19 08:59 02/26/19 08:53 Atorvastatin Calcium (Lipitor) 10 mg BEDTIME ORAL 02/22/19 21:00 03/24/19 20:59 02/26/19 20:45 Chlorhexidine Gluconate (Vida-Hex 2%) 1 applic DAILY@2000 TOPIC 02/26/19 20:00 03/28/19 19:59 Dextrose (Dextrose 50%) 25 ml Q30M PRN IV Hypoglycemia 02/22/19 01:30 03/24/19 01:29 Dextrose (Dextrose 50%) 50 ml Q30M PRN IV Hypoglycemia 02/22/19 01:30 03/24/19 01:29 Heparin Sodium (Porcine) (Heparin 5000 units/ml) 5,000 units EVERY 12 HOURS SUBQ 02/22/19 09:00 03/24/19 08:59 02/26/19 20:45 Insulin Aspart (NovoLOG) BEFORE MEALS AND HS SUBQ 02/22/19 06:30 03/24/19 06:29 02/27/19 05:41 Insulin Detemir (Levemir) 12 units DAILY SUBQ 02/22/19 09:00 03/24/19 08:59 02/26/19 09:05 Meropenem 500 mg/ Sodium Chloride 55 ml @ 110 mls/hr EVERY 8 HOURS IVPB 02/24/19 14:00 03/01/19 13:59 02/27/19 05:40 Nateglinide (Starlix) 60 mg TIAC ORAL 02/23/19 16:30 03/25/19 16:29 02/27/19 05:41 Sitagliptin Phosphate (Januvia) 50 mg ACBREAKFAST ORAL 02/22/19 06:30 03/24/19 06:29 02/27/19 05:41 Vancomycin HCl (Vanco rx to dose) 1 ea DAILY PRN MISC Per rx protocol 02/22/19 14:45 03/24/19 14:44 Vancomycin HCl 500 mg/Dextrose 110 ml @ 110 mls/hr Q12HR@0600,1800 IVPB 02/25/19 18:00 03/02/19 17:59 02/27/19 06:12 Zolpidem Tartrate (Ambien) 5 mg HSPRN PRN ORAL Insomnia 02/22/19 01:30 03/01/19 01:29 Luisito Quintero MD Feb 27, 2019 07:16
[2019-02-27 08:00] VITALS: BP 99/57
--- NOTE | 2019-02-27 08:05 | NUR ---
NURSE NOTES: Patient received in stable condition, resting in bed. Currently being fed breakfast by PRESCHOOL TEACHER AIDE. Patient is breathing unlabored on room air. Scheduled for PICC line placement today at 0900 per automation control technician. Harris catheter patent and intact. Bed locked in lowest position, HOB elevated. Call light placed within reach, will continue to monitor.
[2019-02-27] MEDS: Aspirin EC 81mg tab ORAL SCH (08:24)
[2019-02-27] MEDS: Levemir Flexpen SUBQ SCH (08:27)
[2019-02-27] MEDS: Heparin 5000 units/ml inj SUBQ SCH ×2 (08:29→22:00)
--- NOTE | 2019-02-27 09:14 | NUR ---
NURSE NOTES: Patient off the unit for PICC line placement.
--- NOTE | 2019-02-27 10:11 | NUR ---
NURSE NOTES: Patient returned to the unit with PICC line on right upper arm.
--- NOTE | 2019-02-27 10:33 | NUR ---
RADIOLOGY NOTE: RIGHT UPPER EXTREMITY PICC PLACED.
--- NOTE | 2019-02-27 11:53 | Diagnostic Imaging Report ---
Indications: Needs long-term IV access Technique: Ultrasound confirms patent compressible right basilic vein. Total sterile technique, including sterile probe cover and sterile gel, hat, mask, sterile gown, large sterile drape, and preparation with 2% chlorhexidine utilized. Local anesthesia with 1% lidocaine. Under real-time ultrasound guidance, puncture basilic vein using 21-gauge needle, documented and archived, passage 0.018 guidewire under direct fluoroscopy, which was used to determine appropriate catheter length, exchange for 4 Sinhala peel-away sheath. 4 Sinhala Bard dual-lumen power PICC cut to 41 cm. It was inserted through the peel-away sheath. Peel-away sheath and guidewire removed. Catheter fixed to the skin. Both catheter ports aspirated and flushed. Patient tolerated procedure well, without immediate complication. Digital radiograph documents satisfactory catheter tip position, at the cavoatrial junction. Total fluoroscopy time 29.3 seconds. Total dose area product [id number] [id number] Total number of images: 1 Impression: Successful placement of right arm PICC under sonographic and fluoroscopic guidance, as described above.
[2019-02-27 12:00] VITALS: BP 98/50
--- NOTE | 2019-02-27 12:18 | General Progress Note ---
Assessment/Plan Problem List: (1) UTI (urinary tract infection) ICD Codes: N39.0 - Urinary tract infection, site not specified SNOMED: 40976222 (2) HTN (hypertension) ICD Codes: I10 - Essential (primary) hypertension SNOMED: 21192476 (3) DM (diabetes mellitus) ICD Codes: E11.9 - Type 2 diabetes mellitus without complications SNOMED: 71986068 (4) Non-healing wound SNOMED: 403988931 Status: stable Assessment/Plan: abxs picc line pain management follow labs Discussed with post acute care nurse practitioner Subjective Allergies: Coded Allergies: No Known Allergies (Unverified , 05/08/12) Subjective in NAD Objective Last 24 Hour Vital Signs Date Time Temp Pulse Resp B/P (MAP) Pulse Ox O2 Delivery O2 Flow Rate FiO2 02/27/19 09:00 Room Air 02/27/19 08:24 84 113/53 02/27/19 08:00 98.2 106 18 99/57 (71) 95 02/27/19 04:00 98.4 84 16 113/53 (73) 100 02/27/19 00:12 98.2 94 17 108/63 (78) 96 02/26/19 20:07 Room Air 02/26/19 20:00 98.4 91 18 115/69 (84) 96 02/26/19 16:00 97.4 87 18 154/66 (95) 100 Intake and Output 02/26/19 02/27/19 19:00 07:00 Intake Total 820 ml Output Total 1750 ml Balance -930 ml IV Total 220 ml Other 600 ml Output Urine Total 1750 ml # Voids 1 # Bowel Movements 5 Laboratory Tests 02/27/19 05:00: Vancomycin Level Trough 14.4H Height (Feet): 5 Height (Inches): 7.00 Weight (Pounds): 124 Cardiovascular: normal rate Respiratory/Chest: lungs clear Edema: no edema noted Generalized Arnulfo Rain MD Feb 27, 2019 12:18
--- NOTE | 2019-02-27 13:44 | Infectious Diseases Prog Note ---
Assessment/Plan Assessment/Plan IMPRESSION: Nonhealing pressure ulcer, wound infection Coccyx osteomyelitis. E. coli urinary tract infection. Hypertension, diabetes mellitus with hyperglycemia, anemia, cachexia, and protein-calorie malnutrition. MRSA carrier RECOMMENDATIONS: Continue IV vancomycin X 36 days Continue Meropenem hospital in SNF Ertapenem 1 gram daily X 36 days Weekly Vancomycin & BMP in SNF Subjective ROS Limited/Unobtainable: Yes Gastrointestinal/Abdominal: Reports: other - abdominal pain Allergies: Coded Allergies: No Known Allergies (Unverified , 05/08/12) Objective Vital Signs Last 24 Hour Vital Signs Date Time Temp Pulse Resp B/P (MAP) Pulse Ox O2 Delivery O2 Flow Rate FiO2 02/27/19 12:00 98.2 91 17 98/50 (66) 98 02/27/19 09:00 Room Air 02/27/19 08:24 84 113/53 02/27/19 08:00 98.2 106 18 99/57 (71) 95 02/27/19 04:00 98.4 84 16 113/53 (73) 100 02/27/19 00:12 98.2 94 17 108/63 (78) 96 02/26/19 20:07 Room Air 02/26/19 20:00 98.4 91 18 115/69 (84) 96 02/26/19 16:00 97.4 87 18 154/66 (95) 100 Height (Feet): 5 Height (Inches): 7.00 Weight (Pounds): 124 General Appearance: no acute distress HEENT: mucous membranes moist Respiratory/Chest: lungs clear Cardiovascular: normal rate, other - left arm PICC line Abdomen: soft, non tender Extremities: no edema Skin: ulcers Laboratory Tests Test 02/27/19 05:00 Vancomycin Level Trough 14.4 ug/mL (5.0-12.0) H Current Medications Medications (Trade) Dose Ordered Sig/Mar Route PRN Reason Start Time Stop Time Status Last Admin Dose Admin Acetaminophen/ Hydrocodone Bitart ([place] 5/325) 1 tab Q6H PRN ORAL For Pain 02/22/19 01:30 03/01/19 01:29 02/24/19 17:14 Amlodipine Besylate (Norvasc) 5 mg DAILY ORAL 02/22/19 09:00 03/24/19 08:59 02/27/19 08:24 Aspirin (Ecotrin) 81 mg DAILY ORAL 02/22/19 09:00 03/24/19 08:59 02/27/19 08:24 Atorvastatin Calcium (Lipitor) 10 mg BEDTIME ORAL 02/22/19 21:00 03/24/19 20:59 02/26/19 20:45 Chlorhexidine Gluconate (Vida-Hex 2%) 1 applic DAILY@2000 TOPIC 02/26/19 20:00 03/28/19 19:59 Dextrose (Dextrose 50%) 25 ml Q30M PRN IV Hypoglycemia 02/22/19 01:30 03/24/19 01:29 Dextrose (Dextrose 50%) 50 ml Q30M PRN IV Hypoglycemia 02/22/19 01:30 03/24/19 01:29 Heparin Sodium (Porcine) (Heparin 5000 units/ml) 5,000 units EVERY 12 HOURS SUBQ 02/22/19 09:00 03/24/19 08:59 02/26/19 20:45 Insulin Aspart (NovoLOG) BEFORE MEALS AND HS SUBQ 02/22/19 06:30 03/24/19 06:29 02/27/19 11:16 Insulin Detemir (Levemir) 12 units DAILY SUBQ 02/22/19 09:00 03/24/19 08:59 02/27/19 08:27 Meropenem 500 mg/ Sodium Chloride 55 ml @ 110 mls/hr EVERY 8 HOURS IVPB 02/24/19 14:00 03/01/19 13:59 02/27/19 05:40 Nateglinide (Starlix) 60 mg TIAC ORAL 02/23/19 16:30 03/25/19 16:29 02/27/19 11:12 Sitagliptin Phosphate (Januvia) 50 mg ACBREAKFAST ORAL 02/22/19 06:30 03/24/19 06:29 02/27/19 05:41 Vancomycin HCl (Vanco rx to dose) 1 ea DAILY PRN MISC Per rx protocol 02/22/19 14:45 03/24/19 14:44 Vancomycin HCl 500 mg/Dextrose 110 ml @ 110 mls/hr Q12HR@0600,1800 IVPB 02/25/19 18:00 03/02/19 17:59 02/27/19 06:12 Zolpidem Tartrate (Ambien) 5 mg HSPRN PRN ORAL Insomnia 02/22/19 01:30 03/01/19 01:29 Dallas Rain MD Feb 27, 2019 13:44
[2019-02-27 16:00] VITALS: BP 103/62
--- NOTE | 2019-02-27 18:54 | NUR ---
HAND-OFF: Report given to Pearl GALLOWAY.
[2019-02-27 20:00] VITALS: BP 156/79
--- NOTE | 2019-02-27 20:45 | NUR ---
NURSE NOTES: Received pt in bed, awake,alert and verbal. Breathing on room air. no acute distress noted. Picc line on right upper arm is patent and intact. F/C is patent and draining yellow urine. Fall precaution is in place. Bed in low and locked position. Bed alarm is on. Call light within reach. pt will be monitored.
--- NOTE | 2019-02-27 20:45 | NUR ---
NURSE NOTES: Pt received from Pennie Donovan RN in stable condition. Pt is awake and verbal. No acute distress noted. Pt has sacral wound. Pt is on air loss matrass, pt will be turned frequently. Dressing will be changed if soiled. Fall precaution in place. Bed locked low in position,side rails up and call light within reach. Bed alarm on. Pt will be monitored. Trainee, Stacy Borges RN will be assisting with the care of this patient.
[2019-02-27] MEDS: Dyna-Hex 2% Top Sol 2oz TOPIC SCH (21:56)
[2019-02-28] VITALS: BP 117/69
--- NOTE | 2019-02-28 01:25 | NUR ---
NURSE NOTES: Pt is in bed asleep. Evening meds given as ordered and flushed the Piccline. Cleaned as needed and repositioned the Pt frequently. Bed in low and locked position. call light within reach. will continue to monitor the pt.
[2019-02-28 04:00] VITALS: BP 122/75
[2019-02-28] MEDS: Meropenem 500 MG in NS 55 ML IVPB SCH ×3 (05:20→21:03)
[2019-02-28] MEDS: NovoLOG Insulin Flexpen SUBQ SCH ×4 (05:58→21:05)
[2019-02-28] MEDS: Vancomycin 500mg/D5W 110ml IVPB SCH ×4 (06:35→17:57)
[2019-02-28] MEDS: sitaGLIPtin 50mg tab ORAL SCH (06:35)
[2019-02-28] MEDS: Nateglinide 60mg tab ORAL SCH ×3 (06:35→17:25)
[2019-02-28 06:41] LABS: BASOPHILS % (AUTO) 0.6 % (0.0-2.0); EOSINOPHILS % (AUTO) 2.2 % (0.0-3.0); HEMATOCRIT 28.8 % (37.0-47.0); HEMOGLOBIN 9.3 G/DL (12.0-16.0); LYMPHOCYTES % (AUTO) 25.5 % (20.0-45.0); MEAN CORPUSCULAR VOLUME 87 FL (80-99); MONOCYTES % (AUTO) 5.6 % (1.0-10.0); NEUTROPHILS % (AUTO) 66.1 % (45.0-75.0); PLATELET COUNT 359 K/UL (150-450); RED CELL DISTRIBUTION WIDTH 12.5 % (11.6-14.8); WHITE BLOOD COUNT 12.2 K/UL (4.8-10.8)
[2019-02-28 07:13] LABS: ANION GAP 7 mmol/L (5-15); BLOOD UREA NITROGEN 18 mg/dL (7-18); CALCIUM 9.3 MG/DL (8.5-10.1); CARBON DIOXIDE 28 MMOL/L (21-32); CHLORIDE 106 MMOL/L (98-107); CREATININE 0.7 MG/DL (0.55-1.30); POTASSIUM 4.4 MMOL/L (3.5-5.1); SODIUM 141 MMOL/L (136-145)
--- NOTE | 2019-02-28 07:15 | NUR ---
HAND-OFF: Report given to Marianne GALLOWAY and Gaby Iverson RN.
--- NOTE | 2019-02-28 07:20 | NUR ---
NURSE NOTES: Received report from LAVERNE Kumar. Pt is A/Ox2, in bed, on RA, PICC line intact and running fluids. No apparent distress noted. Bed locked in lowest position, side rails up, call light within reach.
[2019-02-28 08:00] VITALS: BP 175/88
[2019-02-28] MEDS: Aspirin EC 81mg tab ORAL SCH (09:49)
[2019-02-28] MEDS: Heparin 5000 units/ml inj SUBQ SCH ×2 (09:50→21:04)
--- NOTE | 2019-02-28 09:57 | General Progress Note ---
Assessment/Plan Problem List: (1) UTI (urinary tract infection) ICD Codes: N39.0 - Urinary tract infection, site not specified SNOMED: 21695184 (2) HTN (hypertension) ICD Codes: I10 - Essential (primary) hypertension SNOMED: 19346843 (3) DM (diabetes mellitus) ICD Codes: E11.9 - Type 2 diabetes mellitus without complications SNOMED: 52242693 (4) Non-healing wound SNOMED: 294748423 Status: stable Assessment/Plan: abxs pain management follow labs Discussed with clinical care leader Subjective Allergies: Coded Allergies: No Known Allergies (Unverified , 05/08/12) Subjective in NAD Objective Last 24 Hour Vital Signs Date Time Temp Pulse Resp B/P (MAP) Pulse Ox O2 Delivery O2 Flow Rate FiO2 02/28/19 04:00 98.8 96 17 122/75 (91) 96 02/28/19 00:00 99.0 98 19 117/69 (85) 97 02/27/19 21:00 Room Air 02/27/19 20:00 97.9 93 19 156/79 (104) 100 02/27/19 16:00 97.9 89 18 103/62 (76) 97 02/27/19 12:00 98.2 91 17 98/50 (66) 98 Intake and Output 02/27/19 02/28/19 18:59 06:59 Intake Total 650 ml Balance 650 ml Intake Oral 540 ml IV Total 110 ml # Voids 2 # Bowel Movements 2 1 Laboratory Tests 02/28/19 05:00: White Blood Count 12.2H, Red Blood Count 3.30L, Hemoglobin 9.3L, Hematocrit 28.8L, Mean Corpuscular Volume 87, Mean Corpuscular Hemoglobin 28.2, Mean Corpuscular Hemoglobin Concent 32.4, Red Cell Distribution Width 12.5, Platelet Count 359, Mean Platelet Volume 7.5, Neutrophils (%) (Auto) 66.1, Lymphocytes (% ) (Auto) 25.5, Monocytes (%) (Auto) 5.6, Eosinophils (%) (Auto) 2.2, Basophils ( %) (Auto) 0.6, Sodium Level 141, Potassium Level 4.4, Chloride Level 106, Carbon Dioxide Level 28, Anion Gap 7, Blood Urea Nitrogen 18, Creatinine 0.7, Estimat Glomerular Filtration Rate , Glucose Level 150H, Calcium Level 9.3, Phosphorus Level 3.0, Magnesium Level 1.8, Vitamin D 25-Hydroxy [Pending], 25- Hydroxy Vitamin D2 [Pending], 25-Hydroxy Vitamin D3 [Pending] Height (Feet): 5 Height (Inches): 7.00 Weight (Pounds): 124 Cardiovascular: normal rate Respiratory/Chest: lungs clear Edema: no edema noted Generalized Arnulfo Rain MD Feb 28, 2019 09:57
[2019-02-28] MEDS: Levemir Flexpen SUBQ SCH (10:00)
--- NOTE | 2019-02-28 10:00 | NUR ---
NURSE NOTES: Wound care performed to sacral and left buttocks per order. No wound to Left ischial noted
--- NOTE | 2019-02-28 11:59 | NUR ---
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 CURRENT DIET:CCHO MED, SOFT EASY CHEW PO DIET RECOMMENDATIONS: CCHO low / texture per SHIPPING SUPPORT + Glucerna TID w/ meals ADDITIONAL RECOMMENDATIONS: 1) Re-calibrated bedscale wt, weekly wt monitoring 2) Wound care: MVI w/ min 1 tab QD Vit C 500mg BID, ZnSO4 220mg QD x 10 days Eduardo 1pkt QD added for now, increase to BID w/ good acceptance 3) Glucerna 1 tetra didi TID w/ meals added (220kcal/10g prot per didi) 4) Consider SHIPPING SUPPORT eval for appropriate texture pt on pureed moist texture last adm in October 2018
[2019-02-28 12:00] VITALS: BP 158/77
--- NOTE | 2019-02-28 13:38 | General Progress Note ---
Assessment/Plan Problem List: (1) DM (diabetes mellitus) ICD Codes: E11.9 - Type 2 diabetes mellitus without complications SNOMED: 14006281 (2) HTN (hypertension) ICD Codes: I10 - Essential (primary) hypertension SNOMED: 01097585 (3) Non-healing wound SNOMED: 703258311 Status: stable Assessment/Plan: continue Levemir 12 units daily continue Starlix 60 mg ac tid - hold this am dose continue Januvia 50 mg daily continue NISS ac / hs Subjective Allergies: Coded Allergies: No Known Allergies (Unverified , 05/08/12) All Systems: reviewed and negative except above Subjective events noted Item Value Date Time Bedside Blood Glucose 212 mg/dl H 02/28/19 1217 Bedside Blood Glucose 277 mg/dl H 02/28/19 1000 Bedside Blood Glucose 71 mg/dl 02/28/19 0630 Bedside Blood Glucose 116 mg/dl 02/27/19 2159 Bedside Blood Glucose 108 mg/dl 02/27/19 1630 Bedside Blood Glucose 247 mg/dl H 02/27/19 1116 Bedside Blood Glucose 169 mg/dl H 02/27/19 0827 Objective Last 24 Hour Vital Signs Date Time Temp Pulse Resp B/P (MAP) Pulse Ox O2 Delivery O2 Flow Rate FiO2 02/28/19 12:00 97.5 80 18 158/77 (104) 99 02/28/19 09:49 88 175/88 02/28/19 09:00 Room Air 02/28/19 08:00 98.6 88 19 175/88 (117) 96 02/28/19 04:00 98.8 96 17 122/75 (91) 96 02/28/19 00:00 99.0 98 19 117/69 (85) 97 02/27/19 21:00 Room Air 02/27/19 20:00 97.9 93 19 156/79 (104) 100 02/27/19 16:00 97.9 89 18 103/62 (76) 97 Intake and Output 02/27/19 02/28/19 18:59 06:59 Intake Total 650 ml Balance 650 ml Intake Oral 540 ml IV Total 110 ml # Voids 2 # Bowel Movements 2 1 Laboratory Tests 02/28/19 05:00: White Blood Count 12.2H, Red Blood Count 3.30L, Hemoglobin 9.3L, Hematocrit 28.8L, Mean Corpuscular Volume 87, Mean Corpuscular Hemoglobin 28.2, Mean Corpuscular Hemoglobin Concent 32.4, Red Cell Distribution Width 12.5, Platelet Count 359, Mean Platelet Volume 7.5, Neutrophils (%) (Auto) 66.1, Lymphocytes (% ) (Auto) 25.5, Monocytes (%) (Auto) 5.6, Eosinophils (%) (Auto) 2.2, Basophils ( %) (Auto) 0.6, Sodium Level 141, Potassium Level 4.4, Chloride Level 106, Carbon Dioxide Level 28, Anion Gap 7, Blood Urea Nitrogen 18, Creatinine 0.7, Estimat Glomerular Filtration Rate , Glucose Level 150H, Calcium Level 9.3, Phosphorus Level 3.0, Magnesium Level 1.8, Vitamin D 25-Hydroxy [Pending], 25- Hydroxy Vitamin D2 [Pending], 25-Hydroxy Vitamin D3 [Pending] Height (Feet): 5 Height (Inches): 7.00 Weight (Pounds): 124 General Appearance: no apparent distress Neck: normal alignment Cardiovascular: normal rate Respiratory/Chest: lungs clear Abdomen: normal bowel sounds Objective Current Medications Medications (Trade) Dose Ordered Sig/Mar Route PRN Reason Start Time Stop Time Status Last Admin Dose Admin Acetaminophen/ Hydrocodone Bitart ([place] 5/325) 1 tab Q6H PRN ORAL For Pain 02/22/19 01:30 03/01/19 01:29 02/24/19 17:14 Amlodipine Besylate (Norvasc) 5 mg DAILY ORAL 02/22/19 09:00 03/24/19 08:59 02/28/19 09:49 Aspirin (Ecotrin) 81 mg DAILY ORAL 02/22/19 09:00 03/24/19 08:59 02/28/19 09:49 Atorvastatin Calcium (Lipitor) 10 mg BEDTIME ORAL 02/22/19 21:00 03/24/19 20:59 02/27/19 21:56 Chlorhexidine Gluconate (Vida-Hex 2%) 1 applic DAILY@1999 TOPIC 02/26/19 20:00 03/28/19 19:59 02/27/19 21:56 Dextrose (Dextrose 50%) 25 ml Q30M PRN IV Hypoglycemia 02/22/19 01:30 03/24/19 01:29 Dextrose (Dextrose 50%) 50 ml Q30M PRN IV Hypoglycemia 02/22/19 01:30 03/24/19 01:29 Heparin Sodium (Porcine) (Heparin 5000 units/ml) 5,000 units EVERY 12 HOURS SUBQ 02/22/19 09:00 03/24/19 08:59 02/28/19 09:50 Insulin Aspart (NovoLOG) BEFORE MEALS AND HS SUBQ 02/22/19 06:30 03/24/19 06:29 02/28/19 12:17 Insulin Detemir (Levemir) 12 units DAILY SUBQ 02/22/19 09:00 03/24/19 08:59 02/28/19 10:00 Meropenem 500 mg/ Sodium Chloride 55 ml @ 110 mls/hr EVERY 8 HOURS IVPB 02/24/19 14:00 03/05/19 13:59 02/28/19 05:20 Nateglinide (Starlix) 60 mg TIAC ORAL 02/23/19 16:30 03/25/19 16:29 02/28/19 12:15 Sitagliptin Phosphate (Januvia) 50 mg ACBREAKFAST ORAL 02/22/19 06:30 03/24/19 06:29 02/28/19 06:35 Vancomycin HCl (Vanco rx to dose) 1 ea DAILY PRN MISC Per rx protocol 02/22/19 14:45 03/24/19 14:44 Vancomycin HCl 500 mg/Dextrose 110 ml @ 110 mls/hr Q12HR@0600,1800 IVPB 02/25/19 18:00 04/04/19 23:59 02/28/19 06:35 Zolpidem Tartrate (Ambien) 5 mg HSPRN PRN ORAL Insomnia 02/22/19 01:30 03/01/19 01:29 Luisito Quintero MD Feb 28, 2019 13:37
--- NOTE | 2019-02-28 14:09 | Infectious Diseases Prog Note ---
Assessment/Plan Assessment/Plan IMPRESSION: Nonhealing pressure ulcer, wound infection Coccyx osteomyelitis. E. coli urinary tract infection. Hypertension, diabetes mellitus with hyperglycemia, anemia, cachexia, and protein-calorie malnutrition. MRSA carrier RECOMMENDATIONS: Continue IV vancomycin X 35 days Continue Meropenem hospital in SNF Ertapenem 1 gram daily X 35 days Weekly Vancomycin & BMP in SNF Subjective ROS Limited/Unobtainable: Yes Constitutional: Denies: fever Allergies: Coded Allergies: No Known Allergies (Unverified , 05/08/12) Objective Vital Signs Last 24 Hour Vital Signs Date Time Temp Pulse Resp B/P (MAP) Pulse Ox O2 Delivery O2 Flow Rate FiO2 02/28/19 12:00 97.5 80 18 158/77 (104) 99 02/28/19 09:49 88 175/88 02/28/19 09:00 Room Air 02/28/19 08:00 98.6 88 19 175/88 (117) 96 02/28/19 04:00 98.8 96 17 122/75 (91) 96 02/28/19 00:00 99.0 98 19 117/69 (85) 97 02/27/19 21:00 Room Air 02/27/19 20:00 97.9 93 19 156/79 (104) 100 02/27/19 16:00 97.9 89 18 103/62 (76) 97 Height (Feet): 5 Height (Inches): 7.00 Weight (Pounds): 124 General Appearance: no acute distress HEENT: anicteric Respiratory/Chest: lungs clear Cardiovascular: normal rate Abdomen: soft, non tender Extremities: no edema Skin: ulcers Neurologic/Psychiatric: other - sleeping Musculoskeletal: atrophy Laboratory Tests Test 02/28/19 05:00 White Blood Count 12.2 K/UL (4.8-10.8) H Red Blood Count 3.30 M/UL (4.20-5.40) L Hemoglobin 9.3 G/DL (12.0-16.0) L Hematocrit 28.8 % (37.0-47.0) L Mean Corpuscular Volume 87 FL (80-99) Mean Corpuscular Hemoglobin 28.2 PG (27.0-31.0) Mean Corpuscular Hemoglobin Concent 32.4 G/DL (32.0-36.0) Red Cell Distribution Width 12.5 % (11.6-14.8) Platelet Count 359 K/UL (150-450) Mean Platelet Volume 7.5 FL (6.5-10.1) Neutrophils (%) (Auto) 66.1 % (45.0-75.0) Lymphocytes (%) (Auto) 25.5 % (20.0-45.0) Monocytes (%) (Auto) 5.6 % (1.0-10.0) Eosinophils (%) (Auto) 2.2 % (0.0-3.0) Basophils (%) (Auto) 0.6 % (0.0-2.0) Sodium Level 141 MMOL/L (136-145) Potassium Level 4.4 MMOL/L (3.5-5.1) Chloride Level 106 MMOL/L (98-107) Carbon Dioxide Level 28 MMOL/L (21-32) Anion Gap 7 mmol/L (5-15) Blood Urea Nitrogen 18 mg/dL (7-18) Creatinine 0.7 MG/DL (0.55-1.30) Estimat Glomerular Filtration Rate mL/min (>60) Glucose Level 150 MG/DL (74-106) H Calcium Level 9.3 MG/DL (8.5-10.1) Phosphorus Level 3.0 MG/DL (2.5-4.9) Magnesium Level 1.8 MG/DL (1.8-2.4) Vitamin D 25-Hydroxy Pending 25-Hydroxy Vitamin D2 Pending 25-Hydroxy Vitamin D3 Pending Current Medications Medications (Trade) Dose Ordered Sig/Mar Route PRN Reason Start Time Stop Time Status Last Admin Dose Admin Acetaminophen/ Hydrocodone Bitart ([place] 5/325) 1 tab Q6H PRN ORAL For Pain 02/22/19 01:30 03/01/19 01:29 02/24/19 17:14 Amlodipine Besylate (Norvasc) 5 mg DAILY ORAL 02/22/19 09:00 03/24/19 08:59 02/28/19 09:49 Aspirin (Ecotrin) 81 mg DAILY ORAL 02/22/19 09:00 03/24/19 08:59 02/28/19 09:49 Atorvastatin Calcium (Lipitor) 10 mg BEDTIME ORAL 02/22/19 21:00 03/24/19 20:59 02/27/19 21:56 Chlorhexidine Gluconate (Vida-Hex 2%) 1 applic DAILY@2000 TOPIC 02/26/19 20:00 03/28/19 19:59 02/27/19 21:56 Dextrose (Dextrose 50%) 25 ml Q30M PRN IV Hypoglycemia 02/22/19 01:30 03/24/19 01:29 Dextrose (Dextrose 50%) 50 ml Q30M PRN IV Hypoglycemia 02/22/19 01:30 03/24/19 01:29 Heparin Sodium (Porcine) (Heparin 5000 units/ml) 5,000 units EVERY 12 HOURS SUBQ 02/22/19 09:00 03/24/19 08:59 02/28/19 09:50 Insulin Aspart (NovoLOG) BEFORE MEALS AND HS SUBQ 02/22/19 06:30 03/24/19 06:29 02/28/19 12:17 Insulin Detemir (Levemir) 12 units DAILY SUBQ 02/22/19 09:00 03/24/19 08:59 02/28/19 10:00 Meropenem 500 mg/ Sodium Chloride 55 ml @ 110 mls/hr EVERY 8 HOURS IVPB 02/24/19 14:00 03/05/19 13:59 02/28/19 05:20 Nateglinide (Starlix) 60 mg TIAC ORAL 02/23/19 16:30 03/25/19 16:29 02/28/19 12:15 Sitagliptin Phosphate (Januvia) 50 mg ACBREAKFAST ORAL 02/22/19 06:30 03/24/19 06:29 02/28/19 06:35 Vancomycin HCl (Vanco rx to dose) 1 ea DAILY PRN MISC Per rx protocol 02/22/19 14:45 03/24/19 14:44 Vancomycin HCl 500 mg/Dextrose 110 ml @ 110 mls/hr Q12HR@0600,1800 IVPB 02/25/19 18:00 04/04/19 23:59 02/28/19 06:35 Zolpidem Tartrate (Ambien) 5 mg HSPRN PRN ORAL Insomnia 02/22/19 01:30 03/01/19 01:29 Dallas Rain MD Feb 28, 2019 14:08
--- NOTE | 2019-02-28 14:50 | NUR ---
NURSE NOTES: RN changed the PICC line dressing on Right arm. Pt tolerated well.
[2019-02-28 16:00] VITALS: BP 117/64
--- NOTE | 2019-02-28 19:25 | NUR ---
HAND-OFF: Report given to LAVERNE Kumar.
--- NOTE | 2019-02-28 19:30 | NUR ---
NURSE NOTES: Received pt in bed, awake,alert and verbal. Breathing on room air. No acute distress noted. Picc line on right upper arm is patent and intact. F/C is patent and draining yellow urine. Fall precaution is in place. Bed in low and locked position. Bed alarm is on. Call light within reach. pt will be monitored.
[2019-02-28 20:00] VITALS: BP 144/77
[2019-02-28] MEDS: Dyna-Hex 2% Top Sol 2oz TOPIC SCH (21:03)
--- NOTE | 2019-02-28 21:09 | NUR ---
NURSE NOTES: Pt is in bed, awake,alert and verbal. Breathing on room air. No acute distress noted. PICC line on right upper arm is patent and intact. F/C is patent and draining yellow urine. Pt is on air loss matrass, pt will be repositioned frequently. Sacral dressing was changed during last shift, dressing will be monitored. Fall precaution is in place. Bed in low and locked position. Bed alarm is on and call light within reach. Pt will be monitored. Trainee, Stacy Borges RN will be assisting in the care of this patient.
[2019-03-01] VITALS: BP 108/57
[2019-03-01 04:00] VITALS: BP 110/55
[2019-03-01] MEDS: Meropenem 500 MG in NS 55 ML IVPB SCH ×2 (06:17→14:08)
[2019-03-01] MEDS: Nateglinide 60mg tab ORAL SCH ×3 (06:17→16:36)
[2019-03-01] MEDS: sitaGLIPtin 50mg tab ORAL SCH (06:17)
[2019-03-01] MEDS: NovoLOG Insulin Flexpen SUBQ SCH ×3 (06:19→16:37)
--- NOTE | 2019-03-01 07:00 | General Progress Note ---
Assessment/Plan Problem List: (1) DM (diabetes mellitus) ICD Codes: E11.9 - Type 2 diabetes mellitus without complications SNOMED: 96791145 (2) HTN (hypertension) ICD Codes: I10 - Essential (primary) hypertension SNOMED: 23501974 (3) Non-healing wound SNOMED: 428059065 Status: stable Assessment/Plan: continue Levemir 12 units daily continue Starlix 60 mg ac tid - plan to increase to 120 mg if mealtime stays on higher side today continue Januvia 50 mg daily continue NISS ac / hs Subjective Allergies: Coded Allergies: No Known Allergies (Unverified , 05/08/12) All Systems: reviewed and negative except above Subjective events noted mealtime glucose on higher side but was normal the day before Item Value Date Time Bedside Blood Glucose 241 mg/dl H 02/28/19 2105 Bedside Blood Glucose 139 mg/dl H 02/28/19 1727 Bedside Blood Glucose 212 mg/dl H 02/28/19 1217 Bedside Blood Glucose 277 mg/dl H 02/28/19 1000 Bedside Blood Glucose 71 mg/dl 02/28/19 0630 Objective Last 24 Hour Vital Signs Date Time Temp Pulse Resp B/P (MAP) Pulse Ox O2 Delivery O2 Flow Rate FiO2 03/01/19 04:00 97.4 75 17 110/55 (73) 100 03/01/19 00:00 97.6 92 18 108/57 (74) 100 02/28/19 21:00 Room Air 02/28/19 20:00 97.2 94 18 144/77 (99) 98 02/28/19 16:00 97.9 96 20 117/64 (81) 100 02/28/19 12:00 97.5 80 18 158/77 (104) 99 02/28/19 09:49 88 175/88 02/28/19 09:00 Room Air 02/28/19 08:00 98.6 88 19 175/88 (117) 96 Intake and Output 02/28/19 03/01/19 19:00 07:00 Intake Total 1065 ml Output Total 2802 ml Balance -1737 ml IV Total 165 ml Other 900 ml Output Urine Total 2800 ml Stool Total 2 ml Laboratory Tests 02/28/19 17:00: Vancomycin Level Trough 13.3H Height (Feet): 5 Height (Inches): 7.00 Weight (Pounds): 124 General Appearance: no apparent distress Neck: normal alignment Cardiovascular: normal rate Respiratory/Chest: decreased breath sounds Abdomen: normal bowel sounds Objective Current Medications Medications (Trade) Dose Ordered Sig/Mar Route PRN Reason Start Time Stop Time Status Last Admin Dose Admin Amlodipine Besylate (Norvasc) 5 mg DAILY ORAL 02/22/19 09:00 03/24/19 08:59 02/28/19 09:49 Aspirin (Ecotrin) 81 mg DAILY ORAL 02/22/19 09:00 03/24/19 08:59 02/28/19 09:49 Atorvastatin Calcium (Lipitor) 10 mg BEDTIME ORAL 02/22/19 21:00 03/24/19 20:59 02/28/19 21:03 Chlorhexidine Gluconate (Vida-Hex 2%) 1 applic DAILY@2000 TOPIC 02/26/19 20:00 03/28/19 19:59 02/28/19 21:03 Dextrose (Dextrose 50%) 25 ml Q30M PRN IV Hypoglycemia 02/22/19 01:30 03/24/19 01:29 Dextrose (Dextrose 50%) 50 ml Q30M PRN IV Hypoglycemia 02/22/19 01:30 03/24/19 01:29 Heparin Sodium (Porcine) (Heparin 5000 units/ml) 5,000 units EVERY 12 HOURS SUBQ 02/22/19 09:00 03/24/19 08:59 02/28/19 21:04 Insulin Aspart (NovoLOG) BEFORE MEALS AND HS SUBQ 02/22/19 06:30 03/24/19 06:29 03/01/19 06:19 Insulin Detemir (Levemir) 12 units DAILY SUBQ 02/22/19 09:00 03/24/19 08:59 02/28/19 10:00 Meropenem 500 mg/ Sodium Chloride 55 ml @ 110 mls/hr EVERY 8 HOURS IVPB 02/24/19 14:00 03/05/19 13:59 03/01/19 06:17 Nateglinide (Starlix) 60 mg TIAC ORAL 02/23/19 16:30 03/25/19 16:29 03/01/19 06:17 Sitagliptin Phosphate (Januvia) 50 mg ACBREAKFAST ORAL 02/22/19 06:30 03/24/19 06:29 03/01/19 06:17 Vancomycin HCl (Vanco rx to dose) 1 ea DAILY PRN MISC Per rx protocol 02/22/19 14:45 03/24/19 14:44 Vancomycin HCl 1 gm/Sodium Chloride 275 ml @ 183.708 mls/hr Q24H IVPB 03/01/19 12:00 04/04/19 23:59 Luisito Quintero MD Mar 01, 2019 07:00
--- NOTE | 2019-03-01 07:15 | NUR ---
HAND-OFF: Report given to Carmen GALLOWAY.
--- NOTE | 2019-03-01 07:30 | NUR ---
NURSE NOTES: Received pt from AIDEN/SEAN RN. Pt is confused and orient x3. pt is in RA, no SOB or acute respiratory distress noted. pt has intact PICC KELL SL. A BOBBIN PRESSER is feeding pt. all needs attended, bed is locked and is in the lowest position, call light within easy reach. will continue to monitor.
[2019-03-01 08:00] VITALS: BP 132/80
[2019-03-01] MEDS: Aspirin EC 81mg tab ORAL SCH (08:42)
[2019-03-01] MEDS: Heparin 5000 units/ml inj SUBQ SCH (08:43)
[2019-03-01] MEDS: Levemir Flexpen SUBQ SCH (08:45)
--- NOTE | 2019-03-01 10:48 | NUR ---
SWALLOW / SPEECH THERAPY NOTE: REFERRED FOR SWALLOW EVALUATION BUT DR CABRALES ([place]), SEE FULL REPORT TO FOLLOW. DYSPHAGIA RISK FACTORS FOR THIS 78 YEAR OLD FEMALE: ACUTE ISSUES: NONHEALING DECUBITUS, LUNGS CLEAR PER MD NO CXR, RESP RATE 17-18. 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 NO POLST / AD NOTED IN CHART REGARDING TUBE FEEDING PREFERENCES. ? [place] DIET[place] [facility] [place] SHE WAS SEEN FOR A SWALLOWING EVALUATION WHICH REVEALED S/S OF AT LEAST A MILD OR WORSE DYSPHAGIA AND SHE WAS PLACED ON A [facility] SOFT GROUND DIET AND THIN LIQUIDS (WITH VARIABLE POOR INTAKE). ALTHOUGH A MOD BARIUM SWALLOW STUDY WAS RECOMMENDED, IT WAS NOT COMPLETED PRIOR TO D/C. LIVED AT A SNF AT THAT TIME, NOW SHE IS FROM HOME WITH CAREGIVER. CURRENTLY SHE IS ON A [facility]-MED PUREED AND NECTAR THICK LIQUID DIET WITH 100% INTAKE. SHE WAS DOWNGRADED FROM A REGULAR TEXTURE AND THIN LIQUID DIET YESTERDAY WHEN A HOOF AND SHOE INSPECTOR, RODY, TOLD ME THAT SHE HAD MASTICATED FOOD FALLING OUT OF THE LEFT SIDE OF HER MOUTH. I TOLD THE RN (YOBANY BOLTON) TO DOWNGRADE HER DIET/LIQUIDS AND TO PLACE THE FOOD ON THE RIGHT SIDE OF HER MOUTH. PER THE RN (TAJ) TODAY, THE PATIENT TOLERATED CRUSHED MEDS WELL W/O OVERT ASPIRATION. THE PATIENT IS ALERT BUT LEANING TO THE RIGHT. SHE IS ABLE TO COMMUNICATE SOME BASIC NEEDS BUT SHE HAS DYSARTHRIA/DYSPHONIA (IMPRECISE ARTICULATION AND SOFT VOICE) WITH FAIR SPEECH INTELLIGIBILITY (NEEDS REPETITION 30% OF THE TIME). ORIENTED TO HER NAME. SHE IS DISORIENTED TO HOSP NAME BUT KNOWS SHE IS IN THE HOSPITAL. DISORIENTED TO TIME (YEAR). INITIAL IMPRESSIONS: S/S OF AT LEAST A MILD-MODERATE ORAL PREP AND OROPHARYNGEAL DYSPHAGIA WITH OVERALL INCREASED TRANSIT TIMES. OVERALL TONGUE SPEED IS SLOW AND HAD REDUCED STRENGTH. ROM FOR PROTRUSION IS REDUCED TO LOWER LIP. LIP CLOSURE GOOD WITH TSP/CUP/STRAW BUT POOR WITH CHEWING MASTICATED SOLIDS WEAK SPONTANEOUS AND VOLITIONAL COUGH GIVEN THIN LIQUIDS VIA STRAW SEQUENTIAL SIPS ([place] 3 OZ WATER SWALLOW PROTOCOL), SHE COUGHED (AUDIBLY ASPIRATED) AFTER SWALLOWING 4 SIPS, NO ORAL RESIDUE/SPILLAGE. GIVEN NECTAR THICK LIQUIDS VIA TSP/CUP, FAIR HYOLARYNGEAL EXCURSION WITH MILD INCREASE IN OROPHARYNGEAL TRANSIT TIMES, NO ORAL RESIDUE NOR OVERT ASPIRATION. GIVEN APPLESAUCE, SHE APPEARED TO CHEW THE TSP AMOUNT FOR 3-4 SECONDS AND SWALLOWED WITH FAIR HYOLARYNGEAL EXCURSION, NO ORAL RESIDUE NOR OVERT ASPIRATION. GIVEN MASTICATED SOLIDS (1/2 CRACKER AND NO MOLARS MIN NUMBER OF TEETH), SHE CHEWED WITH HER MOUTH OPEN AND HAD ORAL SPILLAGE ANTERIORLY. SHE DID NOT CLOSE HER LIPS TO COMMAND. MILD ORAL RESIDUE WASHED DOWN WITH NECTAR THICK LIQUID STRAW SIP AND THEN THE COUGHED/ASPIRATED. HAS A SILENT ASPIRATION RISK DUE TO CVA HISTORY. RECOMMENDATIONS: COMPLETE MODIFIED BARIUM SWALLOW STUDY IP OR OP IF DC IF PO IS GIVEN FOR QUALITY OF LIFE, CONSIDER CONTINUING WITH [facility] PUREED DIET AND THIN LIQUIDS FOR NOW (MOST EFFICIENT) USING POSTED ASPIRATION/REFLUX PRECAUTIONS AND ONE TO ONE FEEDING. SKILLED DYSPHAGIA MANAGEMENT AND TX AND COGNITIVE-COMMUNICATIVE EVAL/TX FOR HER DYSARTHRIA/DYSPHONIA AND COGNITIVE-LINGUISTIC DEFICITS. EDUCATED/TRAINED RN AFSOON IN POSTED PRECAUTIONS.
[2019-03-01 12:00] VITALS: BP 144/77
[2019-03-01] MEDS ORDERED: Vancomycin 1 GM in NS 275 ML IVPB SCH (12:00)
[2019-03-01] MEDS ORDERED: STARLIX60 MG ORAL (13:34)
[2019-03-01] MEDS ORDERED: LIPITOR10 MG ORAL (13:34)
--- NOTE | 2019-03-01 13:35 | General Progress Note ---
Assessment/Plan Problem List: (1) UTI (urinary tract infection) ICD Codes: N39.0 - Urinary tract infection, site not specified SNOMED: 37981502 (2) HTN (hypertension) ICD Codes: I10 - Essential (primary) hypertension SNOMED: 01487820 (3) DM (diabetes mellitus) ICD Codes: E11.9 - Type 2 diabetes mellitus without complications SNOMED: 32298409 (4) Non-healing wound SNOMED: 838700378 Status: stable Assessment/Plan: abxs Dc today Subjective Allergies: Coded Allergies: No Known Allergies (Unverified , 05/08/12) Subjective in NAD Objective Last 24 Hour Vital Signs Date Time Temp Pulse Resp B/P (MAP) Pulse Ox O2 Delivery O2 Flow Rate FiO2 03/01/19 12:00 97.7 100 20 144/77 (99) 100 03/01/19 09:00 Room Air 03/01/19 08:42 95 136/74 03/01/19 08:00 97.5 95 18 132/80 (97) 100 03/01/19 04:00 97.4 75 17 110/55 (73) 100 03/01/19 00:00 97.6 92 18 108/57 (74) 100 02/28/19 21:00 Room Air 02/28/19 20:00 97.2 94 18 144/77 (99) 98 02/28/19 16:00 97.9 96 20 117/64 (81) 100 Intake and Output 02/28/19 03/01/19 18:59 06:59 Intake Total 1065 ml 470 ml Output Total 2802 ml 550 ml Balance -1737 ml -80 ml Intake Oral 360 ml IV Total 165 ml 110 ml Other 900 ml Output Urine Total 2800 ml 550 ml Stool Total 2 ml Laboratory Tests 02/28/19 17:00: Vancomycin Level Trough 13.3H Height (Feet): 5 Height (Inches): 7.00 Weight (Pounds): 124 Cardiovascular: normal rate Respiratory/Chest: lungs clear Arnulfo Rain MD Mar 01, 2019 13:35
[2019-03-01] MEDS ORDERED: ERTAPENEM1 GM IV (14:00)
[2019-03-01] MEDS ORDERED: VANCOMYCIN1.5 GM/300 IV ×2 (14:00→14:01)
--- NOTE | 2019-03-01 14:05 | Infectious Diseases Prog Note ---
Assessment/Plan Assessment/Plan IMPRESSION: Nonhealing pressure ulcer, wound infection Coccyx osteomyelitis. E. coli urinary tract infection. Hypertension, diabetes mellitus with hyperglycemia, anemia, cachexia, and protein-calorie malnutrition. MRSA carrier RECOMMENDATIONS: Continue IV vancomycin X 34 days Continue Meropenem hospital in SNF Ertapenem 1 gram daily X 34 days Weekly Vancomycin & BMP in SNF case was D/W primary MD Subjective ROS Limited/Unobtainable: Yes Constitutional: Reports: no symptoms HEENT: Reports: other - heaache Respiratory: Reports: no symptoms Gastrointestinal/Abdominal: Reports: no symptoms Allergies: Coded Allergies: No Known Allergies (Unverified , 05/08/12) Objective Vital Signs Last 24 Hour Vital Signs Date Time Temp Pulse Resp B/P (MAP) Pulse Ox O2 Delivery O2 Flow Rate FiO2 03/01/19 12:00 97.7 100 20 144/77 (99) 100 03/01/19 09:00 Room Air 03/01/19 08:42 95 136/74 03/01/19 08:00 97.5 95 18 132/80 (97) 100 03/01/19 04:00 97.4 75 17 110/55 (73) 100 03/01/19 00:00 97.6 92 18 108/57 (74) 100 02/28/19 21:00 Room Air 02/28/19 20:00 97.2 94 18 144/77 (99) 98 02/28/19 16:00 97.9 96 20 117/64 (81) 100 Height (Feet): 5 Height (Inches): 7.00 Weight (Pounds): 124 General Appearance: no acute distress HEENT: mucous membranes moist Respiratory/Chest: lungs clear Cardiovascular: normal rate, other - PICC line Abdomen: soft, non tender Extremities: no edema Skin: ulcers Neurologic/Psychiatric: alert, responsive Laboratory Tests Test 02/28/19 17:00 Vancomycin Level Trough 13.3 ug/mL (5.0-12.0) H Current Medications Medications (Trade) Dose Ordered Sig/Mar Route PRN Reason Start Time Stop Time Status Last Admin Dose Admin Amlodipine Besylate (Norvasc) 5 mg DAILY ORAL 02/22/19 09:00 03/24/19 08:59 03/01/19 08:42 Aspirin (Ecotrin) 81 mg DAILY ORAL 02/22/19 09:00 03/24/19 08:59 03/01/19 08:42 Atorvastatin Calcium (Lipitor) 10 mg BEDTIME ORAL 02/22/19 21:00 03/24/19 20:59 02/28/19 21:03 Chlorhexidine Gluconate (Vida-Hex 2%) 1 applic DAILY@2000 TOPIC 02/26/19 20:00 03/28/19 19:59 02/28/19 21:03 Dextrose (Dextrose 50%) 25 ml Q30M PRN IV Hypoglycemia 02/22/19 01:30 03/24/19 01:29 Dextrose (Dextrose 50%) 50 ml Q30M PRN IV Hypoglycemia 02/22/19 01:30 03/24/19 01:29 Heparin Sodium (Porcine) (Heparin 5000 units/ml) 5,000 units EVERY 12 HOURS SUBQ 02/22/19 09:00 03/24/19 08:59 03/01/19 08:43 Insulin Aspart (NovoLOG) BEFORE MEALS AND HS SUBQ 02/22/19 06:30 03/24/19 06:29 03/01/19 12:21 Insulin Detemir (Levemir) 12 units DAILY SUBQ 02/22/19 09:00 03/24/19 08:59 03/01/19 08:45 Meropenem 500 mg/ Sodium Chloride 55 ml @ 110 mls/hr EVERY 8 HOURS IVPB 02/24/19 14:00 03/05/19 13:59 03/01/19 06:17 Nateglinide (Starlix) 60 mg TIAC ORAL 02/23/19 16:30 03/25/19 16:29 03/01/19 12:20 Sitagliptin Phosphate (Januvia) 50 mg ACBREAKFAST ORAL 02/22/19 06:30 03/24/19 06:29 03/01/19 06:17 Vancomycin HCl (Vanco rx to dose) 1 ea DAILY PRN MISC Per rx protocol 02/22/19 14:45 03/24/19 14:44 Vancomycin HCl 1 gm/Sodium Chloride 275 ml @ 183.708 mls/hr Q24H IVPB 03/01/19 12:00 04/04/19 23:59 03/01/19 12:21 Dallas Rain MD Mar 01, 2019 14:05
--- NOTE | 2019-03-01 14:46 | NUR ---
HAND-OFF: Report given to KERWIN GALLOWAY. Endorsed to F/U for discharge.
--- NOTE | 2019-03-01 15:21 | NUR ---
HEEL MOLDER NOTES PT ACCEPTED TO [facility]. SPOKE WITH PT'S NEPHEW GIANCARLO [facility]ADE [facility]. SPOKE WITH ANI FROM [facility] NURSE WILL BE OUT TO PT'S HOME IN AM. [facility] [phone] [facility] [phone]
[2019-03-01 16:00] VITALS: BP 118/59
--- NOTE | 2019-03-01 16:04 | NUR ---
NURSE NOTES: called and spoke raymond dolan dcp and hh nurse will be there in am. sonia understood, confirmed right address [address] [facility]
--- NOTE | 2019-03-01 19:23 | NUR ---
NURSE NOTES: Patient discharged Home with Home Health via ambulance. Discharge instructions given to ambulance personnel. Patient had no belongings. Patient stable upon discharge.
--- NOTE | 2019-03-03 10:29 | Discharge Summary ---
Discharge Summary Discharge Summary _ DATE OF ADMISSION: 02/22/2019 DATE OF DISCHARGE: 03/01/2019 DISCHARGED BY: Dr. Arnulfo Rain CONSULTANTS: Dr. Dallas White BRIEF HOSPITAL COURSE: Patient is a 78-year-old -[place] female, with history of dementia, basically bedridden. She has a sacral decubitus skin ulcer. She was at [facility], but family took her home. Her decubitus ulcer was not getting better. Home health was asked to follow the patient. She was seen by the home health nurse and felt the area was not improving appropriately. Patient was told to present to the emergency room. Upon evaluation at ED, blood pressure was elevated to 170/78, pulse rate 116. Patient had a large right-sided buttock decubitus ulcer with no obvious fluctuance. Blood work showed WBC elevated to 14. Hemoglobin 10, hematocrit 32. Electrolytes were normal. Glucose level 176. Hemoglobin A1c was 8.5. Urinalysis showed 3+ leukocyte esterase, 3+ blood, 2+ protein and 2+ glucose. Patient was then admitted for evaluation of nonhealing wound. Plastic surgeon was consulted. 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 She was recommended optimization for possible wound closure. Pre-albumin 15. She was given wound care. She was placed on KASEY mattress with frequent repositioning and offloading. ID was consulted. Patient was given Zosyn and vancomycin was added. Patient had uncontrolled diabetes. Poultry Husbandry Teacher was consulted. She was continued on Levemir 12 units daily. She was given NovoLog sliding scale and nightly. She was continued on Januvia 50 mg. Starlix 60 mg before meals 3 times daily was added to her regimen. Mealtime glucose was on higher side. Urine culture showed growth of ESBL E. coli. Wound culture with MRSA, ESBL E. coli, Klebsiella and Citrobacter. Bone scan showed abnormal flow, blood pool, and static activity in the region of sacrococcygeal junction and coccyx concerning for osteomyelitis. Abnormal left ischial activity also concerning for osteomyelitis. PICC line was inserted. She was continued on meropenem while in the hospital.. Advised to continue with IV vancomycin for 34 days. Upon discharge, continue with vancomycin, change meropenem to ertapenem 1 g daily. Continue IV antibiotics for 34 days. Weekly check of BMP and vancomycin level while on antibiotics. She was eventually cleared for discharge home with home health, to keep Harris catheter and PICC line. [facility] to deliver IV antibiotics. 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 coli urinary tract infection Hypertension Diabetes mellitus zyw-[id number] with hyperglycemia Anemia Cachexia with protein calorie malnutrition MRSA carrier DISPOSITION: Home with home health for IV antibiotics and wound care. DISCHARGE MEDICATIONS: Refer to Discharge Medication List. DISCHARGE INSTRUCTIONS: Follow-up in a week. I have been assigned to complete a discharge summary on this account, I was not involved with the patient's management.--GLENDA Jaime Jacqueline Robles NP Mar 03, 2019 10:29
== END 2019-03-01 18:53 | disposition home health service (06) | DRG 637 ==
LOC: EMR 01:11 → EDBEDREQ 02:24 → 4E 03:16 → EDBEDREQ 03:22
PROC: 02HV33Z Insertion of Infusion Device into Superior Vena Cava, Percutaneous Approach (ICD-10-PCS; principal; 2019-02-27)
DX: E11.69 Type 2 diabetes mellitus with other specified complication (principal); L89.154 Pressure ulcer of sacral region, stage 4; M46.28 Osteomyelitis of vertebra, sacral and sacrococcygeal region; N39.0 Urinary tract infection, site not specified; Z68.1 Body mass index [BMI] 19.9 or less, adult; E44.0 Moderate protein-calorie malnutrition; E11.65 Type 2 diabetes mellitus with hyperglycemia; F03.90 Unspecified dementia, unspecified severity, without behavioral disturbance, psychotic disturbance, mood disturbance, and anxiety; L89.329 Pressure ulcer of left buttock, unspecified stage; B96.20 Unspecified Escherichia coli [E. coli] as the cause of diseases classified elsewhere; I10 Essential (primary) hypertension; D64.9 Anemia, unspecified; Z22.322 Carrier or suspected carrier of Methicillin resistant Staphylococcus aureus; Z86.73 Personal history of transient ischemic attack (TIA), and cerebral infarction without residual deficits
CPT/HCPCS: 36415; 36569; 76937; 78315; 80048; 80061; 80202; 81003; 82306; 82962; 83036; 83735; 84100; 84134; 85025; 87070; 87081; 87086; 87181; 87205; 99285; J1815; S5561

== ENCOUNTER 2019-06-08 14:42 | Inpatient (IN) | payer MEDICARE, OTHER ==
[~2019-06-08] VITALS: Ht 170.2 cm; Wt 39.9 kg
[~2019-06-08 14:42] MED LIST changes: +ERTAPENEM1 GM IV; +LIPITOR10 MG ORAL; +TRAMADOL HCL50 MG ORAL; +VANCOMYCIN1.5 GM/300 IV
--- NOTE | 2019-06-08 15:00 | NUR ---
ED Nurse Note: Pt brought in by family d/t wounds on buttocks/sacrum that are "not heeling." Pt also complaining of abdominal pain and head ache. Respirations even and unlabored on room air with 96% O2 saturation. Heart rate elevated @ 120 bpm. All other vitals stable as documented.
--- NOTE | 2019-06-08 15:06 | Emergency Room Report ---
History of Present Illness General Chief Complaint: Abdominal Pain Source: Patient, Family Member, Medical Record Present Illness HPI Patient sent in for several symptoms. She agrees that she feels thirsty. She has an indwelling Harris. She says yes to all questions asked. Review of systems is unreliable. 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 coli urinary tract infection Hypertension Diabetes mellitus [id number] with hyperglycemia Anemia Cachexia with protein calorie malnutrition MRSA carrier Allergies: Coded Allergies: No Known Allergies (Unverified , 05/08/12) Patient History Limited by: medical condition Past Medical History: see triage record, old chart reviewed Social History: Denies: smoking, alcohol use, drug use Social History Narrative at home with family Last Menstrual Period: N/A Now: No Reviewed Nursing Documentation: PMH: Agreed; PSxH: Agreed Nursing Documentation-PMH Hx Cardiac Problems: Yes Hx Hypertension: Yes Hx Diabetes: Yes Hx Cancer: No Hx Gastrointestinal Problems: Yes Hx Neurological Problems: Yes Hx Cerebrovascular Accident: Yes Review of Systems All Other Systems: limited Physical Exam Vital Signs Date Time Temp Pulse Resp B/P (MAP) Pulse Ox O2 Delivery O2 Flow Rate FiO2 06/08/19 14:56 97.5 109 18 142/71 (94) 100 Room Air Sp02 EP Interpretation: reviewed, normal General Appearance: alert, thin, Chronically Ill Head: normocephalic Eyes: bilateral eye normal inspection, bilateral eye PERRL, bilateral eye EOMI ENT: moist mucus membranes Neck: full range of motion, supple Respiratory: chest non-tender, lungs clear Cardiovascular #1: regular rate, rhythm Cardiovascular #2: 2+ radial (R) Gastrointestinal: normal inspection, normal bowel sounds, non tender, no mass, non-distended, scaphoid Genitourinary: no CVA tenderness Musculoskeletal: back normal, normal range of motion Neurologic: alert, motor strength/tone normal, sensory intact Psychiatric: mood/affect normal Skin: Decubitus/Ulcer - Heel stage I, hips stage II, sacrum stage IV no drainage Medical Decision Making Diagnostic Impression: Primary Impression: Sepsis Qualified Codes: A41.9 - Sepsis, unspecified organism Additional Impressions: UTI (urinary tract infection) Qualified Codes: T83.511A - Infection and inflammatory reaction due to indwelling urethral catheter, initial encounter; N39.0 - Urinary tract infection , site not specified Hyperglycemia Multiple decubiti ER Course Patient presents with signs of dehydration and possible urinary tract infection. Need to exclude sepsis. Evaluation with labs, chest x-ray. IV hydration begun. The biotics will be ordered based on prior microbiology. SEPSIS RE-EVALUATION: based on presentation and prior ua - antibiotics ordered. Labs pending. I, Lam Curtis MD, Performed the Sepsis Re-evaluation at 15: 29. EKG no injury. Chest x-ray no infiltrates. White count slightly elevated. Anemia. CMP with hyperglycemia. Pyuria. Patient improved with treatment. Admit to telemetry floor. Examined by admitting physician in emergency department. Laboratory Tests Test 06/08/19 15:30 White Blood Count 11.4 K/UL (4.8-10.8) H Red Blood Count 3.72 M/UL (4.20-5.40) L Hemoglobin 10.2 G/DL (12.0-16.0) L Hematocrit 31.7 % (37.0-47.0) L Mean Corpuscular Volume 85 FL (80-99) Mean Corpuscular Hemoglobin 27.5 PG (27.0-31.0) Mean Corpuscular Hemoglobin Concent 32.3 G/DL (32.0-36.0) Red Cell Distribution Width 16.2 % (11.6-14.8) H Platelet Count 410 K/UL (150-450) Mean Platelet Volume 7.8 FL (6.5-10.1) Neutrophils (%) (Auto) 79.2 % (45.0-75.0) H Lymphocytes (%) (Auto) 15.3 % (20.0-45.0) L Monocytes (%) (Auto) 4.2 % (1.0-10.0) Eosinophils (%) (Auto) 0.6 % (0.0-3.0) Basophils (%) (Auto) 0.7 % (0.0-2.0) Prothrombin Time 10.5 SEC (9.30-11.50) Prothrombin Time INR 1.0 (0.9-1.1) Activated Partial Thromboplast Time 30 SEC (23-33) Urine Color Pale yellow Urine Appearance Slightly cloudy Urine pH 7 (4.5-8.0) Urine Specific Luke 1.010 (1.005-1.035) Urine Protein 2+ (NEGATIVE) H Urine Glucose (UA) 1+ (NEGATIVE) H Urine Ketones 1+ (NEGATIVE) H Urine Blood 4+ (NEGATIVE) H Urine Nitrite Negative (NEGATIVE) Urine Bilirubin Negative (NEGATIVE) Urine Urobilinogen Normal MG/DL (0.0-1.0) Urine Leukocyte Esterase 3+ (NEGATIVE) H Urine RBC 5-10 /HPF (0 - 2) H Urine WBC 20-30 /HPF (0 - 2) H Urine Squamous Epithelial Cells Few /LPF (NONE/OCC) Urine Bacteria Many /HPF (NONE) H Sodium Level 137 MMOL/L (136-145) Potassium Level 4.7 MMOL/L (3.5-5.1) Chloride Level 100 MMOL/L (98-107) Carbon Dioxide Level 28 MMOL/L (21-32) Anion Gap 9 mmol/L (5-15) Blood Urea Nitrogen 18 mg/dL (7-18) Creatinine 0.6 MG/DL (0.55-1.30) Estimate Glomerular Filtration Rate mL/min (>60) Glucose Level 337 MG/DL (74-106) H Lactic Acid Level 1.20 mmol/L (0.4-2.0) Calcium Level 9.0 MG/DL (8.5-10.1) Phosphorus Level 3.3 MG/DL (2.5-4.9) Magnesium Level 1.8 MG/DL (1.8-2.4) Total Bilirubin 0.3 MG/DL (0.2-1.0) Aspartate Amino Transferase (AST) 12 U/L (15-37) L Alanine Aminotransferase (ALT) 20 U/L (12-78) Alkaline Phosphatase 91 U/L (46-116) Total Creatine Kinase 60 U/L (26-308) Troponin I 0.006 ng/mL (0.000-0.056) Pro-B-Type Natriuretic Peptide 110 pg/mL (0-125) Total Protein 6.9 G/DL (6.4-8.2) Albumin 2.7 G/DL (3.4-5.0) L Globulin 4.2 g/dL Albumin/Globulin Ratio 0.6 (1.0-2.7) L Lipase 186 U/L (73-393) EKG Diagnostic Results Rate: tachycardiac Rhythm: NSR ST Segments: no acute changes Rhythm Strip Diag. Results EP Interpretation: yes Rhythm: no PVC's, no ectopy, other - Sinus tachycardia Chest X-Ray Diagnostic Results Chest X-Ray Diagnostic Results : Chest X-Ray Ordered: Yes # of Views/Limited/Complete: 1 View Indication: Other EP Interpretation: Yes Interpretation: no consolidation, no effusion, no pneumothorax Impression: No acute disease Electronically Signed by: Electronically signed by Lam Curtis MD Last Vital Signs Date Time Temp Pulse Resp B/P (MAP) Pulse Ox O2 Delivery O2 Flow Rate FiO2 06/08/19 23:36 89 06/08/19 21:10 Room Air 06/08/19 20:49 97.8 15 142/71 100 Status: improved Disposition: ADMITTED INPATIENT Condition: Serious Lam Curtis MD Jun 08, 2019 15:06
[2019-06-08] MEDS ORDERED: Sodium Chloride 1,400 ML IVLG ONE (15:15)
[2019-06-08] MEDS ORDERED: Vancomycin 1 GM in NS 275 ML IVPB ONE (15:30)
[2019-06-08] MEDS ORDERED: Piperacillin/Tazobactam 3.375 GM in NS 110 ML IVPB ONE (15:30)
[2019-06-08 15:45] VITALS: BP 142/71
[2019-06-08 15:58] LABS: BASOPHILS % (AUTO) 0.7 % (0.0-2.0); EOSINOPHILS % (AUTO) 0.6 % (0.0-3.0); HEMATOCRIT 31.7 % (37.0-47.0); HEMOGLOBIN 10.2 G/DL (12.0-16.0); LYMPHOCYTES % (AUTO) 15.3 % (20.0-45.0); MEAN CORPUSCULAR VOLUME 85 FL (80-99); MONOCYTES % (AUTO) 4.2 % (1.0-10.0); NEUTROPHILS % (AUTO) 79.2 % (45.0-75.0); PLATELET COUNT 410 K/UL (150-450); RED BLOOD COUNT 3.72 M/UL (4.20-5.40); RED CELL DISTRIBUTION WIDTH 16.2 % (11.6-14.8); WHITE BLOOD COUNT 11.4 K/UL (4.8-10.8)
[2019-06-08 16:01] LABS: BILIRUBIN, URINE NEGATIVE (NEGATIVE); COLOR,URINE PALE YELLOW; GLUCOSE, URINE (UA) 1+ (NEGATIVE); KETONES,URINE 1+ (NEGATIVE); LEUKOCYTE ESTERASE ,URINE 3+ (NEGATIVE); NITRITE,URINE NEGATIVE (NEGATIVE); PH,URINE 7 (4.5-8.0); PROTEIN,URINE 2+ (NEGATIVE); UROBILINOGEN,URINE NORMAL MG/DL (0.0-1.0)
[2019-06-08 16:07] LABS: APPEARANCE,URINE SLIGHTLY CLOUDY
[2019-06-08 16:16] LABS: ANION GAP 9 mmol/L (5-15); BLOOD UREA NITROGEN 18 mg/dL (7-18); CARBON DIOXIDE 28 MMOL/L (21-32); CHLORIDE 100 MMOL/L (98-107); CREATININE 0.6 MG/DL (0.55-1.30); POTASSIUM 4.7 MMOL/L (3.5-5.1); SODIUM 137 MMOL/L (136-145)
[2019-06-08 16:29] LABS: ALANINE AMINOTRANSFERASE 20 U/L (12-78); ALBUMIN 2.7 G/DL (3.4-5.0); ALBUMIN/GLOBULIN RATIO 0.6 (1.0-2.7); ALKALINE PHOSPHATASE 91 U/L (46-116); ASPARTATE AMINO TRANSFERASE 12 U/L (15-37); BILIRUBIN,TOTAL 0.3 MG/DL (0.2-1.0); CREATINE KINASE 60 U/L (26-308); PHOSPHORUS 3.3 MG/DL (2.5-4.9)
--- NOTE | 2019-06-08 16:47 | Diagnostic Imaging Report ---
EXAM: XR Chest, 1 View CLINICAL HISTORY: ALOC TECHNIQUE: Frontal view of the chest. COMPARISON: 10/07/2018 chest x-ray FINDINGS: Lungs: The lungs are mildly hyperlucent Pleural space: Unremarkable. No pneumothorax. Heart: Unremarkable. No cardiomegaly. Mediastinum: Unremarkable. Bones/joints: Unremarkable. IMPRESSION: No acute cardiopulmonary process. Mild lung upper lobe predominant hyperlucency could reflect underlying obstructive lung disease such as asthma or COPD.
--- NOTE | 2019-06-08 17:36 | NUR ---
ED Nurse Note: Harris removed and new 16Fr inserted. Pt tolerated well
[2019-06-08 18:00] VITALS: BP 138/75
--- NOTE | 2019-06-08 18:32 | History & Physical ---
History and Physical History & Physicial HP dictated # [id number] Arnulfo Rain MD Jun 08, 2019 18:32
[2019-06-08] MEDS ORDERED: Zolpidem 5mg tab ORAL PRN (18:45)
[2019-06-08] MEDS ORDERED: HYDROcodone/Acetamin 5/325 tab ORAL PRN ×2 (18:45→19:00)
[2019-06-08] MEDS ORDERED: traMADol 50mg tab ORAL PRN ×2 (18:45→19:00)
--- NOTE | 2019-06-08 19:26 | NUR ---
HAND-OFF: Report given to LAVERNE العلي. Pt in stable condition; plan of care endorsed.
--- NOTE | 2019-06-08 19:45 | NUR ---
ED Nurse Note: Stephanenble to render report d/t code. Will continue to monitor for transport and report.
--- NOTE | 2019-06-08 20:16 | NUR ---
ED Nurse Note: Called and rendered report to Remigio GALLOWAY.
--- NOTE | 2019-06-08 20:49 | NUR ---
ED Nurse Note: Patient transported to floor without incident by RN and traffic control technician,.
--- NOTE | 2019-06-08 21:00 | History and Physical Report ---
DATE OF ADMISSION: 06/08/2019 CHIEF COMPLAINT: Failure to thrive, sacral decubitus, and evidence of urinary tract infection. HISTORY OF PRESENT ILLNESS: This is a 79-year-old female with history of infected sacral decubitus status post surgery. The patient is being taken care of at home. The [id number] called me yesterday that the patient was not doing well and it was difficult to take care of her at home. She still has a large decubitus ulcer. She has an indwelling Harris and looked infected so she was brought into the emergency room and was admitted for further care. PAST MEDICAL HISTORY: The patient denies history of dementia, unable to provide any meaningful history. She has history of diabetes mellitus, anemia, cachexia, poor p.o. 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 MEDICATIONS: Reviewed in EMR. SOCIAL HISTORY: No history of smoking or alcohol abuse. ALLERGIES: No known drug allergies. REVIEW OF SYSTEMS: Unobtainable. PHYSICAL EXAMINATION: GENERAL: The patient is an elderly female, in no acute distress. 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 VITAL SIGNS: Blood pressure 142/71, pulse 109, temperature 97.5, respirations 18. HEENT: Pale conjunctivae. Anicteric sclerae. NECK: Supple. LUNGS: Clear to auscultation. HEART: S1 and S2 without murmurs or rubs. ABDOMEN: Soft and nontender. EXTREMITIES: No cyanosis or edema. SKIN: The patient has a large sacral decubitus which is granulating. LABORATORY AND DIAGNOSTIC DATA: [place] [address], hematocrit 31.7, hemoglobin is 10.2, platelets 410,000. Chemistry panel shows a serum sodium of 137, potassium 4.7, chloride 100, CO2 28, blood sugar 337, BUN is 18, creatinine 0.6. UA shows 5 to 10 rbc's, and 20 to 30 wbc's per high-power field with many bacteria. ASSESSMENT: This is a 79-year-old female, who was admitted with cachexia, failure to thrive, poor p.o. intake, urinary tract infection, sacral decubitus, uncontrolled diabetes mellitus. PLAN: The patient will be on IV antibiotics. Dietitian will see the patient. The patient will be on the wound care, wound care protocol. Cultures will be obtained. She will be on sliding scale insulin. Diabetic regimen will be adjusted. Arnulfo Rain M.D. DR: Lubna JOB#: [id number] CC:
--- NOTE | 2019-06-08 21:05 | NUR ---
NURSE NOTES: LE: RECEIVED THE PATIENT FROM ER NURSE LAVERNE CONNELL VIA GAIL. PATIENT ALERT, ORIENTED X2, DENIED PAIN OR SOB AT THIS TIME, RESPIRATION REGULAR, O2 SATURATION 100% NOTED ON ROOM AIR, ABDOMEN SOFT, NO BM STATUS, F/C INTACT AND PATENT, YELLOW URINE OUTED, PERIPHERAL LINE TO LEFT HAND 20G, INFILTRATED, MADE LOWER BED POSITION, PROVIDED CALL LIGHT WITHIN REACH, ON BED ALARM AND LOCKED, WILL CONTINUE TO MONITOR.
[2019-06-08] MEDS: NovoLOG Insulin Flexpen SUBQ SCH (21:31)
[2019-06-08] MEDS ORDERED: Piperacillin/Tazobactam 2.25 GM in NS 110 ML IVPB SCH (22:00)
[2019-06-08] MEDS: Zoysn 3.37gm in NS 100ML IVPB SCH (22:05)
--- NOTE | 2019-06-09 00:26 | NUR ---
NURSE NOTES: PATIENT ALERT, ORIENTED, WANTED FOOD THAT CONSUMED 1 JUICE AND 1 PUDDING , NO ASPIRATION SIGN NOTED, KEPT HOB 30 DEGREES, WILL CONTINUE TO MONITOR.
--- NOTE | 2019-06-09 03:40 | NUR ---
NURSE NOTES: LE: PATIENT ASLEEP STATUS, NO PAIN OR DISTRESS NOTED.
[2019-06-09 05:04] LABS: ALANINE AMINOTRANSFERASE 14 U/L (12-78); ALBUMIN 2.2 G/DL (3.4-5.0); ALBUMIN/GLOBULIN RATIO 0.5 (1.0-2.7); ALKALINE PHOSPHATASE 75 U/L (46-116); ANION GAP 8 mmol/L (5-15); ASPARTATE AMINO TRANSFERASE 12 U/L (15-37); BILIRUBIN,TOTAL 0.4 MG/DL (0.2-1.0); BLOOD UREA NITROGEN 13 mg/dL (7-18); CALCIUM 8.5 MG/DL (8.5-10.1); CARBON DIOXIDE 26 MMOL/L (21-32); CHLORIDE 105 MMOL/L (98-107); CREATININE 0.6 MG/DL (0.55-1.30); POTASSIUM 3.8 MMOL/L (3.5-5.1); SODIUM 138 MMOL/L (136-145)
[2019-06-09] MEDS: Zoysn 3.37gm in NS 100ML IVPB SCH ×3 (05:36→22:11)
[2019-06-09] MEDS: Nateglinide 60mg tab ORAL SCH ×3 (05:57→18:35)
[2019-06-09] MEDS: sitaGLIPtin 50mg tab ORAL SCH (05:57)
[2019-06-09] MEDS: NovoLOG Insulin Flexpen SUBQ SCH ×4 (05:58→21:03)
--- NOTE | 2019-06-09 06:20 | NUR ---
NURSE NOTES: LE; MORNING CARE WAS DONE, NORMAL BM X1, F/C INTACT AND PATENT, YELLOW URINE OUTED.
--- NOTE | 2019-06-09 07:03 | NUR ---
HAND-OFF: Report given to LAVERNE RABAGO.
--- NOTE | 2019-06-09 07:05 | NUR ---
NURSE NOTES: Received report from Anant Hoang RN. Patient alert and oriented x 2, able to make needs known and follow commands. On room air, respirations even and unlabored. Harris catheter patent and draining well. Left forearm 20g IV site infusing Zosyn @ 27.5 cc/hr, asymptomatic. Bed locked in lowest position with side rails up x 3. All needs attended to. Call light within reach. Will continue to monitor.
[2019-06-09 08:00] VITALS: BP 151/71
[2019-06-09] MEDS: Aspirin EC 81mg tab ORAL SCH (09:08)
[2019-06-09 12:00] VITALS: BP 155/75
--- NOTE | 2019-06-09 12:09 | Consultation ---
History of Present Illness General Reason for Hospitalization: Abdominal Pain Present Illness HPI This is a very pleasant 71-year-old female known to me from prior admissions and care plan who presented with failure to thrive, abnormal labs, sacral decubitus ulcer. On admission surgery called to evaluate and assist with care given prior care plan and overall condition. Patient seen, patient [place], chart reviewed. Patient awake alert and responsive. States she is doing well but wants to be turned. No nausea vomiting fever chills. Allergies: Coded Allergies: No Known Allergies (Unverified , 05/08/12) Medication History Scheduled Amlodipine Besylate (Norvasc), 5 MG ORAL DAILY Aspirin Ec* (Aspirin Ec*), 81 MG PO DAILY, (Reported) Atorvastatin Calcium* (Lipitor*), 10 MG ORAL BEDTIME Ertapenem Sodium (Ertapenem), 1 GM IV DAILY, (Reported) Insulin Detemir (Levemir Flexpen), 12 UNITS SUBQ DAILY Nateglinide* (Starlix*), 60 MG ORAL TIAC Sitagliptin (Januvia), 50 MG ORAL ACBREAKFAST Valsartan (Diovan), 160 MG PO DAILY, (Reported) Vancomycin/Water For Inj (Vancomycin 1.5 Gram/300 ml Bag), 1 GM IV DAILY, ( Reported) Vancomycin/Water For Inj (Vancomycin 1.5 Gram/300 ml Bag), 1 GM IV DAILY, ( Reported) Scheduled PRN Hydrocodone Bit/Acetaminophen 5-325* ([place] 5-325*), 1 TAB ORAL Q6H PRN for For Pain Tramadol Hcl* (Ultram*), 50 MG ORAL Q6H PRN for For Pain, (Reported) Patient History Limited by: age, medical condition History Provided By: Medical Record, PMD Healthcare decision maker MICHAEL TAI/BROCK Resuscitation status Full Code Advanced Directive on File Past Medical/Surgical History Past Medical/Surgical History: (1) Hyperglycemia (2) Vomiting (3) Pelvic fracture (4) UTI (urinary tract infection) (5) HTN (hypertension) (6) DM (diabetes mellitus) (7) Sepsis (8) Hypokalemia (9) Bacteremia due to Escherichia coli (10) Hypernatremia (11) Bacteremia due to Gram-negative bacteria Review of Systems Review of Symptoms General ROS: no weight loss or fever Psychological ROS: no depression or mood changes, no memory loss Ophthalmic ROS: no visual changes or eye irritation ENT ROS: no nasal congestion, hearing loss, dizziness Allergy and Immunology ROS: no allergic symptoms or urticaria Hematological and Lymphatic ROS: no swollen glands, unusual bleeding or bruising Endocrine ROS: no polyuria, polydipsia, weight changes, temperature intolerance Respiratory ROS: no cough, shortness of breath, or wheezing Cardiovascular ROS: no chest pain or dyspnea on exertion Gastrointestinal ROS: denies abdominal pain, bright red blood in stool. Musculoskeletal ROS: no myalgias or arthralgias Neurological ROS: no TIA or stroke symptoms Dermatological ROS: no new or changing skin lesions, rashes or pruritis Physical Exam Physical Exam General appearance: alert, cooperative, no distress, appears stated age Head: Normocephalic, without obvious abnormality, atraumatic Eyes: conjunctivae/corneas clear. PERRL, EOM's intact. Fundi benign Throat: Lips, mucosa, and tongue normal. Teeth and gums normal Neck: supple, symmetrical, trachea midline, no adenopathy, thyroid: not enlarged, symmetric, no tenderness/mass/nodules, no carotid bruit and no JVD Lungs: clear to auscultation bilaterally Heart: regular rate and rhythm, S1, S2 normal, no murmur, click, rub or gallop Abdomen: soft, non-tender. Bowel sounds normal. No masses, no organomegaly Extremities: Contractures lower extremities Pulses: symmetric Skin: Skin color, texture, turgor normal. No rashes or lesions sacral decubitus ulcer hip ulcer heel ulcer Neurologic: Grossly normal Last 24 Hour Vital Signs Date Time Temp Pulse Resp B/P (MAP) Pulse Ox O2 Delivery O2 Flow Rate FiO2 06/09/19 09:08 117 151/71 06/09/19 08:00 Room Air 06/09/19 08:00 97.8 117 19 151/71 (97) 100 06/09/19 07:49 115 06/09/19 04:00 105 06/09/19 00:00 Room Air 06/08/19 23:36 89 06/08/19 21:10 Room Air 06/08/19 20:49 97.8 108 15 142/71 100 Room Air 06/08/19 18:00 97.8 111 18 138/75 99 Room Air 06/08/19 15:45 120 20 Room Air 06/08/19 15:45 97.5 120 18 142/71 100 Room Air 06/08/19 14:56 97.5 109 18 142/71 (94) 100 Room Air Intake and Output 06/08/19 06/09/19 19:00 07:00 Intake Total 3010 ml 497.5 ml Output Total 100 ml 600 ml Balance 2910 ml -102.5 ml Intake Oral 360 ml IV Total 3010 ml 137.5 ml Output Urine Total 100 ml 600 ml # Bowel Movements 2 Laboratory Tests Test 06/08/19 15:30 06/09/19 03:40 White Blood Count 11.4 K/UL (4.8-10.8) H Red Blood Count 3.72 M/UL (4.20-5.40) L Hemoglobin 10.2 G/DL (12.0-16.0) L Hematocrit 31.7 % (37.0-47.0) L Mean Corpuscular Volume 85 FL (80-99) Mean Corpuscular Hemoglobin 27.5 PG (27.0-31.0) Mean Corpuscular Hemoglobin Concent 32.3 G/DL (32.0-36.0) Red Cell Distribution Width 16.2 % (11.6-14.8) H Platelet Count 410 K/UL (150-450) Mean Platelet Volume 7.8 FL (6.5-10.1) Neutrophils (%) (Auto) 79.2 % (45.0-75.0) H Lymphocytes (%) (Auto) 15.3 % (20.0-45.0) L Monocytes (%) (Auto) 4.2 % (1.0-10.0) Eosinophils (%) (Auto) 0.6 % (0.0-3.0) Basophils (%) (Auto) 0.7 % (0.0-2.0) Prothrombin Time 10.5 SEC (9.30-11.50) Prothromb Time International Ratio 1.0 (0.9-1.1) Activated Partial Thromboplast Time 30 SEC (23-33) Urine Color Pale yellow Urine Appearance Slightly cloudy Urine pH 7 (4.5-8.0) Urine Specific [place] 1.010 (1.005-1.035) Urine Protein 2+ (NEGATIVE) H Urine Glucose (UA) 1+ (NEGATIVE) H Urine Ketones 1+ (NEGATIVE) H Urine Blood 4+ (NEGATIVE) H Urine Nitrite Negative (NEGATIVE) Urine Bilirubin Negative (NEGATIVE) Urine Urobilinogen Normal MG/DL (0.0-1.0) Urine Leukocyte Esterase 3+ (NEGATIVE) H Urine RBC 5-10 /HPF (0 - 2) H Urine WBC 20-30 /HPF (0 - 2) H Urine Squamous Epithelial Cells Few /LPF (NONE/OCC) Urine Bacteria Many /HPF (NONE) H Sodium Level 137 MMOL/L (136-145) 138 MMOL/L (136-145) Potassium Level 4.7 MMOL/L (3.5-5.1) 3.8 MMOL/L (3.5-5.1) Chloride Level 100 MMOL/L (98-107) 105 MMOL/L (98-107) Carbon Dioxide Level 28 MMOL/L (21-32) 26 MMOL/L (21-32) Anion Gap 9 mmol/L (5-15) 8 mmol/L (5-15) Blood Urea Nitrogen 18 mg/dL (7-18) 13 mg/dL (7-18) Creatinine 0.6 MG/DL (0.55-1.30) 0.6 MG/DL (0.55-1.30) Estimat Glomerular Filtration Rate mL/min (>60) mL/min (>60) Glucose Level 337 MG/DL (74-106) H 260 MG/DL (74-106) H Lactic Acid Level 1.20 mmol/L (0.4-2.0) Calcium Level 9.0 MG/DL (8.5-10.1) 8.5 MG/DL (8.5-10.1) Phosphorus Level 3.3 MG/DL (2.5-4.9) Magnesium Level 1.8 MG/DL (1.8-2.4) Total Bilirubin 0.3 MG/DL (0.2-1.0) 0.4 MG/DL (0.2-1.0) Aspartate Amino Transf (AST/SGOT) 12 U/L (15-37) L 12 U/L (15-37) L Alanine Aminotransferase (ALT/SGPT) 20 U/L (12-78) 14 U/L (12-78) Alkaline Phosphatase 91 U/L (46-116) 75 U/L (46-116) Total Creatine Kinase 60 U/L (26-308) Troponin I 0.006 ng/mL (0.000-0.056) Pro-B-Type Natriuretic Peptide 110 pg/mL (0-125) Total Protein 6.9 G/DL (6.4-8.2) 6.3 G/DL (6.4-8.2) L Albumin 2.7 G/DL (3.4-5.0) L 2.2 G/DL (3.4-5.0) L Globulin 4.2 g/dL 4.1 g/dL Albumin/Globulin Ratio 0.6 (1.0-2.7) L 0.5 (1.0-2.7) L Lipase 186 U/L (73-393) Hemoglobin A1c 7.1 % (4.3-6.0) H Microbiology Date/Time Source Procedure Growth Status 06/08/19 15:30 Blood Blood Culture - Preliminary Resulted 06/08/19 15:15 Blood Blood Culture - Preliminary Resulted 06/08/19 15:30 Indwelling Cath Urine Culture - Preliminary Gram Negative Bacillus 1 Resulted Height (Feet): 5 Height (Inches): 7.00 Weight (Pounds): 89 Medications Current Medications Medications (Trade) Dose Ordered Sig/Mar Route PRN Reason Start Time Stop Time Status Last Admin Dose Admin Acetaminophen (Tylenol) 650 mg Q4H PRN ORAL Mild Pain (Pain Scale 1-3) 06/08/19 18:45 07/08/19 18:44 Acetaminophen/ Hydrocodone Bitart ([place] 5/325) 1 tab Q6H PRN ORAL FOR SEVERE PAIN 06/08/19 19:00 06/15/19 18:44 Amlodipine Besylate (Norvasc) 5 mg DAILY ORAL 06/09/19 09:00 07/09/19 08:59 06/09/19 09:08 Aspirin (Ecotrin) 81 mg DAILY ORAL 06/09/19 09:00 07/09/19 08:59 06/09/19 09:08 Atorvastatin Calcium (Lipitor) 10 mg BEDTIME ORAL 06/08/19 21:00 07/08/19 20:59 06/08/19 21:30 Dextrose (Dextrose 50%) 25 ml Q30M PRN IV Hypoglycemia 06/08/19 18:45 07/08/19 18:44 Dextrose (Dextrose 50%) 50 ml Q30M PRN IV Hypoglycemia 06/08/19 18:45 07/08/19 18:44 Insulin Aspart (NovoLOG) BEFORE MEALS AND HS SUBQ 06/08/19 21:00 07/08/19 20:59 06/09/19 05:58 Nateglinide (Starlix) 60 mg TIAC ORAL 06/09/19 06:30 07/09/19 06:29 06/09/19 05:57 Piperacillin Sod/ Tazobactam Sod 3.375 gm/Sodium Chloride 110 ml @ 27.5 mls/hr EVERY 8 HOURS IVPB 06/08/19 22:00 06/13/19 21:59 06/09/19 05:36 Sitagliptin Phosphate (Januvia) 50 mg ACBREAKFAST ORAL 06/09/19 06:30 07/09/19 06:29 06/09/19 05:57 Tramadol HCl (Ultram) 50 mg Q6H PRN ORAL FOR MODERATE PAIN 06/08/19 19:00 06/15/19 18:44 Zolpidem Tartrate (Ambien) 5 mg HSPRN PRN ORAL Insomnia 06/08/19 18:45 06/15/19 18:44 Assessment/Plan Problem List: (1) Sacral decubitus ulcer, stage IV Assessment & Plan: Patient has a stage IV historic sacral decubitus ulcer that is been debrided in the past now with good granulation tissue and smaller than prior. Good local wound care being provided. Patient furthermore has a historic right trochanteric wound that is granulated over and healing. Patient with multiple stage II skin abrasions on the left hip. Heels with mild erythema. No acute surgical intervention planned Air soft mattress Turn every 2 hours Heel protectors and offload heels with pillow Wash sacral wound daily with normal saline, apply hydrogel infused gauze daily and as needed saturation Nutritional optimization We will follow with recommendations Thank you for let me participate in patient's care ICD Codes: L89.154 - Pressure ulcer of sacral region, stage 4 SNOMED: 919452524, 856731397 (2) Failure to thrive in adult ICD Codes: R62.7 - Adult failure to thrive SNOMED: 492036177 (3) Malnutrition ICD Codes: E46 - Unspecified protein-calorie malnutrition SNOMED: 50415146 (4) Severe protein-calorie malnutrition ICD Codes: E43 - Unspecified severe protein-calorie malnutrition SNOMED: 881687361, 067229704, 955170622 Noel Prescott Jun 09, 2019 12:09
--- NOTE | 2019-06-09 12:55 | NUR ---
NURSE NOTES: Patient's heart rhythm, fever and blood culture positive for G+ cocci in clusters, 2 bottles, reported to Dr. Rain. Dr. Dallas Rain to consult for ID.
--- NOTE | 2019-06-09 12:56 | General Progress Note ---
Assessment/Plan Problem List: (1) Bacteremia ICD Codes: R78.81 - Bacteremia SNOMED: 5931210 (2) Sacral decubitus ulcer, stage IV ICD Codes: L89.154 - Pressure ulcer of sacral region, stage 4 SNOMED: 521154188, 663160910 (3) UTI (urinary tract infection) ICD Codes: N39.0 - Urinary tract infection, site not specified SNOMED: 63630752 Qualifiers: Qualified Codes: T83.511A - Infection and inflammatory reaction due to indwelling urethral catheter, initial encounter; N39.0 - Urinary tract infection , site not specified (4) HTN (hypertension) ICD Codes: I10 - Essential (primary) hypertension SNOMED: 17579213 (5) DM (diabetes mellitus) ICD Codes: E11.9 - Type 2 diabetes mellitus without complications SNOMED: 47195872 (6) Sepsis ICD Codes: A41.9 - Sepsis, unspecified organism SNOMED: 44939277 Qualifiers: Qualified Codes: A41.9 - Sepsis, unspecified organism Assessment/Plan: abxs wound care ID F/U discussed with RN follow labs SSI endocrine consult Subjective Allergies: Coded Allergies: No Known Allergies (Unverified , 05/08/12) Subjective feels ok Objective Last 24 Hour Vital Signs Date Time Temp Pulse Resp B/P (MAP) Pulse Ox O2 Delivery O2 Flow Rate FiO2 06/09/19 12:00 100.0 125 20 155/75 (101) 100 06/09/19 09:08 117 151/71 06/09/19 08:00 Room Air 06/09/19 08:00 97.8 117 19 151/71 (97) 100 06/09/19 07:49 115 06/09/19 04:00 105 06/09/19 00:00 Room Air 06/08/19 23:36 89 06/08/19 21:10 Room Air 06/08/19 20:49 97.8 108 15 142/71 100 Room Air 06/08/19 18:00 97.8 111 18 138/75 99 Room Air 06/08/19 15:45 120 20 Room Air 06/08/19 15:45 97.5 120 18 142/71 100 Room Air 06/08/19 14:56 97.5 109 18 142/71 (94) 100 Room Air Intake and Output 06/08/19 06/09/19 19:00 07:00 Intake Total 3010 ml 497.5 ml Output Total 100 ml 600 ml Balance 2910 ml -102.5 ml Intake Oral 360 ml IV Total 3010 ml 137.5 ml Output Urine Total 100 ml 600 ml # Bowel Movements 2 Laboratory Tests 06/08/19 15:30: White Blood Count 11.4H, Red Blood Count 3.72L, Hemoglobin 10.2L, Hematocrit 31.7L, Mean Corpuscular Volume 85, Mean Corpuscular Hemoglobin 27.5, Mean Corpuscular Hemoglobin Concent 32.3, Red Cell Distribution Width 16.2H, Platelet Count 410, Mean Platelet Volume 7.8, Neutrophils (%) (Auto) 79.2H, Lymphocytes (%) (Auto) 15.3L, Monocytes (%) (Auto) 4.2, Eosinophils (%) (Auto) 0.6, Basophils (%) (Auto) 0.7, Prothrombin Time 10.5, Prothromb Time International Ratio 1.0, Activated Partial Thromboplast Time 30, Urine Color Pale yellow, Urine Appearance Slightly cloudy, Urine pH 7, Urine Specific [place] 1.010, Urine Protein 2+H, Urine Glucose (UA) 1+H, Urine Ketones 1+H, Urine Blood 4+H, Urine Nitrite Negative, Urine Bilirubin Negative, Urine Urobilinogen Normal, Urine Leukocyte Esterase 3+H, Urine RBC 5-10H, Urine WBC 20 -30H, Urine Squamous Epithelial Cells Few, Urine Bacteria ManyH, Sodium Level 137, Potassium Level 4.7, Chloride Level 100, Carbon Dioxide Level 28, Anion Gap 9, Blood Urea Nitrogen 18, Creatinine 0.6, Estimat Glomerular Filtration Rate , Glucose Level 337H, Lactic Acid Level 1.20, Calcium Level 9.0, Phosphorus Level 3.3, Magnesium Level 1.8, Total Bilirubin 0.3, Aspartate Amino Transf (AST/SGOT) 12L, Alanine Aminotransferase (ALT/SGPT) 20, Alkaline Phosphatase 91, Total Creatine Kinase 60, Troponin I 0.006, Pro-B-Type Natriuretic Peptide 110, Total Protein 6.9, Albumin 2.7L, Globulin 4.2, Albumin/ Globulin Ratio 0.6L, Lipase 186 06/09/19 03:40: Sodium Level 138, Potassium Level 3.8, Chloride Level 105, Carbon Dioxide Level 26, Anion Gap 8, Blood Urea Nitrogen 13, Creatinine 0.6, Estimat Glomerular Filtration Rate , Glucose Level 260H, Calcium Level 8.5, Total Bilirubin 0.4, Aspartate Amino Transf (AST/SGOT) 12L, Alanine Aminotransferase (ALT/SGPT) 14, Alkaline Phosphatase 75, Total Protein 6.3L, Albumin 2.2L, Globulin 4.1, Albumin /Globulin Ratio 0.5L, Hemoglobin A1c 7.1H Height (Feet): 5 Height (Inches): 7.00 Weight (Pounds): 89 Cardiovascular: normal rate Respiratory/Chest: lungs clear Abdomen: soft Edema: no edema noted Generalized Arnulfo Rain MD Jun 09, 2019 12:56
[2019-06-09 16:00] VITALS: BP 135/63
--- NOTE | 2019-06-09 17:30 | Consultation ---
DATE OF CONSULTATION: 06/09/2019 INFECTIOUS DISEASES CONSULTATION CONSULTING PHYSICIAN: Dallas Rain M.D. PRIMARY ATTENDING PHYSICIAN: Arnulfo Rain M.D. REASON FOR CONSULT: Bacteremia and UTI. HISTORY OF PRESENT ILLNESS: This is a 79-year-old female admitted yesterday from home coming in because of failure to thrive, sacral pressure ulcer, probable UTI, had borderline leukocytosis at the time of admission, and fever of 100 today. A blood culture from admission time grew gram-positive cocci. PAST MEDICAL HISTORY: History of sacral pressure ulcer, diabetes mellitus, hypertension, anemia, cachexia, pelvic fracture, history of CVA, and history of coccygeal osteomyelitis since previous admission in February 2019. ALLERGIES: No known drug allergies. MEDICATIONS: Vancomycin, amlodipine, aspirin, Starlix, Januvia, Zosyn, atorvastatin, insulin, [place], tramadol, Tylenol, and Ambien. Got a dose of Zosyn, gentamicin, and vancomycin in the ER. SOCIAL HISTORY: , lives at home. No history of alcohol, drug abuse, or smoking. REVIEW OF SYSTEMS: Very limited. The patient has no complaints. PHYSICAL EXAMINATION: VITAL SIGNS: Temperature 100, and blood pressure 155/75. GENERAL APPEARANCE: Seems to be cachectic. HEAD AND NECK: Moist mucous membranes. HEART: Tachycardic. LUNGS: Clear. ABDOMEN: Soft and nontender. EXTREMITIES: No edema. She has muscle atrophy. NEUROLOGIC: Awake and alert. LABORATORY AND DIAGNOSTIC DATA: Sodium 138, potassium 3.8, chloride 105, bicarb 26. Glucose is 216. Hemoglobin A1c is 7.1. BUN is 13, creatinine 0.6. Albumin is 2.2. WBC 11.4, hemoglobin 10.2, hematocrit 31.7, and platelets 410,000. UA showed wbc's of 20 to 30 and leukocyte esterase 3+. Blood cultures are growing gram-positive cocci in cluster. Urine culture is growing gram-negative rods. IMPRESSION: Bacteremia with gram-positive cocci, pyuria, and bacteriuria likely urinary tract infection; diabetes mellitus with hyperglycemia; hypertension; anemia; cachexia; protein malnutrition; previous history of coccygeal osteomyelitis and stage IV sacral ulcer, improving, better than previous admission. RECOMMENDATIONS: Continue Zosyn and vancomycin. We will follow up the cultures and narrow antibiotic. At the end of my exam, I thank Dr. Arnulfo Rain for involving me in the care of this patient. Dallas Rain M.D. DR: Francisca JOB#: [id number] CC: TERELL
[2019-06-09] MEDS: Vancomycin 750mg/NS 275ml IVPB SCH ×2 (18:35)
--- NOTE | 2019-06-09 19:25 | NUR ---
HAND-OFF: Report given to Anant Holland RN. Endorsed to watch for patient's fever. Addendum: 06/09/19 at 1937 by Marlene Dos Santos RN cooling measures already in place
--- NOTE | 2019-06-09 19:26 | NUR ---
NURSE NOTES: received pt from Marlene GALLOWAY., pt is AOx2 confused pt, pt is in RA no s/s of SOB and no s/s Respiratory distress at this moment. pt states no pain now. Harris cath is clean, intact, patent, and draining well with gravity. Left FA 20G Iv is intact, patent, and clean. call light within reach. bed at the lowest position, alarmed, and locked. will continue to monitor pt with plan of care,
[2019-06-09 20:00] VITALS: BP 133/65
[2019-06-10] VITALS: BP 146/77
--- NOTE | 2019-06-10 01:00 | NUR ---
NURSE NOTES: oral care given, bath given, changed bed, and repositioned pt Q 2HRs. no s/s of pain and SOB at this moment. pt is in stable condition. call light within reach.
[2019-06-10 04:00] VITALS: BP 141/79
[2019-06-10] MEDS: Zoysn 3.37gm in NS 100ML IVPB SCH ×2 (06:51→14:14)
[2019-06-10] MEDS: Nateglinide 60mg tab ORAL SCH ×3 (06:52→17:38)
[2019-06-10] MEDS: sitaGLIPtin 50mg tab ORAL SCH (06:52)
[2019-06-10] MEDS: NovoLOG Insulin Flexpen SUBQ SCH ×4 (06:52→21:58)
--- NOTE | 2019-06-10 07:15 | NUR ---
HAND-OFF: Report given to Serena GALLOWAY. pt is in stable condition.
[2019-06-10 08:00] VITALS: BP 137/73
[2019-06-10] MEDS: Aspirin EC 81mg tab ORAL SCH (08:44)
--- NOTE | 2019-06-10 10:41 | NUR ---
RD ASSESSMENT & RECOMMENDATIONS SEE CARE ACTIVITY FOR COMPLETE ASSESSMENT DAILY ESTIMATED NEEDS: Needs based on Wound, Underweight/ 41.3kg 30-40 kcals/kg 4053-1332 total kcals 1.5-2 g protein/kg 62-83 g total protein 25-30 mL/kg 0807-8881 total fluid mLs NUTRITION DIAGNOSIS: 1) Increased kcal and pro needs R/T wound healing, underweight status as evidenced by admitted w/ stage 4 sacral wound, w/ generalized moderate wasting, low BMI per guidelines. CURRENT DIET:CCHO MED, mech soft chopped PO DIET RECOMMENDATIONS: CCHO LOW/ texture per [facility] + Glucerna TID w/ meals ADDITIONAL RECOMMENDATIONS: 1) Calibrated bedscale wt, weekly wt monitoring 2) Wound care: MVI w/ min 1 tab QD, Vit C 500mg BID ZnSO4 220mg QD x 10 days Eduardo 1pkt BID added to tray 3) Glucerna 1 tetra didi TID w/ meals added (220kcal/10g prot per didi) 4) Consider [employer] [facility] eval for appropriate texture- h/o CVA .
[2019-06-10 12:00] VITALS: BP 113/63
--- NOTE | 2019-06-10 12:06 | Infectious Diseases Prog Note ---
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 We will follow up the cultures and narrow antibiotic. Subjective ROS Limited/Unobtainable: Yes Constitutional: Reports: no symptoms Respiratory: Reports: no symptoms Gastrointestinal/Abdominal: Reports: no symptoms Allergies: Coded Allergies: No Known Allergies (Unverified , 05/08/12) Objective Vital Signs Last 24 Hour Vital Signs Date Time Temp Pulse Resp B/P (MAP) Pulse Ox O2 Delivery O2 Flow Rate FiO2 06/10/19 09:00 Room Air 06/10/19 08:44 101 137/79 06/10/19 08:00 97.6 96 17 137/73 (94) 100 06/10/19 08:00 90 06/10/19 04:00 98.5 110 16 141/79 (99) 98 06/10/19 04:00 101 06/10/19 00:00 99.0 110 16 146/77 (100) 100 06/09/19 23:21 100 06/09/19 23:21 100 06/09/19 21:00 Room Air 06/09/19 20:00 98.9 104 16 133/65 (87) 99 06/09/19 19:13 104 06/09/19 16:00 99.5 123 18 135/63 (87) 99 06/09/19 15:14 129 06/09/19 13:05 99.2 Height (Feet): 5 Height (Inches): 7.00 Weight (Pounds): 89 General Appearance: cachetic HEENT: mucous membranes moist Respiratory/Chest: lungs clear Cardiovascular: tachycardia Abdomen: soft, non tender Extremities: no edema Skin: ulcers, other - sacral Neurologic/Psychiatric: alert, responsive Musculoskeletal: atrophy Microbiology Date/Time Source Procedure Growth Status 06/08/19 15:30 Blood Blood Culture - Preliminary Gram Positive Cocci Resulted 06/08/19 15:15 Blood Blood Culture - Preliminary Gram Positive Cocci Resulted 06/08/19 15:30 Indwelling Cath Urine Culture - Final Escherichia Coli Complete Current Medications Medications (Trade) Dose Ordered Sig/Mar Route PRN Reason Start Time Stop Time Status Last Admin Dose Admin Acetaminophen (Tylenol) 650 mg Q4H PRN ORAL Mild Pain (Pain Scale 1-3) 06/08/19 18:45 07/08/19 18:44 06/09/19 12:35 Acetaminophen/ Hydrocodone Bitart ([place] 5/325) 1 tab Q6H PRN ORAL FOR SEVERE PAIN 06/08/19 19:00 06/15/19 18:44 Amlodipine Besylate (Norvasc) 5 mg DAILY ORAL 06/09/19 09:00 07/09/19 08:59 06/10/19 08:44 Aspirin (Ecotrin) 81 mg DAILY ORAL 06/09/19 09:00 07/09/19 08:59 06/10/19 08:44 Atorvastatin Calcium (Lipitor) 10 mg BEDTIME ORAL 06/08/19 21:00 07/08/19 20:59 06/09/19 21:02 Dextrose (Dextrose 50%) 25 ml Q30M PRN IV Hypoglycemia 06/08/19 18:45 07/08/19 18:44 Dextrose (Dextrose 50%) 50 ml Q30M PRN IV Hypoglycemia 06/08/19 18:45 07/08/19 18:44 Insulin Aspart (NovoLOG) BEFORE MEALS AND HS SUBQ 06/08/19 21:00 07/08/19 20:59 06/10/19 11:54 Nateglinide (Starlix) 60 mg TIAC ORAL 06/09/19 06:30 07/09/19 06:29 06/10/19 11:52 Piperacillin Sod/ Tazobactam Sod 3.375 gm/Sodium Chloride 110 ml @ 27.5 mls/hr EVERY 8 HOURS IVPB 06/08/19 22:00 06/13/19 21:59 06/10/19 06:51 Sitagliptin Phosphate (Januvia) 50 mg ACBREAKFAST ORAL 06/09/19 06:30 07/09/19 06:29 06/10/19 06:52 Tramadol HCl (Ultram) 50 mg Q6H PRN ORAL FOR MODERATE PAIN 06/08/19 19:00 06/15/19 18:44 Vancomycin HCl (Vanco rx to dose) 1 ea DAILY PRN MISC Per rx protocol 06/09/19 13:45 07/09/19 13:44 Vancomycin HCl 750 mg/Sodium Chloride 275 ml @ 183.333 mls/hr Q24H IVPB 06/09/19 18:00 06/14/19 17:59 06/09/19 18:35 Zolpidem Tartrate (Ambien) 5 mg HSPRN PRN ORAL Insomnia 06/08/19 18:45 06/15/19 18:44 Dallas Rain MD Jun 10, 2019 12:06
--- NOTE | 2019-06-10 12:22 | General Progress Note ---
Assessment/Plan Problem List: (1) Bacteremia ICD Codes: R78.81 - Bacteremia SNOMED: 8167369 (2) Sacral decubitus ulcer, stage IV ICD Codes: L89.154 - Pressure ulcer of sacral region, stage 4 SNOMED: 838811650, 442235703 (3) UTI (urinary tract infection) ICD Codes: N39.0 - Urinary tract infection, site not specified SNOMED: 14875900 Qualifiers: Qualified Codes: T83.511A - Infection and inflammatory reaction due to indwelling urethral catheter, initial encounter; N39.0 - Urinary tract infection , site not specified (4) HTN (hypertension) ICD Codes: I10 - Essential (primary) hypertension SNOMED: 43664671 (5) DM (diabetes mellitus) ICD Codes: E11.9 - Type 2 diabetes mellitus without complications SNOMED: 99850646 (6) Sepsis ICD Codes: A41.9 - Sepsis, unspecified organism SNOMED: 02638170 Qualifiers: Qualified Codes: A41.9 - Sepsis, unspecified organism Assessment/Plan: abxs wound care ID F/U discussed with RN follow labs SSI endocrine consult Subjective Allergies: Coded Allergies: No Known Allergies (Unverified , 05/08/12) Subjective feels ok Objective Last 24 Hour Vital Signs Date Time Temp Pulse Resp B/P (MAP) Pulse Ox O2 Delivery O2 Flow Rate FiO2 06/10/19 09:00 Room Air 06/10/19 08:44 101 137/79 06/10/19 08:00 97.6 96 17 137/73 (94) 100 06/10/19 08:00 90 06/10/19 04:00 98.5 110 16 141/79 (99) 98 06/10/19 04:00 101 06/10/19 00:00 99.0 110 16 146/77 (100) 100 06/09/19 23:21 100 06/09/19 23:21 100 06/09/19 21:00 Room Air 06/09/19 20:00 98.9 104 16 133/65 (87) 99 06/09/19 19:13 104 06/09/19 16:00 99.5 123 18 135/63 (87) 99 06/09/19 15:14 129 06/09/19 13:05 99.2 Intake and Output 06/09/19 06/10/19 19:00 07:00 Intake Total 590.0 ml 676.666 ml Output Total 500 ml 850 ml Balance 90.0 ml -173.334 ml Intake Oral 480 ml 200 ml IV Total 110.0 ml 476.666 ml Output Urine Total 500 ml 850 ml # Bowel Movements 1 1 Height (Feet): 5 Height (Inches): 7.00 Weight (Pounds): 89 Cardiovascular: normal rate Respiratory/Chest: lungs clear Edema: no edema noted Generalized Arnulfo Rain MD Jun 10, 2019 12:22
--- NOTE | 2019-06-10 14:07 | Surgery Progress Note ---
Surgery Progress Note Subjective Additional Comments no acute events comfortable stable awake, responsive wants morewater Objective Last 24 Hour Vital Signs Date Time Temp Pulse Resp B/P (MAP) Pulse Ox O2 Delivery O2 Flow Rate FiO2 06/10/19 12:00 85 06/10/19 12:00 99.0 97 19 113/63 (80) 99 06/10/19 09:00 Room Air 06/10/19 08:44 101 137/79 06/10/19 08:00 97.6 96 17 137/73 (94) 100 06/10/19 08:00 90 06/10/19 04:00 98.5 110 16 141/79 (99) 98 06/10/19 04:00 101 06/10/19 00:00 99.0 110 16 146/77 (100) 100 06/09/19 23:21 100 06/09/19 23:21 100 06/09/19 21:00 Room Air 06/09/19 20:00 98.9 104 16 133/65 (87) 99 06/09/19 19:13 104 06/09/19 16:00 99.5 123 18 135/63 (87) 99 06/09/19 15:14 129 I&O Intake and Output 06/09/19 06/10/19 19:00 07:00 Intake Total 590.0 ml 676.666 ml Output Total 500 ml 850 ml Balance 90.0 ml -173.334 ml Intake Oral 480 ml 200 ml IV Total 110.0 ml 476.666 ml Output Urine Total 500 ml 850 ml # Bowel Movements 1 1 Dressing: saturated Wound: clean Cardiovascular: RSR Respiratory: clear Abdomen: soft, non-tender, present bowel sounds Extremities: no tenderness, no cyanosis Plan Problems: (1) Sacral decubitus ulcer, stage IV Assessment & Plan: Patient has a stage IV historic sacral decubitus ulcer that is been debrided in the past now with good granulation tissue and smaller than prior. Good local wound care being provided. Patient furthermore has a historic right trochanteric wound that is granulated over and healing. Patient with multiple stage II skin abrasions on the left hip. Heels with mild erythema. No acute surgical intervention planned Air soft mattress Turn every 2 hours Heel protectors and offload heels with pillow Wash sacral wound daily with normal saline, apply hydrogel infused gauze daily and as needed saturation Nutritional optimization We will follow with recommendations Thank you for let me participate in patient's care (2) Failure to thrive in adult Assessment & Plan: DAILY ESTIMATED NEEDS: Needs based on Wound, Underweight/ 41.3kg 30-40 kcals/kg 2983-6618 total kcals 1.5-2 g protein/kg 62-83 g total protein 25-30 mL/kg 8235-5729 total fluid mLs NUTRITION DIAGNOSIS: 1) Increased kcal and pro needs R/T wound healing, underweight status as evidenced by admitted w/ stage 4 sacral wound, w/ generalized moderate wasting, low BMI per guidelines. CURRENT DIET:CCHO MED, mech soft chopped PO DIET RECOMMENDATIONS: CCHO LOW/ texture per CHAMFERING MACHINE OPERATOR + Glucerna TID w/ meals ADDITIONAL RECOMMENDATIONS: 1) Calibrated bedscale wt, weekly wt monitoring 2) Wound care: MVI w/ min 1 tab QD, Vit C 500mg BID ZnSO4 220mg QD x 10 days Eduardo 1pkt BID added to tray 3) Glucerna 1 tetra didi TID w/ meals added (220kcal/10g prot per didi) 4) Consider CHAMFERING MACHINE OPERATOR eval for appropriate texture- h/o CVA . (3) Malnutrition (4) Severe protein-calorie malnutrition Noel Prescott Jun 10, 2019 14:07
--- NOTE | 2019-06-10 14:30 | NUR ---
NURSE NOTES:WOUND CARE NOTES:Pt presented on admission with multiple pressure and contractures. Pt is emaciated.Scattered areas of dark skin tone without erythema induration or fluctuance noted to R and L scapulae and both elbows. Full thickness sacral pressure injury with undermining. Scattered fibrinous slough with pink granulation at base of wound . Macerated borders. (+) Epibole. Small amt seropurulent exudate noted. NO odor noted. Hyperpigmentation periwound.(L)5.5cm x (W)7cm x (D)0.4cm,undermining clockwise 9-11 by 1.2cm @11o'clock. Resolving pressure injury R trochanter. Base of wound moist viable. Edges flat and adherent to base of wound(L)2cm x (W)1.6cm.Periwound extending into R gluteus has scattered loose dry black skin without erythema or induration. Resolving pressure injury L ischium . [place] granulation at base of wound . Edges adherent to base of wound . Hyperpigmentation periwound. No odor or exudate noted(L)3.5cm x (W)4.5cm. An area of non-blanching erythema with fluctuance noted to distal/lateral R foot. (L)1.5cm x (W)1cm. Both heels are soft but easily blanchable. Tx.Plan:Cleanse Sacral wound with Saline. Apply Therahoney. Apply Moisture Barrier paste periwound. Cover with Optifoam drsg. Change every 3 days and prn. Cleanse wound R trochanter with Saline. Apply Therahoney. Apply Moisture Barrier Paste periwound. Cover with Optifoam drsg.every 3 days and prn. Cleanse L ischial wound with Saline. Apply Therahoney. Apply Moisture Barrier Paste periwound. Cover with Optifoam drsg. Change every 3 days and prn. APM/KASEY Mattress overlay. Reposition at least every 2hours or as tolerated. Off-load heels with pillow. PLace pillow between knees.
--- NOTE | 2019-06-10 15:03 | NUR ---
ADVERTISING DESIGNERDIRECTOR PHARMACY SERVICES 79 YO FEMALE FROM HOME TO ER CC ABDOMINAL PAIN X 3 DAYS SI: ABDOMINAL PAIN T. 97.5 HR 109 RR 18 B/P 142/71 WBC 11.4 UA+ PROTEIN,GLUCOSE,KETONES,BLOOD,LEUKOCYTE ESTERASE,RBC,WBC,BACTERIA IS: IV BOLUS NS X 2 LITERS VANCO IV ZOSYN IV ADMITTED TO STEP DOWN UNIT STEP DOWN STATUS DCP PENDING HOSPITAL STAY
[2019-06-10 16:00] VITALS: BP 120/61
[2019-06-10] MEDS ORDERED: ceFAZolin sod 1 GM in NS 55 ML IVPB SCH (17:00)
[2019-06-10] MEDS ORDERED: Ascorbic Acid 500mg tab ORAL SCH (18:00)
[2019-06-10] MEDS: Vancomycin 750mg/NS 275ml IVPB SCH ×2 (18:51)
--- NOTE | 2019-06-10 19:50 | NUR ---
NURSE NOTES: Received pt from LAVERNE Lyons. Pt awake, alert, and talkative. Bed in lowest position. Call light within reach. Will continue to monitor.
[2019-06-10 20:00] VITALS: BP 134/67
--- NOTE | 2019-06-10 22:47 | NUR ---
HAND-OFF: Report given to LAVERNE Dinero. Pt stable.
--- NOTE | 2019-06-10 22:50 | NUR ---
NURSE NOTES: Received report from Bernice Lovell RN. Pt in stable condition, A&Ox4, VS WNL, SR, denies pain at this time. O2 at 98% room air. Side rails up x 3, bed in lowest position, and call light within reach. Bed alarm armed, pt instructed to use call light if assistance is needed; verbalized understanding. Will continue close monitoring and plan of care.
--- NOTE | 2019-06-10 23:45 | Consultation ---
DATE OF CONSULTATION: 06/10/2019 ENDOCRINOLOGY CONSULTATION CONSULTING PHYSICIAN: Luisito Quintero M.D. REFERRING PHYSICIAN: Arnulfo Rain M.D. REASON FOR CONSULTATION: Diabetes management. HISTORY OF PRESENT ILLNESS: The patient is an unfortunate 79-year-old female whom I am familiar with from previous hospitalizations. She is an female, 79 years old with malnutrition, infected sacral decubitus, status post surgery. The patient is taken care of at home. She was brought to the hospital due to large decubitus ulcer and failure to thrive. The patient's appetite is off and on. Previously diabetes was managed with Levemir 12 units at bedtime daily, Starlix 60 mg before each meal, and Januvia 50 mg daily. PAST MEDICAL HISTORY: 1. Dementia. 2. Diabetes. 3. Cachexia. 4. Anemia. 5. Recurrent UTI. 6. Stage IV sacral decubitus ulcer. 7. 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 8. Hypertension. MEDICATIONS: Reviewed and reconciled. Diabetic medications reviewed in history of present illness. SOCIAL HISTORY: No smoking, alcohol, or drug use. Lives at home. ALLERGIES TO MEDICATION: None. REVIEW OF SYSTEMS: Unobtainable due to the patient's condition and mental status. PHYSICAL EXAMINATION: GENERAL: The patient is awake. VITAL SIGNS: Blood pressure 140/70, pulse of 80, temperature 98.2, and respiratory rate 18. HEENT: Pupils are equal and reactive to light. HEART: Regular. LUNGS: Clear. ABDOMEN: Positive bowel sounds. EXTREMITIES: Some contraction and large decubitus ulcer. LABORATORY VALUES: WBC 11.4, hemoglobin 10.2, hematocrit 31.7, platelets of 410. Sodium 138, potassium 3.8, chloride 105, bicarbonate 26, BUN 13, creatinine 0.8, glucose of 260. Hemoglobin A1c of 7.1. DIAGNOSES: 1. Decubitus ulcer. 2. Diabetes out of control. 3. Cachexia. PLAN: 1. We will hold off on long-acting insulin for now. 2. Continue Starlix 60 mg with each meal. 3. Continue Januvia renal peres of 50 mg daily. 4. Continue NovoLog sliding scale before meals and at bedtime. 5. Dietitian consultation 6. Further adjustment will be done according to blood glucose values. Thank you, Dr. Rain, for the courtesy of this consultation. Luisito Quintero M.D. DR: Joao JOB#: [id number] CC: TERELL
[2019-06-11] VITALS: BP 121/58
[2019-06-11] MEDS ORDERED: traMADol 50mg tab ORAL PRN (01:00)
[2019-06-11] MEDS ORDERED: HYDROcodone/Acetamin 5/325 tab ORAL PRN (01:00)
[2019-06-11] MEDS ORDERED: Zolpidem 5mg tab ORAL PRN (02:00)
[2019-06-11 04:00] VITALS: BP 152/74
[2019-06-11] MEDS: Nateglinide 60mg tab ORAL SCH ×3 (05:50→17:55)
[2019-06-11] MEDS: ceFAZolin sod 1 GM in NS 55 ML IVPB SCH ×3 (05:50→21:39)
[2019-06-11] MEDS: sitaGLIPtin 50mg tab ORAL SCH (05:50)
[2019-06-11] MEDS: NovoLOG Insulin Flexpen SUBQ SCH ×4 (05:56→21:00)
--- NOTE | 2019-06-11 07:07 | General Progress Note ---
Assessment/Plan Problem List: (1) DM (diabetes mellitus) ICD Codes: E11.9 - Type 2 diabetes mellitus without complications SNOMED: 75555635 (2) Hyperglycemia ICD Codes: R73.9 - Hyperglycemia, unspecified SNOMED: 66392955 (3) Malnutrition ICD Codes: E46 - Unspecified protein-calorie malnutrition SNOMED: 11457868 (4) Sacral decubitus ulcer, stage IV ICD Codes: L89.154 - Pressure ulcer of sacral region, stage 4 SNOMED: 402538684, 855694683 Assessment/Plan: continue Starlix 60 mg ac tid continue Januvia 50 mg daily continue NISS ac / hs no nee for basal insulin for now Subjective ROS Limited/Unobtainable: Yes Allergies: Coded Allergies: No Known Allergies (Unverified , 05/08/12) Subjective events noted glucose values are stable Item Value Date Time Bedside Blood Glucose 192 mg/dl H 06/11/19 0628 Bedside Blood Glucose 178 mg/dl H 06/10/19 2158 Bedside Blood Glucose 139 mg/dl H 06/10/19 1630 Bedside Blood Glucose 177 mg/dl H 06/10/19 1154 Bedside Blood Glucose 145 mg/dl H 06/10/19 0652 Objective Last 24 Hour Vital Signs Date Time Temp Pulse Resp B/P (MAP) Pulse Ox O2 Delivery O2 Flow Rate FiO2 06/11/19 04:00 98.4 91 21 152/74 (100) 96 06/11/19 04:00 91 06/11/19 00:00 93 06/11/19 00:00 97.7 95 18 121/58 (79) 100 06/10/19 21:00 Room Air 06/10/19 20:00 98.1 95 20 134/67 (89) 99 06/10/19 20:00 98 06/10/19 16:00 106 06/10/19 16:00 98.1 95 18 120/61 (80) 98 06/10/19 12:00 85 06/10/19 12:00 99.0 97 19 113/63 (80) 99 06/10/19 09:00 Room Air 06/10/19 08:44 101 137/79 06/10/19 08:00 97.6 96 17 137/73 (94) 100 06/10/19 08:00 90 Intake and Output 06/10/19 06/11/19 19:00 07:00 Intake Total 450 ml Output Total 450 ml 1200 ml Balance 0 ml -1200 ml Intake Oral 450 ml Output Urine Total 450 ml 1200 ml # Bowel Movements 1 Height (Feet): 5 Height (Inches): 7.00 Weight (Pounds): 89 General Appearance: no apparent distress Neck: normal alignment Cardiovascular: normal rate Respiratory/Chest: lungs clear Abdomen: normal bowel sounds Objective Current Medications Medications (Trade) Dose Ordered Sig/Mar Route PRN Reason Start Time Stop Time Status Last Admin Dose Admin Acetaminophen (Tylenol) 650 mg Q4H PRN ORAL Mild Pain (Pain Scale 1-3) 06/11/19 02:45 07/08/19 18:44 Acetaminophen/ Hydrocodone Bitart ([place] 5/325) 1 tab Q6H PRN ORAL FOR SEVERE PAIN 06/11/19 01:00 06/15/19 18:44 Amlodipine Besylate (Norvasc) 5 mg DAILY ORAL 06/11/19 09:00 07/09/19 08:59 Ascorbic Acid (Vitamin C) 500 mg TWICE A DAY ORAL 06/11/19 09:00 07/10/19 17:59 Aspirin (Ecotrin) 81 mg DAILY ORAL 06/11/19 09:00 07/09/19 08:59 Atorvastatin Calcium (Lipitor) 10 mg BEDTIME ORAL 06/11/19 21:00 07/08/19 20:59 Cefazolin Sodium 1 gm/Sodium Chloride 55 ml @ 110 mls/hr EVERY 8 HOURS IVPB 06/11/19 06:00 06/17/19 16:59 06/11/19 05:50 Dextrose (Dextrose 50%) 25 ml Q30M PRN IV Hypoglycemia 06/10/19 23:45 07/08/19 18:44 Dextrose (Dextrose 50%) 50 ml Q30M PRN IV Hypoglycemia 06/10/19 23:45 07/08/19 18:44 Insulin Aspart (NovoLOG) BEFORE MEALS AND HS SUBQ 06/11/19 06:30 07/08/19 20:59 06/11/19 05:56 Multivitamins (Multivitamins) 1 tab DAILY ORAL 06/11/19 09:00 07/11/19 08:59 Nateglinide (Starlix) 60 mg TIAC ORAL 06/11/19 06:30 07/09/19 06:29 06/11/19 05:50 Sitagliptin Phosphate (Januvia) 50 mg ACBREAKFAST ORAL 06/11/19 06:30 07/09/19 06:29 06/11/19 05:50 Tramadol HCl (Ultram) 50 mg Q6H PRN ORAL FOR MODERATE PAIN 06/11/19 01:00 06/15/19 18:44 Vancomycin HCl (Vanco rx to dose) 1 ea DAILY PRN MISC Per rx protocol 06/11/19 09:00 07/09/19 13:44 Vancomycin HCl 750 mg/Sodium Chloride 275 ml @ 183.333 mls/hr Q24H IVPB 06/11/19 18:00 06/14/19 17:59 Zinc Sulfate (Zinc Sulfate) 220 mg DAILY ORAL 06/11/19 09:00 06/21/19 08:59 Zolpidem Tartrate (Ambien) 5 mg HSPRN PRN ORAL Insomnia 06/11/19 02:00 06/15/19 01:59 Luisito Quintero MD Jun 11, 2019 07:07
--- NOTE | 2019-06-11 07:10 | NUR ---
NURSE NOTES: Received report from Mckenna Davila RN. Patient asleep in bed, opens eyes to voice, oriented x 2, able to make needs known and follow commands. SR 93 on electric bath attendant. On room air, respirations even and unlabored. Harris catheter patent and draining well. Left forearm IV site intact and asymptomatic. Bed locked in lowest position with side rails up x 3. All needs attended to. Call light within reach. Will continue to monitor.
--- NOTE | 2019-06-11 07:10 | NUR ---
HAND-OFF: Report given to Marlene Lopez RN. Pt is in stable condition.
[2019-06-11 08:00] VITALS: BP 117/64
[2019-06-11] MEDS: Zinc Sulfate 220mg cap ORAL SCH (08:46)
[2019-06-11] MEDS: Aspirin EC 81mg tab ORAL SCH (08:46)
[2019-06-11] MEDS: Ascorbic Acid 500mg tab ORAL SCH ×2 (08:46→17:55)
[2019-06-11] MEDS ORDERED: Zinc Sulfate 220mg cap ORAL SCH (09:00)
[2019-06-11 12:00] VITALS: BP 124/67
--- NOTE | 2019-06-11 12:52 | Infectious Diseases Prog Note ---
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 Subjective ROS Limited/Unobtainable: Yes Constitutional: Reports: no symptoms Allergies: Coded Allergies: No Known Allergies (Unverified , 05/08/12) Objective Vital Signs Last 24 Hour Vital Signs Date Time Temp Pulse Resp B/P (MAP) Pulse Ox O2 Delivery O2 Flow Rate FiO2 06/11/19 12:00 96.6 83 18 124/67 (86) 100 06/11/19 09:00 Room Air 06/11/19 08:46 94 117/64 06/11/19 08:00 99.3 94 17 117/64 (81) 100 06/11/19 07:49 81 06/11/19 04:00 98.4 91 21 152/74 (100) 96 06/11/19 04:00 91 06/11/19 00:00 93 06/11/19 00:00 97.7 95 18 121/58 (79) 100 06/10/19 21:00 Room Air 06/10/19 20:00 98.1 95 20 134/67 (89) 99 06/10/19 20:00 98 06/10/19 16:00 106 06/10/19 16:00 98.1 95 18 120/61 (80) 98 Height (Feet): 5 Height (Inches): 7.00 Weight (Pounds): 89 General Appearance: cachetic HEENT: mucous membranes moist Respiratory/Chest: lungs clear Cardiovascular: normal rate Abdomen: soft, non tender Extremities: no edema Neurologic/Psychiatric: alert, responsive Musculoskeletal: atrophy Microbiology Date/Time Source Procedure Growth Status 06/08/19 15:30 Blood Blood Culture - Final Staphylococcus Epidermidis Complete 06/08/19 15:15 Blood Blood Culture - Final Staphylococcus Epidermidis Complete 06/08/19 15:30 Indwelling Cath Urine Culture - Final Escherichia Coli Complete Current Medications Medications (Trade) Dose Ordered Sig/Mar Route PRN Reason Start Time Stop Time Status Last Admin Dose Admin Acetaminophen (Tylenol) 650 mg Q4H PRN ORAL Mild Pain (Pain Scale 1-3) 06/11/19 02:45 07/08/19 18:44 Acetaminophen/ Hydrocodone Bitart ([place] 5/325) 1 tab Q6H PRN ORAL FOR SEVERE PAIN 06/11/19 01:00 06/15/19 18:44 Amlodipine Besylate (Norvasc) 5 mg DAILY ORAL 06/11/19 09:00 07/09/19 08:59 06/11/19 08:46 Ascorbic Acid (Vitamin C) 500 mg TWICE A DAY ORAL 06/11/19 09:00 07/10/19 17:59 06/11/19 08:46 Aspirin (Ecotrin) 81 mg DAILY ORAL 06/11/19 09:00 07/09/19 08:59 06/11/19 08:46 Atorvastatin Calcium (Lipitor) 10 mg BEDTIME ORAL 06/11/19 21:00 07/08/19 20:59 Cefazolin Sodium 1 gm/Sodium Chloride 55 ml @ 110 mls/hr EVERY 8 HOURS IVPB 06/11/19 06:00 06/17/19 16:59 06/11/19 05:50 Dextrose (Dextrose 50%) 25 ml Q30M PRN IV Hypoglycemia 06/10/19 23:45 07/08/19 18:44 Dextrose (Dextrose 50%) 50 ml Q30M PRN IV Hypoglycemia 06/10/19 23:45 07/08/19 18:44 Insulin Aspart (NovoLOG) BEFORE MEALS AND HS SUBQ 06/11/19 06:30 07/08/19 20:59 06/11/19 05:56 Multivitamins (Multivitamins) 1 tab DAILY ORAL 06/11/19 09:00 07/11/19 08:59 06/11/19 08:46 Nateglinide (Starlix) 60 mg TIAC ORAL 06/11/19 06:30 07/09/19 06:29 06/11/19 11:56 Sitagliptin Phosphate (Januvia) 50 mg ACBREAKFAST ORAL 06/11/19 06:30 07/09/19 06:29 06/11/19 05:50 Tramadol HCl (Ultram) 50 mg Q6H PRN ORAL FOR MODERATE PAIN 06/11/19 01:00 06/15/19 18:44 Vancomycin HCl (Vanco rx to dose) 1 ea DAILY PRN MISC Per rx protocol 06/11/19 09:00 07/09/19 13:44 Vancomycin HCl 750 mg/Sodium Chloride 275 ml @ 183.333 mls/hr Q24H IVPB 06/11/19 18:00 06/14/19 17:59 Zinc Sulfate (Zinc Sulfate) 220 mg DAILY ORAL 06/11/19 09:00 06/21/19 08:59 06/11/19 08:46 Zolpidem Tartrate (Ambien) 5 mg HSPRN PRN ORAL Insomnia 06/11/19 02:00 06/15/19 01:59 Dallas Rain MD Jun 11, 2019 12:52
--- NOTE | 2019-06-11 13:07 | Surgery Progress Note ---
Surgery Progress Note Subjective Symptoms: improved Additional Comments no acute events comfortable stable Objective Last 24 Hour Vital Signs Date Time Temp Pulse Resp B/P (MAP) Pulse Ox O2 Delivery O2 Flow Rate FiO2 06/11/19 12:00 96.6 83 18 124/67 (86) 100 06/11/19 09:00 Room Air 06/11/19 08:46 94 117/64 06/11/19 08:00 99.3 94 17 117/64 (81) 100 06/11/19 07:49 81 06/11/19 04:00 98.4 91 21 152/74 (100) 96 06/11/19 04:00 91 06/11/19 00:00 93 06/11/19 00:00 97.7 95 18 121/58 (79) 100 06/10/19 21:00 Room Air 06/10/19 20:00 98.1 95 20 134/67 (89) 99 06/10/19 20:00 98 06/10/19 16:00 106 06/10/19 16:00 98.1 95 18 120/61 (80) 98 I&O Intake and Output 06/10/19 06/11/19 19:00 07:00 Intake Total 450 ml Output Total 450 ml 1200 ml Balance 0 ml -1200 ml Intake Oral 450 ml Output Urine Total 450 ml 1200 ml # Bowel Movements 1 Dressing: dry Wound: clean Cardiovascular: RSR Respiratory: clear Abdomen: soft, non-tender, present bowel sounds Extremities: no tenderness, no cyanosis Plan Problems: (1) Sacral decubitus ulcer, stage IV Assessment & Plan: Patient has a stage IV historic sacral decubitus ulcer that is been debrided in the past now with good granulation tissue and smaller than prior. Good local wound care being provided. Patient furthermore has a historic right trochanteric wound that is granulated over and healing. Patient with multiple stage II skin abrasions on the left hip. Heels with mild erythema. Ppresented on admission with multiple pressure and contractures. Pt is emaciated.Scattered areas of dark skin tone without erythema induration or fluctuance noted to R and L scapulae and both elbows. Full thickness sacral pressure injury with undermining. Scattered fibrinous slough with pink granulation at base of wound . Macerated borders. (+) Epibole. Small amt seropurulent exudate noted. NO odor noted. Hyperpigmentation periwound.(L)5.5cm x (W)7cm x (D)0.4cm,undermining clockwise 9-11 by 1.2cm @11o' clock. Resolving pressure injury R trochanter. Base of wound moist viable. Edges flat and adherent to base of wound(L)2cm x (W)1.6cm.Periwound extending into R gluteus has scattered loose dry black skin without erythema or induration. Resolving pressure injury L ischium . [place] granulation at base of wound . Edges adherent to base of wound . Hyperpigmentation periwound. No odor or exudate noted(L)3.5cm x (W)4.5cm. An area of non-blanching erythema with fluctuance noted to distal/lateral R foot. (L)1.5cm x (W)1cm. Both heels are soft but easily blanchable. Tx.Plan: Cleanse Sacral wound with Saline. Apply Therahoney. Apply Moisture Barrier paste periwound. Cover with Optifoam drsg. Change every 3 days and prn. Cleanse wound R trochanter with Saline. Apply Therahoney. Apply Moisture Barrier Paste periwound. Cover with Optifoam drsg.every 3 days and prn. Cleanse L ischial wound with Saline. Apply Therahoney. Apply Moisture Barrier Paste periwound. Cover with Optifoam drsg. Change every 3 days and prn. APM/KASEY Mattress overlay. Reposition at least every 2hours or as tolerated. Off-load heels with pillow. Place pillow between knees. Nutritional optimization We will follow with recommendations Thank you for let me participate in patient's care (2) Failure to thrive in adult (3) Malnutrition (4) Severe protein-calorie malnutrition Noel Prescott Jun 11, 2019 13:07
[2019-06-11 16:00] VITALS: BP 126/60
--- NOTE | 2019-06-11 16:18 | NUR ---
HAND-OFF: Report given to Mckenna Brewer RN.
[2019-06-11] MEDS ORDERED: Vancomycin 750 MG in NS 275 ML IVPB SCH (18:00)
--- NOTE | 2019-06-11 19:20 | NUR ---
HAND-OFF: Report given to Kylee GALLOWAY. Pt remains stable.
--- NOTE | 2019-06-11 19:40 | NUR ---
NURSE NOTES: Received report from Katelynn Jones RN. Pt in stable condition; will continue plan of care and close monitoring.
--- NOTE | 2019-06-11 22:03 | General Progress Note ---
Assessment/Plan Problem List: (1) Bacteremia ICD Codes: R78.81 - Bacteremia SNOMED: 0364657 (2) Sacral decubitus ulcer, stage IV ICD Codes: L89.154 - Pressure ulcer of sacral region, stage 4 SNOMED: 557256475, 566054956 (3) UTI (urinary tract infection) ICD Codes: N39.0 - Urinary tract infection, site not specified SNOMED: 62233825 Qualifiers: Qualified Codes: T83.511A - Infection and inflammatory reaction due to indwelling urethral catheter, initial encounter; N39.0 - Urinary tract infection , site not specified (4) HTN (hypertension) ICD Codes: I10 - Essential (primary) hypertension SNOMED: 69307072 (5) DM (diabetes mellitus) ICD Codes: E11.9 - Type 2 diabetes mellitus without complications SNOMED: 33838556 (6) Sepsis ICD Codes: A41.9 - Sepsis, unspecified organism SNOMED: 91065677 Qualifiers: Qualified Codes: A41.9 - Sepsis, unspecified organism Assessment/Plan: abxs wound care ID F/U discussed with RN follow labs SSI Subjective Allergies: Coded Allergies: No Known Allergies (Unverified , 05/08/12) Subjective feels ok Objective Last 24 Hour Vital Signs Date Time Temp Pulse Resp B/P (MAP) Pulse Ox O2 Delivery O2 Flow Rate FiO2 06/11/19 16:00 98.6 70 18 126/60 (82) 98 06/11/19 16:00 82 06/11/19 12:00 96.6 83 18 124/67 (86) 100 06/11/19 11:49 87 06/11/19 09:00 Room Air 06/11/19 08:46 94 117/64 06/11/19 08:00 99.3 94 17 117/64 (81) 100 06/11/19 07:49 81 06/11/19 04:00 98.4 91 21 152/74 (100) 96 06/11/19 04:00 91 06/11/19 00:00 93 06/11/19 00:00 97.7 95 18 121/58 (79) 100 Intake and Output 06/10/19 06/11/19 19:00 07:00 Intake Total 450 ml Output Total 450 ml 1200 ml Balance 0 ml -1200 ml Intake Oral 450 ml Output Urine Total 450 ml 1200 ml # Bowel Movements 1 Height (Feet): 5 Height (Inches): 7.00 Weight (Pounds): 89 Cardiovascular: normal rate Respiratory/Chest: lungs clear Edema: no edema noted Generalized Arnulfo Rain MD Jun 11, 2019 22:03
--- NOTE | 2019-06-11 23:33 | NUR ---
NURSE NOTES: Received patient from via hospital bed, received patient dirty, cleaned and changed patient's gown, re-dressed wounds, took and uploaded wound care photos. IV acces patent, flushed with normal saline. Belongings checked, patient came to unit with abx medications. P200 mattress noted. Bed low and locked.
--- NOTE | 2019-06-11 23:40 | NUR ---
NURSE NOTES: Transferred pt [facility]. Pt dirty, cleaned and dressings changed on new unit. Pt in stable condition, endorsed plan of care to Lakesha.
[2019-06-12] VITALS: BP 154/74
[2019-06-12 04:00] VITALS: BP 148/79
[2019-06-12] MEDS: ceFAZolin sod 1 GM in NS 55 ML IVPB SCH (05:18)
[2019-06-12] MEDS: Nateglinide 60mg tab ORAL SCH ×2 (05:59→12:24)
[2019-06-12] MEDS: sitaGLIPtin 50mg tab ORAL SCH (06:00)
[2019-06-12] MEDS: NovoLOG Insulin Flexpen SUBQ SCH ×2 (06:09→12:25)
--- NOTE | 2019-06-12 07:30 | NUR ---
HAND-OFF: Report given to LAVERNE Kern.
[2019-06-12 08:00] VITALS: BP 150/68
[2019-06-12] MEDS: Aspirin EC 81mg tab ORAL SCH (08:41)
[2019-06-12] MEDS: Zinc Sulfate 220mg cap ORAL SCH (08:41)
[2019-06-12] MEDS: Ascorbic Acid 500mg tab ORAL SCH (08:41)
--- NOTE | 2019-06-12 11:39 | General Progress Note ---
Assessment/Plan Problem List: (1) Bacteremia ICD Codes: R78.81 - Bacteremia SNOMED: 6359684 (2) Sacral decubitus ulcer, stage IV ICD Codes: L89.154 - Pressure ulcer of sacral region, stage 4 SNOMED: 578715879, 386235675 (3) UTI (urinary tract infection) ICD Codes: N39.0 - Urinary tract infection, site not specified SNOMED: 25586858 Qualifiers: Qualified Codes: T83.511A - Infection and inflammatory reaction due to indwelling urethral catheter, initial encounter; N39.0 - Urinary tract infection , site not specified (4) HTN (hypertension) ICD Codes: I10 - Essential (primary) hypertension SNOMED: 14301241 (5) DM (diabetes mellitus) ICD Codes: E11.9 - Type 2 diabetes mellitus without complications SNOMED: 05797706 (6) Sepsis ICD Codes: A41.9 - Sepsis, unspecified organism SNOMED: 94636593 Qualifiers: Qualified Codes: A41.9 - Sepsis, unspecified organism Assessment/Plan: abxs wound care ID F/U discussed with RN follow labs SSI Dc today Subjective Allergies: Coded Allergies: No Known Allergies (Unverified , 05/08/12) Subjective feels ok Objective Last 24 Hour Vital Signs Date Time Temp Pulse Resp B/P (MAP) Pulse Ox O2 Delivery O2 Flow Rate FiO2 06/12/19 08:41 96 150/68 06/12/19 08:00 97.5 96 18 150/68 (95) 99 06/12/19 04:26 97.8 06/12/19 04:00 98.2 87 18 148/79 (102) 98 06/12/19 00:00 97.8 84 18 154/74 (100) 98 06/11/19 21:00 Room Air 06/11/19 16:00 98.6 70 18 126/60 (82) 98 06/11/19 16:00 82 06/11/19 12:00 96.6 83 18 124/67 (86) 100 06/11/19 11:49 87 Intake and Output 06/11/19 06/12/19 19:00 07:00 Intake Total 195 ml Output Total 200 ml 600 ml Balance -5 ml -600 ml Intake Oral 140 ml IV Total 55 ml Output Urine Total 200 ml 600 ml # Voids 1 # Bowel Movements 1 Height (Feet): 5 Height (Inches): 7.00 Weight (Pounds): 88 Cardiovascular: normal rate Respiratory/Chest: lungs clear Arnulfo Rain MD Jun 12, 2019 11:39
[2019-06-12] MEDS ORDERED: CEPHALEXIN500 M1 ORAL (11:46)
[2019-06-12 12:06] VITALS: BP 123/53
--- NOTE | 2019-06-12 12:30 | NUR ---
CASE MANAGEMENT:DISCHARGE PLANNING PATIENT HAS BEEN REFERRED TO [facility] P: F: Addendum: 06/12/19 at 1414 by JHONY SARAVIA LVN LVN PATIENT ACCEPTED TO [facility] [place], [place] P: # FOR NURSE TO NURSE REPORT ROOM 1-A SKILLED AMBULANCE TRANSPORTATION WITH [facility] EXT 8888 ETA 1515 PM PER JEANCARLOS
--- NOTE | 2019-06-12 14:10 | NUR ---
NURSE NOTES: Received patient in bed, A/A/Ox3, contracted to all extremities. denies pain at this time. O2 at 98% room air. f/c iplaced and draining well. Side rails up x 3, bed in lowest position, and call light within reach. Bed alarm engaged. Will continue the plan of care.
--- NOTE | 2019-06-12 14:13 | NUR ---
NURSE NOTES: Called Dr Cabrales re: BROCK Fontaine stated that he does not want patient to go to [facility] because he does not get along with the management. Accdg from [facility], he had discussed the discharged disposition to the PMD. " discharge patient to another SNF not [facility]. Called Dr. CABRALES to make aware. awaiting for a callback. Lam HAWKINS made aware.
--- NOTE | 2019-06-12 15:03 | Surgery Progress Note ---
Surgery Progress Note Subjective Additional Comments no acute events exam stable comfortable no n/v/f/c Objective Last 24 Hour Vital Signs Date Time Temp Pulse Resp B/P (MAP) Pulse Ox O2 Delivery O2 Flow Rate FiO2 06/12/19 12:06 97.5 89 17 123/53 (76) 97 06/12/19 09:00 Room Air 06/12/19 08:41 96 150/68 06/12/19 08:00 97.5 96 18 150/68 (95) 99 06/12/19 04:26 97.8 06/12/19 04:00 98.2 87 18 148/79 (102) 98 06/12/19 00:00 97.8 84 18 154/74 (100) 98 06/11/19 21:00 Room Air 06/11/19 16:00 98.6 70 18 126/60 (82) 98 06/11/19 16:00 82 I&O Intake and Output 06/11/19 06/12/19 19:00 07:00 Intake Total 195 ml Output Total 200 ml 600 ml Balance -5 ml -600 ml Intake Oral 140 ml IV Total 55 ml Output Urine Total 200 ml 600 ml # Voids 1 # Bowel Movements 1 Plan Problems: (1) Sacral decubitus ulcer, stage IV Assessment & Plan: Patient has a stage IV historic sacral decubitus ulcer that is been debrided in the past now with good granulation tissue and smaller than prior. Good local wound care being provided. Patient furthermore has a historic right trochanteric wound that is granulated over and healing. Patient with multiple stage II skin abrasions on the left hip. Heels with mild erythema. Ppresented on admission with multiple pressure and contractures. Pt is emaciated.Scattered areas of dark skin tone without erythema induration or fluctuance noted to R and L scapulae and both elbows. Full thickness sacral pressure injury with undermining. Scattered fibrinous slough with pink granulation at base of wound . Macerated borders. (+) Epibole. Small amt seropurulent exudate noted. NO odor noted. Hyperpigmentation periwound.(L)5.5cm x (W)7cm x (D)0.4cm,undermining clockwise 9-11 by 1.2cm @11o' clock. Resolving pressure injury R trochanter. Base of wound moist viable. Edges flat and adherent to base of wound(L)2cm x (W)1.6cm.Periwound extending into R gluteus has scattered loose dry black skin without erythema or induration. Resolving pressure injury L ischium . [place] granulation at base of wound . Edges adherent to base of wound . Hyperpigmentation periwound. No odor or exudate noted(L)3.5cm x (W)4.5cm. An area of non-blanching erythema with fluctuance noted to distal/lateral R foot. (L)1.5cm x (W)1cm. Both heels are soft but easily blanchable. Tx.Plan: Cleanse Sacral wound with Saline. Apply Therahoney. Apply Moisture Barrier paste periwound. Cover with Optifoam drsg. Change every 3 days and prn. Cleanse wound R trochanter with Saline. Apply Therahoney. Apply Moisture Barrier Paste periwound. Cover with Optifoam drsg.every 3 days and prn. Cleanse L ischial wound with Saline. Apply Therahoney. Apply Moisture Barrier Paste periwound. Cover with Optifoam drsg. Change every 3 days and prn. APM/KASEY Mattress overlay. Reposition at least every 2hours or as tolerated. Off-load heels with pillow. Place pillow between knees. Nutritional optimization We will follow with recommendations Thank you for let me participate in patient's care (2) Failure to thrive in adult (3) Malnutrition (4) Severe protein-calorie malnutrition Assessment & Plan: DAILY ESTIMATED NEEDS: Needs based on Wound, Underweight/ 41.3kg 30-40 kcals/kg 7923-1300 total kcals 1.5-2 g protein/kg 62-83 g total protein 25-30 mL/kg 6974-8054 total fluid mLs NUTRITION DIAGNOSIS: 1) Increased kcal and pro needs R/T wound healing, underweight status as evidenced by admitted w/ stage 4 sacral wound, w/ generalized moderate wasting, low BMI per guidelines. CURRENT DIET:CCHO MED, mech soft chopped PO DIET RECOMMENDATIONS: CCHO LOW/ texture per H[employer]ER + Glucerna TID w/ meals ADDITIONAL RECOMMENDATIONS: 1) Calibrated bedscale wt, weekly wt monitoring 2) Wound care: MVI w/ min 1 tab QD, Vit C 500mg BID ZnSO4 220mg QD x 10 days Eduardo 1pkt BID added to tray 3) Glucerna 1 tetra didi TID w/ meals added (220kcal/10g prot per didi) 4) Consider H[employer]ER eval for appropriate texture- h/o CVA . Noel Prescott Jun 12, 2019 15:03
--- NOTE | 2019-06-12 15:22 | Infectious Diseases Prog Note ---
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, RECOMMENDATIONS: Continue Ancef Agree with discharge plan Case was D/W primary MD Subjective ROS Limited/Unobtainable: Yes Constitutional: Denies: fever Allergies: Coded Allergies: No Known Allergies (Unverified , 05/08/12) Objective Vital Signs Last 24 Hour Vital Signs Date Time Temp Pulse Resp B/P (MAP) Pulse Ox O2 Delivery O2 Flow Rate FiO2 06/12/19 12:06 97.5 89 17 123/53 (76) 97 06/12/19 09:00 Room Air 06/12/19 08:41 96 150/68 06/12/19 08:00 97.5 96 18 150/68 (95) 99 06/12/19 04:26 97.8 06/12/19 04:00 98.2 87 18 148/79 (102) 98 06/12/19 00:00 97.8 84 18 154/74 (100) 98 06/11/19 21:00 Room Air 06/11/19 16:00 98.6 70 18 126/60 (82) 98 06/11/19 16:00 82 Height (Feet): 5 Height (Inches): 7.00 Weight (Pounds): 88 General Appearance: no acute distress, cachetic HEENT: mucous membranes moist Respiratory/Chest: lungs clear Cardiovascular: normal rate Abdomen: soft, non tender Extremities: no edema Neurologic/Psychiatric: alert, responsive Musculoskeletal: atrophy Current Medications Medications (Trade) Dose Ordered Sig/Mar Route PRN Reason Start Time Stop Time Status Last Admin Dose Admin Acetaminophen (Tylenol) 650 mg Q4H PRN ORAL Mild Pain (Pain Scale 1-3) 06/11/19 02:45 07/08/19 18:44 Acetaminophen/ Hydrocodone Bitart ([place] 5/325) 1 tab Q6H PRN ORAL FOR SEVERE PAIN 06/11/19 01:00 06/15/19 18:44 06/12/19 03:56 Amlodipine Besylate (Norvasc) 5 mg DAILY ORAL 06/11/19 09:00 07/09/19 08:59 06/12/19 08:41 Ascorbic Acid (Vitamin C) 500 mg TWICE A DAY ORAL 06/11/19 09:00 07/10/19 17:59 06/12/19 08:41 Aspirin (Ecotrin) 81 mg DAILY ORAL 06/11/19 09:00 07/09/19 08:59 06/12/19 08:41 Atorvastatin Calcium (Lipitor) 10 mg BEDTIME ORAL 06/11/19 21:00 07/08/19 20:59 06/11/19 21:39 Cefazolin Sodium 1 gm/Sodium Chloride 55 ml @ 110 mls/hr EVERY 8 HOURS IVPB 06/11/19 06:00 06/17/19 16:59 06/12/19 05:18 Dextrose (Dextrose 50%) 25 ml Q30M PRN IV Hypoglycemia 06/10/19 23:45 07/08/19 18:44 Dextrose (Dextrose 50%) 50 ml Q30M PRN IV Hypoglycemia 06/10/19 23:45 07/08/19 18:44 Insulin Aspart (NovoLOG) BEFORE MEALS AND HS SUBQ 06/11/19 06:30 07/08/19 20:59 06/12/19 12:25 Multivitamins (Multivitamins) 1 tab DAILY ORAL 06/11/19 09:00 07/11/19 08:59 06/12/19 08:41 Nateglinide (Starlix) 60 mg TIAC ORAL 06/11/19 06:30 07/09/19 06:29 06/12/19 12:24 Sitagliptin Phosphate (Januvia) 50 mg ACBREAKFAST ORAL 06/11/19 06:30 07/09/19 06:29 06/12/19 06:00 Tramadol HCl (Ultram) 50 mg Q6H PRN ORAL FOR MODERATE PAIN 06/11/19 01:00 06/15/19 18:44 Zinc Sulfate (Zinc Sulfate) 220 mg DAILY ORAL 06/11/19 09:00 06/21/19 08:59 06/12/19 08:41 Zolpidem Tartrate (Ambien) 5 mg HSPRN PRN ORAL Insomnia 06/11/19 02:00 06/15/19 01:59 Dallas Rain MD Jun 12, 2019 15:22
--- NOTE | 2019-06-12 15:43 | NUR ---
NURSE NOTES: report given to Danuta @ [facility]. awaits for ambulance. Will cont to monitor.
[2019-06-12 16:00] VITALS: BP 108/58
--- NOTE | 2019-06-12 16:17 | NUR ---
NURSE NOTES: discharged via ambulance. in stable condition. removed IV heplock. sewell cath intact. personal belongings noted. NO acute cardio-resp distress noted.
--- NOTE | 2019-06-13 16:16 | Discharge Summary ---
Discharge Summary Discharge Summary _ Discharge summary DATE OF ADMISSION: 06/08/2019 DATE OF DISCHARGE: 06/12/2019 DISCHARGED BY: Dr. Arnulfo Rain REASON FOR ADMISSION: [] 79 years old female with past medical history of diabetes mellitus, anemia, cachexia, poor oral intake, recurrent urinary tract infection, hypertension, stage IV sacral decubitus TPN, history of osteomyelitis of coccyx and left ischio history of infected sacral decub after surgery. Has been taking care at home. Power of deputy prosecuting attorney contacted the physician that patient was not doing well and it was difficult to care of her at home. Patient still had a large decubitus ulcer indwelling Harris catheter and requires [facility] care. Upon evaluation patient had mild leukocytosis WBC 11.4 hemoglobin 10.2 hematocrit 31.7. Glucose 337. Troponin negative proBNP 110 stable electrolytes and renal parameters. Urinalysis revealed evidence bacteria of UTI , +2 protein +1 glucose. Chest x-ray demonstrated no acute cardiopulmonary process. Vital signs reveal mild tachycardia with a heart rate of 109. EKG revealed sinus rhythm no acute ischemic changes. Patient received IV hydration and empiric antibiotic and admitted for further management to telemetry floor CONSULTANTS: iv rn neurologist pulmonary ID specialist Dr. Alphonso Michael IgA retail wireless associate Dr. Serrano GI specialist radio repairer nutritional services director/oncologist surgery Dr. Prescott psychiatrist HOSPITAL COURSE: Patient admitted to medical surgical floor. Patient started on IV fluids and empiric antibiotic As per ID specialist recommendation. Blood culture revealed staph epidermidis. Urine culture revealed E. coli. Per ID specialist, positive blood culture with staph epidermidis were likely contaminated. Patient was treated for UTI. Blood sugar was managed as per surgeon as per retail wireless associate recommendation . patient continue on Starlix and Januvia and sliding scale of insulin as needed. No need for basal insulin for now. Hemoglobin A1c nearly at goal 7.1 diabetic diet provided. Surgeon followed for present on admission sacral decubitus ulcer stage IV status post debridement in the past wound care provided as per surgeon recommendation continue wound care at the facility. Nutritional supplements implemented and plan of care as per registered dietitian recommendation. Strict aspiration precaution maintain. Antiplatelet therapy with aspirin continued. Statin continued. Blood pressure was managed with a calcium channel joyce and remained stable. Pain management was addressed as needed. Supportive care provided. Bowel regimen instituted. Placement was found and secured at [facility]. Patient was stable for transfer FINAL DIAGNOSES: Sepsis E. coli UTI Diabetes mellitus with hyperglycemia Hypertension Anemia Cachexia Severe protein malnutrition History of coccygeal osteomyelitis Stage IV sacral decubitus ulcer, present on admission Failure to thrive in adult multiply decub present on admission including large stage IV sacral ulcer patient admitted to medical surgical floor patient continue on IV fluids and empiric antibiotic. Blood culture revealed staph epidermidis. Urine culture revealed E. coli. Antibiotic regimen was optimized DISCHARGE MEDICATIONS: See Medication Reconciliation list. DISCHARGE INSTRUCTIONS: [] Patient was discharged to the [facility]. Follow up with medical doctor at the facility. I have been assigned to dictate discharge summary for this account. I was not involved in the patient's management. Cari Paz NP Jun 13, 2019 16:16
== END 2019-06-12 16:17 | DRG 871 ==
LOC: EDBEDREQ 15:14 → EMR 15:49 → EDBEDREQ 16:31 → 2E 18:33 → 2W 18:49 → 2E 06-10 23:10 → 4E 06-11 23:22
DX: A41.9 Sepsis, unspecified organism (principal); L89.154 Pressure ulcer of sacral region, stage 4; E43 Unspecified severe protein-calorie malnutrition; Z68.1 Body mass index [BMI] 19.9 or less, adult; N39.0 Urinary tract infection, site not specified; B96.20 Unspecified Escherichia coli [E. coli] as the cause of diseases classified elsewhere; E11.65 Type 2 diabetes mellitus with hyperglycemia; R62.7 Adult failure to thrive; Z79.82 Long term (current) use of aspirin; Z79.4 Long term (current) use of insulin
CPT/HCPCS: 36415; 71045; 80053; 81003; 82550; 82962; 83036; 83605; 83690; 83735; 83880; 84100; 84484; 85025; 85610; 85730; 87040; 87086; 87181; 93005; 96361; 96365; 96367; 99285; J1580; J1815; J7030

== ENCOUNTER 2019-07-24 10:41 | Inpatient (IN) | payer MEDICARE, OTHER ==
[~2019-07-24] VITALS: Ht 160 cm; Wt 34.1 kg
[~2019-07-24 10:41] MED LIST changes: +CEPHALEXIN500 M1 ORAL
[2019-07-24] MEDS ORDERED: TRADJENTA5 MG PO (11:19)
[2019-07-24] MEDS ORDERED: ZINC SULFATE220 M2 ORAL (11:19)
[2019-07-24] MEDS ORDERED: NORCO 5-325 TA1 EAC1 ORAL (11:26)
[2019-07-24] MEDS ORDERED: MULTIVITAMINS1 EAC2 ORAL (11:26)
[2019-07-24 11:28] LABS: BASOPHILS % (AUTO) 0.3 % (0.0-2.0); EOSINOPHILS % (AUTO) 1.2 % (0.0-3.0); HEMATOCRIT 34.6 % (37.0-47.0); HEMOGLOBIN 10.6 G/DL (12.0-16.0); LYMPHOCYTES % (AUTO) 16.6 % (20.0-45.0); MEAN CORPUSCULAR VOLUME 90 FL (80-99); MONOCYTES % (AUTO) 4.3 % (1.0-10.0); NEUTROPHILS % (AUTO) 77.6 % (45.0-75.0); PLATELET COUNT 168 K/UL (150-450); RED BLOOD COUNT 3.85 M/UL (4.20-5.40); RED CELL DISTRIBUTION WIDTH 15.5 % (11.6-14.8); WHITE BLOOD COUNT 17.5 K/UL (4.8-10.8)
--- NOTE | 2019-07-24 11:33 | Emergency Room Report ---
History of Present Illness General Chief Complaint: Abnormal Labs Source: Medical Record, EMS Present Illness HPI 79-year-old female history of dementia history of altered mental status presents with abnormal labs unknown aggravating relieving factors severity is severe, constant unknown start time patient presents for evaluation of her abnormal labs and treatment patient found to be hypernatremic Allergies: Coded Allergies: No Known Allergies (Unverified , 05/08/12) Patient History Past Medical History: see triage record Last Menstrual Period: unk Reviewed Nursing Documentation: PMH: Agreed; PSxH: Agreed Nursing Documentation-PMH Hx Cardiac Problems: Yes Hx Hypertension: Yes Hx Diabetes: Yes Hx Cancer: No Hx Gastrointestinal Problems: Yes Hx Neurological Problems: Yes Hx Cerebrovascular Accident: Yes - Left weakness Hx Weakness: Yes - left Review of Systems All Other Systems: negative except mentioned in HPI Physical Exam Vital Signs Date Time Temp Pulse Resp B/P (MAP) Pulse Ox O2 Delivery O2 Flow Rate FiO2 07/24/19 10:46 98.8 95 20 93/52 (66) 98 Room Air Sp02 EP Interpretation: reviewed, normal General Appearance: well appearing, no apparent distress, alert Head: normocephalic, atraumatic Eyes: bilateral eye PERRL, bilateral eye EOMI ENT: uvula midline, dry mucus membranes Neck: supple, thyroid normal, supple/symm/no masses Respiratory: lungs clear, no respiratory distress, no retraction, no accessory muscle use Cardiovascular #1: normal peripheral pulses, regular rate, rhythm, no edema, no gallop, no murmur Gastrointestinal: non tender, soft, no guarding, no rebound Musculoskeletal: normal inspection Neurologic: alert, responsive Psychiatric: mood/affect normal Skin: no rash, warm/dry Procedures Critical Care Time Critical Care Time Given the critical condition in which the patient arrived, the patient was immediately assessed by myself and the nurse, and cardiac monitoring initiated due to the potential for rapid decompensation of the patient's clinical condition. During the course of the patient's stay, I spent a considerable amount of time at the bedside performing serial re-evaluations of the patient's hemodynamic and clinical status because of the recognized potential threat to life or limb in this condition. I then had a chance to review not only all of the available current laboratory and radiographic studies obtained today, but I also reviewed old records available to me at the time. Additionally, any ancillary information available including ecmo specialist records were reviewed. Sequential vital signs were obtained. Critical Care time of 33 minutes was performed exclusive of billable procedures. Medical Decision Making Diagnostic Impression: Primary Impression: Hypernatremia Additional Impressions: Dehydration NSTEMI (non-ST elevated myocardial infarction) ER Course 79-year-old female presents with dehydration, hypernatremia abnormal labs patient also with elevated troponin possible NSTEMI patient without any acute chest pain at this moment could be due to demand We will provide patient with fluids, slowly bring the sodium lower Additionally will provide patient with Lovenox given possible NSTEMI Patient admitted to Telemetry under Dr. Rain. Patient remains critical. Laboratory Tests Test 07/24/19 11:00 White Blood Count 17.5 K/UL (4.8-10.8) H Red Blood Count 3.85 M/UL (4.20-5.40) L Hemoglobin 10.6 G/DL (12.0-16.0) L Hematocrit 34.6 % (37.0-47.0) L Mean Corpuscular Volume 90 FL (80-99) Mean Corpuscular Hemoglobin 27.5 PG (27.0-31.0) Mean Corpuscular Hemoglobin Concent 30.6 G/DL (32.0-36.0) L Red Cell Distribution Width 15.5 % (11.6-14.8) H Platelet Count 168 K/UL (150-450) Mean Platelet Volume 10.8 FL (6.5-10.1) H Neutrophils (%) (Auto) 77.6 % (45.0-75.0) H Lymphocytes (%) (Auto) 16.6 % (20.0-45.0) L Monocytes (%) (Auto) 4.3 % (1.0-10.0) Eosinophils (%) (Auto) 1.2 % (0.0-3.0) Basophils (%) (Auto) 0.3 % (0.0-2.0) Prothrombin Time 10.4 SEC (9.30-11.50) Prothrombin Time INR 1.0 (0.9-1.1) Activated Partial Thromboplast Time 28 SEC (23-33) Sodium Level 173 MMOL/L (136-145) *H Potassium Level 5.1 MMOL/L (3.5-5.1) Chloride Level 134 MMOL/L (98-107) H Carbon Dioxide Level 26 MMOL/L (21-32) Anion Gap 16 mmol/L (5-15) H Blood Urea Nitrogen 93 mg/dL (7-18) H Creatinine 1.6 MG/DL (0.55-1.30) H Estimate Glomerular Filtration Rate 37.8 mL/min (>60) Glucose Level 131 MG/DL (74-106) H Lactic Acid Level 1.90 mmol/L (0.4-2.0) Calcium Level 9.2 MG/DL (8.5-10.1) Phosphorus Level 4.4 MG/DL (2.5-4.9) Magnesium Level 2.9 MG/DL (1.8-2.4) H Total Bilirubin 0.2 MG/DL (0.2-1.0) Aspartate Amino Transferase (AST) 26 U/L (15-37) Alanine Aminotransferase (ALT) 56 U/L (12-78) Alkaline Phosphatase 82 U/L (46-116) Total Creatine Kinase 137 U/L (26-308) Troponin I 0.071 ng/mL (0.000-0.056) Pro-B-Type Natriuretic Peptide Pending Total Protein 7.8 G/DL (6.4-8.2) Albumin 2.5 G/DL (3.4-5.0) L Globulin 5.3 g/dL Albumin/Globulin Ratio 0.5 (1.0-2.7) L Lipase 298 U/L (73-393) EKG Diagnostic Results EKG Time: 11:59 EP Interpretation: Sinus Tachycardia, rate 102, qtc 463, no acute st elevations , normal axis Rhythm Strip Diag. Results Rhythm Strip Time: 12:10 EP Interpretation: yes Rate: 100 Rhythm: NSR, no PVC's, no ectopy Chest X-Ray Diagnostic Results Chest X-Ray Diagnostic Results : Chest X-Ray Ordered: Yes # of Views/Limited/Complete: 1 View Indication: Other - AMS EP Interpretation: Yes Interpretation: no consolidation, no effusion, no pneumothorax, no acute cardiopulmonary disease Impression: No acute disease Electronically Signed by: Ayaz Montalvo MD Last Vital Signs Date Time Temp Pulse Resp B/P (MAP) Pulse Ox O2 Delivery O2 Flow Rate FiO2 07/24/19 10:46 98.8 95 20 93/52 (66) 98 Room Air Disposition: ADMITTED INPATIENT Condition: Critical Balakumar,Ayaz MD Jul 24, 2019 11:33
[2019-07-24 11:45] LABS: ALANINE AMINOTRANSFERASE 56 U/L (12-78); ALBUMIN 2.5 G/DL (3.4-5.0); ALBUMIN/GLOBULIN RATIO 0.5 (1.0-2.7); ALKALINE PHOSPHATASE 82 U/L (46-116); ANION GAP 16 mmol/L (5-15); ASPARTATE AMINO TRANSFERASE 26 U/L (15-37); BILIRUBIN,TOTAL 0.2 MG/DL (0.2-1.0); BLOOD UREA NITROGEN 93 mg/dL (7-18); CALCIUM 9.2 MG/DL (8.5-10.1); CARBON DIOXIDE 26 MMOL/L (21-32); CHLORIDE 134 MMOL/L (98-107); CREATINE KINASE 137 U/L (26-308); CREATININE 1.6 MG/DL (0.55-1.30); PHOSPHORUS 4.4 MG/DL (2.5-4.9); POTASSIUM 5.1 MMOL/L (3.5-5.1)
--- NOTE | 2019-07-24 11:45 | Diagnostic Imaging Report ---
Indications: Altered mental status Technique: Spiral acquisitions obtained through the brain. Angled axial and coronal 5 x 5 mm slices were reconstructed. Total dose length product 1098 mGycm. CTDI vol(s) 53 mGy. Dose reduction achieved using automated exposure control Comparison: 10/07/2018 Findings: Again demonstrated is age-related enlargement of the ventricles and extra axial CSF spaces. 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 Again demonstrated is right temporal, parietal, and frontal encephalomalacia. There is an overlying craniotomy flap. Dystrophic calcifications are seen within the area of encephalomalacia. There is ex vacuo dilatation of the body of the right lateral ventricle. There is extensive periventricular deep white matter low-attenuation, consistent with chronic microvascular ischemic change. No acute intracranial hemorrhage or edema, mass effect, nor midline shift. Old lacunar infarcts are seen in the right basal ganglia. Findings are unchanged Impression: Postsurgical changes, as described Chronic and age-related changes, as described, including right frontoparietal temporal encephalomalacia, chronic microvascular ischemic changes, old left basal ganglia lacunar infarcts Negative for acute intracranial bleed or mass effect The CT scanner at [facility] is accredited by the [employer] and the scans are performed using protocols designed to limit radiation exposure to as low as reasonably achievable to attain images of sufficient resolution adequate for diagnostic evaluation.
[2019-07-24 11:46] LABS: SODIUM 173 MMOL/L (136-145)
[2019-07-24] MEDS ORDERED: Enoxaparin 60mg Inj SUBQ ONE (12:15)
[2019-07-24 12:18] VITALS: BP 95/60
[2019-07-24 12:39] LABS: APPEARANCE,URINE CLEAR; BILIRUBIN, URINE NEGATIVE (NEGATIVE); GLUCOSE, URINE (UA) NEGATIVE (NEGATIVE); KETONES,URINE 1+ (NEGATIVE); LEUKOCYTE ESTERASE ,URINE 1+ (NEGATIVE); NITRITE,URINE NEGATIVE (NEGATIVE); PH,URINE 5 (4.5-8.0); PROTEIN,URINE NEGATIVE (NEGATIVE); UROBILINOGEN,URINE 1 MG/DL (0.0-1.0)
[2019-07-24 13:14] LABS: COLOR,URINE YELLOW
--- NOTE | 2019-07-24 13:28 | History & Physical ---
History and Physical History & Physicial pt was seen in ER will report will be dictated Arnulfo Rain MD Jul 24, 2019 13:28
[2019-07-24] MEDS ORDERED: HYDROcodone/Acetamin 5/325 tab ORAL PRN (13:30)
[2019-07-24] MEDS ORDERED: Heparin 5000 units/ml inj SUBQ SCH (13:36)
[2019-07-24 13:47] VITALS: BP 105/55
[2019-07-24] MEDS ORDERED: D5W w/KCl 20mEq 1,000 ML IV SCH (14:17)
[2019-07-24 14:38] VITALS: BP 102/56
--- NOTE | 2019-07-24 14:40 | Diagnostic Imaging Report ---
Indication: Shortness of breath Technique: One view of the chest Comparison: 06/08/2019 Findings: Lungs and pleural spaces are clear. The heart size is normal. The aorta is tortuous and ectatic Impression: No acute process
[2019-07-24] MEDS: D5W w/KCl 20mEq 1,000 ML IV SCH (15:29)
--- NOTE | 2019-07-24 15:38 | Consultation ---
History of Present Illness General Date patient seen: Jul 24, 2019 Reason for Hospitalization: Abnormal Labs Present Illness HPI This is a very pleasant 79-year-old female well-known to me from prior admissions have cared for in the past that presented to [facility] emergency department for evaluation. Patient was identified to have significant abnormal labs with leukocytosis and sodium greater than 170. Continues to have significant malnutrition, failure to thrive, open wounds. Surgical to evaluate and assist with care. Patient seen, patient evaluated, chart reviewed. Patient is more alert and awake than I have seen her in the past she is responsive but cannot provide any meaningful history. Imaging reviewed. Labs reviewed. Allergies: Coded Allergies: No Known Allergies (Unverified , 05/08/12) Medication History Scheduled Multivitamins* (Multivitamins*), 1 TAB ORAL DAILY, (Reported) Scheduled PRN Hydrocodone Bit/Acetaminophen 5-325* ([place] 5-325 Tablet*), 1 TAB ORAL Q6H PRN for For Pain, (Reported) Discontinued Medications Amlodipine Besylate (Norvasc), 5 MG ORAL DAILY Discontinued Reason: Therapy completed Aspirin Ec* (Aspirin Ec*), 81 MG PO DAILY, (Reported) Discontinued Reason: Therapy completed Atorvastatin Calcium* (Lipitor*), 10 MG ORAL BEDTIME Discontinued Reason: Therapy completed Cephalexin* (Keflex*), 500 MG ORAL EVERY 8 HOURS Discontinued Reason: Therapy completed Ertapenem Sodium (Ertapenem), 1 GM IV DAILY, (Reported) Discontinued Reason: Therapy completed Hydrocodone Bit/Acetaminophen 5-325* ([place] 5-325*), 1 TAB ORAL Q6H PRN for For Pain Discontinued Reason: Therapy completed Insulin Detemir (Levemir Flexpen), 12 UNITS SUBQ DAILY Discontinued Reason: Therapy completed Linagliptin (Tradjenta), 5 MG PO, (Reported) Discontinued Reason: Therapy completed Nateglinide* (Starlix*), 60 MG ORAL TIAC Discontinued Reason: Therapy completed Sitagliptin (Januvia), 50 MG ORAL ACBREAKFAST Discontinued Reason: Therapy completed Tramadol Hcl* (Ultram*), 50 MG ORAL Q6H PRN for For Pain, (Reported) Discontinued Reason: Therapy completed Valsartan (Diovan), 160 MG PO DAILY, (Reported) Discontinued Reason: Therapy completed Vancomycin/Water For Inj (Vancomycin 1.5 Gram/300 ml Bag), 1 GM IV DAILY, ( Reported) Discontinued Reason: Therapy completed Vancomycin/Water For Inj (Vancomycin 1.5 Gram/300 ml Bag), 1 GM IV DAILY, ( Reported) Discontinued Reason: Therapy completed Zinc Sulfate (Zinc Sulfate), 220 MG ORAL DAILY, (Reported) Discontinued Reason: Therapy completed Patient History Limited by: age, medical condition History Provided By: Medical Record, PMD Healthcare decision maker Resuscitation status Advanced Directive on File Past Medical/Surgical History Past Medical/Surgical History: (1) Malnutrition (2) Severe protein-calorie malnutrition (3) Failure to thrive in adult (4) Sacral decubitus ulcer, stage IV (5) Bacteremia (6) NSTEMI (non-ST elevated myocardial infarction) (7) Dehydration (8) Vomiting (9) Pelvic fracture (10) UTI (urinary tract infection) (11) HTN (hypertension) (12) DM (diabetes mellitus) (13) Sepsis (14) Hypokalemia (15) Bacteremia due to Escherichia coli (16) Bacteremia due to Gram-negative bacteria (17) Hypernatremia Review of Systems Review of Symptoms General ROS: no weight loss or fever Psychological ROS: no depression or mood changes, no memory loss Ophthalmic ROS: no visual changes or eye irritation ENT ROS: no nasal congestion, hearing loss, dizziness Allergy and Immunology ROS: no allergic symptoms or urticaria Hematological and Lymphatic ROS: no swollen glands, unusual bleeding or bruising Endocrine ROS: no polyuria, polydipsia, weight changes, temperature intolerance Respiratory ROS: no cough, shortness of breath, or wheezing Cardiovascular ROS: no chest pain or dyspnea on exertion Gastrointestinal ROS: denies abdominal pain, bright red blood in stool. Musculoskeletal ROS: no myalgias or arthralgias Neurological ROS: no TIA or stroke symptoms Dermatological ROS: no new or changing skin lesions, rashes or pruritis limited given medical condition Physical Exam Physical Exam General appearance: alert, cooperative, no distress, appears stated age Head: Normocephalic, without obvious abnormality, atraumatic Eyes: conjunctivae/corneas clear. PERRL, EOM's intact. Fundi benign Throat: Lips, mucosa, and tongue normal. Teeth and gums normal Neck: supple, symmetrical, trachea midline, no adenopathy, thyroid: not enlarged, symmetric, no tenderness/mass/nodules, no carotid bruit and no JVD Lungs: clear to auscultation bilaterally Heart: regular rate and rhythm, S1, S2 normal, no murmur, click, rub or gallop Abdomen: soft, non-tender. Bowel sounds normal. No masses, no organomegaly Extremities: extremities normal, atraumatic, no cyanosis or edema Pulses: 2+ and symmetric Skin: Skin color, texture, turgor normal. No rashes or lesions Neurologic: Grossly normal Last 24 Hour Vital Signs Date Time Temp Pulse Resp B/P (MAP) Pulse Ox O2 Delivery O2 Flow Rate FiO2 07/24/19 14:38 97.2 91 16 102/56 (71) 100 07/24/19 14:05 98.1 79 18 112/62 100 Room Air 07/24/19 13:47 98.9 85 19 105/55 100 Room Air 07/24/19 12:18 98.8 78 20 95/60 98 Room Air 07/24/19 10:46 98.8 95 20 93/52 (66) 98 Room Air Laboratory Tests Test 07/24/19 11:00 07/24/19 12:15 White Blood Count 17.5 K/UL (4.8-10.8) H Red Blood Count 3.85 M/UL (4.20-5.40) L Hemoglobin 10.6 G/DL (12.0-16.0) L Hematocrit 34.6 % (37.0-47.0) L Mean Corpuscular Volume 90 FL (80-99) Mean Corpuscular Hemoglobin 27.5 PG (27.0-31.0) Mean Corpuscular Hemoglobin Concent 30.6 G/DL (32.0-36.0) L Red Cell Distribution Width 15.5 % (11.6-14.8) H Platelet Count 168 K/UL (150-450) Mean Platelet Volume 10.8 FL (6.5-10.1) H Neutrophils (%) (Auto) 77.6 % (45.0-75.0) H Lymphocytes (%) (Auto) 16.6 % (20.0-45.0) L Monocytes (%) (Auto) 4.3 % (1.0-10.0) Eosinophils (%) (Auto) 1.2 % (0.0-3.0) Basophils (%) (Auto) 0.3 % (0.0-2.0) Prothrombin Time 10.4 SEC (9.30-11.50) Prothromb Time International Ratio 1.0 (0.9-1.1) Activated Partial Thromboplast Time 28 SEC (23-33) Sodium Level 173 MMOL/L (136-145) *H Potassium Level 5.1 MMOL/L (3.5-5.1) Chloride Level 134 MMOL/L (98-107) H Carbon Dioxide Level 26 MMOL/L (21-32) Anion Gap 16 mmol/L (5-15) H Blood Urea Nitrogen 93 mg/dL (7-18) H Creatinine 1.6 MG/DL (0.55-1.30) H Estimat Glomerular Filtration Rate 37.8 mL/min (>60) Glucose Level 131 MG/DL (74-106) H Lactic Acid Level 1.90 mmol/L (0.4-2.0) Calcium Level 9.2 MG/DL (8.5-10.1) Phosphorus Level 4.4 MG/DL (2.5-4.9) Magnesium Level 2.9 MG/DL (1.8-2.4) H Total Bilirubin 0.2 MG/DL (0.2-1.0) Aspartate Amino Transf (AST/SGOT) 26 U/L (15-37) Alanine Aminotransferase (ALT/SGPT) 56 U/L (12-78) Alkaline Phosphatase 82 U/L (46-116) Total Creatine Kinase 137 U/L (26-308) Troponin I 0.071 ng/mL (0.000-0.056) Pro-B-Type Natriuretic Peptide Pending Total Protein 7.8 G/DL (6.4-8.2) Albumin 2.5 G/DL (3.4-5.0) L Globulin 5.3 g/dL Albumin/Globulin Ratio 0.5 (1.0-2.7) L Lipase 298 U/L (73-393) Urine Color Yellow Urine Appearance Clear Urine pH 5 (4.5-8.0) Urine Specific [place] 1.025 (1.005-1.035) Urine Protein Negative (NEGATIVE) Urine Glucose (UA) Negative (NEGATIVE) Urine Ketones 1+ (NEGATIVE) H Urine Blood Negative (NEGATIVE) Urine Nitrite Negative (NEGATIVE) Urine Bilirubin Negative (NEGATIVE) Urine Urobilinogen 1 MG/DL (0.0-1.0) H Urine Leukocyte Esterase 1+ (NEGATIVE) H Urine RBC 0 /HPF (0 - 2) Urine WBC 2-4 /HPF (0 - 2) Urine Squamous Epithelial Cells Few /LPF (NONE/OCC) Urine Bacteria Few /HPF (NONE) Urine Mucus Moderate /LPF (NONE/OCC) H Height (Feet): 5 Height (Inches): 3.00 Weight (Pounds): 120 Medications Current Medications Medications (Trade) Dose Ordered Sig/Mar Route PRN Reason Start Time Stop Time Status Last Admin Dose Admin Acetaminophen/ Hydrocodone Bitart ([place] 5/325) 1 tab Q6H PRN ORAL For Pain 07/24/19 13:30 07/31/19 13:29 Dextrose (Dextrose 50%) 25 ml Q30M PRN IV Hypoglycemia 07/24/19 13:30 08/23/19 13:29 Dextrose (Dextrose 50%) 50 ml Q30M PRN IV Hypoglycemia 07/24/19 13:30 08/23/19 13:29 Dextrose/ Electrolytes 1,000 ml @ 100 mls/hr Q10H IV 07/24/19 15:00 08/23/19 14:59 07/24/19 15:29 Heparin Sodium (Porcine) (Heparin 5000 units/ml) 5,000 units EVERY 12 HOURS SUBQ 07/24/19 21:00 08/23/19 20:59 Insulin Aspart (NovoLOG) BEFORE MEALS AND HS SUBQ 07/24/19 16:30 08/23/19 16:29 Magnesium Hydroxide (Mom) 30 ml HSPRN PRN ORAL Constipation 07/24/19 21:00 08/23/19 20:59 Multivitamins (Multivitamins) 1 tab DAILY ORAL 07/25/19 09:00 08/23/19 13:29 Assessment/Plan Problem List: (1) Malnutrition ICD Codes: E46 - Unspecified protein-calorie malnutrition SNOMED: 48826252 (2) Severe protein-calorie malnutrition Assessment & Plan: DAILY ESTIMATED NEEDS: Needs based on Wound, Underweight/ 37kg 35-40 kcals/kg 6740-8245 total kcals 1.5-2 g protein/kg 56-74 g total protein 25-35ml/ kcal mL/kg 925-1295 total fluid mLs NUTRITION DIAGNOSIS: Increased kcal and pro needs R/T wound healing, underweight status as evidenced by admitted w/ stage 4 sacral wound, w/ generalized wasting w/ severe BL LE wasting, low BMI per guidelines, @70% [place] Body Weight. CURRENT DIET:NPO PO DIET RECOMMENDATIONS: Liberalized Diet/ texture per GENERAL ACCOUNTANT + Glucerna TID w/ meals ENTERAL NUTRITION RECOMMENDATIONS: * CONSULT RD IF NON ORAL FEEDS ARE PART OF POC * ADDITIONAL RECOMMENDATIONS: 1) Calibrated bedscale wt, weekly wt monitoring 2) Wound care: MVI w/ min 1 tab QD, Vit C 500mg BID ZnSO4 220mg QD x 10 days Eduardo 1pkt BID W/ oral diet 3) Glucerna 1 tetra didi TID w/ meals added (220kcal/10g prot per didi) 4) GENERAL ACCOUNTANT eval for appropriate texture- h/o CVA ICD Codes: E43 - Unspecified severe protein-calorie malnutrition SNOMED: 080706587, 817129317, [id number] (3) Failure to thrive in adult ICD Codes: R62.7 - Adult failure to thrive SNOMED: 495519441 (4) Sacral decubitus ulcer, stage IV Assessment & Plan: Pt presented on admission with resolving Full thickness stage 4 Sacral Pressure Injury(L)5.2cm x (W)13cm. Base of wound Has Two remaining full thickness wounds surrounded by [place] epithelial. Full thickness wound L sacrum (L)4.3cm x (W)2.5cm x (D)0.7cm undermined borders clockwise 9-12 by 0.4cm @120'clock.Scattered slough within base of wound. An area that is black and indurated noted at Approx 4-8o'clock.No odor or exudate noted. Full Thickness Pressure injury R Sacrum(L)1.5cmx (W)1.3cm. [place] granulation at base of wound. Borders are macerated. Scattered areas of hyperpigmentation noted to R and L Ischium . L trochanter noted to have darker skin tone over bony prominence.Pt denied pain when area palpated. Both heels are soft and easily blanchable. Tx.Plan: Cleanse Sacral wound with Saline. Apply TheraHoney to wounds R and L Sacrum. Apply Moisture Barrier Paste to epithelial areas of wound. Cover with Optifoam drsg. Change Daily and PRN. Apply Moisture Barrier Paste to R and L ischium with each incontinence care. Reposition at least every 2hours or as tolerated. Off-load heels with pillow. APM/KASEY Mattress. ICD Codes: L89.154 - Pressure ulcer of sacral region, stage 4 SNOMED: 301151365, 717812193 Noel Prescott Jul 24, 2019 15:37
[2019-07-24 16:00] VITALS: BP 108/57
[2019-07-24] MEDS: NovoLOG Insulin Flexpen SUBQ SCH ×2 (17:26→21:24)
[2019-07-24 20:42] VITALS: BP 107/56
[2019-07-24] MEDS ORDERED: Milk of Magnesia 30ml Ud ORAL PRN (21:00)
[2019-07-24] MEDS: Heparin 5000 units/ml inj SUBQ SCH (21:11)
[2019-07-25] VITALS: BP 120/69
[2019-07-25] MEDS: D5W w/KCl 20mEq 1,000 ML IV SCH ×3 (01:22→20:23)
[2019-07-25 04:00] VITALS: BP 129/71
[2019-07-25 05:42] LABS: BASOPHILS % (AUTO) 0.4 % (0.0-2.0); HEMATOCRIT 26.9 % (37.0-47.0); HEMOGLOBIN 8.3 G/DL (12.0-16.0); LYMPHOCYTES % (AUTO) 17.5 % (20.0-45.0); MEAN CORPUSCULAR VOLUME 89 FL (80-99); MONOCYTES % (AUTO) 4.2 % (1.0-10.0); NEUTROPHILS % (AUTO) 75.9 % (45.0-75.0); PLATELET COUNT 142 K/UL (150-450); RED BLOOD COUNT 3.01 M/UL (4.20-5.40); RED CELL DISTRIBUTION WIDTH 15.1 % (11.6-14.8); WHITE BLOOD COUNT 11.9 K/UL (4.8-10.8)
[2019-07-25 05:59] LABS: ANION GAP 15 mmol/L (5-15); BLOOD UREA NITROGEN 66 mg/dL (7-18); CALCIUM 8.6 MG/DL (8.5-10.1); CARBON DIOXIDE 19 MMOL/L (21-32); CHLORIDE 129 MMOL/L (98-107); CHOLESTEROL 126 MG/DL (< 200); CREATININE 1.2 MG/DL (0.55-1.30); HDL CHOLESTEROL 25 MG/DL (40-60); POTASSIUM 4.7 MMOL/L (3.5-5.1); TRIGLYCERIDES 136 MG/DL (30-150)
[2019-07-25 06:05] LABS: SODIUM 163 MMOL/L (136-145)
[2019-07-25] MEDS: NovoLOG Insulin Flexpen SUBQ SCH ×4 (06:33→20:27)
[2019-07-25] MEDS ORDERED: sitaGLIPtin 50mg tab ORAL SCH (06:45)
[2019-07-25 08:00] VITALS: BP 123/61
[2019-07-25] MEDS ORDERED: Levemir Flexpen SUBQ SCH (09:00)
[2019-07-25] MEDS: Heparin 5000 units/ml inj SUBQ SCH ×2 (09:34→20:24)
--- NOTE | 2019-07-25 10:02 | Nephrology Progress Note ---
Assessment/Plan Problem List: (1) Hypernatremia Assessment: better (2) DM (diabetes mellitus) (3) Severe protein-calorie malnutrition (4) Failure to thrive in adult (5) Sacral decubitus ulcer, stage IV (6) HTN (hypertension) (7) ARF (acute renal failure) Assessment: better Plan continue IVF SSI follow labs Swallowing eval needs possibly GT Discussed with RN ans speech pathologist Subjective Subjective more alert Objective Objective Last 24 Hour Vital Signs Date Time Temp Pulse Resp B/P (MAP) Pulse Ox O2 Delivery O2 Flow Rate FiO2 07/25/19 08:00 97.4 77 19 123/61 (81) 100 07/25/19 08:00 Room Air 07/25/19 04:00 98.2 81 16 129/71 (90) 100 07/25/19 04:00 Room Air 07/25/19 03:37 77 07/25/19 00:00 98.5 98 16 120/69 (86) 100 07/25/19 00:00 Room Air 07/24/19 20:42 98.3 98 16 107/56 (73) 100 07/24/19 20:00 99 07/24/19 20:00 Room Air 07/24/19 16:00 98.1 98 21 108/57 (74) 100 07/24/19 15:15 90 07/24/19 14:59 Room Air 07/24/19 14:38 97.2 91 16 102/56 (71) 100 07/24/19 14:05 98.1 79 18 112/62 100 Room Air 07/24/19 13:47 98.9 85 19 105/55 100 Room Air 07/24/19 12:18 98.8 78 20 95/60 98 Room Air 07/24/19 10:46 98.8 95 20 93/52 (66) 98 Room Air Intake and Output 07/24/19 07/25/19 19:00 07:00 Intake Total 150 ml 1313.3 ml Output Total 0 ml 700 ml Balance 150 ml 613.3 ml Intake Oral 0 ml IV Total 150 ml 1313.3 ml Output Urine Total 0 ml 700 ml Laboratory Tests 07/24/19 11:00: White Blood Count 17.5H, Red Blood Count 3.85L, Hemoglobin 10.6L, Hematocrit 34.6L, Mean Corpuscular Volume 90, Mean Corpuscular Hemoglobin 27.5, Mean Corpuscular Hemoglobin Concent 30.6L, Red Cell Distribution Width 15.5H, Platelet Count 168, Mean Platelet Volume 10.8H, Neutrophils (%) (Auto) 77.6H, Lymphocytes (%) (Auto) 16.6L, Monocytes (%) (Auto) 4.3, Eosinophils (%) (Auto) 1.2, Basophils (%) (Auto) 0.3, Prothrombin Time 10.4, Prothromb Time International Ratio 1.0, Activated Partial Thromboplast Time 28, Sodium Level 173*H, Potassium Level 5.1, Chloride Level 134H, Carbon Dioxide Level 26, Anion Gap 16H, Blood Urea Nitrogen 93H, Creatinine 1.6H, Estimat Glomerular Filtration Rate 37.8, Glucose Level 131H, Lactic Acid Level 1.90, Calcium Level 9.2, Phosphorus Level 4.4, Magnesium Level 2.9H, Total Bilirubin 0.2, Aspartate Amino Transf (AST/SGOT) 26, Alanine Aminotransferase (ALT/SGPT) 56, Alkaline Phosphatase 82, Total Creatine Kinase 137, Troponin I 0.071H, Pro-B-Type Natriuretic Peptide [Pending], Total Protein 7.8, Albumin 2.5L, Globulin 5.3, Albumin/Globulin Ratio 0.5L, Lipase 298 07/24/19 12:15: Urine Color Yellow, Urine Appearance Clear, Urine pH 5, Urine Specific [place] 1.025, Urine Protein Negative, Urine Glucose (UA) Negative, Urine Ketones 1+H, Urine Blood Negative, Urine Nitrite Negative, Urine Bilirubin Negative, Urine Urobilinogen 1H, Urine Leukocyte Esterase 1+H, Urine RBC 0, Urine WBC 2-4, Urine Squamous Epithelial Cells Few, Urine Bacteria Few, Urine Mucus ModerateH 07/25/19 04:40: White Blood Count 11.9H, Red Blood Count 3.01L, Hemoglobin 8.3L, Hematocrit 26.9L, Mean Corpuscular Volume 89, Mean Corpuscular Hemoglobin 27.6, Mean Corpuscular Hemoglobin Concent 30.9L, Red Cell Distribution Width 15.1H, Platelet Count 142L, Mean Platelet Volume 11.1H, Neutrophils (%) (Auto) 75.9H, Lymphocytes (%) (Auto) 17.5L, Monocytes (%) (Auto) 4.2, Eosinophils (%) (Auto) 2.0, Basophils (%) (Auto) 0.4, Sodium Level 163#*H, Potassium Level 4.7, Chloride Level 129H, Carbon Dioxide Level 19L, Anion Gap 15, Blood Urea Nitrogen 66H, Creatinine 1.2, Estimat Glomerular Filtration Rate 52.7, Glucose Level 382#H, Calcium Level 8.6, Magnesium Level 2.6H, Hemoglobin A1c 9.4H, Triglycerides Level 136, Cholesterol Level 126, LDL Cholesterol 78, HDL Cholesterol 25L, Cholesterol/HDL Ratio 5.0H Height (Feet): 5 Height (Inches): 3.00 Weight (Pounds): 75 Cardiovascular: normal rate Respiratory/Chest: lungs clear Abdomen: soft Extremities: other - no edema Arnulfo Rain MD Jul 25, 2019 10:02
--- NOTE | 2019-07-25 11:06 | History & Physical ---
History and Physical History & Physicial Labs, consults reviewed. H& P completed and Dictated. Ariel Lassiter MD Jul 25, 2019 11:06
[2019-07-25] MEDS ORDERED: NovoLOG Insulin Flexpen SUBQ SCH (11:50)
[2019-07-25 12:00] VITALS: BP 112/69
--- NOTE | 2019-07-25 15:25 | Surgery Progress Note ---
Surgery Progress Note Subjective Additional Comments no acute events comfortable stable Objective Last 24 Hour Vital Signs Date Time Temp Pulse Resp B/P (MAP) Pulse Ox O2 Delivery O2 Flow Rate FiO2 07/25/19 12:00 96.8 84 20 112/69 (83) 96 07/25/19 12:00 Room Air 07/25/19 12:00 75 07/25/19 08:00 97.4 77 19 123/61 (81) 100 07/25/19 08:00 Room Air 07/25/19 08:00 67 07/25/19 04:00 98.2 81 16 129/71 (90) 100 07/25/19 04:00 Room Air 07/25/19 03:37 77 07/25/19 00:00 98.5 98 16 120/69 (86) 100 07/25/19 00:00 Room Air 07/24/19 20:42 98.3 98 16 107/56 (73) 100 07/24/19 20:00 99 07/24/19 20:00 Room Air 07/24/19 16:00 98.1 98 21 108/57 (74) 100 I&O Intake and Output 07/24/19 07/25/19 19:00 07:00 Intake Total 150 ml 1313.3 ml Output Total 0 ml 700 ml Balance 150 ml 613.3 ml Intake Oral 0 ml IV Total 150 ml 1313.3 ml Output Urine Total 0 ml 700 ml Dressing: other Wound: other Drains: other Cardiovascular: RSR Respiratory: decreased breath sounds Abdomen: soft, present bowel sounds Extremities: no cyanosis Laboratory Tests Test 07/25/19 04:40 White Blood Count 11.9 K/UL (4.8-10.8) H Red Blood Count 3.01 M/UL (4.20-5.40) L Hemoglobin 8.3 G/DL (12.0-16.0) L Hematocrit 26.9 % (37.0-47.0) L Mean Corpuscular Volume 89 FL (80-99) Mean Corpuscular Hemoglobin 27.6 PG (27.0-31.0) Mean Corpuscular Hemoglobin Concent 30.9 G/DL (32.0-36.0) L Red Cell Distribution Width 15.1 % (11.6-14.8) H Platelet Count 142 K/UL (150-450) L Mean Platelet Volume 11.1 FL (6.5-10.1) H Neutrophils (%) (Auto) 75.9 % (45.0-75.0) H Lymphocytes (%) (Auto) 17.5 % (20.0-45.0) L Monocytes (%) (Auto) 4.2 % (1.0-10.0) Eosinophils (%) (Auto) 2.0 % (0.0-3.0) Basophils (%) (Auto) 0.4 % (0.0-2.0) Sodium Level 163 MMOL/L (136-145) #*H Potassium Level 4.7 MMOL/L (3.5-5.1) Chloride Level 129 MMOL/L (98-107) H Carbon Dioxide Level 19 MMOL/L (21-32) L Anion Gap 15 mmol/L (5-15) Blood Urea Nitrogen 66 mg/dL (7-18) H Creatinine 1.2 MG/DL (0.55-1.30) Estimat Glomerular Filtration Rate 52.7 mL/min (>60) Glucose Level 382 MG/DL (74-106) #H Hemoglobin A1c 9.4 % (4.3-6.0) H Calcium Level 8.6 MG/DL (8.5-10.1) Magnesium Level 2.6 MG/DL (1.8-2.4) H Troponin I 0.057 ng/mL (0.000-0.056) Triglycerides Level 136 MG/DL (30-150) Cholesterol Level 126 MG/DL (< 200) LDL Cholesterol 78 mg/dL (<100) HDL Cholesterol 25 MG/DL (40-60) L Cholesterol/HDL Ratio 5.0 (3.3-4.4) H Plan Problems: (1) Malnutrition (2) Severe protein-calorie malnutrition Assessment & Plan: DAILY ESTIMATED NEEDS: Needs based on Wound, Underweight/ 37kg 35-40 kcals/kg 0975-6481 total kcals 1.5-2 g protein/kg 56-74 g total protein 25-35ml/ kcal mL/kg 925-1295 total fluid mLs NUTRITION DIAGNOSIS: Increased kcal and pro needs R/T wound healing, underweight status as evidenced by admitted w/ stage 4 sacral wound, w/ generalized wasting w/ severe BL LE wasting, low BMI per guidelines, @70% [place] Body Weight. CURRENT DIET:NPO PO DIET RECOMMENDATIONS: Liberalized Diet/ texture per MAINTENA[employer]CE ELECT[employer]ICIAN + Glucerna TID w/ meals ENTERAL NUTRITION RECOMMENDATIONS: * CONSULT RD IF NON ORAL FEEDS ARE PART OF POC * ADDITIONAL RECOMMENDATIONS: 1) Calibrated bedscale wt, weekly wt monitoring 2) Wound care: MVI w/ min 1 tab QD, Vit C 500mg BID ZnSO4 220mg QD x 10 days Eduardo 1pkt BID W/ oral diet 3) Glucerna 1 tetra didi TID w/ meals added (220kcal/10g prot per didi) 4) MAINTE[employer] eval for appropriate texture- h/o CVA (3) Failure to thrive in adult (4) Sacral decubitus ulcer, stage IV Assessment & Plan: Pt presented on admission with resolving Full thickness stage 4 Sacral Pressure Injury(L)5.2cm x (W)13cm. Base of wound Has Two remaining full thickness wounds surrounded by [place] epithelial. Full thickness wound L sacrum (L)4.3cm x (W)2.5cm x (D)0.7cm undermined borders clockwise 9-12 by 0.4cm @120'clock.Scattered slough within base of wound. An area that is black and indurated noted at Approx 4-8o'clock.No odor or exudate noted. Full Thickness Pressure injury R Sacrum(L)1.5cmx (W)1.3cm. [place] granulation at base of wound. Borders are macerated. Scattered areas of hyperpigmentation noted to R and L Ischium . L trochanter noted to have darker skin tone over bony prominence.Pt denied pain when area palpated. Both heels are soft and easily blanchable. Tx.Plan: Cleanse Sacral wound with Saline. Apply TheraHoney to wounds R and L Sacrum. Apply Moisture Barrier Paste to epithelial areas of wound. Cover with Optifoam drsg. Change Daily and PRN. Apply Moisture Barrier Paste to R and L ischium with each incontinence care. Reposition at least every 2hours or as tolerated. Off-load heels with pillow. APM/KASEY Mattress. Noel Prescott Jul 25, 2019 15:25
--- NOTE | 2019-07-25 15:30 | Consultation ---
DATE OF CONSULTATION: 07/25/2019 ENDOCRINOLOGY CONSULTATION CONSULTING PHYSICIAN: Luisito Quintero M.D. REFERRING PHYSICIAN: Arnulfo Rain M.D. REASON FOR CONSULTATION: Diabetes management. HISTORY OF PRESENT ILLNESS: The patient is an unfortunate 79-year-old female, , who I am familiar with from previous hospitalization. She has history of malnutrition, diabetes, infected sacral decubitus, status post debridement. The patient was brought to the hospital with altered mental status and failure to thrive and malnutrition. I was called to manage diabetes. Last time I saw the patient in the hospital was in May and in the past her diabetes was managed with combination of Levemir, Starlix, and Januvia. PAST MEDICAL HISTORY: 1. Underlying dementia. 2. Diabetes. 3. Cachexia. 4. Anemia. 5. Recurrent UTI. 6. Decubitus ulcer, stage IV. 7. 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 8. Hypertension. MEDICATIONS: Reviewed and reconciled. SOCIAL HISTORY: No smoking, alcohol, or drug use. ALLERGIES: To medications, none. REVIEW OF SYSTEMS: Unobtainable due to the patient's condition and mental status. PHYSICAL EXAMINATION: VITAL SIGNS: Blood pressure is 108/58, heart rate 101, temperature 97.7, respiratory rate of 19. HEENT: Pupils are equal and reactive to light. Sclerae are anicteric. GENERAL: The patient is cachectic. HEART: Regular. LUNGS: Decreased breath sounds. ABDOMEN: Scaphoid. EXTREMITIES: Sacral decubitus ulcer noted. LABORATORY VALUES: WBC 11, hemoglobin 10, hematocrit 31.7, platelets of 410. Sodium 138, potassium 3.8, chloride 105, bicarbonate 26, BUN 13, creatinine 0.6, glucose 260. On presentation glucose was 337, A1c of 7.1. Laboratories from today, sodium 163, potassium 4.7, chloride 109, bicarb 19, BUN 56, creatinine 1.2, glucose of 382. Hemoglobin A1c of 9.4. Troponin 0.071. Magnesium is 2.6. Lactic acid is 1.9. DIAGNOSES: 1. Diabetes, out of control. A1c went up from 7 to 9 in 2 months. 2. Failure to thrive. 3. Cachexia. 4. Hypernatremia. 5. Non-ST elevation UT. 6. Leukocytosis. PLAN: 1. We will start long-acting insulin Levemir and start with 12 units daily. 2. NovoLog sliding scale is in order and the Januvia 50 mg daily. 3. Hold off on Starlix. 4. Hypoglycemia protocol is in order. 5. Further adjustment according to blood glucose values. Thank you, Dr. Rain, for the courtesy of this consultation. Luisito Quintero M.D. DR: ANABELLA JOB#: [id number] CC: TERELL
[2019-07-25 16:00] VITALS: BP 124/64
--- NOTE | 2019-07-25 17:00 | Consultation ---
DATE OF CONSULTATION: 07/24/2019 NEPHROLOGY CONSULTATION CONSULTING PHYSICIAN: Arnulfo Rain M.D. REFERRING PHYSICIAN: Ariel Lassiter M.D. REASON FOR CONSULTATION: Hypernatremia, acute renal failure. HISTORY OF PRESENT ILLNESS: This is a 79-year-old female with history of dementia, bedridden with contractures, and decubiti. The patient had laboratories in the shelter and was found to be hypernatremic. She was sent to the emergency room for evaluation and she had chemistry panel showing serum sodium of 173, BUN is elevated at 93, and creatinine 1.6. I was asked to see her in Nephrology consultation. She is unable to provide any history because of underlying dementia. PAST MEDICAL HISTORY: The patient has history of diabetes mellitus, hypertension, and as mentioned, decubiti, which got worse actually after they apparently took her home for a while. She has wound infections, contractures, and poor p.o. intake. MEDICATIONS: Reviewed in the EMR. SOCIAL HISTORY: No history of smoking or alcohol abuse. ALLERGIES: No known drug allergies. REVIEW OF SYSTEMS: Unobtainable. PHYSICAL EXAMINATION: GENERAL: The patient is an elderly female in no acute distress. VITAL SIGNS: Blood pressure 123/61, pulse 77, respirations 19, and temperature 97.4. HEENT: Some pale conjunctivae. Anicteric sclerae. NECK: Supple. LUNGS: Clear to auscultation. HEART: S1, S2 without murmurs or rubs. ABDOMEN: Soft, nontender. EXTREMITIES: No cyanosis or edema. The patient has contractures, worse in the lower extremities. LABORATORY FINDINGS: The CBC shows WBC of 17,500, hematocrit is 34.6, hemoglobin is 10.6, and platelets 168,000. Chemistry panel shows sodium 173, potassium 5.1, chloride 134, CO2 26, BUN is 93, creatinine 1.6, blood sugar is 131, and magnesium 2.9. UA shows 0 rbc and 2-4 wbc per high-powered field. ASSESSMENT: This is a 79-year-old female who is admitted with severe hypernatremia. She has acute renal failure with volume depletion. PLAN: The patient will be on D5W, insulin coverage. She needs nutrition assessment, possibly G-tube, but before that, also a swallowing evaluation once the patient is awake. Laboratories will be followed and further recommendations will be made. Arnulfo Rain M.D. DR: Nicola JOB#: [id number] CC:
--- NOTE | 2019-07-25 18:29 | Consultation ---
DATE OF CONSULTATION: 07/25/2019 INFECTIOUS DISEASE CONSULTATION CONSULTING PHYSICIAN: Dallas Rain M.D. PRIMARY ATTENDING PHYSICIAN: Ariel Lassiter M.D. HISTORY OF PRESENT ILLNESS: This is a 79-year-old female who is a long-term resident, admitted yesterday because of abnormal labs. She had hypernatremia, elevation of BUN and creatinine, and elevation of WBC to 17.5. No fever. No chills. No other symptoms. PAST MEDICAL HISTORY: Significant for dementia, diabetes mellitus, status post CVA and left-sided weakness, sacral pressure ulcer stage IV, hyperlipidemia, history of sacral osteomyelitis treated in 2019, and has cachexia. ALLERGIES: No known drug allergies. MEDICATIONS: Insulin, Protonix, multivitamin, detemir insulin, magnesium, heparin, hydrocodone plus Tylenol. SOCIAL HISTORY: . detention resident. No history of alcohol, drug abuse, or smoking. REVIEW OF SYSTEMS: Very limited. PHYSICAL EXAMINATION: VITAL SIGNS: Temperature is 96.8, pulse 84, blood pressure 112/69. GENERAL APPEARANCE: Cachectic. No acute distress. HEAD AND NECK: [place] conjunctivae. HEART: Normal rate. LUNGS: Clear. ABDOMEN: Soft, nontender. EXTREMITIES: She has no edema. She has muscle atrophy. SKIN: Sacral ulcer that mostly is healing. LABORATORY AND DIAGNOSTIC DATA: WBC today is 11.9, hemoglobin 8.3, and hematocrit 26.9. Hemoglobin at the time of admission was 10.6. Platelet is 142,000. Sodium 163 coming down from 173 at the time of admission, chloride 129, BUN 66, creatinine 1.2. Creatinine at the time of admission was 1.6. Glucose 382. Troponin peak is 0.071. UA shows wbc of 2-4, rbc zero. Chest x-ray, no acute process. CT scan of the head showed chronic changes and right frontal, parietal, and temporal encephalomalacia. IMPRESSION: Leukocytosis, likely reactive, is improving. The patient has hypernatremia, acute renal failure, dehydration, elevated troponin, sacral pressure ulcer that is improving, cachexia, diabetes mellitus, dementia, and history of previous CVA. RECOMMENDATIONS: Observe off antibiotic. We will follow up the CBC. At the end of my exam, I thank Dr. Lassiter for involving me in the care of this patient. Dallas Rain M.D. DR: JAVY JOB#: [id number] CC: TERELL
[2019-07-25 20:00] VITALS: BP 118/63
--- NOTE | 2019-07-25 22:30 | History and Physical Report ---
DATE OF ADMISSION: 07/24/2019 SOURCE OF INFORMATION: Patient and EMR. HISTORY OF PRESENT ILLNESS: The patient is a 79-year-old female, residing in a long-term facility, who presented for the abnormal blood work and change in the mental status. The patient at baseline has decline in cognition. Poor historian. No documented history of witnessed seizure, fever, chills have been reported. Notes from the long-term facility at the time of transfer was reviewed. At the time of evaluation, the patient showed low, otherwise stable blood pressure. abnormal high leukocyte counts and with uncontrolled sodium level of 170. REVIEW OF SYSTEMS: Unobtainable, limited as above. ALLERGIES: NKDA. MEDICATIONS: Current hospital medications including, but not limited to sliding scale insulin, Protonix, subcutaneous heparin. PAST MEDICAL HISTORY: Coronary artery disease, diabetes, pelvic fractures, decubitus wounds stage IV, hypertension. FAMILY HISTORY: Reviewed, noncontributory. SOCIAL HISTORY: The patient is residing in a long-term facility. No documented history of illicit drug abuse, smoking, or alcohol abuse reported. PHYSICAL EXAMINATION: VITAL SIGNS: Blood pressure 90 over pulse, respiratory rate 18, temperature 98.8, pulse oximetry 98% on room air, respiratory rate 18. HEAD AND NECK: Atraumatic and normocephalic. CHEST: Clear to auscultation. No wheezing. No crackles. HEART: S1, S2. Regular rate and rhythm. ABDOMEN: Soft, decreased muscle mass. NEUROLOGY: The patient is AO x1. The patient has very limited significantly limited follow up on the instructions. MUSCULOSKELETAL: Atrophied musculatures. Positive for decubitus wounds including at the bilateral heel area. Chest x-ray and head CT dated 07/24/2019 reviewed. ASSESSMENT: 1. Acute metabolic encephalopathy. 2. Hypernatremia. 3. Chronic encephalomalacia. 4. Dementia. 5. CVA. 6. Coronary artery disease. 7. Diabetes type 2. 8. GI and DVT prophylaxes. PLAN OF CARE: Swallow evaluation. Nephrology care already established. No evidence of active acute infection. We will monitor off antibiotics. Endocrinology already been consulted Dear Dr. Rain, thanks for giving me the opportunity to participate in your patient's care as an internal medicine physician. Kellyammaalexi Lassiter M.D. DR: AMITA JOB#: [id number] CC:
[2019-07-26] VITALS: BP 120/64
[2019-07-26 04:00] VITALS: BP 127/60
[2019-07-26] MEDS: NovoLOG Insulin Flexpen SUBQ SCH ×4 (05:50→20:20)
[2019-07-26] MEDS: D5W w/KCl 20mEq 1,000 ML IV SCH ×2 (05:56→16:42)
--- NOTE | 2019-07-26 06:12 | General Progress Note ---
Assessment/Plan Problem List: (1) Dehydration ICD Codes: E86.0 - Dehydration SNOMED: 24740376 (2) Hypernatremia ICD Codes: E87.0 - Hyperosmolality and hypernatremia SNOMED: 606540561 (3) DM (diabetes mellitus) ICD Codes: E11.9 - Type 2 diabetes mellitus without complications SNOMED: 67625418 Assessment/Plan: increase Levemir to 10 units bid continue Novolog coverage Subjective ROS Limited/Unobtainable: Yes Allergies: Coded Allergies: No Known Allergies (Unverified , 05/08/12) Subjective glucose values are elevated due to dextrose infusion Item Value Date Time Bedside Blood Glucose 252 mg/dl H 07/26/19 0550 Bedside Blood Glucose 329 mg/dl H 07/25/19 2100 Bedside Blood Glucose 352 mg/dl H 07/25/19 1752 Bedside Blood Glucose 369 mg/dl H 07/25/19 1232 Bedside Blood Glucose 295 mg/dl H 07/25/19 0937 Bedside Blood Glucose 295 mg/dl H 07/25/19 0633 Objective Last 24 Hour Vital Signs Date Time Temp Pulse Resp B/P (MAP) Pulse Ox O2 Delivery O2 Flow Rate FiO2 07/26/19 04:00 98.9 77 14 127/60 (82) 100 07/26/19 04:00 Room Air 07/26/19 03:32 72 07/26/19 00:00 Room Air 07/26/19 00:00 97.6 73 16 120/64 (82) 99 07/25/19 23:36 74 07/25/19 20:00 97.5 76 18 118/63 (81) 100 07/25/19 20:00 78 07/25/19 20:00 Room Air 07/25/19 16:00 97.4 79 18 124/64 (84) 99 07/25/19 16:00 Room Air 07/25/19 16:00 84 07/25/19 12:00 96.8 84 20 112/69 (83) 96 07/25/19 12:00 Room Air 07/25/19 12:00 75 07/25/19 08:00 97.4 77 19 123/61 (81) 100 07/25/19 08:00 Room Air 07/25/19 08:00 67 Intake and Output 07/25/19 07/26/19 19:00 07:00 Intake Total 1620 ml 861.667 ml Output Total 650 ml Balance 970 ml 861.667 ml Intake Oral 520 ml IV Total 1100 ml 861.667 ml Output Urine Total 650 ml # Bowel Movements 1 Height (Feet): 5 Height (Inches): 3.00 Weight (Pounds): 75 General Appearance: lethargic Neck: normal alignment Cardiovascular: normal rate Respiratory/Chest: decreased breath sounds Abdomen: normal bowel sounds Objective Current Medications Medications (Trade) Dose Ordered Sig/Mar Route PRN Reason Start Time Stop Time Status Last Admin Dose Admin Acetaminophen/ Hydrocodone Bitart ([place] 5/325) 1 tab Q6H PRN ORAL For Pain 07/24/19 13:30 07/31/19 13:29 Dextrose (Dextrose 50%) 25 ml Q30M PRN IV Hypoglycemia 07/25/19 06:45 08/24/19 06:44 Dextrose (Dextrose 50%) 50 ml Q30M PRN IV Hypoglycemia 07/25/19 06:45 08/24/19 06:44 Dextrose/ Electrolytes 1,000 ml @ 100 mls/hr Q10H IV 07/24/19 15:00 08/23/19 14:59 07/26/19 05:56 Heparin Sodium (Porcine) (Heparin 5000 units/ml) 5,000 units EVERY 12 HOURS SUBQ 07/24/19 21:00 08/23/19 20:59 07/25/19 09:34 Insulin Aspart (NovoLOG) BEFORE MEALS AND HS SUBQ 07/24/19 16:30 08/23/19 16:29 07/26/19 05:50 Insulin Detemir (Levemir) 12 units DAILY SUBQ 07/25/19 09:00 08/24/19 08:59 07/25/19 09:37 Magnesium Hydroxide (Mom) 30 ml HSPRN PRN ORAL Constipation 07/24/19 21:00 08/23/19 20:59 Multivitamins (Multivitamins) 1 tab DAILY ORAL 07/25/19 09:00 08/23/19 13:29 07/25/19 09:33 Pantoprazole (Protonix) 40 mg DAILY ORAL 07/25/19 11:15 08/24/19 11:14 07/25/19 12:08 Luisito Quintero MD Jul 26, 2019 06:12
[2019-07-26 07:26] LABS: BASOPHILS % (AUTO) 0.5 % (0.0-2.0); EOSINOPHILS % (AUTO) 1.6 % (0.0-3.0); HEMATOCRIT 28.7 % (37.0-47.0); HEMOGLOBIN 9.1 G/DL (12.0-16.0); LYMPHOCYTES % (AUTO) 23.2 % (20.0-45.0); MEAN CORPUSCULAR VOLUME 88 FL (80-99); MONOCYTES % (AUTO) 5.2 % (1.0-10.0); NEUTROPHILS % (AUTO) 69.6 % (45.0-75.0); PLATELET COUNT 146 K/UL (150-450); RED BLOOD COUNT 3.25 M/UL (4.20-5.40); RED CELL DISTRIBUTION WIDTH 14.6 % (11.6-14.8); WHITE BLOOD COUNT 11.7 K/UL (4.8-10.8)
[2019-07-26 07:46] LABS: ANION GAP 12 mmol/L (5-15); BLOOD UREA NITROGEN 48 mg/dL (7-18); CALCIUM 8.5 MG/DL (8.5-10.1); CARBON DIOXIDE 22 MMOL/L (21-32); CHLORIDE 122 MMOL/L (98-107); CREATININE 1.2 MG/DL (0.55-1.30); POTASSIUM 4.8 MMOL/L (3.5-5.1); SODIUM 156 MMOL/L (136-145)
[2019-07-26 08:00] VITALS: BP 138/74
[2019-07-26] MEDS: Heparin 5000 units/ml inj SUBQ SCH ×2 (08:37→20:18)
[2019-07-26] MEDS: Levemir Flexpen SUBQ SCH ×2 (09:48→17:13)
--- NOTE | 2019-07-26 10:53 | Infectious Diseases Prog Note ---
Assessment/Plan Assessment/Plan IMPRESSION: Leukocytosis, likely reactive, is improving. Hypernatremia, Acute renal failure, Dehydration, Elevated troponin, sacral pressure ulcer that is improving, cachexia, Diabetes mellitus, Dementia, History of previous CVA. RECOMMENDATIONS: Observe off antibiotic Subjective ROS Limited/Unobtainable: Yes Constitutional: Denies: fever Allergies: Coded Allergies: No Known Allergies (Unverified , 05/08/12) Objective Vital Signs Last 24 Hour Vital Signs Date Time Temp Pulse Resp B/P (MAP) Pulse Ox O2 Delivery O2 Flow Rate FiO2 07/26/19 08:00 Room Air 07/26/19 08:00 75 07/26/19 08:00 98.1 82 15 138/74 (95) 100 07/26/19 04:00 98.9 77 14 127/60 (82) 100 07/26/19 04:00 Room Air 07/26/19 03:32 72 07/26/19 00:00 Room Air 07/26/19 00:00 97.6 73 16 120/64 (82) 99 07/25/19 23:36 74 07/25/19 20:00 97.5 76 18 118/63 (81) 100 07/25/19 20:00 78 07/25/19 20:00 Room Air 07/25/19 16:00 97.4 79 18 124/64 (84) 99 07/25/19 16:00 Room Air 07/25/19 16:00 84 07/25/19 12:00 96.8 84 20 112/69 (83) 96 07/25/19 12:00 Room Air 07/25/19 12:00 75 Height (Feet): 5 Height (Inches): 3.00 Weight (Pounds): 75 General Appearance: no acute distress HEENT: mucous membranes moist Respiratory/Chest: lungs clear Cardiovascular: normal rate Abdomen: soft, non tender Extremities: no edema Skin: ulcers, other - sacral Neurologic/Psychiatric: alert, responsive, disoriented Microbiology Date/Time Source Procedure Growth Status 07/24/19 11:00 Blood Blood Culture - Preliminary NO GROWTH AFTER 24 HOURS Resulted 07/24/19 10:45 Blood Blood Culture - Preliminary NO GROWTH AFTER 24 HOURS Resulted 07/24/19 12:30 Rectum VRE Culture - Final NO VANCOMYCIN RESISTANT ENTEROCOCCUS ... Complete Laboratory Tests Test 07/26/19 03:41 White Blood Count 11.7 K/UL (4.8-10.8) H Red Blood Count 3.25 M/UL (4.20-5.40) L Hemoglobin 9.1 G/DL (12.0-16.0) L Hematocrit 28.7 % (37.0-47.0) L Mean Corpuscular Volume 88 FL (80-99) Mean Corpuscular Hemoglobin 28.0 PG (27.0-31.0) Mean Corpuscular Hemoglobin Concent 31.7 G/DL (32.0-36.0) L Red Cell Distribution Width 14.6 % (11.6-14.8) Platelet Count 146 K/UL (150-450) L Mean Platelet Volume 9.5 FL (6.5-10.1) Neutrophils (%) (Auto) 69.6 % (45.0-75.0) Lymphocytes (%) (Auto) 23.2 % (20.0-45.0) Monocytes (%) (Auto) 5.2 % (1.0-10.0) Eosinophils (%) (Auto) 1.6 % (0.0-3.0) Basophils (%) (Auto) 0.5 % (0.0-2.0) Sodium Level 156 MMOL/L (136-145) H Potassium Level 4.8 MMOL/L (3.5-5.1) Chloride Level 122 MMOL/L (98-107) H Carbon Dioxide Level 22 MMOL/L (21-32) Anion Gap 12 mmol/L (5-15) Blood Urea Nitrogen 48 mg/dL (7-18) H Creatinine 1.2 MG/DL (0.55-1.30) Estimat Glomerular Filtration Rate 52.7 mL/min (>60) Glucose Level 264 MG/DL (74-106) #H Calcium Level 8.5 MG/DL (8.5-10.1) Current Medications Medications (Trade) Dose Ordered Sig/Mar Route PRN Reason Start Time Stop Time Status Last Admin Dose Admin Acetaminophen/ Hydrocodone Bitart ([place] 5/325) 1 tab Q6H PRN ORAL For Pain 07/24/19 13:30 07/31/19 13:29 Dextrose (Dextrose 50%) 25 ml Q30M PRN IV Hypoglycemia 07/25/19 06:45 08/24/19 06:44 Dextrose (Dextrose 50%) 50 ml Q30M PRN IV Hypoglycemia 07/25/19 06:45 08/24/19 06:44 Dextrose/ Electrolytes 1,000 ml @ 100 mls/hr Q10H IV 07/24/19 15:00 08/23/19 14:59 07/26/19 05:56 Heparin Sodium (Porcine) (Heparin 5000 units/ml) 5,000 units EVERY 12 HOURS SUBQ 07/24/19 21:00 08/23/19 20:59 07/25/19 09:34 Insulin Aspart (NovoLOG) BEFORE MEALS AND HS SUBQ 07/24/19 16:30 08/23/19 16:29 07/26/19 05:50 Insulin Detemir (Levemir) 12 units BID SUBQ 07/26/19 09:00 08/24/19 08:59 07/26/19 09:48 Magnesium Hydroxide (Mom) 30 ml HSPRN PRN ORAL Constipation 07/24/19 21:00 08/23/19 20:59 Multivitamins (Multivitamins) 1 tab DAILY ORAL 07/25/19 09:00 08/23/19 13:29 07/26/19 08:36 Pantoprazole (Protonix) 40 mg DAILY ORAL 07/25/19 11:15 08/24/19 11:14 07/26/19 08:36 Dallas Rain MD Jul 26, 2019 10:53
[2019-07-26 12:00] VITALS: BP 145/85
--- NOTE | 2019-07-26 12:11 | Nephrology Progress Note ---
Assessment/Plan Problem List: (1) Hypernatremia Assessment: better (2) DM (diabetes mellitus) (3) Severe protein-calorie malnutrition (4) Failure to thrive in adult (5) Sacral decubitus ulcer, stage IV (6) HTN (hypertension) (7) ARF (acute renal failure) Assessment: better Plan continue IVF SSI follow labs will arrange GT Discussed with RN ans speech pathologist Subjective Subjective more alert Objective Objective Last 24 Hour Vital Signs Date Time Temp Pulse Resp B/P (MAP) Pulse Ox O2 Delivery O2 Flow Rate FiO2 07/26/19 08:00 Room Air 07/26/19 08:00 75 07/26/19 08:00 98.1 82 15 138/74 (95) 100 07/26/19 04:00 98.9 77 14 127/60 (82) 100 07/26/19 04:00 Room Air 07/26/19 03:32 72 07/26/19 00:00 Room Air 07/26/19 00:00 97.6 73 16 120/64 (82) 99 07/25/19 23:36 74 07/25/19 20:00 97.5 76 18 118/63 (81) 100 07/25/19 20:00 78 07/25/19 20:00 Room Air 07/25/19 16:00 97.4 79 18 124/64 (84) 99 07/25/19 16:00 Room Air 07/25/19 16:00 84 Intake and Output 07/25/19 07/26/19 19:00 07:00 Intake Total 1620 ml 1120.001 ml Output Total 650 ml 900 ml Balance 970 ml 220.001 ml Intake Oral 520 ml 60 ml IV Total 1100 ml 1060.001 ml Output Urine Total 650 ml 900 ml # Bowel Movements 1 Laboratory Tests 07/26/19 03:41: White Blood Count 11.7H, Red Blood Count 3.25L, Hemoglobin 9.1L, Hematocrit 28.7L, Mean Corpuscular Volume 88, Mean Corpuscular Hemoglobin 28.0, Mean Corpuscular Hemoglobin Concent 31.7L, Red Cell Distribution Width 14.6, Platelet Count 146L, Mean Platelet Volume 9.5, Neutrophils (%) (Auto) 69.6, Lymphocytes (%) (Auto) 23.2, Monocytes (%) (Auto) 5.2, Eosinophils (%) (Auto) 1.6, Basophils (%) (Auto) 0.5, Sodium Level 156H, Potassium Level 4.8, Chloride Level 122H, Carbon Dioxide Level 22, Anion Gap 12, Blood Urea Nitrogen 48H, Creatinine 1.2, Estimat Glomerular Filtration Rate 52.7, Glucose Level 264#H, Calcium Level 8.5 Height (Feet): 5 Height (Inches): 3.00 Weight (Pounds): 75 Cardiovascular: normal rate Respiratory/Chest: lungs clear Arnulfo Rain MD Jul 26, 2019 12:11
--- NOTE | 2019-07-26 12:25 | Surgery Progress Note ---
Surgery Progress Note Subjective Additional Comments h/h stable electrolytes improved leukocytosis Objective Last 24 Hour Vital Signs Date Time Temp Pulse Resp B/P (MAP) Pulse Ox O2 Delivery O2 Flow Rate FiO2 07/26/19 12:00 99.0 100 15 145/85 (105) 100 07/26/19 12:00 Room Air 07/26/19 08:00 Room Air 07/26/19 08:00 75 07/26/19 08:00 98.1 82 15 138/74 (95) 100 07/26/19 04:00 98.9 77 14 127/60 (82) 100 07/26/19 04:00 Room Air 07/26/19 03:32 72 07/26/19 00:00 Room Air 07/26/19 00:00 97.6 73 16 120/64 (82) 99 07/25/19 23:36 74 07/25/19 20:00 97.5 76 18 118/63 (81) 100 07/25/19 20:00 78 07/25/19 20:00 Room Air 07/25/19 16:00 97.4 79 18 124/64 (84) 99 07/25/19 16:00 Room Air 07/25/19 16:00 84 I&O Intake and Output 07/25/19 07/26/19 19:00 07:00 Intake Total 1620 ml 1120.001 ml Output Total 650 ml 900 ml Balance 970 ml 220.001 ml Intake Oral 520 ml 60 ml IV Total 1100 ml 1060.001 ml Output Urine Total 650 ml 900 ml # Bowel Movements 1 Dressing: other Wound: other Cardiovascular: RSR Respiratory: clear Abdomen: non-tender, present bowel sounds Extremities: no cyanosis Laboratory Tests Test 07/26/19 03:41 White Blood Count 11.7 K/UL (4.8-10.8) H Red Blood Count 3.25 M/UL (4.20-5.40) L Hemoglobin 9.1 G/DL (12.0-16.0) L Hematocrit 28.7 % (37.0-47.0) L Mean Corpuscular Volume 88 FL (80-99) Mean Corpuscular Hemoglobin 28.0 PG (27.0-31.0) Mean Corpuscular Hemoglobin Concent 31.7 G/DL (32.0-36.0) L Red Cell Distribution Width 14.6 % (11.6-14.8) Platelet Count 146 K/UL (150-450) L Mean Platelet Volume 9.5 FL (6.5-10.1) Neutrophils (%) (Auto) 69.6 % (45.0-75.0) Lymphocytes (%) (Auto) 23.2 % (20.0-45.0) Monocytes (%) (Auto) 5.2 % (1.0-10.0) Eosinophils (%) (Auto) 1.6 % (0.0-3.0) Basophils (%) (Auto) 0.5 % (0.0-2.0) Sodium Level 156 MMOL/L (136-145) H Potassium Level 4.8 MMOL/L (3.5-5.1) Chloride Level 122 MMOL/L (98-107) H Carbon Dioxide Level 22 MMOL/L (21-32) Anion Gap 12 mmol/L (5-15) Blood Urea Nitrogen 48 mg/dL (7-18) H Creatinine 1.2 MG/DL (0.55-1.30) Estimat Glomerular Filtration Rate 52.7 mL/min (>60) Glucose Level 264 MG/DL (74-106) #H Calcium Level 8.5 MG/DL (8.5-10.1) Plan Problems: (1) Malnutrition Assessment & Plan: ACUTE ISSUES ABNORMAL LABS, DEHYDRATION, CXR LUNGS CLEAR, PER DR CABRALES POOR INTAKE (H/O ADULT FTT). OTHER RELEVANT MED IS NORCO. CT HEAD 07/24/19 POSTSURGICAL CHANGES, CHRONIC AGE-RELATED CHANGES, CHRONIC MICROVASCULAR ISCHEMIC CHANGES, RIGHT FRONTOPARIETAL AND TEMPORAL ENCEPHALOMALACIA AND OLD LEFT BASAL GANGLIA LACUNAR INFARCTS. 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 POSSIBLE COPD OR ASTHMA PER 06/08/19 CXR. PER [facility], NO TUBE FEEDINGS BUT WILL SPEAK TO DPOA PER DR CABRALES REQUEST TO SEE IF FAMILY IS RECEPTIVE TO PEG SINCE INTAKE VERY POOR OVERALL. (2) Severe protein-calorie malnutrition Assessment & Plan: DAILY ESTIMATED NEEDS: Needs based on Wound, Underweight/ 37kg 35-40 kcals/kg 8865-7614 total kcals 1.5-2 g protein/kg 56-74 g total protein 25-35ml/ kcal mL/kg 925-1295 total fluid mLs NUTRITION DIAGNOSIS: Increased kcal and pro needs R/T wound healing, underweight status as evidenced by admitted w/ stage 4 sacral wound, w/ generalized wasting w/ severe BL LE wasting, low BMI per guidelines, @70% [place] Body Weight. CURRENT DIET:NPO PO DIET RECOMMENDATIONS: Liberalized Diet/ texture per OPERATIONS STAFF SPECIALIST SECURITY + Glucerna TID w/ meals ENTERAL NUTRITION RECOMMENDATIONS: * CONSULT RD IF NON ORAL FEEDS ARE PART OF POC * ADDITIONAL RECOMMENDATIONS: 1) Calibrated bedscale wt, weekly wt monitoring 2) Wound care: MVI w/ min 1 tab QD, Vit C 500mg BID ZnSO4 220mg QD x 10 days Eduardo 1pkt BID W/ oral diet 3) Glucerna 1 tetra didi TID w/ meals added (220kcal/10g prot per didi) 4) OPERATIONS STAFF SPECIALIST SECURITY eval for appropriate texture- h/o CVA (3) Failure to thrive in adult (4) Sacral decubitus ulcer, stage IV Assessment & Plan: Pt presented on admission with resolving Full thickness stage 4 Sacral Pressure Injury(L)5.2cm x (W)13cm. Base of wound Has Two remaining full thickness wounds surrounded by [place] epithelial. Full thickness wound L sacrum (L)4.3cm x (W)2.5cm x (D)0.7cm undermined borders clockwise 9-12 by 0.4cm @120'clock.Scattered slough within base of wound. An area that is black and indurated noted at Approx 4-8o'clock.No odor or exudate noted. Full Thickness Pressure injury R Sacrum(L)1.5cmx (W)1.3cm. [place] granulation at base of wound. Borders are macerated. Scattered areas of hyperpigmentation noted to R and L Ischium . L trochanter noted to have darker skin tone over bony prominence.Pt denied pain when area palpated. Both heels are soft and easily blanchable. Tx.Plan: Cleanse Sacral wound with Saline. Apply TheraHoney to wounds R and L Sacrum. Apply Moisture Barrier Paste to epithelial areas of wound. Cover with Optifoam drsg. Change Daily and PRN. Apply Moisture Barrier Paste to R and L ischium with each incontinence care. Reposition at least every 2hours or as tolerated. Off-load heels with pillow. APM/KASEY Mattress. Noel Prescott Jul 26, 2019 12:25
--- NOTE | 2019-07-26 13:14 | General Progress Note ---
Assessment/Plan Assessment/Plan: S: I am ok O: cachectic appearance, Awake, poor historian PHYSICAL EXAMINATION:HEAD AND NECK: Atraumatic and normocephalic. CHEST: Clear to auscultation. No wheezing. No crackles. HEART: S1, S2. Regular rate and rhythm. ABDOMEN: Soft, decreased muscle mass. NEUROLOGY: The patient is AO x1. The patient has very limited significantly limited follow up on the instructions. MUSCULOSKELETAL: Atrophied musculatures. Positive for decubitus wounds including at the bilateral heel area. Chest x-ray and head CT dated 07/24/2019 reviewed. ASSESSMENT: 1. Acute metabolic encephalopathy. 2. Hypernatremia. 3. Chronic encephalomalacia. 4. Dementia. 5. CVA. 6. Coronary artery disease. 7. Diabetes type 2. 8. GI and DVT prophylaxes. 9. Diastolic HF PLAN OF CARE: High likelihood of readmission without having an alternative route for hydration, ( PEG tube). Will discuss with Swallow evaluation. Notes from Nephrology , ID and Endo reviewed. No evidence of active acute infection. We will monitor off antibiotics. Subjective Allergies: Coded Allergies: No Known Allergies (Unverified , 05/08/12) Objective Last 24 Hour Vital Signs Date Time Temp Pulse Resp B/P (MAP) Pulse Ox O2 Delivery O2 Flow Rate FiO2 07/26/19 12:00 99.0 100 15 145/85 (105) 100 07/26/19 12:00 Room Air 07/26/19 08:00 Room Air 07/26/19 08:00 75 07/26/19 08:00 98.1 82 15 138/74 (95) 100 07/26/19 04:00 98.9 77 14 127/60 (82) 100 07/26/19 04:00 Room Air 07/26/19 03:32 72 07/26/19 00:00 Room Air 07/26/19 00:00 97.6 73 16 120/64 (82) 99 07/25/19 23:36 74 07/25/19 20:00 97.5 76 18 118/63 (81) 100 07/25/19 20:00 78 07/25/19 20:00 Room Air 07/25/19 16:00 97.4 79 18 124/64 (84) 99 07/25/19 16:00 Room Air 07/25/19 16:00 84 Intake and Output 07/25/19 07/26/19 19:00 07:00 Intake Total 1620 ml 1120.001 ml Output Total 650 ml 900 ml Balance 970 ml 220.001 ml Intake Oral 520 ml 60 ml IV Total 1100 ml 1060.001 ml Output Urine Total 650 ml 900 ml # Bowel Movements 1 Laboratory Tests 07/26/19 03:41: White Blood Count 11.7H, Red Blood Count 3.25L, Hemoglobin 9.1L, Hematocrit 28.7L, Mean Corpuscular Volume 88, Mean Corpuscular Hemoglobin 28.0, Mean Corpuscular Hemoglobin Concent 31.7L, Red Cell Distribution Width 14.6, Platelet Count 146L, Mean Platelet Volume 9.5, Neutrophils (%) (Auto) 69.6, Lymphocytes (%) (Auto) 23.2, Monocytes (%) (Auto) 5.2, Eosinophils (%) (Auto) 1.6, Basophils (%) (Auto) 0.5, Sodium Level 156H, Potassium Level 4.8, Chloride Level 122H, Carbon Dioxide Level 22, Anion Gap 12, Blood Urea Nitrogen 48H, Creatinine 1.2, Estimat Glomerular Filtration Rate 52.7, Glucose Level 264#H, Calcium Level 8.5 Height (Feet): 5 Height (Inches): 3.00 Weight (Pounds): 75 Ariel Lassiter MD Jul 26, 2019 13:14
[2019-07-26 15:48] VITALS: BP 133/69
[2019-07-26 20:00] VITALS: BP 140/71
[2019-07-27] VITALS: BP 130/70
[2019-07-27] MEDS: D5W w/KCl 20mEq 1,000 ML IV SCH ×3 (02:55→16:27)
[2019-07-27 04:00] VITALS: BP 140/81
[2019-07-27] MEDS: NovoLOG Insulin Flexpen SUBQ SCH ×5 (05:40→22:09)
[2019-07-27 06:40] LABS: BASOPHILS % (AUTO) 0.5 % (0.0-2.0); EOSINOPHILS % (AUTO) 0.8 % (0.0-3.0); HEMATOCRIT 28.7 % (37.0-47.0); HEMOGLOBIN 9.2 G/DL (12.0-16.0); LYMPHOCYTES % (AUTO) 21.1 % (20.0-45.0); MEAN CORPUSCULAR VOLUME 86 FL (80-99); NEUTROPHILS % (AUTO) 73.6 % (45.0-75.0); PLATELET COUNT 166 K/UL (150-450); RED BLOOD COUNT 3.32 M/UL (4.20-5.40); RED CELL DISTRIBUTION WIDTH 14.4 % (11.6-14.8); WHITE BLOOD COUNT 13.7 K/UL (4.8-10.8)
[2019-07-27] MEDS ORDERED: Milk of Magnesia 30ml Ud ORAL PRN (06:45)
[2019-07-27] MEDS ORDERED: HYDROcodone/Acetamin 5/325 tab ORAL PRN (06:45)
--- NOTE | 2019-07-27 06:46 | General Progress Note ---
Assessment/Plan Problem List: (1) Dehydration ICD Codes: E86.0 - Dehydration SNOMED: 85343333 (2) Hypernatremia ICD Codes: E87.0 - Hyperosmolality and hypernatremia SNOMED: 019316139 (3) DM (diabetes mellitus) ICD Codes: E11.9 - Type 2 diabetes mellitus without complications SNOMED: 18240938 Assessment/Plan: change Levemir to 10 units bid continue Novolog coverage Subjective ROS Limited/Unobtainable: Yes Allergies: Coded Allergies: No Known Allergies (Unverified , 05/08/12) Subjective events noted glucose values improving still on dextrose Item Value Date Time Bedside Blood Glucose 124 mg/dl H 07/27/19 0540 Bedside Blood Glucose 230 mg/dl H 07/26/19 2100 Bedside Blood Glucose 297 mg/dl H 07/26/19 1713 Bedside Blood Glucose 326 mg/dl H 07/26/19 1231 Bedside Blood Glucose 273 mg/dl H 07/26/19 0948 Bedside Blood Glucose 252 mg/dl H 07/26/19 0630 Objective Last 24 Hour Vital Signs Date Time Temp Pulse Resp B/P (MAP) Pulse Ox O2 Delivery O2 Flow Rate FiO2 07/27/19 04:00 94 07/27/19 04:00 Room Air 07/27/19 04:00 98.3 90 20 140/81 (100) 99 07/27/19 00:00 95 07/27/19 00:00 98.0 89 20 130/70 (90) 98 07/27/19 00:00 Room Air 07/26/19 20:00 Room Air 07/26/19 20:00 92 07/26/19 20:00 98.6 81 19 140/71 (94) 96 07/26/19 16:00 93 07/26/19 15:49 Room Air 07/26/19 15:48 99.2 91 18 133/69 (90) 95 07/26/19 12:00 99.0 100 15 145/85 (105) 100 07/26/19 12:00 Room Air 07/26/19 11:46 104 07/26/19 08:00 Room Air 07/26/19 08:00 75 07/26/19 08:00 98.1 82 15 138/74 (95) 100 Intake and Output 07/26/19 07/27/19 19:00 07:00 Intake Total 840 ml 1005 ml Output Total 900 ml 1000 ml Balance -60 ml 5 ml Intake Oral 840 ml IV Total 1005 ml Output Urine Total 900 ml 1000 ml # Bowel Movements 2 Laboratory Tests 07/27/19 03:34: White Blood Count [Pending], Red Blood Count [Pending], Hemoglobin [Pending], Hematocrit [Pending], Mean Corpuscular Volume [Pending], Mean Corpuscular Hemoglobin [Pending], Mean Corpuscular Hemoglobin Concent [Pending], Red Cell Distribution Width [Pending], Platelet Count [Pending], Mean Platelet Volume [ Pending], Neutrophils (%) (Auto) [Pending], Lymphocytes (%) (Auto) [Pending], Monocytes (%) (Auto) [Pending], Eosinophils (%) (Auto) [Pending], Basophils (%) (Auto) [Pending], Sodium Level [Pending], Potassium Level [Pending], Chloride Level [Pending], Carbon Dioxide Level [Pending], Blood Urea Nitrogen [Pending], Creatinine [Pending], Estimat Glomerular Filtration Rate [Pending], Glucose Level [Pending], Calcium Level [Pending] Height (Feet): 5 Height (Inches): 3.00 Weight (Pounds): 75 General Appearance: lethargic Neck: normal alignment Cardiovascular: normal rate Respiratory/Chest: decreased breath sounds Abdomen: normal bowel sounds Pelvis: normal external exam Objective Current Medications Medications (Trade) Dose Ordered Sig/Mar Route PRN Reason Start Time Stop Time Status Last Admin Dose Admin Acetaminophen/ Hydrocodone Bitart ([place] 5/325) 1 tab Q6H PRN ORAL For Pain 07/27/19 06:45 07/31/19 06:44 Dextrose (Dextrose 50%) 25 ml Q30M PRN IV Hypoglycemia 07/27/19 06:45 08/24/19 06:44 Dextrose (Dextrose 50%) 50 ml Q30M PRN IV Hypoglycemia 07/27/19 06:45 08/24/19 06:44 Dextrose/ Electrolytes 1,000 ml @ 100 mls/hr Q10H IV 07/27/19 06:30 08/23/19 14:59 Heparin Sodium (Porcine) (Heparin 5000 units/ml) 5,000 units EVERY 12 HOURS SUBQ 07/27/19 09:00 08/23/19 20:59 Insulin Aspart (NovoLOG) BEFORE MEALS AND HS SUBQ 07/27/19 06:30 08/23/19 16:29 Insulin Detemir (Levemir) 12 units BID SUBQ 07/27/19 09:00 08/24/19 08:59 Magnesium Hydroxide (Mom) 30 ml HSPRN PRN ORAL Constipation 07/27/19 06:45 08/23/19 06:44 Multivitamins (Multivitamins) 1 tab DAILY ORAL 07/27/19 09:00 08/23/19 13:29 Pantoprazole (Protonix) 40 mg DAILY ORAL 07/27/19 09:00 08/24/19 11:14 Luisito Quintero MD Jul 27, 2019 06:46
[2019-07-27 06:57] LABS: ANION GAP 11 mmol/L (5-15); BLOOD UREA NITROGEN 28 mg/dL (7-18); CARBON DIOXIDE 22 MMOL/L (21-32); CHLORIDE 116 MMOL/L (98-107); POTASSIUM 4.7 MMOL/L (3.5-5.1); SODIUM 149 MMOL/L (136-145)
[2019-07-27 07:47] VITALS: BP 109/62
[2019-07-27] MEDS ORDERED: Levemir Flexpen SUBQ SCH (09:00)
[2019-07-27] MEDS: Levemir Flexpen SUBQ SCH ×2 (09:00→17:34)
[2019-07-27] MEDS: Heparin 5000 units/ml inj SUBQ SCH ×2 (09:29→22:10)
[2019-07-27 11:44] VITALS: BP 108/52
--- NOTE | 2019-07-27 13:26 | Surgery Progress Note ---
Surgery Progress Note Subjective Additional Comments leukocytosis responsive comfortable appearing Objective Last 24 Hour Vital Signs Date Time Temp Pulse Resp B/P (MAP) Pulse Ox O2 Delivery O2 Flow Rate FiO2 07/27/19 12:00 106 07/27/19 11:48 Room Air 07/27/19 11:44 98.2 54 18 108/52 (70) 99 07/27/19 08:00 109 07/27/19 08:00 Room Air 07/27/19 07:47 99.3 66 20 109/62 (78) 97 07/27/19 04:00 94 07/27/19 04:00 Room Air 07/27/19 04:00 98.3 90 20 140/81 (100) 99 07/27/19 00:00 95 07/27/19 00:00 98.0 89 20 130/70 (90) 98 07/27/19 00:00 Room Air 07/26/19 20:00 Room Air 07/26/19 20:00 92 07/26/19 20:00 98.6 81 19 140/71 (94) 96 07/26/19 16:00 93 07/26/19 15:49 Room Air 07/26/19 15:48 99.2 91 18 133/69 (90) 95 I&O Intake and Output 07/26/19 07/27/19 19:00 07:00 Intake Total 840 ml 1005 ml Output Total 900 ml 1000 ml Balance -60 ml 5 ml Intake Oral 840 ml IV Total 1005 ml Output Urine Total 900 ml 1000 ml # Bowel Movements 2 Dressing: other Wound: other Drains: other Cardiovascular: RSR Respiratory: decreased breath sounds Abdomen: soft, non-tender, present bowel sounds Extremities: no cyanosis Laboratory Tests Test 07/27/19 03:34 White Blood Count 13.7 K/UL (4.8-10.8) H Red Blood Count 3.32 M/UL (4.20-5.40) L Hemoglobin 9.2 G/DL (12.0-16.0) L Hematocrit 28.7 % (37.0-47.0) L Mean Corpuscular Volume 86 FL (80-99) Mean Corpuscular Hemoglobin 27.8 PG (27.0-31.0) Mean Corpuscular Hemoglobin Concent 32.2 G/DL (32.0-36.0) Red Cell Distribution Width 14.4 % (11.6-14.8) Platelet Count 166 K/UL (150-450) Mean Platelet Volume 9.3 FL (6.5-10.1) Neutrophils (%) (Auto) 73.6 % (45.0-75.0) Lymphocytes (%) (Auto) 21.1 % (20.0-45.0) Monocytes (%) (Auto) 4.0 % (1.0-10.0) Eosinophils (%) (Auto) 0.8 % (0.0-3.0) Basophils (%) (Auto) 0.5 % (0.0-2.0) Sodium Level 149 MMOL/L (136-145) H Potassium Level 4.7 MMOL/L (3.5-5.1) Chloride Level 116 MMOL/L (98-107) H Carbon Dioxide Level 22 MMOL/L (21-32) Anion Gap 11 mmol/L (5-15) Blood Urea Nitrogen 28 mg/dL (7-18) H Creatinine 1.0 MG/DL (0.55-1.30) Estimat Glomerular Filtration Rate > 60 mL/min (>60) Glucose Level 114 MG/DL (74-106) #H Calcium Level 9.0 MG/DL (8.5-10.1) Plan Problems: (1) Malnutrition Assessment & Plan: ACUTE ISSUES ABNORMAL LABS, DEHYDRATION, CXR LUNGS CLEAR, PER DR CABRALES POOR INTAKE (H/O ADULT FTT). OTHER RELEVANT MED IS NORCO. CT HEAD 07/24/19 POSTSURGICAL CHANGES, CHRONIC AGE-RELATED CHANGES, CHRONIC MICROVASCULAR ISCHEMIC CHANGES, RIGHT FRONTOPARIETAL AND TEMPORAL ENCEPHALOMALACIA AND OLD LEFT BASAL GANGLIA LACUNAR INFARCTS. 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 POSSIBLE COPD OR ASTHMA PER 06/08/19 CXR. PER [facility], NO TUBE FEEDINGS BUT WILL SPEAK TO DPOA PER DR CABRALES REQUEST TO SEE IF FAMILY IS RECEPTIVE TO PEG SINCE INTAKE VERY POOR OVERALL. (2) Severe protein-calorie malnutrition Assessment & Plan: DAILY ESTIMATED NEEDS: Needs based on Wound, Underweight/ 37kg 35-40 kcals/kg 4263-2419 total kcals 1.5-2 g protein/kg 56-74 g total protein 25-35ml/ kcal mL/kg 925-1295 total fluid mLs NUTRITION DIAGNOSIS: Increased kcal and pro needs R/T wound healing, underweight status as evidenced by admitted w/ stage 4 sacral wound, w/ generalized wasting w/ severe BL LE wasting, low BMI per guidelines, @70% [place] Body Weight. CURRENT DIET:NPO PO DIET RECOMMENDATIONS: Liberalized Diet/ texture per DRUG ABUSE PROGRAM COORDINATOR + Glucerna TID w/ meals ENTERAL NUTRITION RECOMMENDATIONS: * CONSULT RD IF NON ORAL FEEDS ARE PART OF POC * ADDITIONAL RECOMMENDATIONS: 1) Calibrated bedscale wt, weekly wt monitoring 2) Wound care: MVI w/ min 1 tab QD, Vit C 500mg BID ZnSO4 220mg QD x 10 days Eduardo 1pkt BID W/ oral diet 3) Glucerna 1 tetra didi TID w/ meals added (220kcal/10g prot per didi) 4) DRUG ABUSE PROGRAM COORDINATOR eval for appropriate texture- h/o CVA (3) Failure to thrive in adult (4) Sacral decubitus ulcer, stage IV Assessment & Plan: Pt presented on admission with resolving Full thickness stage 4 Sacral Pressure Injury(L)5.2cm x (W)13cm. Base of wound Has Two remaining full thickness wounds surrounded by [place] epithelial. Full thickness wound L sacrum (L)4.3cm x (W)2.5cm x (D)0.7cm undermined borders clockwise 9-12 by 0.4cm @120'clock.Scattered slough within base of wound. An area that is black and indurated noted at Approx 4-8o'clock.No odor or exudate noted. Full Thickness Pressure injury R Sacrum(L)1.5cmx (W)1.3cm. [place] granulation at base of wound. Borders are macerated. Scattered areas of hyperpigmentation noted to R and L Ischium . L trochanter noted to have darker skin tone over bony prominence.Pt denied pain when area palpated. Both heels are soft and easily blanchable. Tx.Plan: Cleanse Sacral wound with Saline. Apply TheraHoney to wounds R and L Sacrum. Apply Moisture Barrier Paste to epithelial areas of wound. Cover with Optifoam drsg. Change Daily and PRN. Apply Moisture Barrier Paste to R and L ischium with each incontinence care. Reposition at least every 2hours or as tolerated. Off-load heels with pillow. APM/KASEY Mattress. Noel Prescott Jul 27, 2019 13:26
--- NOTE | 2019-07-27 14:42 | Nephrology Progress Note ---
Assessment/Plan Problem List: (1) Hypernatremia Assessment: better (2) DM (diabetes mellitus) (3) Severe protein-calorie malnutrition (4) Failure to thrive in adult (5) Sacral decubitus ulcer, stage IV (6) HTN (hypertension) (7) ARF (acute renal failure) Assessment: better Plan continue IVF SSI follow labs await GT Discussed with RN Subjective Subjective more alert Objective Objective Last 24 Hour Vital Signs Date Time Temp Pulse Resp B/P (MAP) Pulse Ox O2 Delivery O2 Flow Rate FiO2 07/27/19 12:00 106 07/27/19 11:48 Room Air 07/27/19 11:44 98.2 54 18 108/52 (70) 99 07/27/19 08:00 109 07/27/19 08:00 Room Air 07/27/19 07:47 99.3 66 20 109/62 (78) 97 07/27/19 04:00 94 07/27/19 04:00 Room Air 07/27/19 04:00 98.3 90 20 140/81 (100) 99 07/27/19 00:00 95 07/27/19 00:00 98.0 89 20 130/70 (90) 98 07/27/19 00:00 Room Air 07/26/19 20:00 Room Air 07/26/19 20:00 92 07/26/19 20:00 98.6 81 19 140/71 (94) 96 07/26/19 16:00 93 07/26/19 15:49 Room Air 07/26/19 15:48 99.2 91 18 133/69 (90) 95 Intake and Output 07/26/19 07/27/19 19:00 07:00 Intake Total 840 ml 1005 ml Output Total 900 ml 1000 ml Balance -60 ml 5 ml Intake Oral 840 ml IV Total 1005 ml Output Urine Total 900 ml 1000 ml # Bowel Movements 2 Laboratory Tests 07/27/19 03:34: White Blood Count 13.7H, Red Blood Count 3.32L, Hemoglobin 9.2L, Hematocrit 28.7L, Mean Corpuscular Volume 86, Mean Corpuscular Hemoglobin 27.8, Mean Corpuscular Hemoglobin Concent 32.2, Red Cell Distribution Width 14.4, Platelet Count 166, Mean Platelet Volume 9.3, Neutrophils (%) (Auto) 73.6, Lymphocytes (% ) (Auto) 21.1, Monocytes (%) (Auto) 4.0, Eosinophils (%) (Auto) 0.8, Basophils ( %) (Auto) 0.5, Sodium Level 149H, Potassium Level 4.7, Chloride Level 116H, Carbon Dioxide Level 22, Anion Gap 11, Blood Urea Nitrogen 28H, Creatinine 1.0, Estimat Glomerular Filtration Rate > 60, Glucose Level 114#H, Calcium Level 9.0 Height (Feet): 5 Height (Inches): 3.00 Weight (Pounds): 75 Cardiovascular: normal rate Respiratory/Chest: lungs clear Extremities: no edema Arnulfo Rain MD Jul 27, 2019 14:42
--- NOTE | 2019-07-27 15:10 | General Progress Note ---
Assessment/Plan Assessment/Plan: S: no verbal communication O: cachectic appearance, Awake, poor historian PHYSICAL EXAMINATION:HEAD AND NECK: Atraumatic and normocephalic. CHEST: Clear to auscultation. No wheezing. No crackles. HEART: S1, S2. Regular rate and rhythm. ABDOMEN: Soft, decreased muscle mass. NEUROLOGY: The patient is AO x1. The patient has very limited significantly limited follow up on the instructions. MUSCULOSKELETAL: Atrophied musculatures. Positive for decubitus wounds including at the bilateral heel area. Chest x-ray and head CT dated 07/24/2019 reviewed. ASSESSMENT: 1. Acute metabolic encephalopathy. 2. Hypernatremia. 3. Chronic encephalomalacia. 4. Dementia. 5. CVA. 6. Coronary artery disease. 7. Diabetes type 2. 8. GI and DVT prophylaxes. 9. Diastolic HF PLAN OF CARE: High likelihood of readmission without having an alternative route for hydration, ( PEG tube). Will discuss with Swallow evaluation. Notes from Nephrology , ID and Endo reviewed. Increase in WBC compare to yesterday.I will D/W ID. Subjective Allergies: Coded Allergies: No Known Allergies (Unverified , 05/08/12) Objective Last 24 Hour Vital Signs Date Time Temp Pulse Resp B/P (MAP) Pulse Ox O2 Delivery O2 Flow Rate FiO2 07/27/19 12:00 106 07/27/19 11:48 Room Air 07/27/19 11:44 98.2 54 18 108/52 (70) 99 07/27/19 08:00 109 07/27/19 08:00 Room Air 07/27/19 07:47 99.3 66 20 109/62 (78) 97 07/27/19 04:00 94 07/27/19 04:00 Room Air 07/27/19 04:00 98.3 90 20 140/81 (100) 99 07/27/19 00:00 95 07/27/19 00:00 98.0 89 20 130/70 (90) 98 07/27/19 00:00 Room Air 07/26/19 20:00 Room Air 07/26/19 20:00 92 07/26/19 20:00 98.6 81 19 140/71 (94) 96 07/26/19 16:00 93 07/26/19 15:49 Room Air 07/26/19 15:48 99.2 91 18 133/69 (90) 95 Intake and Output 07/26/19 07/27/19 19:00 07:00 Intake Total 840 ml 1005 ml Output Total 900 ml 1000 ml Balance -60 ml 5 ml Intake Oral 840 ml IV Total 1005 ml Output Urine Total 900 ml 1000 ml # Bowel Movements 2 Laboratory Tests 07/27/19 03:34: White Blood Count 13.7H, Red Blood Count 3.32L, Hemoglobin 9.2L, Hematocrit 28.7L, Mean Corpuscular Volume 86, Mean Corpuscular Hemoglobin 27.8, Mean Corpuscular Hemoglobin Concent 32.2, Red Cell Distribution Width 14.4, Platelet Count 166, Mean Platelet Volume 9.3, Neutrophils (%) (Auto) 73.6, Lymphocytes (% ) (Auto) 21.1, Monocytes (%) (Auto) 4.0, Eosinophils (%) (Auto) 0.8, Basophils ( %) (Auto) 0.5, Sodium Level 149H, Potassium Level 4.7, Chloride Level 116H, Carbon Dioxide Level 22, Anion Gap 11, Blood Urea Nitrogen 28H, Creatinine 1.0, Estimat Glomerular Filtration Rate > 60, Glucose Level 114#H, Calcium Level 9.0 Height (Feet): 5 Height (Inches): 3.00 Weight (Pounds): 75 Ariel Lassiter MD Jul 27, 2019 15:10
[2019-07-27 16:00] VITALS: BP 149/77
--- NOTE | 2019-07-27 16:35 | General Progress Note ---
Assessment/Plan Assessment/Plan: Assessment - anorexia - malnutrition - h/o CVA - hypernatremia - h/o decub ulcer - OBS Recommendations - push po - IVF - correct Na - PEG Monday Thank you Wojciech Gutierres MD Subjective Allergies: Coded Allergies: No Known Allergies (Unverified , 05/08/12) Objective Last 24 Hour Vital Signs Date Time Temp Pulse Resp B/P (MAP) Pulse Ox O2 Delivery O2 Flow Rate FiO2 07/27/19 16:00 98.2 109 18 149/77 (101) 99 07/27/19 12:00 106 07/27/19 11:48 Room Air 07/27/19 11:44 98.2 54 18 108/52 (70) 99 07/27/19 08:00 109 07/27/19 08:00 Room Air 07/27/19 07:47 99.3 66 20 109/62 (78) 97 07/27/19 04:00 94 07/27/19 04:00 Room Air 07/27/19 04:00 98.3 90 20 140/81 (100) 99 07/27/19 00:00 95 07/27/19 00:00 98.0 89 20 130/70 (90) 98 07/27/19 00:00 Room Air 07/26/19 20:00 Room Air 07/26/19 20:00 92 07/26/19 20:00 98.6 81 19 140/71 (94) 96 Intake and Output 07/26/19 07/27/19 19:00 07:00 Intake Total 840 ml 1005 ml Output Total 900 ml 1000 ml Balance -60 ml 5 ml Intake Oral 840 ml IV Total 1005 ml Output Urine Total 900 ml 1000 ml # Bowel Movements 2 Laboratory Tests 07/27/19 03:34: White Blood Count 13.7H, Red Blood Count 3.32L, Hemoglobin 9.2L, Hematocrit 28.7L, Mean Corpuscular Volume 86, Mean Corpuscular Hemoglobin 27.8, Mean Corpuscular Hemoglobin Concent 32.2, Red Cell Distribution Width 14.4, Platelet Count 166, Mean Platelet Volume 9.3, Neutrophils (%) (Auto) 73.6, Lymphocytes (% ) (Auto) 21.1, Monocytes (%) (Auto) 4.0, Eosinophils (%) (Auto) 0.8, Basophils ( %) (Auto) 0.5, Sodium Level 149H, Potassium Level 4.7, Chloride Level 116H, Carbon Dioxide Level 22, Anion Gap 11, Blood Urea Nitrogen 28H, Creatinine 1.0, Estimat Glomerular Filtration Rate > 60, Glucose Level 114#H, Calcium Level 9.0 Height (Feet): 5 Height (Inches): 3.00 Weight (Pounds): 75 Kaila Gutierres MD Jul 27, 2019 16:35
--- NOTE | 2019-07-27 18:45 | Consultation ---
DATE OF CONSULTATION: 07/27/2019 GASTROENTEROLOGY CONSULTATION: CONSULTING PHYSICIAN: Kaila Gutierres M.D. REFERRING PHYSICIAN: Arnulfo Rain M.D. CHIEF COMPLAINT: I was asked to see this patient by Dr. Arnulfo Rain for possible gastrostomy tube placement. HISTORY OF PRESENT ILLNESS: The patient is a debilitated 79-year-old woman with advanced dementia, who was brought into the hospital due to multiple issues including electrolyte abnormalities, leukocytosis, and altered mental status. The patient herself is confused and unable to provide any history. Most information is only available from the chart. The patient has significant muscle wasting. She is very thin and has had a history of stroke with left-sided hemiparesis. The patient also has had a history of sacral osteomyelitis, which was treated in 2019. PAST MEDICAL HISTORY: History of diabetes, dementia, stroke with left-sided hemiparesis, sacral ulcer with osteomyelitis, hyperlipidemia, cachexia, malnutrition, and anemia. FAMILY HISTORY: Noncontributory. SOCIAL HISTORY: The patient is a shelter resident. She has a durable [id number] who makes medical decisions for her. REVIEW OF SYSTEMS: Otherwise negative. PHYSICAL EXAMINATION: GENERAL: Cachectic woman, seen in her room, in no distress. HEENT: Normocephalic and atraumatic. There is temporal wasting. NECK: Supple. CHEST: Revealed coarse breath sounds. CARDIOVASCULAR: Regular rate. ABDOMEN: Soft and scaphoid. EXTREMITIES: Revealed some skin breakdown as well as muscle wasting. NEUROLOGIC: Notable for dementia. LABORATORY DATA: Noted. ASSESSMENT: This patient presents with severe malnutrition with muscle wasting as well as low albumin. The patient has had history of decubitus ulceration and is therefore, a reasonable candidate for enteral nutrition for long-term protein and calorie support. The indications, risks, alternatives, and possible complications of the procedure were explained at length to the patient's durable [id number]-ikpbrhyv and informed consent was obtained. If necessary, the patient can have a nasogastric tube feeding in the interim. The patient also has significant degree of hypernatremia, which is due to poor oral intake. This has already been nearly resolved with IV hydration. RECOMMENDATIONS: 1. Continue IV hydration. 2. Monitor laboratories. 3. Endoscopy with gastrostomy tube placement on Monday. Thank you for asking me to participate in the care of this patient. Kaila Gutierres M.D. DR: Lynsey JOB#: [id number] CC:
[2019-07-27 20:00] VITALS: BP_SYST 147; BP_SYST 149; BP_DIAS 69; BP_DIAS 77
[2019-07-28] VITALS: BP_SYST 149; BP_SYST 155; BP_DIAS 71; BP_DIAS 77
[2019-07-28] MEDS: D5W w/KCl 20mEq 1,000 ML IV SCH ×3 (02:32→14:13)
[2019-07-28 04:00] VITALS: BP 138/74
[2019-07-28] MEDS: NovoLOG Insulin Flexpen SUBQ SCH ×4 (06:18→21:00)
--- NOTE | 2019-07-28 07:07 | General Progress Note ---
Assessment/Plan Problem List: (1) Dehydration ICD Codes: E86.0 - Dehydration SNOMED: 45952396 (2) Hypernatremia ICD Codes: E87.0 - Hyperosmolality and hypernatremia SNOMED: 467792297 (3) DM (diabetes mellitus) ICD Codes: E11.9 - Type 2 diabetes mellitus without complications SNOMED: 09041374 Assessment/Plan: continue Levemir 10 units bid continue Novolog coverage plan for PEG noted Subjective ROS Limited/Unobtainable: Yes Allergies: Coded Allergies: No Known Allergies (Unverified , 05/08/12) Subjective events noted glucose spiked to 300 yesterday - improved this morning plan for PEG placement noted still on dextrose - Na improved Item Value Date Time Bedside Blood Glucose 189 mg/dl H 07/28/19 0618 Bedside Blood Glucose 303 mg/dl H 07/27/19 2209 Bedside Blood Glucose 283 mg/dl H 07/27/19 1734 Bedside Blood Glucose 170 mg/dl H 07/27/19 1133 Bedside Blood Glucose 124 mg/dl H 07/27/19 0540 Objective Last 24 Hour Vital Signs Date Time Temp Pulse Resp B/P (MAP) Pulse Ox O2 Delivery O2 Flow Rate FiO2 07/28/19 04:43 97 07/28/19 04:00 Room Air 07/28/19 04:00 98.0 91 16 138/74 (95) 95 07/28/19 00:00 100 07/28/19 00:00 Room Air 07/28/19 00:00 98.2 109 18 149/77 (101) 99 07/28/19 00:00 98.1 96 18 155/71 (99) 99 07/27/19 20:00 Room Air 07/27/19 20:00 105 07/27/19 20:00 97.8 103 18 147/69 (95) 99 07/27/19 20:00 97.2 109 18 149/77 (101) 99 07/27/19 16:00 105 07/27/19 16:00 Room Air 07/27/19 16:00 98.2 109 18 149/77 (101) 99 07/27/19 12:00 106 07/27/19 11:48 Room Air 07/27/19 11:44 98.2 54 18 108/52 (70) 99 07/27/19 08:00 109 07/27/19 08:00 Room Air 07/27/19 07:47 99.3 66 20 109/62 (78) 97 Intake and Output 07/27/19 07/28/19 19:00 07:00 Intake Total 630 ml Output Total 1 ml Balance 630 ml -1 ml Intake Oral 630 ml Stool Total 1 ml # Voids 4 2 # Bowel Movements 4 Height (Feet): 5 Height (Inches): 3.00 Weight (Pounds): 75 General Appearance: lethargic Neck: normal alignment Cardiovascular: normal rate Respiratory/Chest: lungs clear Abdomen: normal bowel sounds Pelvis: normal external exam Edema: no edema noted Arm (L), no edema noted Arm (R), no edema noted Leg (L), no edema noted Leg (R), no edema noted Pedal (L), no edema noted Pedal (R), no edema noted Generalized Objective Current Medications Medications (Trade) Dose Ordered Sig/Mar Route PRN Reason Start Time Stop Time Status Last Admin Dose Admin Acetaminophen/ Hydrocodone Bitart ([place] 5/325) 1 tab Q6H PRN ORAL For Pain 07/27/19 06:45 07/31/19 06:44 07/28/19 02:29 Dextrose (Dextrose 50%) 25 ml Q30M PRN IV Hypoglycemia 07/27/19 06:45 08/24/19 06:44 Dextrose (Dextrose 50%) 50 ml Q30M PRN IV Hypoglycemia 07/27/19 06:45 08/24/19 06:44 Dextrose/ Electrolytes 1,000 ml @ 100 mls/hr Q10H IV 07/27/19 06:30 08/23/19 14:59 07/28/19 02:32 Heparin Sodium (Porcine) (Heparin 5000 units/ml) 5,000 units EVERY 12 HOURS SUBQ 07/27/19 09:00 08/23/19 20:59 07/27/19 22:10 Insulin Aspart (NovoLOG) BEFORE MEALS AND HS SUBQ 07/27/19 06:30 08/23/19 16:29 07/28/19 06:18 Insulin Detemir (Levemir) 10 units BID SUBQ 07/27/19 09:00 08/24/19 08:59 07/27/19 17:34 Magnesium Hydroxide (Mom) 30 ml HSPRN PRN ORAL Constipation 07/27/19 06:45 08/23/19 06:44 Multivitamins (Multivitamins) 1 tab DAILY ORAL 07/27/19 09:00 08/23/19 13:29 07/27/19 09:29 Pantoprazole (Protonix) 40 mg DAILY ORAL 07/27/19 09:00 08/24/19 11:14 07/27/19 09:29 Luisito Quintero MD Jul 28, 2019 07:07
[2019-07-28 07:54] LABS: BASOPHILS % (AUTO) 0.5 % (0.0-2.0); EOSINOPHILS % (AUTO) 0.8 % (0.0-3.0); HEMOGLOBIN 10.1 G/DL (12.0-16.0); LYMPHOCYTES % (AUTO) 19.8 % (20.0-45.0); MEAN CORPUSCULAR VOLUME 87 FL (80-99); NEUTROPHILS % (AUTO) 74.9 % (45.0-75.0); PLATELET COUNT 170 K/UL (150-450); RED BLOOD COUNT 3.58 M/UL (4.20-5.40); RED CELL DISTRIBUTION WIDTH 14.6 % (11.6-14.8); WHITE BLOOD COUNT 15.4 K/UL (4.8-10.8)
[2019-07-28 08:00] VITALS: BP 122/48
[2019-07-28] MEDS: Heparin 5000 units/ml inj SUBQ SCH ×2 (08:22→20:58)
[2019-07-28 08:25] LABS: ANION GAP 10 mmol/L (5-15); BLOOD UREA NITROGEN 20 mg/dL (7-18); CALCIUM 9.2 MG/DL (8.5-10.1); CARBON DIOXIDE 21 MMOL/L (21-32); CHLORIDE 112 MMOL/L (98-107); POTASSIUM 4.4 MMOL/L (3.5-5.1); SODIUM 143 MMOL/L (136-145)
[2019-07-28] MEDS: Levemir Flexpen SUBQ SCH ×2 (08:31→17:32)
--- NOTE | 2019-07-28 09:51 | Infectious Diseases Prog Note ---
Assessment/Plan Assessment/Plan IMPRESSION: UTI Leukocytosis, worsening Hypernatremia, Acute renal failure, Dehydration, Elevated troponin, sacral pressure ulcer that is improving, cachexia, Diabetes mellitus, Dementia, History of previous CVA. RECOMMENDATIONS: Started on Cefepime Will f/u Urine culture Subjective ROS Limited/Unobtainable: Yes Constitutional: Denies: fever Musculoskeletal: Reports: pain Allergies: Coded Allergies: No Known Allergies (Unverified , 05/08/12) Objective Vital Signs Last 24 Hour Vital Signs Date Time Temp Pulse Resp B/P (MAP) Pulse Ox O2 Delivery O2 Flow Rate FiO2 07/28/19 08:00 Room Air 07/28/19 08:00 90 07/28/19 08:00 97.5 83 18 122/48 (72) 96 07/28/19 04:43 97 07/28/19 04:00 Room Air 07/28/19 04:00 98.0 91 16 138/74 (95) 95 07/28/19 00:00 100 07/28/19 00:00 Room Air 07/28/19 00:00 98.2 109 18 149/77 (101) 99 07/28/19 00:00 98.1 96 18 155/71 (99) 99 07/27/19 20:00 Room Air 07/27/19 20:00 105 07/27/19 20:00 97.8 103 18 147/69 (95) 99 07/27/19 20:00 97.2 109 18 149/77 (101) 99 07/27/19 16:00 105 07/27/19 16:00 Room Air 07/27/19 16:00 98.2 109 18 149/77 (101) 99 07/27/19 12:00 106 07/27/19 11:48 Room Air 07/27/19 11:44 98.2 54 18 108/52 (70) 99 Height (Feet): 5 Height (Inches): 3.00 Weight (Pounds): 75 General Appearance: no acute distress, cachetic HEENT: mucous membranes moist Respiratory/Chest: lungs clear Cardiovascular: normal rate Abdomen: soft, non tender Extremities: no edema Neurologic/Psychiatric: alert, responsive, disoriented Musculoskeletal: atrophy Microbiology Date/Time Source Procedure Growth Status 07/27/19 18:30 Urine,Clean Catch Urine Culture - Preliminary Gram Negative Trevor Resulted Laboratory Tests Test 07/28/19 05:40 White Blood Count 15.4 K/UL (4.8-10.8) H Red Blood Count 3.58 M/UL (4.20-5.40) L Hemoglobin 10.1 G/DL (12.0-16.0) L Hematocrit 31.0 % (37.0-47.0) L Mean Corpuscular Volume 87 FL (80-99) Mean Corpuscular Hemoglobin 28.1 PG (27.0-31.0) Mean Corpuscular Hemoglobin Concent 32.5 G/DL (32.0-36.0) Red Cell Distribution Width 14.6 % (11.6-14.8) Platelet Count 170 K/UL (150-450) Mean Platelet Volume 10.9 FL (6.5-10.1) H Neutrophils (%) (Auto) 74.9 % (45.0-75.0) Lymphocytes (%) (Auto) 19.8 % (20.0-45.0) L Monocytes (%) (Auto) 4.0 % (1.0-10.0) Eosinophils (%) (Auto) 0.8 % (0.0-3.0) Basophils (%) (Auto) 0.5 % (0.0-2.0) Sodium Level 143 MMOL/L (136-145) Potassium Level 4.4 MMOL/L (3.5-5.1) Chloride Level 112 MMOL/L (98-107) H Carbon Dioxide Level 21 MMOL/L (21-32) Anion Gap 10 mmol/L (5-15) Blood Urea Nitrogen 20 mg/dL (7-18) H Creatinine 1.0 MG/DL (0.55-1.30) Estimat Glomerular Filtration Rate > 60 mL/min (>60) Glucose Level 174 MG/DL (74-106) H Calcium Level 9.2 MG/DL (8.5-10.1) Current Medications Medications (Trade) Dose Ordered Sig/Mar Route PRN Reason Start Time Stop Time Status Last Admin Dose Admin Acetaminophen/ Hydrocodone Bitart ([place] 5/325) 1 tab Q6H PRN ORAL For Pain 07/27/19 06:45 07/31/19 06:44 07/28/19 02:29 Dextrose (Dextrose 50%) 25 ml Q30M PRN IV Hypoglycemia 07/27/19 06:45 08/24/19 06:44 Dextrose (Dextrose 50%) 50 ml Q30M PRN IV Hypoglycemia 07/27/19 06:45 08/24/19 06:44 Dextrose/ Electrolytes 1,000 ml @ 100 mls/hr Q10H IV 07/27/19 06:30 08/23/19 14:59 07/28/19 02:32 Heparin Sodium (Porcine) (Heparin 5000 units/ml) 5,000 units EVERY 12 HOURS SUBQ 07/27/19 09:00 08/23/19 20:59 07/28/19 08:22 Insulin Aspart (NovoLOG) BEFORE MEALS AND HS SUBQ 07/27/19 06:30 08/23/19 16:29 07/28/19 06:18 Insulin Detemir (Levemir) 10 units BID SUBQ 07/27/19 09:00 08/24/19 08:59 07/28/19 08:31 Magnesium Hydroxide (Mom) 30 ml HSPRN PRN ORAL Constipation 07/27/19 06:45 08/23/19 06:44 Multivitamins (Multivitamins) 1 tab DAILY ORAL 07/27/19 09:00 08/23/19 13:29 07/28/19 08:21 Pantoprazole (Protonix) 40 mg DAILY ORAL 07/27/19 09:00 08/24/19 11:14 07/28/19 08:21 Dallas Rain MD Jul 28, 2019 09:51
--- NOTE | 2019-07-28 09:59 | Diagnostic Imaging Report ---
EXAM: XR Chest, 1 View CLINICAL HISTORY: INFECT TECHNIQUE: Frontal view of the chest. COMPARISON: Chest x-ray 07/24/19 FINDINGS: Lungs: Unremarkable. The lungs appear clear. No focal consolidation. Pleural space: Unremarkable. The costophrenic angles are sharp. No visible pneumothorax. Heart: Unremarkable. No cardiomegaly. Mediastinum: Unremarkable. Bones/joints: Degenerative changes throughout the visualized spine and shoulder joints. Vasculature: Atherosclerotic calcifications within the aortic arch. Tubes, lines and devices: Telemetry leads overlie the thorax. IMPRESSION: No acute findings.
[2019-07-28] MEDS: Cefepime HCl 1 GM in D5W 55 ML IVPB SCH ×2 (10:29→21:16)
[2019-07-28 12:00] VITALS: BP 145/53
--- NOTE | 2019-07-28 12:12 | Surgery Progress Note ---
Surgery Progress Note Subjective Additional Comments no acute events labs noted leukocytosis CXR reviewed exam stable GI input appreciated Objective Last 24 Hour Vital Signs Date Time Temp Pulse Resp B/P (MAP) Pulse Ox O2 Delivery O2 Flow Rate FiO2 07/28/19 08:00 Room Air 07/28/19 08:00 90 07/28/19 08:00 97.5 83 18 122/48 (72) 96 07/28/19 04:43 97 07/28/19 04:00 Room Air 07/28/19 04:00 98.0 91 16 138/74 (95) 95 07/28/19 00:00 100 07/28/19 00:00 Room Air 07/28/19 00:00 98.2 109 18 149/77 (101) 99 07/28/19 00:00 98.1 96 18 155/71 (99) 99 07/27/19 20:00 Room Air 07/27/19 20:00 105 07/27/19 20:00 97.8 103 18 147/69 (95) 99 07/27/19 20:00 97.2 109 18 149/77 (101) 99 07/27/19 16:00 105 07/27/19 16:00 Room Air 07/27/19 16:00 98.2 109 18 149/77 (101) 99 I&O Intake and Output 07/27/19 07/28/19 19:00 07:00 Intake Total 630 ml Output Total 1 ml Balance 630 ml -1 ml Intake Oral 630 ml Stool Total 1 ml # Voids 4 2 # Bowel Movements 4 Dressing: other Wound: other Drains: other Cardiovascular: RSR Respiratory: decreased breath sounds Abdomen: soft, present bowel sounds, other Extremities: no cyanosis, other Laboratory Tests Test 07/28/19 05:40 White Blood Count 15.4 K/UL (4.8-10.8) H Red Blood Count 3.58 M/UL (4.20-5.40) L Hemoglobin 10.1 G/DL (12.0-16.0) L Hematocrit 31.0 % (37.0-47.0) L Mean Corpuscular Volume 87 FL (80-99) Mean Corpuscular Hemoglobin 28.1 PG (27.0-31.0) Mean Corpuscular Hemoglobin Concent 32.5 G/DL (32.0-36.0) Red Cell Distribution Width 14.6 % (11.6-14.8) Platelet Count 170 K/UL (150-450) Mean Platelet Volume 10.9 FL (6.5-10.1) H Neutrophils (%) (Auto) 74.9 % (45.0-75.0) Lymphocytes (%) (Auto) 19.8 % (20.0-45.0) L Monocytes (%) (Auto) 4.0 % (1.0-10.0) Eosinophils (%) (Auto) 0.8 % (0.0-3.0) Basophils (%) (Auto) 0.5 % (0.0-2.0) Sodium Level 143 MMOL/L (136-145) Potassium Level 4.4 MMOL/L (3.5-5.1) Chloride Level 112 MMOL/L (98-107) H Carbon Dioxide Level 21 MMOL/L (21-32) Anion Gap 10 mmol/L (5-15) Blood Urea Nitrogen 20 mg/dL (7-18) H Creatinine 1.0 MG/DL (0.55-1.30) Estimat Glomerular Filtration Rate > 60 mL/min (>60) Glucose Level 174 MG/DL (74-106) H Calcium Level 9.2 MG/DL (8.5-10.1) Plan Problems: (1) Malnutrition Assessment & Plan: ACUTE ISSUES ABNORMAL LABS, DEHYDRATION, CXR LUNGS CLEAR, PER DR CABRALES POOR INTAKE (H/O ADULT FTT). OTHER RELEVANT MED IS SWANSEA. CT HEAD 07/24/19 POSTSURGICAL CHANGES, CHRONIC AGE-RELATED CHANGES, CHRONIC MICROVASCULAR ISCHEMIC CHANGES, RIGHT FRONTOPARIETAL AND TEMPORAL ENCEPHALOMALACIA AND OLD LEFT BASAL GANGLIA LACUNAR INFARCTS. 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 POSSIBLE COPD OR ASTHMA PER 06/08/19 CXR. PER [facility], NO TUBE FEEDINGS BUT WILL SPEAK TO DPOA PER DR CABRALES REQUEST TO SEE IF FAMILY IS RECEPTIVE TO PEG SINCE INTAKE VERY POOR OVERALL. Plan for PEG monday as per GI recommended and indicated (2) Severe protein-calorie malnutrition Assessment & Plan: DAILY ESTIMATED NEEDS: Needs based on Wound, Underweight/ 37kg 35-40 kcals/kg 7107-4095 total kcals 1.5-2 g protein/kg 56-74 g total protein 25-35ml/ kcal mL/kg 925-1295 total fluid mLs NUTRITION DIAGNOSIS: Increased kcal and pro needs R/T wound healing, underweight status as evidenced by admitted w/ stage 4 sacral wound, w/ generalized wasting w/ severe BL LE wasting, low BMI per guidelines, @70% [place] Body Weight. CURRENT DIET:NPO PO DIET RECOMMENDATIONS: Liberalized Diet/ texture per DROP PRESS HAND + Glucerna TID w/ meals ENTERAL NUTRITION RECOMMENDATIONS: * CONSULT RD IF NON ORAL FEEDS ARE PART OF POC * ADDITIONAL RECOMMENDATIONS: 1) Calibrated bedscale wt, weekly wt monitoring 2) Wound care: MVI w/ min 1 tab QD, Vit C 500mg BID ZnSO4 220mg QD x 10 days Eduardo 1pkt BID W/ oral diet 3) Glucerna 1 tetra didi TID w/ meals added (220kcal/10g prot per didi) 4) DROP PRESS HAND eval for appropriate texture- h/o CVA (3) Failure to thrive in adult (4) Sacral decubitus ulcer, stage IV Assessment & Plan: Pt presented on admission with resolving Full thickness stage 4 Sacral Pressure Injury(L)5.2cm x (W)13cm. Base of wound Has Two remaining full thickness wounds surrounded by [place] epithelial. Full thickness wound L sacrum (L)4.3cm x (W)2.5cm x (D)0.7cm undermined borders clockwise 9-12 by 0.4cm @120'clock.Scattered slough within base of wound. An area that is black and indurated noted at Approx 4-8o'clock.No odor or exudate noted. Full Thickness Pressure injury R Sacrum(L)1.5cmx (W)1.3cm. [place] granulation at base of wound. Borders are macerated. Scattered areas of hyperpigmentation noted to R and L Ischium . L trochanter noted to have darker skin tone over bony prominence.Pt denied pain when area palpated. Both heels are soft and easily blanchable. Tx.Plan: Cleanse Sacral wound with Saline. Apply TheraHoney to wounds R and L Sacrum. Apply Moisture Barrier Paste to epithelial areas of wound. Cover with Optifoam drsg. Change Daily and PRN. Apply Moisture Barrier Paste to R and L ischium with each incontinence care. Reposition at least every 2hours or as tolerated. Off-load heels with pillow. APM/KASEY Mattress. Noel Prescott Jul 28, 2019 12:12
--- NOTE | 2019-07-28 13:41 | Nephrology Progress Note ---
Assessment/Plan Problem List: (1) Hypernatremia Assessment: better (2) DM (diabetes mellitus) (3) Severe protein-calorie malnutrition (4) Failure to thrive in adult (5) Sacral decubitus ulcer, stage IV (6) HTN (hypertension) (7) ARF (acute renal failure) Assessment: ok Plan reduce IVF SSI follow labs await GT Discussed with RN Subjective Subjective In NAD Objective Objective Last 24 Hour Vital Signs Date Time Temp Pulse Resp B/P (MAP) Pulse Ox O2 Delivery O2 Flow Rate FiO2 07/28/19 12:00 Room Air 07/28/19 12:00 98.1 88 18 145/53 (83) 100 07/28/19 12:00 94 07/28/19 08:00 Room Air 07/28/19 08:00 90 07/28/19 08:00 97.5 83 18 122/48 (72) 96 07/28/19 04:43 97 07/28/19 04:00 Room Air 07/28/19 04:00 98.0 91 16 138/74 (95) 95 07/28/19 00:00 100 07/28/19 00:00 Room Air 07/28/19 00:00 98.2 109 18 149/77 (101) 99 07/28/19 00:00 98.1 96 18 155/71 (99) 99 07/27/19 20:00 Room Air 07/27/19 20:00 105 07/27/19 20:00 97.8 103 18 147/69 (95) 99 07/27/19 20:00 97.2 109 18 149/77 (101) 99 07/27/19 16:00 105 07/27/19 16:00 Room Air 07/27/19 16:00 98.2 109 18 149/77 (101) 99 Intake and Output 07/27/19 07/28/19 19:00 07:00 Intake Total 630 ml Output Total 1 ml Balance 630 ml -1 ml Intake Oral 630 ml Stool Total 1 ml # Voids 4 2 # Bowel Movements 4 Laboratory Tests 07/28/19 05:40: White Blood Count 15.4H, Red Blood Count 3.58L, Hemoglobin 10.1L, Hematocrit 31.0L, Mean Corpuscular Volume 87, Mean Corpuscular Hemoglobin 28.1, Mean Corpuscular Hemoglobin Concent 32.5, Red Cell Distribution Width 14.6, Platelet Count 170, Mean Platelet Volume 10.9H, Neutrophils (%) (Auto) 74.9, Lymphocytes (%) (Auto) 19.8L, Monocytes (%) (Auto) 4.0, Eosinophils (%) (Auto) 0.8, Basophils (%) (Auto) 0.5, Sodium Level 143, Potassium Level 4.4, Chloride Level 112H, Carbon Dioxide Level 21, Anion Gap 10, Blood Urea Nitrogen 20H, Creatinine 1.0, Estimat Glomerular Filtration Rate > 60, Glucose Level 174H, Calcium Level 9.2 Height (Feet): 5 Height (Inches): 3.00 Weight (Pounds): 75 Cardiovascular: normal rate Respiratory/Chest: lungs clear Arnulfo Rain MD Jul 28, 2019 13:40
[2019-07-28] MEDS ORDERED: Tubing IV Secondary IV ONE (13:59)
[2019-07-28 16:00] VITALS: BP 121/57
--- NOTE | 2019-07-28 17:51 | General Progress Note ---
Assessment/Plan Assessment/Plan: Assessment - anorexia - malnutrition - h/o CVA - hypernatremia - h/o decub ulcer - OBS Recommendations - push po - IVF - PEG in am Subjective Allergies: Coded Allergies: No Known Allergies (Unverified , 05/08/12) Subjective above noted NAD for PEG tomorrow Objective Last 24 Hour Vital Signs Date Time Temp Pulse Resp B/P (MAP) Pulse Ox O2 Delivery O2 Flow Rate FiO2 07/28/19 16:00 97.9 98 18 121/57 (78) 93 07/28/19 16:00 Room Air 07/28/19 12:00 Room Air 07/28/19 12:00 98.1 88 18 145/53 (83) 100 07/28/19 12:00 94 07/28/19 08:00 Room Air 07/28/19 08:00 90 07/28/19 08:00 97.5 83 18 122/48 (72) 96 07/28/19 04:43 97 07/28/19 04:00 Room Air 07/28/19 04:00 98.0 91 16 138/74 (95) 95 07/28/19 00:00 100 07/28/19 00:00 Room Air 07/28/19 00:00 98.2 109 18 149/77 (101) 99 07/28/19 00:00 98.1 96 18 155/71 (99) 99 07/27/19 20:00 Room Air 07/27/19 20:00 105 07/27/19 20:00 97.8 103 18 147/69 (95) 99 07/27/19 20:00 97.2 109 18 149/77 (101) 99 Intake and Output 07/27/19 07/28/19 19:00 07:00 Intake Total 630 ml Output Total 1 ml Balance 630 ml -1 ml Intake Oral 630 ml Stool Total 1 ml # Voids 4 2 # Bowel Movements 4 Laboratory Tests 07/28/19 05:40: White Blood Count 15.4H, Red Blood Count 3.58L, Hemoglobin 10.1L, Hematocrit 31.0L, Mean Corpuscular Volume 87, Mean Corpuscular Hemoglobin 28.1, Mean Corpuscular Hemoglobin Concent 32.5, Red Cell Distribution Width 14.6, Platelet Count 170, Mean Platelet Volume 10.9H, Neutrophils (%) (Auto) 74.9, Lymphocytes (%) (Auto) 19.8L, Monocytes (%) (Auto) 4.0, Eosinophils (%) (Auto) 0.8, Basophils (%) (Auto) 0.5, Sodium Level 143, Potassium Level 4.4, Chloride Level 112H, Carbon Dioxide Level 21, Anion Gap 10, Blood Urea Nitrogen 20H, Creatinine 1.0, Estimat Glomerular Filtration Rate > 60, Glucose Level 174H, Calcium Level 9.2 Height (Feet): 5 Height (Inches): 3.00 Weight (Pounds): 75 Objective Thin AA woman NCAT supple CTA RR abd soft No edema Kaila Gutierres MD Jul 28, 2019 17:51
[2019-07-28 20:00] VITALS: BP 118/57
[2019-07-29] VITALS (10 sets, daily range): BP systolic 110–141; BP diastolic 55–78
--- NOTE | 2019-07-29 06:27 | General Progress Note ---
Assessment/Plan Problem List: (1) Dehydration ICD Codes: E86.0 - Dehydration SNOMED: 48101207 (2) Hypernatremia ICD Codes: E87.0 - Hyperosmolality and hypernatremia SNOMED: 808676409 (3) DM (diabetes mellitus) ICD Codes: E11.9 - Type 2 diabetes mellitus without complications SNOMED: 29088425 Assessment/Plan: continue Levemir 10 units bid continue Novolog coverage plan for PEG today Subjective ROS Limited/Unobtainable: Yes Allergies: Coded Allergies: No Known Allergies (Unverified , 05/08/12) Subjective events noted plan for PEG today Na corrected - dextrose rate reduced Item Value Date Time Bedside Blood Glucose 251 mg/dl H 07/28/19 2100 Bedside Blood Glucose 293 mg/dl H 07/28/19 1732 Bedside Blood Glucose 173 mg/dl H 07/28/19 1245 Bedside Blood Glucose 138 mg/dl H 07/28/19 0831 Bedside Blood Glucose 189 mg/dl H 07/28/19 0618 Objective Last 24 Hour Vital Signs Date Time Temp Pulse Resp B/P (MAP) Pulse Ox O2 Delivery O2 Flow Rate FiO2 07/29/19 04:00 Room Air 07/29/19 04:00 97.4 78 18 110/62 (78) 96 07/29/19 04:00 90 07/29/19 00:00 98 07/29/19 00:00 97.7 99 18 112/59 (76) 97 07/28/19 20:00 Room Air 07/28/19 20:00 97.5 66 18 118/57 (77) 98 07/28/19 16:00 101 07/28/19 16:00 97.9 98 18 121/57 (78) 93 07/28/19 16:00 Room Air 07/28/19 12:00 Room Air 07/28/19 12:00 98.1 88 18 145/53 (83) 100 07/28/19 12:00 94 07/28/19 08:00 Room Air 07/28/19 08:00 90 07/28/19 08:00 97.5 83 18 122/48 (72) 96 Intake and Output 07/28/19 07/29/19 19:00 07:00 Intake Total 440 ml Output Total 600 ml Balance -160 ml Intake Oral 440 ml Output Urine Total 600 ml Height (Feet): 5 Height (Inches): 3.00 Weight (Pounds): 75 General Appearance: no apparent distress Neck: normal alignment Cardiovascular: normal rate Respiratory/Chest: decreased breath sounds Abdomen: normal bowel sounds Pelvis: normal external exam Edema: no edema noted Arm (L), no edema noted Arm (R), no edema noted Leg (L), no edema noted Leg (R), no edema noted Pedal (L), no edema noted Pedal (R), no edema noted Generalized Objective Current Medications Medications (Trade) Dose Ordered Sig/Mar Route PRN Reason Start Time Stop Time Status Last Admin Dose Admin Acetaminophen/ Hydrocodone Bitart ([place] 5/325) 1 tab Q6H PRN ORAL For Pain 07/27/19 06:45 07/31/19 06:44 07/28/19 02:29 Cefepime HCl 1 gm/ Dextrose 55 ml @ 110 mls/hr EVERY 12 HOURS IVPB 07/28/19 10:00 08/04/19 09:59 07/28/19 21:16 Dextrose (Dextrose 50%) 25 ml Q30M PRN IV Hypoglycemia 07/27/19 06:45 08/24/19 06:44 Dextrose (Dextrose 50%) 50 ml Q30M PRN IV Hypoglycemia 07/27/19 06:45 08/24/19 06:44 Dextrose/ Electrolytes 1,000 ml @ 50 mls/hr Q20H IV 07/28/19 14:00 08/27/19 13:59 07/28/19 14:13 Heparin Sodium (Porcine) (Heparin 5000 units/ml) 5,000 units EVERY 12 HOURS SUBQ 07/27/19 09:00 08/23/19 20:59 07/28/19 08:22 Insulin Aspart (NovoLOG) BEFORE MEALS AND HS SUBQ 07/27/19 06:30 08/23/19 16:29 07/28/19 17:04 Insulin Detemir (Levemir) 10 units BID SUBQ 07/27/19 09:00 08/24/19 08:59 07/28/19 17:32 Magnesium Hydroxide (Mom) 30 ml HSPRN PRN ORAL Constipation 07/27/19 06:45 08/23/19 06:44 Multivitamins (Multivitamins) 1 tab DAILY ORAL 07/27/19 09:00 08/23/19 13:29 07/28/19 08:21 Pantoprazole (Protonix) 40 mg DAILY ORAL 07/27/19 09:00 08/24/19 11:14 07/28/19 08:21 Luisito Quintero MD Jul 29, 2019 06:27
[2019-07-29] MEDS: NovoLOG Insulin Flexpen SUBQ SCH ×4 (06:30→21:00)
[2019-07-29 07:07] LABS: BASOPHILS % (AUTO) 0.4 % (0.0-2.0); HEMATOCRIT 26.2 % (37.0-47.0); HEMOGLOBIN 8.4 G/DL (12.0-16.0); LYMPHOCYTES % (AUTO) 21.5 % (20.0-45.0); MEAN CORPUSCULAR VOLUME 86 FL (80-99); MONOCYTES % (AUTO) 3.3 % (1.0-10.0); NEUTROPHILS % (AUTO) 73.8 % (45.0-75.0); PLATELET COUNT 186 K/UL (150-450); RED BLOOD COUNT 3.05 M/UL (4.20-5.40); RED CELL DISTRIBUTION WIDTH 14.2 % (11.6-14.8); WHITE BLOOD COUNT 15.6 K/UL (4.8-10.8)
[2019-07-29] MEDS ORDERED: fentaNYL 100 mcg/2 mL IV ONE (07:31)
[2019-07-29 08:06] LABS: ANION GAP 14 mmol/L (5-15); BLOOD UREA NITROGEN 19 mg/dL (7-18); CARBON DIOXIDE 18 MMOL/L (21-32); CHLORIDE 115 MMOL/L (98-107); CREATININE 0.9 MG/DL (0.55-1.30); POTASSIUM 4.9 MMOL/L (3.5-5.1); SODIUM 147 MMOL/L (136-145)
[2019-07-29] MEDS: Heparin 5000 units/ml inj SUBQ SCH ×2 (08:16→21:00)
[2019-07-29] MEDS: Levemir Flexpen SUBQ SCH ×2 (08:21→16:59)
--- NOTE | 2019-07-29 08:31 | Anethesia Preoperative Eval ---
Anesthesia Pre-op PMH/ROS General Date of Evaluation: Jul 29, 2019 Time of Evaluation: 08:22 Anesthesiologist: Tyra ASA Score: ASA 4 Mallampati Score Class I : Soft palate, uvula, fauces, pillars visible Class II: Soft palate, uvula, fauces visible Class III: Soft palate, base of uvula visible Class IV: Only hard plate visible Mallampati Classification: Class III Surgeon: Vargas Diagnosis: Dysphagia Surgical Procedure: EGD Peg tube Anesthesia History: none Family History: no anesthesia problems Allergies: Coded Allergies: No Known Allergies (Unverified , 05/08/12) Medications: see eMAR Patient NPO?: Yes Past Medical History Cardiovascular: Reports: HTN; Denies: CAD, IA, valve dz, arrhythmia, other Pulmonary: Denies: asthma, COPD, LEXIE, other Gastrointestinal/Genitourinary: Reports: GERD, CRI; Denies: ESRD, other Neurologic/Psychiatric: Reports: dementia, CVA; Denies: depression/anxiety, TIA, other Endocrine: Reports: DM, hypothyroidism; Denies: steroids, other HEENT: Denies: cataract (L), cataract (R), glaucoma, [place] (L), [place] (R), other Hematology/Immune: Reports: anemia; Denies: DVT, bleeding disorder, other Musculoskeletal/Integumentary: Reports: DJD Other: other - severely malnourished PMH Narrative: as above PSxH Narrative: see H&P Anesthesia Pre-op Phys. Exam Physician Exam Last Vital Signs Date Time Temp Pulse Resp B/P (MAP) Pulse Ox O2 Delivery O2 Flow Rate FiO2 07/29/19 04:00 Room Air 07/29/19 04:00 97.4 78 18 110/62 (78) 96 Constitutional: NAD Neurologic: other Cardiovascular: RRR Respiratory: other - some Gastrointestinal: other Airway Exam Mallampati Score: Class III MO: limited Neck: stiff ROM: limited Teeth: missing Dentures: no upper, no lower Anesthesia Pre-op A/P Labs Hematology Test 07/29/19 05:35 White Blood Count 15.6 K/UL (4.8-10.8) H Red Blood Count 3.05 M/UL (4.20-5.40) L Hemoglobin 8.4 G/DL (12.0-16.0) L Hematocrit 26.2 % (37.0-47.0) L Mean Corpuscular Volume 86 FL (80-99) Mean Corpuscular Hemoglobin 27.6 PG (27.0-31.0) Mean Corpuscular Hemoglobin Concent 32.2 G/DL (32.0-36.0) Red Cell Distribution Width 14.2 % (11.6-14.8) Platelet Count 186 K/UL (150-450) Mean Platelet Volume 11.2 FL (6.5-10.1) H Neutrophils (%) (Auto) 73.8 % (45.0-75.0) Lymphocytes (%) (Auto) 21.5 % (20.0-45.0) Monocytes (%) (Auto) 3.3 % (1.0-10.0) Eosinophils (%) (Auto) 1.0 % (0.0-3.0) Basophils (%) (Auto) 0.4 % (0.0-2.0) Coagulation Test 07/29/19 05:35 Prothrombin Time 10.3 SEC (9.30-11.50) Prothromb Time International Ratio 1.0 (0.9-1.1) Activated Partial Thromboplast Time 30 SEC (23-33) Chemistry Test 07/29/19 05:35 Sodium Level 147 MMOL/L (136-145) H Potassium Level 4.9 MMOL/L (3.5-5.1) Chloride Level 115 MMOL/L (98-107) H Carbon Dioxide Level 18 MMOL/L (21-32) L Anion Gap 14 mmol/L (5-15) Blood Urea Nitrogen 19 mg/dL (7-18) H Creatinine 0.9 MG/DL (0.55-1.30) Estimat Glomerular Filtration Rate > 60 mL/min (>60) Glucose Level 139 MG/DL (74-106) H Calcium Level 9.0 MG/DL (8.5-10.1) Risk Assessment & Plan Assessment: ASA 4 Plan: MAC Status Change Before Surgery: Kelvin Gonzales MD Jul 29, 2019 08:31
[2019-07-29] MEDS ORDERED: Propofol 200mg/20ml IV ONE (09:00)
[2019-07-29] MEDS ORDERED: NS 500ML IVPB ONE (09:00)
[2019-07-29] MEDS ORDERED: Cefepime 1gm vial IVPB ONE (09:02)
--- NOTE | 2019-07-29 09:07 | General Progress Note ---
Assessment/Plan Assessment/Plan: Assessment - anorexia - malnutrition - h/o CVA - hypernatremia - h/o decub ulcer - OBS Recommendations - push po - IVF - PEG in am Subjective Allergies: Coded Allergies: No Known Allergies (Unverified , 05/08/12) Subjective above noted NAD for PEG tomorrow Objective Last 24 Hour Vital Signs Date Time Temp Pulse Resp B/P (MAP) Pulse Ox O2 Delivery O2 Flow Rate FiO2 07/29/19 08:00 Room Air 07/29/19 08:00 97.3 104 18 135/55 (81) 98 07/29/19 04:00 Room Air 07/29/19 04:00 97.4 78 18 110/62 (78) 96 07/29/19 04:00 90 07/29/19 00:00 98 07/29/19 00:00 97.7 99 18 112/59 (76) 97 07/28/19 20:00 Room Air 07/28/19 20:00 97.5 66 18 118/57 (77) 98 07/28/19 16:00 101 07/28/19 16:00 97.9 98 18 121/57 (78) 93 07/28/19 16:00 Room Air 07/28/19 12:00 Room Air 07/28/19 12:00 98.1 88 18 145/53 (83) 100 07/28/19 12:00 94 Intake and Output 07/28/19 07/29/19 19:00 07:00 Intake Total 440 ml Output Total 600 ml Balance -160 ml Intake Oral 440 ml Output Urine Total 600 ml # Voids 2 Laboratory Tests 07/29/19 05:35: White Blood Count 15.6H, Red Blood Count 3.05L, Hemoglobin 8.4L, Hematocrit 26.2L, Mean Corpuscular Volume 86, Mean Corpuscular Hemoglobin 27.6, Mean Corpuscular Hemoglobin Concent 32.2, Red Cell Distribution Width 14.2, Platelet Count 186, Mean Platelet Volume 11.2H, Neutrophils (%) (Auto) 73.8, Lymphocytes (%) (Auto) 21.5, Monocytes (%) (Auto) 3.3, Eosinophils (%) (Auto) 1.0, Basophils (%) (Auto) 0.4, Prothrombin Time 10.3, Prothromb Time International Ratio 1.0, Activated Partial Thromboplast Time 30, Sodium Level 147H, Potassium Level 4.9, Chloride Level 115H, Carbon Dioxide Level 18L, Anion Gap 14, Blood Urea Nitrogen 19H, Creatinine 0.9, Estimat Glomerular Filtration Rate > 60, Glucose Level 139H, Calcium Level 9.0 Height (Feet): 5 Height (Inches): 3.00 Weight (Pounds): 75 Objective Thin AA woman NCAT supple CTA RR abd soft No edema Kaila Gutierres MD Jul 29, 2019 09:07
--- NOTE | 2019-07-29 09:07 | Pre-Procedure Note/Attestation ---
Pre-Procedure Note/Attestation Complete Prior to Procedure Planned Procedure: not applicable Procedure Narrative: EGD PEG Indications for Procedure Pre-Operative Diagnosis: Dysphagia Attestation I attest that I discussed the nature of the procedure; its benefits; risks and complications; and alternatives (and the risks and benefits of such alternatives ), prior to the procedure, with the patient (or the patient's legal underwriting account representative). I attest that, if there was a reasonable possibility of needing a blood transfusion, the patient (or the patient's legal underwriting account representative) was given the [facility] standardized written summary, pursuant to the Perez Maryjane Blood Safety Act ([place] Health and Safety Code # 1645, as amended). I attest that I re-evaluated the patient just prior to the surgery and that there has been no change in the patient's H&P, except as documented below: Kaila Gutierres MD Jul 29, 2019 09:07
--- NOTE | 2019-07-29 09:33 | Immediate Post-Op Evaluation ---
Immediate Post-Op Evalulation Immediate Post-Op Evalulation Procedure: EGD PEG tube placement Date of Evaluation: Jul 29, 2019 Time of Evaluation: 09:30 IV Fluids: 300 Blood Products: none Estimated Blood Loss: min Urinary Output: none Blood Pressure Systolic: 132 Blood Pressure Diastolic: 58 Pulse Rate: 92 Respiratory Rate: 20 O2 Sat by Pulse Oximetry: 99 Temperature (Fahrenheit): 97.4 Pain Score (1-10): 1 Nausea: No Vomiting: No Complications none Patient Status: reacts, patent, none Hydration Status: adequate Kelvin Mary MD Jul 29, 2019 09:33
--- NOTE | 2019-07-29 10:31 | Infectious Diseases Prog Note ---
Assessment/Plan Assessment/Plan IMPRESSION: UTI Leukocytosis, worsening Hypernatremia, Acute renal failure, Dehydration, Elevated troponin, sacral pressure ulcer that is improving, cachexia, Diabetes mellitus, Dementia, History of previous CVA. Gastrostomy status RECOMMENDATIONS: Continue Cefepime Will f/u Urine culture Subjective ROS Limited/Unobtainable: Yes Constitutional: Denies: fever Gastrointestinal/Abdominal: Reports: other - had PEG placement today Allergies: Coded Allergies: No Known Allergies (Unverified , 05/08/12) Objective Vital Signs Last 24 Hour Vital Signs Date Time Temp Pulse Resp B/P (MAP) Pulse Ox O2 Delivery O2 Flow Rate FiO2 07/29/19 09:45 97.6 90 17 126/67 100 Room Air 07/29/19 09:35 82 15 132/72 100 Room Air 07/29/19 09:33 92 20 99 07/29/19 09:30 84 13 141/70 100 Nasal Cannula 3 07/29/19 09:26 97.7 87 14 133/78 100 Nasal Cannula 3 07/29/19 08:00 Room Air 07/29/19 08:00 84 07/29/19 08:00 97.3 104 18 135/55 (81) 98 07/29/19 04:00 Room Air 07/29/19 04:00 97.4 78 18 110/62 (78) 96 07/29/19 04:00 90 07/29/19 00:00 98 07/29/19 00:00 97.7 99 18 112/59 (76) 97 07/28/19 20:00 Room Air 07/28/19 20:00 97.5 66 18 118/57 (77) 98 07/28/19 16:00 101 07/28/19 16:00 97.9 98 18 121/57 (78) 93 07/28/19 16:00 Room Air 07/28/19 12:00 Room Air 07/28/19 12:00 98.1 88 18 145/53 (83) 100 07/28/19 12:00 94 Height (Feet): 5 Height (Inches): 3.00 Weight (Pounds): 75 General Appearance: cachetic HEENT: mucous membranes moist Respiratory/Chest: lungs clear Cardiovascular: normal rate Abdomen: soft, non tender, other - GT in place Extremities: no edema Neurologic/Psychiatric: alert, disoriented Microbiology Date/Time Source Procedure Growth Status 07/27/19 18:30 Urine,Clean Catch Urine Culture - Preliminary Gram Negative Trevor Resulted Laboratory Tests Test 07/29/19 05:35 White Blood Count 15.6 K/UL (4.8-10.8) H Red Blood Count 3.05 M/UL (4.20-5.40) L Hemoglobin 8.4 G/DL (12.0-16.0) L Hematocrit 26.2 % (37.0-47.0) L Mean Corpuscular Volume 86 FL (80-99) Mean Corpuscular Hemoglobin 27.6 PG (27.0-31.0) Mean Corpuscular Hemoglobin Concent 32.2 G/DL (32.0-36.0) Red Cell Distribution Width 14.2 % (11.6-14.8) Platelet Count 186 K/UL (150-450) Mean Platelet Volume 11.2 FL (6.5-10.1) H Neutrophils (%) (Auto) 73.8 % (45.0-75.0) Lymphocytes (%) (Auto) 21.5 % (20.0-45.0) Monocytes (%) (Auto) 3.3 % (1.0-10.0) Eosinophils (%) (Auto) 1.0 % (0.0-3.0) Basophils (%) (Auto) 0.4 % (0.0-2.0) Prothrombin Time 10.3 SEC (9.30-11.50) Prothromb Time International Ratio 1.0 (0.9-1.1) Activated Partial Thromboplast Time 30 SEC (23-33) Sodium Level 147 MMOL/L (136-145) H Potassium Level 4.9 MMOL/L (3.5-5.1) Chloride Level 115 MMOL/L (98-107) H Carbon Dioxide Level 18 MMOL/L (21-32) L Anion Gap 14 mmol/L (5-15) Blood Urea Nitrogen 19 mg/dL (7-18) H Creatinine 0.9 MG/DL (0.55-1.30) Estimat Glomerular Filtration Rate > 60 mL/min (>60) Glucose Level 139 MG/DL (74-106) H Calcium Level 9.0 MG/DL (8.5-10.1) Current Medications Medications (Trade) Dose Ordered Sig/Mar Route PRN Reason Start Time Stop Time Status Last Admin Dose Admin Acetaminophen/ Hydrocodone Bitart ([place] 5/325) 1 tab Q6H PRN ORAL For Pain 07/27/19 06:45 07/31/19 06:44 07/28/19 02:29 Cefepime HCl 1 gm/ Dextrose 55 ml @ 110 mls/hr Q24H IVPB 07/29/19 21:00 08/04/19 20:59 Dextrose (Dextrose 50%) 25 ml Q30M PRN IV Hypoglycemia 07/27/19 06:45 08/24/19 06:44 Dextrose (Dextrose 50%) 50 ml Q30M PRN IV Hypoglycemia 07/27/19 06:45 08/24/19 06:44 Dextrose/ Electrolytes 1,000 ml @ 50 mls/hr Q20H IV 07/28/19 14:00 08/27/19 13:59 07/28/19 14:13 Heparin Sodium (Porcine) (Heparin 5000 units/ml) 5,000 units EVERY 12 HOURS SUBQ 07/27/19 09:00 08/23/19 20:59 07/28/19 08:22 Insulin Aspart (NovoLOG) BEFORE MEALS AND HS SUBQ 07/27/19 06:30 08/23/19 16:29 07/28/19 17:04 Insulin Detemir (Levemir) 10 units BID SUBQ 07/27/19 09:00 08/24/19 08:59 07/29/19 08:21 Magnesium Hydroxide (Mom) 30 ml HSPRN PRN ORAL Constipation 07/27/19 06:45 08/23/19 06:44 Multivitamins (Multivitamins) 1 tab DAILY ORAL 07/27/19 09:00 08/23/19 13:29 07/29/19 08:15 Pantoprazole (Protonix) 40 mg DAILY ORAL 07/27/19 09:00 08/24/19 11:14 07/29/19 08:16 Dallas Rain MD Jul 29, 2019 10:31
[2019-07-29] MEDS: D5W w/KCl 20mEq 1,000 ML IV SCH (10:47)
--- NOTE | 2019-07-29 10:59 | CDS Physician Query ---
Clarification is required for compliance, coding accuracy, and to reflect severity of illness for this patient. Dear Dr. Ariel Lassiter Date: 07/29/2019 CDS name: Anitha Smith Clinical Documentation states: ED note -79-year-old female presents with dehydration, hypernatremia abnormal labs patient also with elevated troponin possible NSTEMI patient without any acute chest pain at this moment could be due to demand...provide patient with Lovenox given possible NSTEMI Troponin 07/23 0.071, 07/24 0.057 A diagnosis of NSTEMI was made in the medical record. Upon review, it is difficult to determine whether this diagnosis has been ruled in, ruled out,or is still being worked up. Please indicate below the status of the aforementioned diagnosis. [] NSTEMI type 1 ruled in [] NSTEMI due to demand ruled in [] OR ruled out [x] Other: ___troponin leak [] Unknown Present on Admission: [x] Yes [] No [] Clinically Undetermined Physician signature Date Please also document in your Progress Notes and/or Discharge Summary and indicate if the condition was present on admission. JIMID
--- NOTE | 2019-07-29 12:33 | General Progress Note ---
Assessment/Plan Status: stable Assessment/Plan: S: no verbal communication O: cachectic appearance, Awake, poor historian. PHYSICAL EXAMINATION:HEAD AND NECK: Atraumatic and normocephalic. CHEST: Clear to auscultation. No wheezing. No crackles. HEART: S1, S2. Regular rate and rhythm. ABDOMEN: Soft, Post PEG-T placement . NEUROLOGY: The patient is AO x1. The patient has very limited significantly limited follow up on the instructions.MUSCULOSKELETAL: Atrophied musculatures. Positive for decubitus wounds including at the bilateral heel area. Chest x-ray 07/27/2019 reviewed. ASSESSMENT: 1. Sepsis 2. UTI- Gram negative 3. Acute metabolic encephalopathy. 2. Hypernatremia. 3. Chronic encephalomalacia. 4. Dementia. 5. CVA. 6. Coronary artery disease. 7. Diabetes type 2. 8. GI and DVT prophylaxes. 9. Diastolic HF PLAN OF CARE: : S/P PEG tube placement . W Notes from Nephrology , ID and Endo reviewed. On empirical abx. Pending cultures . Will send new round of Blood c/s Subjective Allergies: Coded Allergies: No Known Allergies (Unverified , 05/08/12) Objective Last 24 Hour Vital Signs Date Time Temp Pulse Resp B/P (MAP) Pulse Ox O2 Delivery O2 Flow Rate FiO2 07/29/19 09:45 97.6 90 17 126/67 100 Room Air 07/29/19 09:35 82 15 132/72 100 Room Air 07/29/19 09:33 92 20 99 07/29/19 09:30 84 13 141/70 100 Nasal Cannula 3 07/29/19 09:26 97.7 87 14 133/78 100 Nasal Cannula 3 07/29/19 08:00 Room Air 07/29/19 08:00 84 07/29/19 08:00 97.3 104 18 135/55 (81) 98 07/29/19 04:00 Room Air 07/29/19 04:00 97.4 78 18 110/62 (78) 96 07/29/19 04:00 90 07/29/19 00:00 98 07/29/19 00:00 97.7 99 18 112/59 (76) 97 07/28/19 20:00 Room Air 07/28/19 20:00 97.5 66 18 118/57 (77) 98 07/28/19 16:00 101 07/28/19 16:00 97.9 98 18 121/57 (78) 93 07/28/19 16:00 Room Air Intake and Output 07/28/19 07/29/19 19:00 07:00 Intake Total 440 ml Output Total 600 ml Balance -160 ml Intake Oral 440 ml Output Urine Total 600 ml # Voids 2 Laboratory Tests 07/29/19 05:35: White Blood Count 15.6H, Red Blood Count 3.05L, Hemoglobin 8.4L, Hematocrit 26.2L, Mean Corpuscular Volume 86, Mean Corpuscular Hemoglobin 27.6, Mean Corpuscular Hemoglobin Concent 32.2, Red Cell Distribution Width 14.2, Platelet Count 186, Mean Platelet Volume 11.2H, Neutrophils (%) (Auto) 73.8, Lymphocytes (%) (Auto) 21.5, Monocytes (%) (Auto) 3.3, Eosinophils (%) (Auto) 1.0, Basophils (%) (Auto) 0.4, Prothrombin Time 10.3, Prothromb Time International Ratio 1.0, Activated Partial Thromboplast Time 30, Sodium Level 147H, Potassium Level 4.9, Chloride Level 115H, Carbon Dioxide Level 18L, Anion Gap 14, Blood Urea Nitrogen 19H, Creatinine 0.9, Estimat Glomerular Filtration Rate > 60, Glucose Level 139H, Calcium Level 9.0 Height (Feet): 5 Height (Inches): 3.00 Weight (Pounds): 75 Ariel Lassiter MD Jul 29, 2019 12:33
--- NOTE | 2019-07-29 14:45 | Nephrology Progress Note ---
Assessment/Plan Problem List: (1) Hypernatremia Assessment: worse (2) DM (diabetes mellitus) (3) Severe protein-calorie malnutrition (4) Failure to thrive in adult (5) Sacral decubitus ulcer, stage IV (6) HTN (hypertension) (7) ARF (acute renal failure) Assessment: ok Plan IVF while NPO SSI follow labs TF tomorrow Discussed with RN and Dr Gutierres Subjective Subjective S/P GT Objective Objective Last 24 Hour Vital Signs Date Time Temp Pulse Resp B/P (MAP) Pulse Ox O2 Delivery O2 Flow Rate FiO2 07/29/19 12:00 107 07/29/19 12:00 Room Air 07/29/19 12:00 96.7 18 130/61 (84) 100 07/29/19 09:45 97.6 90 17 126/67 100 Room Air 07/29/19 09:35 82 15 132/72 100 Room Air 07/29/19 09:33 92 20 99 07/29/19 09:30 84 13 141/70 100 Nasal Cannula 3 07/29/19 09:26 97.7 87 14 133/78 100 Nasal Cannula 3 07/29/19 08:00 Room Air 07/29/19 08:00 84 07/29/19 08:00 97.3 104 18 135/55 (81) 98 07/29/19 04:00 Room Air 07/29/19 04:00 97.4 78 18 110/62 (78) 96 07/29/19 04:00 90 07/29/19 00:00 98 07/29/19 00:00 97.7 99 18 112/59 (76) 97 07/28/19 20:00 Room Air 07/28/19 20:00 97.5 66 18 118/57 (77) 98 07/28/19 16:00 101 07/28/19 16:00 97.9 98 18 121/57 (78) 93 07/28/19 16:00 Room Air Intake and Output 07/28/19 07/29/19 19:00 07:00 Intake Total 440 ml Output Total 600 ml Balance -160 ml Intake Oral 440 ml Output Urine Total 600 ml # Voids 2 Laboratory Tests 07/29/19 05:35: White Blood Count 15.6H, Red Blood Count 3.05L, Hemoglobin 8.4L, Hematocrit 26.2L, Mean Corpuscular Volume 86, Mean Corpuscular Hemoglobin 27.6, Mean Corpuscular Hemoglobin Concent 32.2, Red Cell Distribution Width 14.2, Platelet Count 186, Mean Platelet Volume 11.2H, Neutrophils (%) (Auto) 73.8, Lymphocytes (%) (Auto) 21.5, Monocytes (%) (Auto) 3.3, Eosinophils (%) (Auto) 1.0, Basophils (%) (Auto) 0.4, Prothrombin Time 10.3, Prothromb Time International Ratio 1.0, Activated Partial Thromboplast Time 30, Sodium Level 147H, Potassium Level 4.9, Chloride Level 115H, Carbon Dioxide Level 18L, Anion Gap 14, Blood Urea Nitrogen 19H, Creatinine 0.9, Estimat Glomerular Filtration Rate > 60, Glucose Level 139H, Calcium Level 9.0 Height (Feet): 5 Height (Inches): 3.00 Weight (Pounds): 75 Cardiovascular: normal rate Respiratory/Chest: lungs clear Abdomen: soft Extremities: other - no edema Arnulfo Rain MD Jul 29, 2019 14:45
--- NOTE | 2019-07-29 15:43 | Surgery Progress Note ---
Surgery Progress Note Subjective Symptoms: improved Objective Last 24 Hour Vital Signs Date Time Temp Pulse Resp B/P (MAP) Pulse Ox O2 Delivery O2 Flow Rate FiO2 07/29/19 12:00 107 07/29/19 12:00 Room Air 07/29/19 12:00 96.7 18 130/61 (84) 100 07/29/19 09:45 97.6 90 17 126/67 100 Room Air 07/29/19 09:35 82 15 132/72 100 Room Air 07/29/19 09:33 92 20 99 07/29/19 09:30 84 13 141/70 100 Nasal Cannula 3 07/29/19 09:26 97.7 87 14 133/78 100 Nasal Cannula 3 07/29/19 08:00 Room Air 07/29/19 08:00 84 07/29/19 08:00 97.3 104 18 135/55 (81) 98 07/29/19 04:00 Room Air 07/29/19 04:00 97.4 78 18 110/62 (78) 96 07/29/19 04:00 90 07/29/19 00:00 98 07/29/19 00:00 97.7 99 18 112/59 (76) 97 07/28/19 20:00 Room Air 07/28/19 20:00 97.5 66 18 118/57 (77) 98 07/28/19 16:00 101 07/28/19 16:00 97.9 98 18 121/57 (78) 93 07/28/19 16:00 Room Air I&O Intake and Output 07/28/19 07/29/19 19:00 07:00 Intake Total 440 ml Output Total 600 ml Balance -160 ml Intake Oral 440 ml Output Urine Total 600 ml # Voids 2 Dressing: saturated Wound: other Drains: other Cardiovascular: RSR Respiratory: decreased breath sounds Abdomen: soft, non-tender, present bowel sounds Extremities: no cyanosis Laboratory Tests Test 07/29/19 05:35 White Blood Count 15.6 K/UL (4.8-10.8) H Red Blood Count 3.05 M/UL (4.20-5.40) L Hemoglobin 8.4 G/DL (12.0-16.0) L Hematocrit 26.2 % (37.0-47.0) L Mean Corpuscular Volume 86 FL (80-99) Mean Corpuscular Hemoglobin 27.6 PG (27.0-31.0) Mean Corpuscular Hemoglobin Concent 32.2 G/DL (32.0-36.0) Red Cell Distribution Width 14.2 % (11.6-14.8) Platelet Count 186 K/UL (150-450) Mean Platelet Volume 11.2 FL (6.5-10.1) H Neutrophils (%) (Auto) 73.8 % (45.0-75.0) Lymphocytes (%) (Auto) 21.5 % (20.0-45.0) Monocytes (%) (Auto) 3.3 % (1.0-10.0) Eosinophils (%) (Auto) 1.0 % (0.0-3.0) Basophils (%) (Auto) 0.4 % (0.0-2.0) Prothrombin Time 10.3 SEC (9.30-11.50) Prothromb Time International Ratio 1.0 (0.9-1.1) Activated Partial Thromboplast Time 30 SEC (23-33) Sodium Level 147 MMOL/L (136-145) H Potassium Level 4.9 MMOL/L (3.5-5.1) Chloride Level 115 MMOL/L (98-107) H Carbon Dioxide Level 18 MMOL/L (21-32) L Anion Gap 14 mmol/L (5-15) Blood Urea Nitrogen 19 mg/dL (7-18) H Creatinine 0.9 MG/DL (0.55-1.30) Estimat Glomerular Filtration Rate > 60 mL/min (>60) Glucose Level 139 MG/DL (74-106) H Calcium Level 9.0 MG/DL (8.5-10.1) Plan Problems: (1) Malnutrition Assessment & Plan: ACUTE ISSUES ABNORMAL LABS, DEHYDRATION, CXR LUNGS CLEAR, PER DR CABRALES POOR INTAKE (H/O ADULT FTT). OTHER RELEVANT MED IS [place]. CT HEAD 07/24/19 POSTSURGICAL CHANGES, CHRONIC AGE-RELATED CHANGES, CHRONIC MICROVASCULAR ISCHEMIC CHANGES, RIGHT FRONTOPARIETAL AND TEMPORAL ENCEPHALOMALACIA AND OLD LEFT BASAL GANGLIA LACUNAR INFARCTS. H/O DYSPHAGIA ADULT FTT (WAS ON MARINOL FOR APPETITE AT SNF NOT NOW) AND UNDERWEIGHT PER 05/2019,CACHECTIC, CVA MD UROLOGIST, DEMENTIA, SEPSIS, GERD HEARTBURN, DM2, ANEMIA, UTI, Y[place]IRA, HTN. POSSIBLE COPD OR ASTHMA PER 06/08/19 CXR. PER POLST, NO TUBE FEEDINGS BUT WILL SPEAK TO DPOA PER DR CABRALES REQUEST TO SEE IF FAMILY IS RECEPTIVE TO PEG SINCE INTAKE VERY POOR OVERALL. Plan for PEG monday as per GI recommended and indicated (2) Severe protein-calorie malnutrition Assessment & Plan: DAILY ESTIMATED NEEDS: Needs based on Wound, Underweight/ 37kg 35-40 kcals/kg 5468-9895 total kcals 1.5-2 g protein/kg 56-74 g total protein 25-35ml/ kcal mL/kg 925-1295 total fluid mLs NUTRITION DIAGNOSIS: Increased kcal and pro needs R/T wound healing, underweight status as evidenced by admitted w/ stage 4 sacral wound, w/ generalized wasting w/ severe BL LE wasting, low BMI per guidelines, @70% [place] Body Weight. CURRENT DIET:NPO PO DIET RECOMMENDATIONS: Liberalized Diet/ texture per DATA MANAGEMENT SPECIALIST + Glucerna TID w/ meals ENTERAL NUTRITION RECOMMENDATIONS: * CONSULT RD IF NON ORAL FEEDS ARE PART OF POC * ADDITIONAL RECOMMENDATIONS: 1) Calibrated bedscale wt, weekly wt monitoring 2) Wound care: MVI w/ min 1 tab QD, Vit C 500mg BID ZnSO4 220mg QD x 10 days Eduardo 1pkt BID W/ oral diet 3) Glucerna 1 tetra didi TID w/ meals added (220kcal/10g prot per didi) 4) DATA MANAGEMENT SPECIALIST eval for appropriate texture- h/o CVA (3) Failure to thrive in adult (4) Sacral decubitus ulcer, stage IV Assessment & Plan: Pt presented on admission with resolving Full thickness stage 4 Sacral Pressure Injury(L)5.2cm x (W)13cm. Base of wound Has Two remaining full thickness wounds surrounded by Sibley epithelial. Full thickness wound L sacrum (L)4.3cm x (W)2.5cm x (D)0.7cm undermined borders clockwise 9-12 by 0.4cm @120'clock.Scattered slough within base of wound. An area that is black and indurated noted at Approx 4-8o'clock.No odor or exudate noted. Full Thickness Pressure injury R Sacrum(L)1.5cmx (W)1.3cm. Sibley granulation at base of wound. Borders are macerated. Scattered areas of hyperpigmentation noted to R and L Ischium . L trochanter noted to have darker skin tone over bony prominence.Pt denied pain when area palpated. Both heels are soft and easily blanchable. Tx.Plan: Cleanse Sacral wound with Saline. Apply TheraHoney to wounds R and L Sacrum. Apply Moisture Barrier Paste to epithelial areas of wound. Cover with Optifoam drsg. Change Daily and PRN. Apply Moisture Barrier Paste to R and L ischium with each incontinence care. Reposition at least every 2hours or as tolerated. Off-load heels with pillow. APM/KASEY Mattress. Noel Prescott Jul 29, 2019 15:43
[2019-07-29] MEDS ORDERED: Cefepime HCl 1 GM in D5W 55 ML IVPB SCH (21:00)
--- NOTE | 2019-07-29 22:13 | General Progress Note ---
Assessment/Plan Status: stable Assessment/Plan: Assessment - Anemia - anorexia / malnutrition - h/o CVA - hypernatremia - h/o decub ulcer - OBS Recommendations - IVF - EGD / PEG today Subjective Allergies: Coded Allergies: No Known Allergies (Unverified , 05/08/12) Subjective above noted NAD for PEG today Objective Last 24 Hour Vital Signs Date Time Temp Pulse Resp B/P (MAP) Pulse Ox O2 Delivery O2 Flow Rate FiO2 07/29/19 16:00 125 07/29/19 16:00 Room Air 07/29/19 16:00 98.6 103 18 140/70 (93) 100 07/29/19 12:00 107 07/29/19 12:00 Room Air 07/29/19 12:00 96.7 102 18 130/61 (84) 100 07/29/19 09:45 97.6 90 17 126/67 100 Room Air 07/29/19 09:35 82 15 132/72 100 Room Air 07/29/19 09:33 92 20 99 07/29/19 09:30 84 13 141/70 100 Nasal Cannula 3 07/29/19 09:26 97.7 87 14 133/78 100 Nasal Cannula 3 07/29/19 08:00 Room Air 07/29/19 08:00 84 07/29/19 08:00 97.3 104 18 135/55 (81) 98 07/29/19 04:00 Room Air 07/29/19 04:00 97.4 78 18 110/62 (78) 96 07/29/19 04:00 90 07/29/19 00:00 98 07/29/19 00:00 97.7 99 18 112/59 (76) 97 Intake and Output 07/28/19 07/29/19 19:00 07:00 Intake Total 440 ml Output Total 600 ml Balance -160 ml Intake Oral 440 ml Output Urine Total 600 ml # Voids 2 Laboratory Tests 07/29/19 05:35: White Blood Count 15.6H, Red Blood Count 3.05L, Hemoglobin 8.4L, Hematocrit 26.2L, Mean Corpuscular Volume 86, Mean Corpuscular Hemoglobin 27.6, Mean Corpuscular Hemoglobin Concent 32.2, Red Cell Distribution Width 14.2, Platelet Count 186, Mean Platelet Volume 11.2H, Neutrophils (%) (Auto) 73.8, Lymphocytes (%) (Auto) 21.5, Monocytes (%) (Auto) 3.3, Eosinophils (%) (Auto) 1.0, Basophils (%) (Auto) 0.4, Prothrombin Time 10.3, Prothromb Time International Ratio 1.0, Activated Partial Thromboplast Time 30, Sodium Level 147H, Potassium Level 4.9, Chloride Level 115H, Carbon Dioxide Level 18L, Anion Gap 14, Blood Urea Nitrogen 19H, Creatinine 0.9, Estimat Glomerular Filtration Rate > 60, Glucose Level 139H, Calcium Level 9.0 Height (Feet): 5 Height (Inches): 3.00 Weight (Pounds): 75 Objective Thin AA woman NCAT supple CTA RR abd soft No edema Kaila Gutierres MD Jul 29, 2019 22:13
--- NOTE | 2019-07-29 22:16 | Endoscopy Procedure Note ---
Endoscopy Procedure Note General Indication for Procedure: anemia, dysphagia Procedures Performed: EGD, PEG Operative Findings/Diagnosis: PEG Specimen: none Pt Tolerated Procedure Well: Yes Estimated Blood Loss: none Anesthesia Anesthesiologist: stephen Anesthesia: MAC Medications Medication Given: see anesthesia record Inserted Devices Implant(s) used?: No GI Core Measures 50 yrs or older w/o bx or poly: Not Applicable 10yrs. F/U recommended: Not Applicable Kaila Gutierres MD Jul 29, 2019 22:16
--- NOTE | 2019-07-29 22:17 | Brief Operative Note ---
Immediate Post Operative Note Operative Note Chief Complaint: anemia, dysphagia Pre-op Diagnosis: Dysphagia Procedure: EGD PEG Post-op Diagnosis: PEG Surgeon: kevan Anesthesiologist: stephen Anesthesia: MAC Specimen: none Complications: none Condition: stable Fluids: recorded Implant(s) used?: No Kaila Gutierres MD Jul 29, 2019 22:17
--- NOTE | 2019-07-29 23:00 | Operative Note - Dictated ---
DATE OF OPERATION: 07/29/2019 GASTROENTEROLOGY PROCEDURE REPORT PROCEDURE: Upper gastrointestinal endoscopy with enteroscopy as well as gastrostomy tube placement. SURGEON: Kaila Gutierres M.D. ANESTHESIA: Please see the separate anesthesiologist notes for details. PRE-ENDOSCOPIC DIAGNOSES: 1. Dysphagia. 2. Anemia. POST-ENDOSCOPIC DIAGNOSES: 1. Normal upper endoscopy. 2. Status post gastrostomy tube placement. PROCEDURE IN DETAIL: The procedure, its risks, alternatives, and possible complications were explained and informed consent was obtained. The patient was then sedated in the left lateral decubitus position. A diagnostic upper endoscope was introduced through oropharynx and advanced to the third portion of duodenum without difficulty. The endoscope was then gradually withdrawn and mucosa examined carefully. Examination of the upper gastrointestinal mucosa did not reveal any abnormalities. The location for placement of gastrostomy tube was identified by palpation and transillumination techniques. The outside skin was sterilely prepared, anesthetized, incised, and the trocar needle was used to place the gastrostomy tube using the standard pull technique. Position was verified endoscopically. The patient was sent to Recovery in good condition. COMPLICATIONS: None. RECOMMENDATIONS: 1. Observe overnight. 2. Begin tube feedings tomorrow. 3. Follow CBC. Kaila Gutierres M.D. DR: RAUL JOB#: [id number] CC:
[2019-07-30 00:28] VITALS: BP 124/53
[2019-07-30 04:30] VITALS: BP 118/68
[2019-07-30] MEDS: NovoLOG Insulin Flexpen SUBQ SCH ×2 (05:30→12:25)
--- NOTE | 2019-07-30 06:17 | General Progress Note ---
Assessment/Plan Problem List: (1) Dehydration ICD Codes: E86.0 - Dehydration SNOMED: 96938040 (2) Hypernatremia ICD Codes: E87.0 - Hyperosmolality and hypernatremia SNOMED: 544927287 (3) DM (diabetes mellitus) ICD Codes: E11.9 - Type 2 diabetes mellitus without complications SNOMED: 06487986 Status: stable Assessment/Plan: reduce Levemir to 7 units bid continue Novolog coverage discussed with RN Subjective ROS Limited/Unobtainable: Yes Allergies: Coded Allergies: No Known Allergies (Unverified , 05/08/12) Subjective events noted PEG placed - TF not started yet Dextrose is running at 70 cc/hour being cleaned - very uncomfortable Item Value Date Time Bedside Blood Glucose 190 mg/dl H 07/30/19 0554 Bedside Blood Glucose 120 mg/dl 07/29/19 2106 Bedside Blood Glucose 94 mg/dl 07/29/19 1659 Bedside Blood Glucose 107 mg/dl 07/29/19 1130 Objective Last 24 Hour Vital Signs Date Time Temp Pulse Resp B/P (MAP) Pulse Ox O2 Delivery O2 Flow Rate FiO2 07/30/19 04:30 97.2 102 20 118/68 (85) 100 07/30/19 04:10 107 07/30/19 04:06 Room Air 07/30/19 00:28 98.2 107 20 124/53 (76) 100 07/30/19 00:05 Room Air 07/29/19 21:00 Room Air 07/29/19 20:00 101.8 117 20 119/55 (76) 97 07/29/19 20:00 117 07/29/19 16:00 125 07/29/19 16:00 Room Air 07/29/19 16:00 98.6 103 18 140/70 (93) 100 07/29/19 12:00 107 07/29/19 12:00 Room Air 07/29/19 12:00 96.7 102 18 130/61 (84) 100 07/29/19 09:45 97.6 90 17 126/67 100 Room Air 07/29/19 09:35 82 15 132/72 100 Room Air 07/29/19 09:33 92 20 99 07/29/19 09:30 84 13 141/70 100 Nasal Cannula 3 07/29/19 09:26 97.7 87 14 133/78 100 Nasal Cannula 3 07/29/19 08:00 Room Air 07/29/19 08:00 84 07/29/19 08:00 97.3 104 18 135/55 (81) 98 Intake and Output 07/29/19 07/30/19 19:00 07:00 Intake Total 390 ml Output Total 0 ml Balance 390 ml Intake Oral 140 ml IV Total 250 ml Estimated Blood Loss 0 ml Height (Feet): 5 Height (Inches): 3.00 Weight (Pounds): 75 General Appearance: lethargic, cachetic Neck: normal alignment Cardiovascular: normal rate Respiratory/Chest: decreased breath sounds Abdomen: normal bowel sounds, other - PEG Objective Current Medications Medications (Trade) Dose Ordered Sig/Mar Route PRN Reason Start Time Stop Time Status Last Admin Dose Admin Acetaminophen/ Hydrocodone Bitart ([place] 5/325) 1 tab Q6H PRN ORAL For Pain 07/27/19 06:45 07/31/19 06:44 07/28/19 02:29 Cefepime HCl 1 gm/ Dextrose 55 ml @ 110 mls/hr Q24H IVPB 07/29/19 21:00 08/04/19 20:59 07/29/19 20:55 Dextrose 1,000 ml @ 70 mls/hr [id number] IV 07/29/19 15:00 08/28/19 14:59 07/30/19 05:05 Dextrose (Dextrose 50%) 25 ml Q30M PRN IV Hypoglycemia 07/27/19 06:45 08/24/19 06:44 Dextrose (Dextrose 50%) 50 ml Q30M PRN IV Hypoglycemia 07/27/19 06:45 08/24/19 06:44 Heparin Sodium (Porcine) (Heparin 5000 units/ml) 5,000 units EVERY 12 HOURS SUBQ 07/27/19 09:00 08/23/19 20:59 07/28/19 08:22 Insulin Aspart (NovoLOG) BEFORE MEALS AND HS SUBQ 07/27/19 06:30 08/23/19 16:29 07/28/19 17:04 Insulin Detemir (Levemir) 10 units BID SUBQ 07/27/19 09:00 08/24/19 08:59 07/29/19 08:21 Magnesium Hydroxide (Mom) 30 ml HSPRN PRN ORAL Constipation 07/27/19 06:45 08/23/19 06:44 Multivitamins (Multivitamins) 1 tab DAILY ORAL 07/27/19 09:00 08/23/19 13:29 07/29/19 08:15 Pantoprazole (Protonix) 40 mg DAILY ORAL 07/27/19 09:00 08/24/19 11:14 07/29/19 08:16 Luisito Quintero MD Jul 30, 2019 06:17
[2019-07-30 07:06] LABS: BASOPHILS % (AUTO) 0.5 % (0.0-2.0); EOSINOPHILS % (AUTO) 0.8 % (0.0-3.0); HEMATOCRIT 29.3 % (37.0-47.0); HEMOGLOBIN 9.9 G/DL (12.0-16.0); MEAN CORPUSCULAR VOLUME 84 FL (80-99); MONOCYTES % (AUTO) 4.8 % (1.0-10.0); NEUTROPHILS % (AUTO) 76.9 % (45.0-75.0); PLATELET COUNT 206 K/UL (150-450); RED BLOOD COUNT 3.47 M/UL (4.20-5.40); RED CELL DISTRIBUTION WIDTH 14.3 % (11.6-14.8); WHITE BLOOD COUNT 15.9 K/UL (4.8-10.8)
[2019-07-30 07:29] LABS: ANION GAP 14 mmol/L (5-15); BLOOD UREA NITROGEN 16 mg/dL (7-18); CALCIUM 9.6 MG/DL (8.5-10.1); CARBON DIOXIDE 19 MMOL/L (21-32); CHLORIDE 106 MMOL/L (98-107); POTASSIUM 4.1 MMOL/L (3.5-5.1); SODIUM 139 MMOL/L (136-145)
[2019-07-30 08:00] VITALS: BP 107/59
[2019-07-30] MEDS ORDERED: Levemir Flexpen SUBQ SCH (09:00)
[2019-07-30] MEDS: Heparin 5000 units/ml inj SUBQ SCH (09:28)
--- NOTE | 2019-07-30 10:37 | General Progress Note ---
Assessment/Plan Status: stable Assessment/Plan: S: no verbal communication O: cachectic appearance, Awake, poor historian. PHYSICAL EXAMINATION:HEAD AND NECK: Atraumatic and normocephalic. CHEST: Clear to auscultation. No wheezing. No crackles. HEART: S1, S2. Regular rate and rhythm. ABDOMEN: Soft, Post PEG-T placement . NEUROLOGY: The patient is AO x1. The patient has very limited significantly limited follow up on the instructions.MUSCULOSKELETAL: Atrophied musculatures. Positive for decubitus wounds including at the bilateral heel area. Chest x-ray 07/27/2019 reviewed. ASSESSMENT: 1. Sepsis 2. UTI- Gram negative - ESBL 3. Acute metabolic encephalopathy. 2. Hypernatremia. 3. Chronic encephalomalacia. 4. Dementia. 5. CVA. 6. Coronary artery disease. 7. Diabetes type 2. 8. GI and DVT prophylaxes. 9. Diastolic HF PLAN OF CARE: : S/P PEG tube placement . Antibiogram reviewd. Zosyn is started. Notified ID Subjective Allergies: Coded Allergies: No Known Allergies (Unverified , 05/08/12) Objective Last 24 Hour Vital Signs Date Time Temp Pulse Resp B/P (MAP) Pulse Ox O2 Delivery O2 Flow Rate FiO2 07/30/19 08:00 98.1 105 20 107/59 (75) 96 07/30/19 08:00 Room Air 07/30/19 07:42 97 07/30/19 04:30 97.2 102 20 118/68 (85) 100 07/30/19 04:10 107 07/30/19 04:06 Room Air 07/30/19 00:28 98.2 107 20 124/53 (76) 100 07/30/19 00:05 Room Air 07/29/19 21:00 Room Air 07/29/19 20:00 101.8 117 20 119/55 (76) 97 07/29/19 20:00 117 07/29/19 16:00 125 07/29/19 16:00 Room Air 07/29/19 16:00 98.6 103 18 140/70 (93) 100 07/29/19 12:00 107 07/29/19 12:00 Room Air 07/29/19 12:00 96.7 102 18 130/61 (84) 100 Intake and Output 07/29/19 07/30/19 19:00 07:00 Intake Total 390 ml Output Total 0 ml 300 ml Balance 390 ml -300 ml Intake Oral 140 ml IV Total 250 ml Output Urine Total 300 ml Estimated Blood Loss 0 ml Laboratory Tests 07/30/19 05:40: White Blood Count 15.9H, Red Blood Count 3.47L, Hemoglobin 9.9L, Hematocrit 29.3L, Mean Corpuscular Volume 84, Mean Corpuscular Hemoglobin 28.4, Mean Corpuscular Hemoglobin Concent 33.7, Red Cell Distribution Width 14.3, Platelet Count 206, Mean Platelet Volume 11.3H, Neutrophils (%) (Auto) 76.9H, Lymphocytes (%) (Auto) 17.0L, Monocytes (%) (Auto) 4.8, Eosinophils (%) (Auto) 0.8, Basophils (%) (Auto) 0.5, Sodium Level 139, Potassium Level 4.1, Chloride Level 106, Carbon Dioxide Level 19L, Anion Gap 14, Blood Urea Nitrogen 16, Creatinine 1.0, Estimat Glomerular Filtration Rate > 60, Glucose Level 196H, Calcium Level 9.6 Height (Feet): 5 Height (Inches): 3.00 Weight (Pounds): 75 Ariel Lassiter MD Jul 30, 2019 10:37
--- NOTE | 2019-07-30 10:42 | Infectious Diseases Prog Note ---
Assessment/Plan Assessment/Plan IMPRESSION: UTI with E coli ESBL Leukocytosis, worsening Hypernatremia, Acute renal failure, Dehydration, Elevated troponin, sacral pressure ulcer that is improving, cachexia, Diabetes mellitus, Dementia, History of previous CVA. Gastrostomy status RECOMMENDATIONS: Discontinue Cefepime Start on Meropenem Will f/u Urine culture Subjective ROS Limited/Unobtainable: Yes Constitutional: Reports: fever, other - fever of 101.8 last night Gastrointestinal/Abdominal: Reports: other - started on tube feeding Allergies: Coded Allergies: No Known Allergies (Unverified , 05/08/12) Objective Vital Signs Last 24 Hour Vital Signs Date Time Temp Pulse Resp B/P (MAP) Pulse Ox O2 Delivery O2 Flow Rate FiO2 07/30/19 08:00 98.1 105 20 107/59 (75) 96 07/30/19 08:00 Room Air 07/30/19 07:42 97 07/30/19 04:30 97.2 102 20 118/68 (85) 100 07/30/19 04:10 107 07/30/19 04:06 Room Air 07/30/19 00:28 98.2 107 20 124/53 (76) 100 07/30/19 00:05 Room Air 07/29/19 21:00 Room Air 07/29/19 20:00 101.8 117 20 119/55 (76) 97 07/29/19 20:00 117 07/29/19 16:00 125 07/29/19 16:00 Room Air 07/29/19 16:00 98.6 103 18 140/70 (93) 100 07/29/19 12:00 107 07/29/19 12:00 Room Air 07/29/19 12:00 96.7 102 18 130/61 (84) 100 Height (Feet): 5 Height (Inches): 3.00 Weight (Pounds): 75 General Appearance: cachetic HEENT: mucous membranes moist Respiratory/Chest: lungs clear Cardiovascular: tachycardia Abdomen: soft, non tender Extremities: no edema Neurologic/Psychiatric: other - sleeping Musculoskeletal: atrophy Microbiology Date/Time Source Procedure Growth Status 07/27/19 18:30 Urine,Clean Catch Urine Culture - Final Escherichia Coli - Esbl Complete Laboratory Tests Test 07/30/19 05:40 White Blood Count 15.9 K/UL (4.8-10.8) H Red Blood Count 3.47 M/UL (4.20-5.40) L Hemoglobin 9.9 G/DL (12.0-16.0) L Hematocrit 29.3 % (37.0-47.0) L Mean Corpuscular Volume 84 FL (80-99) Mean Corpuscular Hemoglobin 28.4 PG (27.0-31.0) Mean Corpuscular Hemoglobin Concent 33.7 G/DL (32.0-36.0) Red Cell Distribution Width 14.3 % (11.6-14.8) Platelet Count 206 K/UL (150-450) Mean Platelet Volume 11.3 FL (6.5-10.1) H Neutrophils (%) (Auto) 76.9 % (45.0-75.0) H Lymphocytes (%) (Auto) 17.0 % (20.0-45.0) L Monocytes (%) (Auto) 4.8 % (1.0-10.0) Eosinophils (%) (Auto) 0.8 % (0.0-3.0) Basophils (%) (Auto) 0.5 % (0.0-2.0) Sodium Level 139 MMOL/L (136-145) Potassium Level 4.1 MMOL/L (3.5-5.1) Chloride Level 106 MMOL/L (98-107) Carbon Dioxide Level 19 MMOL/L (21-32) L Anion Gap 14 mmol/L (5-15) Blood Urea Nitrogen 16 mg/dL (7-18) Creatinine 1.0 MG/DL (0.55-1.30) Estimat Glomerular Filtration Rate > 60 mL/min (>60) Glucose Level 196 MG/DL (74-106) H Calcium Level 9.6 MG/DL (8.5-10.1) Current Medications Medications (Trade) Dose Ordered Sig/Mar Route PRN Reason Start Time Stop Time Status Last Admin Dose Admin Acetaminophen/ Hydrocodone Bitart ([place] 5/325) 1 tab Q6H PRN ORAL For Pain 07/27/19 06:45 07/31/19 06:44 07/28/19 02:29 Dextrose 1,000 ml @ 70 mls/hr [id number] IV 07/29/19 15:00 08/28/19 14:59 07/30/19 05:05 Dextrose (Dextrose 50%) 25 ml Q30M PRN IV Hypoglycemia 07/27/19 06:45 08/24/19 06:44 Dextrose (Dextrose 50%) 50 ml Q30M PRN IV Hypoglycemia 07/27/19 06:45 08/24/19 06:44 Heparin Sodium (Porcine) (Heparin 5000 units/ml) 5,000 units EVERY 12 HOURS SUBQ 07/27/19 09:00 08/23/19 20:59 07/30/19 09:28 Insulin Aspart (NovoLOG) BEFORE MEALS AND HS SUBQ 07/27/19 06:30 08/23/19 16:29 07/28/19 17:04 Insulin Detemir (Levemir) 7 units BID SUBQ 07/30/19 09:00 08/24/19 08:59 07/30/19 09:27 Magnesium Hydroxide (Mom) 30 ml HSPRN PRN ORAL Constipation 07/27/19 06:45 08/23/19 06:44 Multivitamins (Multivitamins) 1 tab DAILY ORAL 07/27/19 09:00 08/23/19 13:29 07/30/19 09:26 Pantoprazole (Protonix) 40 mg DAILY ORAL 07/27/19 09:00 08/24/19 11:14 07/29/19 08:16 Piperacillin Sod/ Tazobactam Sod 3.375 gm/Sodium Chloride 110 ml @ 27.5 mls/hr EVERY 8 HOURS IVPB 07/30/19 10:45 08/04/19 10:44 Dallas Murillo MD Jul 30, 2019 10:42
[2019-07-30 12:00] VITALS: BP 108/60
[2019-07-30] MEDS: Piperacillin/Tazobactam 3.375 GM in NS 110 ML IVPB SCH ×2 (12:00→13:18)
--- NOTE | 2019-07-30 12:01 | Nephrology Progress Note ---
Assessment/Plan Problem List: (1) Hypernatremia Assessment: worse (2) DM (diabetes mellitus) (3) Severe protein-calorie malnutrition (4) Failure to thrive in adult (5) Sacral decubitus ulcer, stage IV (6) HTN (hypertension) (7) ARF (acute renal failure) Assessment: ok Plan TF Dc today Subjective Subjective was started On TF Objective Objective Last 24 Hour Vital Signs Date Time Temp Pulse Resp B/P (MAP) Pulse Ox O2 Delivery O2 Flow Rate FiO2 07/30/19 08:00 98.1 105 20 107/59 (75) 96 07/30/19 08:00 Room Air 07/30/19 07:42 97 07/30/19 04:30 97.2 102 20 118/68 (85) 100 07/30/19 04:10 107 07/30/19 04:06 Room Air 07/30/19 00:28 98.2 107 20 124/53 (76) 100 07/30/19 00:05 Room Air 07/29/19 21:00 Room Air 07/29/19 20:00 101.8 117 20 119/55 (76) 97 07/29/19 20:00 117 07/29/19 16:00 125 07/29/19 16:00 Room Air 07/29/19 16:00 98.6 103 18 140/70 (93) 100 Intake and Output 07/29/19 07/30/19 19:00 07:00 Intake Total 390 ml Output Total 0 ml 300 ml Balance 390 ml -300 ml Intake Oral 140 ml IV Total 250 ml Output Urine Total 300 ml Estimated Blood Loss 0 ml Laboratory Tests 07/30/19 05:40: White Blood Count 15.9H, Red Blood Count 3.47L, Hemoglobin 9.9L, Hematocrit 29.3L, Mean Corpuscular Volume 84, Mean Corpuscular Hemoglobin 28.4, Mean Corpuscular Hemoglobin Concent 33.7, Red Cell Distribution Width 14.3, Platelet Count 206, Mean Platelet Volume 11.3H, Neutrophils (%) (Auto) 76.9H, Lymphocytes (%) (Auto) 17.0L, Monocytes (%) (Auto) 4.8, Eosinophils (%) (Auto) 0.8, Basophils (%) (Auto) 0.5, Sodium Level 139, Potassium Level 4.1, Chloride Level 106, Carbon Dioxide Level 19L, Anion Gap 14, Blood Urea Nitrogen 16, Creatinine 1.0, Estimat Glomerular Filtration Rate > 60, Glucose Level 196H, Calcium Level 9.6 Height (Feet): 5 Height (Inches): 3.00 Weight (Pounds): 75 Cardiovascular: normal rate Respiratory/Chest: lungs clear Extremities: no edema Arnulfo Rain MD Jul 30, 2019 12:01
[2019-07-30] MEDS ORDERED: NOVOLOG100 UNITS1 SUBQ (12:06)
[2019-07-30] MEDS ORDERED: LEVEMIR FL100 UNIT/1 SUBQ (12:06)
--- NOTE | 2019-07-30 12:53 | Surgery Progress Note ---
Surgery Progress Note Subjective Additional Comments persistent leukocytosis exam stable comfortable labs reviewed Objective Last 24 Hour Vital Signs Date Time Temp Pulse Resp B/P (MAP) Pulse Ox O2 Delivery O2 Flow Rate FiO2 07/30/19 12:00 96.3 105 19 108/60 (76) 100 07/30/19 12:00 Room Air 07/30/19 08:00 98.1 105 20 107/59 (75) 96 07/30/19 08:00 Room Air 07/30/19 07:42 97 07/30/19 04:30 97.2 102 20 118/68 (85) 100 07/30/19 04:10 107 07/30/19 04:06 Room Air 07/30/19 00:28 98.2 107 20 124/53 (76) 100 07/30/19 00:05 Room Air 07/29/19 21:00 Room Air 07/29/19 20:00 101.8 117 20 119/55 (76) 97 07/29/19 20:00 117 07/29/19 16:00 125 07/29/19 16:00 Room Air 07/29/19 16:00 98.6 103 18 140/70 (93) 100 I&O Intake and Output 07/29/19 07/30/19 19:00 07:00 Intake Total 390 ml Output Total 0 ml 300 ml Balance 390 ml -300 ml Intake Oral 140 ml IV Total 250 ml Output Urine Total 300 ml Estimated Blood Loss 0 ml Dressing: other Wound: other Drains: other Cardiovascular: RSR Respiratory: decreased breath sounds Abdomen: non-tender, present bowel sounds Extremities: no tenderness, no cyanosis Laboratory Tests Test 07/30/19 05:40 White Blood Count 15.9 K/UL (4.8-10.8) H Red Blood Count 3.47 M/UL (4.20-5.40) L Hemoglobin 9.9 G/DL (12.0-16.0) L Hematocrit 29.3 % (37.0-47.0) L Mean Corpuscular Volume 84 FL (80-99) Mean Corpuscular Hemoglobin 28.4 PG (27.0-31.0) Mean Corpuscular Hemoglobin Concent 33.7 G/DL (32.0-36.0) Red Cell Distribution Width 14.3 % (11.6-14.8) Platelet Count 206 K/UL (150-450) Mean Platelet Volume 11.3 FL (6.5-10.1) H Neutrophils (%) (Auto) 76.9 % (45.0-75.0) H Lymphocytes (%) (Auto) 17.0 % (20.0-45.0) L Monocytes (%) (Auto) 4.8 % (1.0-10.0) Eosinophils (%) (Auto) 0.8 % (0.0-3.0) Basophils (%) (Auto) 0.5 % (0.0-2.0) Sodium Level 139 MMOL/L (136-145) Potassium Level 4.1 MMOL/L (3.5-5.1) Chloride Level 106 MMOL/L (98-107) Carbon Dioxide Level 19 MMOL/L (21-32) L Anion Gap 14 mmol/L (5-15) Blood Urea Nitrogen 16 mg/dL (7-18) Creatinine 1.0 MG/DL (0.55-1.30) Estimat Glomerular Filtration Rate > 60 mL/min (>60) Glucose Level 196 MG/DL (74-106) H Calcium Level 9.6 MG/DL (8.5-10.1) Plan Problems: (1) Malnutrition Assessment & Plan: ACUTE ISSUES ABNORMAL LABS, DEHYDRATION, CXR LUNGS CLEAR, PER DR CABRALES POOR INTAKE (H/O ADULT FTT). OTHER RELEVANT MED IS [place]. CT HEAD 07/24/19 POSTSURGICAL CHANGES, CHRONIC AGE-RELATED CHANGES, CHRONIC MICROVASCULAR ISCHEMIC CHANGES, RIGHT FRONTOPARIETAL AND TEMPORAL ENCEPHALOMALACIA AND OLD LEFT BASAL GANGLIA LACUNAR INFARCTS. 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 POSSIBLE COPD OR ASTHMA PER 06/08/19 CXR. PER [facility], NO TUBE FEEDINGS BUT WILL SPEAK TO DPOA PER DR CABRALES REQUEST TO SEE IF FAMILY IS RECEPTIVE TO PEG SINCE INTAKE VERY POOR OVERALL. Plan for PEG monday as per GI recommended and indicated (2) Severe protein-calorie malnutrition Assessment & Plan: DAILY ESTIMATED NEEDS: Needs based on Wound, Underweight/ 37kg 35-40 kcals/kg 7087-2482 total kcals 1.5-2 g protein/kg 56-74 g total protein 25-35ml/ kcal mL/kg 925-1295 total fluid mLs NUTRITION DIAGNOSIS: Increased kcal and pro needs R/T wound healing, underweight status as evidenced by admitted w/ stage 4 sacral wound, w/ generalized wasting w/ severe BL LE wasting, low BMI per guidelines, @70% [place] Body Weight. CURRENT DIET:NPO PO DIET RECOMMENDATIONS: Liberalized Diet/ texture per PORT TRAFFIC MANAGER + Glucerna TID w/ meals ENTERAL NUTRITION RECOMMENDATIONS: * CONSULT RD IF NON ORAL FEEDS ARE PART OF POC * ADDITIONAL RECOMMENDATIONS: 1) Calibrated bedscale wt, weekly wt monitoring 2) Wound care: MVI w/ min 1 tab QD, Vit C 500mg BID ZnSO4 220mg QD x 10 days Eduardo 1pkt BID W/ oral diet 3) Glucerna 1 tetra didi TID w/ meals added (220kcal/10g prot per didi) 4) PORT TRAFFIC MANAGER eval for appropriate texture- h/o CVA (3) Failure to thrive in adult (4) Sacral decubitus ulcer, stage IV Assessment & Plan: Pt presented on admission with resolving Full thickness stage 4 Sacral Pressure Injury(L)5.2cm x (W)13cm. Base of wound Has Two remaining full thickness wounds surrounded by [place] epithelial. Full thickness wound L sacrum (L)4.3cm x (W)2.5cm x (D)0.7cm undermined borders clockwise 9-12 by 0.4cm @120'clock.Scattered slough within base of wound. An area that is black and indurated noted at Approx 4-8o'clock.No odor or exudate noted. Full Thickness Pressure injury R Sacrum(L)1.5cmx (W)1.3cm. [place] granulation at base of wound. Borders are macerated. Scattered areas of hyperpigmentation noted to R and L Ischium . L trochanter noted to have darker skin tone over bony prominence.Pt denied pain when area palpated. Both heels are soft and easily blanchable. Tx.Plan: Cleanse Sacral wound with Saline. Apply TheraHoney to wounds R and L Sacrum. Apply Moisture Barrier Paste to epithelial areas of wound. Cover with Optifoam drsg. Change Daily and PRN. Apply Moisture Barrier Paste to R and L ischium with each incontinence care. Reposition at least every 2hours or as tolerated. Off-load heels with pillow. APM/KASEY Mattress. Noel Prescott Jul 30, 2019 12:53
--- NOTE | 2019-07-30 20:50 | General Progress Note ---
Assessment/Plan Status: stable Assessment/Plan: Assessment - Anemia - anorexia / malnutrition - h/o CVA - hypernatremia - h/o decub ulcer - OBS Recommendations - IVF - EGD / PEG today Subjective Allergies: Coded Allergies: No Known Allergies (Unverified , 05/08/12) Subjective above noted NAD s/p PEG yesterday for discharge today Objective Last 24 Hour Vital Signs Date Time Temp Pulse Resp B/P (MAP) Pulse Ox O2 Delivery O2 Flow Rate FiO2 07/30/19 12:00 96.3 105 19 108/60 (76) 100 07/30/19 12:00 Room Air 07/30/19 11:40 91 07/30/19 08:00 98.1 105 20 107/59 (75) 96 07/30/19 08:00 Room Air 07/30/19 07:42 97 07/30/19 04:30 97.2 102 20 118/68 (85) 100 07/30/19 04:10 107 07/30/19 04:06 Room Air 07/30/19 00:28 98.2 107 20 124/53 (76) 100 07/30/19 00:05 Room Air 07/29/19 21:00 Room Air Intake and Output 07/29/19 07/30/19 19:00 07:00 Intake Total 390 ml Output Total 0 ml 300 ml Balance 390 ml -300 ml Intake Oral 140 ml IV Total 250 ml Output Urine Total 300 ml Estimated Blood Loss 0 ml Laboratory Tests 07/30/19 05:40: White Blood Count 15.9H, Red Blood Count 3.47L, Hemoglobin 9.9L, Hematocrit 29.3L, Mean Corpuscular Volume 84, Mean Corpuscular Hemoglobin 28.4, Mean Corpuscular Hemoglobin Concent 33.7, Red Cell Distribution Width 14.3, Platelet Count 206, Mean Platelet Volume 11.3H, Neutrophils (%) (Auto) 76.9H, Lymphocytes (%) (Auto) 17.0L, Monocytes (%) (Auto) 4.8, Eosinophils (%) (Auto) 0.8, Basophils (%) (Auto) 0.5, Sodium Level 139, Potassium Level 4.1, Chloride Level 106, Carbon Dioxide Level 19L, Anion Gap 14, Blood Urea Nitrogen 16, Creatinine 1.0, Estimat Glomerular Filtration Rate > 60, Glucose Level 196H, Calcium Level 9.6 Height (Feet): 5 Height (Inches): 3.00 Weight (Pounds): 75 Objective Thin AA woman NCAT supple CTA RR abd soft , (+) GT No edema Kaila Gutierres MD Jul 30, 2019 20:50
--- NOTE | 2019-07-31 12:44 | CDS Physician Query ---
Clarification is required for compliance, coding accuracy, and to reflect severity of illness for this patient Dear Dr. Edna Lassiter Date: 07/31/2019 Oral Communication Instructor/CDS Name: Anitha Smith Clinical documentation states: HNP: 79-year-old female, residing in a [place] [facility] facility, who presented for the abnormal blood work and change in the mental status...Acute metabolic encephalopathy 07/28 note: Assessment: Sepsis...UTI- Gram negative Vitals on admission 07/23: WBC 17.5, Temp 98.8, NC 95, RR 20 Clarification is needed for one (or more) of the following conditions in order to accurately assign the "present on admission' indicator. Please choose the answer that best indicates whether the associated condition was present at the time of the order for inpatient admission. Thank you. Was the Sepsis Present on admission? [x] YES [] NO [] Clinically Undeterminable Physician signature Date Please also document in your Progress Notes and/or Discharge Summary and indicate if the condition was present on admission. TERELL
--- NOTE | 2019-08-01 10:56 | Discharge Summary ---
Discharge Summary Discharge Summary _ DATE OF ADMISSION: 07/24/2019 DATE OF DISCHARGE: 07/30/2019 DISCHARGED BY: Dr. Lassiter REASON FOR ADMISSION: 79 years old female with past medical history of hypertension, diabetes mellitus , CVA with left-sided weakness, dementia, was sent from the nursing facility due to abnormal labs . Upon evaluation blood pressure was low . Laboratory work-up revealed leukocytosis WBC 17.5, hemoglobin 10.6, hematocrit 24.6, platelet count 168. Sodium 173, potassium 5.1, chloride 134. BUN 93, creatinine 1.6. Lactic acid 1.9. Troponin 0.071. EKG revealed sinus rhythm, no acute ischemic changes. stable LFT. Albumin 2.5. Urinalysis revealed +1 leukocyte esterase, no pyuria , few bacteria , +[address] of the head demonstrated chronic and age-related changes, including right frontoparietal temporal encephalomalacia, chronic microvascular ischemic changes , old left basal ganglia lacunar infarct. Negative for acute intracranial bleeding or mass-effect. Chest x-ray demonstrated no acute cardiopulmonary pathology. In emergency department patient started on the IV fluids, received Lovenox for possible NSTEMI and admitted to telemetry floor for further management. CONSULTANTS: ID specialist Dr. Dallas Rain GI specialist Dr. Gutierres Endocrinology Dr. Quintero social service manager Dr. Arnulfo Rain surgery Dr. Prescott [facility] COURSE: Patient admitted to telemetry floor. Patient was started on IV fluids and empiric antibiotics. Serial troponin were followed: second troponin trending down 0.057. Echocardiogram demonstrated preserved ejection fraction 55 to 60% with no evidence of wall motion abnormality. Mild left ventricular hypertrophy. No pericardial effusion. Right ventricular systolic pressure of 40 consistent with moderate pulmonary hypertension. Troponin elevation was likely due to troponin leak secondary to acute renal failure. Volumes were closely monitored. Patient did not appear to be in decompensated congestive heart failure. Blood cultures were negative. Urine culture revealed E. coli ESBL. Repeated blood cultures were negative as well. Patient continued to have leukocytosis , no fevers. Antibiotic regimen was optimized as per ID specialist recommendation . Patient will need to continue meropenem at the facility to complete the course. Renal parameters and electrolytes were closely monitored, electrolytes corrected as needed , and nephrotoxic's were avoided. Prior to discharge sodium from 173 down to 139, chloride from 134 down to 106. Potassium 4.1. All electrolytes corrected. BUN from 93 down to 16 and a creatinine from 1.6 down to 1.0. Acute renal failure resolved , which was likely due to dehydration. GI specialist followed. Patient failed bedside swallow evaluation. Patient initially had an nasogastric tube feeding. Patient required permanent feeding tube. The indications, risks, alternatives and possible complications of procedure were explained to the patient DURABLE POWER OF PAGINATOR and informed consent was obtained. Patient subsequently undergone upper endoscopy with enteroscopy and gastrostomy tube placement on 07/28. Patient started on tube feeding the next day with tube feeding formula , goal rate and protein supplements as per registered medical assistant recommendation. Strict aspiration precaution maintained. G-tube site care continued. Hemoglobin and hematocrit were closely monitored with goal to keep hemoglobin above 7, remained at the baseline. Prior to discharge hemoglobin 9.9 ,hematocrit 29.3. Speed Operator followed for diabetes mellitus [id number]. Hemoglobin A1c 9.4. Blood sugar was managed with long-acting Levemir and NovoLog coverage. Hypoglycemia protocol was in order. Further adjustment in medications were made based on the blood glucose values. Wound care provided as per surgery recommendations for sacral decubitus ulcer stage IV present on admission. Continue wound care at the facility. Supportive care provided. Bowel regimen instituted. DVT and GI prophylaxis provided. Patient clinically stabilized and was ready for discharge to [facility] facility for continuation of care. FINAL DIAGNOSES: Sepsis UTI with E. coli ESBL Acute renal failure due to dehydration - resolved Hypernatremia -resolved Elevated troponin, likely troponin leak due to acute renal failure-trending down Severe protein calorie malnutrition Acute metabolic encephalopathy Diabetes mellitus [id number]/ Hgb A1c 9.4 Dysphagia, status post EGD with enteroscopy and G-tube placement Sacral pressure ulcer stage 4, present on admission Chronic encephalomalacia History of CVA Dementia Coronary artery disease Congestive heart failure with diastolic dysfunction DISCHARGE MEDICATIONS: See Medication Reconciliation list. DISCHARGE INSTRUCTIONS: Patient was discharged to the [facility] facility. Follow up with medical doctor at the facility. I have been assigned to dictate discharge summary for this account. I was not involved in the patient's management. Cari Paz NP Aug 01, 2019 10:56
== END 2019-07-30 16:14 | DRG 871 ==
LOC: EDUNIT# 10:41 → EDBD 10:41 → EMR 11:55 → EDBEDREQ 13:11 → 2E 13:35 → EDBEDREQSVC 13:41 → EDBEDREQ 13:41 → 2W 13:56 → 2E 07-27 06:00
PROC: 0DH63UZ Insertion of Feeding Device into Stomach, Percutaneous Approach (ICD-10-PCS; principal; 2019-07-29 09:09)
DX: A41.9 Sepsis, unspecified organism (principal); L89.154 Pressure ulcer of sacral region, stage 4; E43 Unspecified severe protein-calorie malnutrition; G93.41 Metabolic encephalopathy; E87.0 Hyperosmolality and hypernatremia; Z68.1 Body mass index [BMI] 19.9 or less, adult; N17.9 Acute kidney failure, unspecified; I50.32 Chronic diastolic (congestive) heart failure; N39.0 Urinary tract infection, site not specified; I11.0 Hypertensive heart disease with heart failure; R62.7 Adult failure to thrive; E11.65 Type 2 diabetes mellitus with hyperglycemia; Z86.73 Personal history of transient ischemic attack (TIA), and cerebral infarction without residual deficits; Z79.4 Long term (current) use of insulin; G93.89 Other specified disorders of brain; D64.9 Anemia, unspecified
CPT/HCPCS: 36415; 70450; 71045; 80048; 80053; 80061; 81003; 82550; 82962; 83036; 83605; 83690; 83735; 83880; 84100; 84484; 85025; 85610; 85730; 86850; 86900; 86901; 87040; 87081; 87086; 87181; 93005; 93306; 94003; 94150; 96360; 96372; 99291; J1815; J7030; S5561